=== PATIENT | female | born 1940 | race American Indian/Alaskan Native ===

== ENCOUNTER 2016-11-05 14:15 | Inpatient (IN) | payer MEDICARE, MEDICAID ==
--- NOTE | 2016-11-05 14:59 | ED PDOC ---
Arrival/HPI - General Chief Complaint: Dizziness/Lightheaded Time Seen by Provider: 11/05/16 14:27 Historian: Patient - History of Present Illness Narrative History of Present Illness (Text): 11/05/16 14:40 a 76 year old female, whose past medical history includes lung cancer on chemotherapy, last treatment was last week, is presenting to the emergency department with complaints of slurred speech which began two days ago when she woke up. The patient reports her speech feels jumbled, has difficulty finding words, and has generalized weakness. She notes her symptoms are constant since onset. The patient denies any chest pain, shortness of breath, nausea, vomiting , diarrhea, or any other complaints at this time. Time/Duration: < week (2 days) Symptom Onset: Sudden Symptom Course: Unchanged Activities at Onset: Rest, Light Context: Home Past Medical History - Provider Review Nursing Documentation Reviewed: Yes - Infectious Disease Hx of Infectious Diseases: None - Cardiac Hx Cardiac Disorders: Yes Hx Hypertension: Yes Hx Peripheral Edema: Yes - Pulmonary Hx Respiratory Disorders: Yes Hx Chronic Obstructive Pulmonary Disease (COPD): Yes Hx Emphysema: Yes Hx Lung Cancer: Yes Hx Pneumonia: Yes (FEB 2016 HOSPITALIZED) - Neurological Hx Neurological Disorder: No Hx Vertigo: Yes - HEENT Hx HEENT Disorder: Yes Hx Cataracts: Yes Other/Comment: hearing impairment - Renal Hx Renal Disorder: No - Endocrine/Metabolic Hx Endocrine Disorders: Yes (ENLARGED THYRIOD NOT CANCEROUS) - Hematological/Oncological Hx Blood Disorders: Yes Hx Blood Transfusions: No Hx Blood Transfusion Reaction: No Hx Cancer: Yes (BREAST HX RADIATION 2006) Other/Comment: Radiation therapy for breast cancer. lung CA currently under Chemo. Last Tx was last week. - Integumentary Hx Dermatological Disorder: No - Musculoskeletal/Rheumatological Hx Musculoskeletal Disorders: No Hx Falls: No - Gastrointestinal Hx Gastrointestinal Disorders: No - Genitourinary/Gynecological Hx Genitourinary Disorders: No - Psychiatric Hx Psychophysiologic Disorder: No Hx Substance Use: No - Surgical History Hx Vascular Access Device: Yes (R PortACath) - Anesthesia Hx Anesthesia: Yes Hx Anesthesia Reactions: No Hx Malignant Hyperthermia: No - Suicidal Assessment Feels Threatened In Home Enviroment: No Family/Social History - Physician Review Nursing Documentation Reviewed: Yes Family/Social History: Unknown Family HX Smoking Status: Never Smoked Hx Alcohol Use: No Hx Substance Use: No Allergies/Home Meds Allergies/Adverse Reactions: Allergies No Known Allergies Allergy (Verified 11/05/16 14:47) Home Medications: Home Meds Medication Instructions Recorded Confirmed Unobtainable 11/05/16 11/05/16 Review of Systems - Physician Review All systems were reviewed & negative as marked: Yes - Review of Systems Constitutional: Other (Generalized weakness) Respiratory: absent: SOB Cardiovascular: absent: Chest Pain Gastrointestinal: absent: Diarrhea, Nausea, Vomiting Neurological: Headache (yesterday but not today), Speech Changes (Slurred/ jumbled). absent: Focal Weakness Physical Exam Vital Signs Reviewed: Yes Vital Signs Temp Pulse Resp BP Pulse Ox 11/05/16 18:59 98.1 F 83 19 122/66 11/05/16 18:42 98.6 F 82 19 130/71 11/05/16 18:26 98.6 F 82 19 132/70 98 11/05/16 15:42 98 F 83 20 121/65 100 - Systems Exam Head: Present: Atraumatic, Normocephalic Pupils: Present: PERRL Extroacular Muscles: Present: EOMI Mouth: Present: Moist Mucous Membranes, Other (Mild speech delay/ no aphasia) Neck: Present: Normal Range of Motion Respiratory/Chest: Present: Clear to Auscultation, Good Air Exchange. No: Respiratory Distress, Accessory Muscle Use Cardiovascular: Present: Regular Rate and Rhythm, Normal S1, S2. No: Murmurs Abdomen: Present: Normal Bowel Sounds. No: Tenderness, Distention, Peritoneal Signs Upper Extremity: Present: Normal Inspection. No: Cyanosis, Edema Lower Extremity: Present: Normal Inspection. No: Edema Neurological: Present: GCS=15, Speech Normal, Motor Func Grossly Intact, Normal Sensory Function, Other (No focal deficits) Skin: Present: Warm, Dry, Normal Color. No: Rashes Psychiatric: Present: Alert, Oriented x 3, Normal Insight, Normal Concentration Medical Decision Making ED Course and Treatment: 11/05/16 15:04 Progress Notes: EKG: Ordered, reviewed, and independently interpreted the EKG. Rate : 84 BPM Rhythm : NSR Interpretation : Left bundle branch block Comparison : No previous EKG for comparison. 11/05/16 17:00 ICU doctor at bedside- rec 3 bags of plts platelets and prbc ordered disc krysten Jauregui- no further intervention at this time. the pt was transferred up to ICU in stable condition - Critical Care Critical Care Minutes: 60 minutes - Lab Interpretations Lab Results: 11/05/16 15:40 11/05/16 15:40 Lab Results 11/05/16 16:30: Blood Type A POSITIVE, Antibody Screen Negative, Crossmatch See Detail, BBK History Checked Patient has bt 11/05/16 15:40: POC Glucose (mg/dL) 149 H 11/05/16 15:40: Sodium 138, Potassium 3.7, Chloride 104, Carbon Dioxide 22, Anion Gap 16, BUN 19, Creatinine 1.2, Est GFR ( Amer) 53, Est GFR (Non- Af Amer) 44, Random Glucose 117 H, Calcium 8.3 L, Total Bilirubin 0.6, AST 25, ALT 28, Alkaline Phosphatase 122, Troponin I 0.69 H*, Total Protein 6.4, Albumin 3.7, Globulin 2.6, Albumin/Globulin Ratio 1.4, Triglycerides 114, Cholesterol 179, LDL Cholesterol Direct 97, HDL Cholesterol 65 H 11/05/16 15:40: PT 12.1 H, INR 1.12 H, APTT 25.8 11/05/16 15:40: WBC 1.1 L* D, RBC 1.96 L, Hgb 6.6 L* D, Hct 19.1 L*, MCV 97.4, MCH 33.7, MCHC 34.6, RDW 17.4 H, Plt Count 3 L*, Neutrophils % (Manual) 2 L, Lymphocytes % (Manual) 98 H, Monocytes % (Manual) 0 L, Platelet Evaluation Low 11/05/16 14:31: POC Glucose (mg/dL) 135 H - RAD Interpretation Radiology Orders: 11/05/16 14:47 CHEST PORTABLE [RAD] Stat 11/05/16 14:48 HEAD W/O CONTRAST [CT] Stat - Scribe Statement The provider has reviewed the documentation as recorded by the Rajinder Riley Provider Scribe Attestation: All medical record entries made by the Scribe were at my direction and personally dictated by me. I have reviewed the chart and agree that the record accurately reflects my personal performance of the history, physical exam, medical decision making, and the department course for this patient. I have also personally directed, reviewed, and agree with the discharge instructions and disposition. Disposition/Present on Arrival - Present on Arrival Any Indicators Present on Arrival: No History of DVT/PE: No History of Uncontrolled Diabetes: No Urinary Catheter: No History of Decub. Ulcer: No History Surgical Site Infection Following: None - Disposition Have Diagnosis and Disposition been Completed?: Yes Diagnosis: Subarachnoid hemorrhage, Thrombocytopenia, Anemia, Leukopenia Disposition: HOSPITALIZED Disposition Time: 17:04 Patient Problems: Current Active Problems Problem Status Onset Anemia Acute Leukopenia Acute Subarachnoid hemorrhage Acute Thrombocytopenia Acute Condition: SERIOUS
[2016-11-05 15:59] LABS: MEAN CELL VOLUME 97.4 fL (80.0-105.0); MEAN CORPUSCULAR HEMOGLOBIN 33.7 pg (25.0-35.0); MEAN CORPUSCULAR HGB CONC 34.6 g/dl (31.0-37.0); RBC 1.96 10^6/uL (3.5-6.1); RED CELL DISTRIBUTION WIDTH 17.4 % (11.5-14.5)
[2016-11-05 16:10] LABS: ALB/GLOB RATIO 1.4 (1.1-1.8); ALBUMIN 3.7 g/dL (3.0-4.8); CALCIUM 8.3 mg/dL (8.4-10.5)
[2016-11-05 16:12] LABS: INR 1.12 (0.93-1.08); PARTIAL THROMBOPLASTIN TIME 25.8 Seconds (23.7-30.8); PROTHROMBIN TIME 12.1 Seconds (9.9-11.8)
[2016-11-05 16:31] LABS: TROPONIN I 0.69 ng/mL
[2016-11-05 16:45] LABS: HEMOGLOBIN 6.6 gm/dL (12.0-16.0); PLATELET COUNT 3 10^3/uL (120.0-450.0); WHITE BLOOD COUNT 1.1 10^3/ul (4.5-11.0)
--- NOTE | 2016-11-05 16:45 | CT ---
PROCEDURE: CT HEAD WITHOUT CONTRAST. HISTORY: slurred speech COMPARISON: None available. TECHNIQUE: Axial computed tomography images were obtained through the head/brain without intravenous contrast. Radiation dose: Total exam DLP = 774.23 mGy-cm. This CT exam was performed using one or more of the following dose reduction techniques: Automated exposure control, adjustment of the mA and/or kV according to patient size, and/or use of iterative reconstruction technique. FINDINGS: HEMORRHAGE: There is a small left frontal subarachnoid hemorrhage. BRAIN: There is no mass or mass effect. There are mild chronic microangiopathic changes. 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 VENTRICLES: There is mild age-related global parenchymal volume loss and proportionate enlargement of the ventricles and cortical sulci. CALVARIUM: The skull base and calvarium are normal. Mild hyperostosis frontalis interna. PARANASAL SINUSES: Predominantly clear. MASTOID AIR CELLS: Predominantly clear. OTHER FINDINGS: None. IMPRESSION: 1. Small left frontal subarachnoid hemorrhage. 2. Mild chronic microangiopathic changes and mild age-related global parenchymal volume loss. 3. 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 Critical findings were discussed with Dr. Wilson Sanz on 11/05/2016 at 4:40 p.m.
[2016-11-05 17:19] LABS: LYMPHOCYTE 98 % (22.0-35.0); NEUTROPHIL 2 % (50.0-70.0); PLATELET ESTIMATE LOW (NORMAL)
[2016-11-05 17:27] LABS: MONOCYTE 0 % (1.0-6.0)
--- NOTE | 2016-11-05 17:29 | RAD ---
HISTORY: weakness COMPARISON: None available. FINDINGS: LUNGS: No acute infiltrate is identified in the pulmonary vascular pattern appears normal. Small nodular density at the left 6th intercostal space, midclavicular line, which is a typical location for nipple shadow. Follow-up nipple shadow radiograph is recommended to confirm this finding as there is no comparison available. Right-sided LifePort calcified with placed with the tip terminating at the atrial -caval junction region PLEURA: No significant pleural effusion identified, no pneumothorax apparent. CARDIOVASCULAR: Normal. OSSEOUS STRUCTURES: No significant abnormalities. VISUALIZED UPPER ABDOMEN: Normal. OTHER FINDINGS: None. IMPRESSION: 1. No acute infiltrate or pleural effusion identified. Normal cardiac size. 2. Prior life port catheter placement. 3. Nodular density at the left base likely reflects nipple shadow. Repeat chest radiograph with nipple markers advised versus chest CT. Discrepancy ER note and PA review SI and to 7 case.
--- NOTE | 2016-11-05 18:07 | CP.PCM.CON ---
<CA CHAN - Last Filed: 11/05/16 18:21> History of Present Illness - History of Present Illness History of Present Illness: 76F with PMH of breast cancer (currently on chemo) and [place] s/p 2 stents, presented to ED for slurred speech and AMS x past 3 days. She received chemotherapy 2 weeks earlier, and was receiving unknown injections at Dr Rodriguez's ( Oncologist) office this Monday. On , she had a sudden onset of slurred speech and altered mentation. Son noticed it today, and brought her to ER. She c /o mild right sided weakness and some nausea. Denies f/c/vomiting, cp, sob, abdominal pain, urinary frequency/burning. In Ed, pt AAOx3, + slurred speech, pancytopenic, wbc 1.1, hgb 6.6, plts 3, elevated trop 0.69, head Ct significant for small L frontal SAH. ICU consulted for airway protection, possible further deterioration/management. PMH: breast cancer (on chemotherapy), [place] in 2004, s/p 2 stents PSH: None All: NKA SH: Quit smoking February 2016, No etoh/drug use. Oncologist: Dr. Rodriguez Review of Systems - Constitutional Constitutional: Headache, Lethargy. absent: Chills, Night Sweats - EENT Eyes: absent: Change in Vision - Cardiovascular Cardiovascular: absent: Chest Pain, Diaphoresis, Dyspnea, Radiating Pain - Respiratory Respiratory: absent: Cough - Gastrointestinal Gastrointestinal: Nausea. absent: Abdominal Pain, Vomiting - Genitourinary Genitourinary: absent: Urinary Frequency, Urinary Hesitance - Neurological Neurological: Abnormal Gait, Abnormal Speech, Headaches, Weakness. absent: Dizziness - Endocrine Endocrine: absent: Excessive Sweating - Hematologic/Lymphatic Hematologic: absent: Easy Bruising Past Patient History - Infectious Disease Hx of Infectious Diseases: None - Past Medical History & Family History Past Medical History?: Yes - Past Social History Smoking Status: Former Smoker Chewing Tobacco Use: No Alcohol: None Drugs: Denies Home Situation {Lives}: Alone - CARDIAC Hx Cardiac Disorders: Yes Hx Hypertension: No Hx Peripheral Edema: No - PULMONARY Hx Respiratory Disorders: Yes Hx Chronic Obstructive Pulmonary Disease (COPD): Yes Hx Emphysema: Yes Hx Lung Cancer: Yes Hx Pneumonia: Yes (FEB 2016 HOSPITALIZED) - NEUROLOGICAL Hx Neurological Disorder: No Hx Vertigo: Yes - HEENT Hx HEENT Problems: Yes Hx Cataracts: Yes Other/Comment: hearing impairment - RENAL Hx Chronic Kidney Disease: No - ENDOCRINE/METABOLIC Hx Endocrine Disorders: Yes (ENLARGED THYRIOD NOT CANCEROUS) - HEMATOLOGICAL/ONCOLOGICAL Hx Blood Disorders: Yes Hx Blood Transfusions: No Hx Blood Transfusion Reaction: No Hx Cancer: Yes (BREAST HX RADIATION 2006) Other/Comment: Radiation therapy for breast cancer. lung CA currently under Chemo. Last Tx was last week. - INTEGUMENTARY Hx Dermatological Problems: No - MUSCULOSKELETAL/RHEUMATOLOGICAL Hx Musculoskeletal Disorders: No Hx Falls: No - GASTROINTESTINAL Hx Gastrointestinal Disorders: No - GENITOURINARY/GYNECOLOGICAL Hx Genitourinary Disorders: No - PSYCHIATRIC Hx Psychophysiologic Disorder: No Hx Substance Use: No - SURGICAL HISTORY Hx Vascular Access Device: Yes (R PortACath) - ANESTHESIA Hx Anesthesia: Yes Hx Anesthesia Reactions: No Hx Malignant Hyperthermia: No Meds Allergies/Adverse Reactions: Allergies Allergy/AdvReac Type Severity Reaction Status Date / Time No Known Allergies Allergy Verified 11/05/16 14:47 Physical Exam - Constitutional Appears: No Acute Distress - Head Exam Head Exam: ATRAUMATIC, NORMOCEPHALIC - Eye Exam Eye Exam: PERRL - ENT Exam ENT Exam: Mucous Membranes Moist - Respiratory Exam Respiratory Exam: Clear to Auscultation Bilateral - Cardiovascular Exam Cardiovascular Exam: REGULAR RHYTHM, +S1, +S2. absent: Systolic Murmur - GI/Abdominal Exam GI & Abdominal Exam: Normal Bowel Sounds, Soft. absent: Distended, Tenderness - Extremities Exam Extremities exam: Negative for: calf tenderness, pedal edema - Neurological Exam Neurological exam: Alert, CN II-XII Intact, Oriented x3 Additional comments: slurred speech. RUE 4/5, LUE 5/5, RLE and LLE 5/5. Sensation intact throughout. Reflexes biceps, patellar, achilles 2/4. - Psychiatric Exam Psychiatric exam: Normal Affect, Normal Mood - Skin Skin Exam: Dry, Warm Results - Vital Signs Recent Vital Signs: Last Vital Signs Temp 98 F 11/05/16 15:42 Pulse 83 11/05/16 15:42 Resp 20 11/05/16 15:42 BP 121/65 11/05/16 15:42 Pulse Ox 100 11/05/16 15:42 - Labs Result Diagrams: 11/05/16 15:40 11/05/16 15:40 - EKG Data EKG Interpreted by: ER Physician EKG shows normal: Sinus rhythm Rate: Normal Assessment & Plan - Assessment and Plan (Free Text) Assessment: 76F with PMH lung cancer (on chemo), breast cancer and [place] s/p stents, found to have acute SAH, in the setting of pancytopenia, plts 6, admitted to ICU for airway protection and further managament. Plan: Neuro: AAOx3. Slurred speech and lethargic for past [address] head shows L small frontal SAH. Mild RUE weakness, has had it for a long time. will c/s Neurosx and Neurology. Cont to monitor. CV : BP 125/67, NSR. trop elevated 0.69. will c/s cardio. Ekg No St changes. Maintain MAP>65. Cont to monitor. Pulm: On RA. Saturating well. Maintain O2 sat>90% Hx of lung ca on chemo, will hold for now. hx of smoking. Protect airway, in the setting of AMS. CXR neg for infiltrates GI: NPO. protonix Renal /fluids/Electrolytes: BUN/Cr 19/1.2. Replace lytes, maintain euvolemia. Continue to monitor. ID: Afebrile, wbc 1.1, leukopenic likely form chemo. cont to monitor. Endo: No hx of DM. Maintain euglycemia. Heme: Hgb 6.6. no sob, cp. Plts 3, in the setting of SAH, will transfuse 3-4 bags platelets. Cont to monitor. DVT ppx - thrombocytopenic GI ppx - start protonix Discussed and seen with Dr. Briseno. Ca Chan, PGY1 - Date & Time Date: 11/05/16 Time: 18:21 <Cristian Briseno - Last Filed: 11/06/16 08:18> Meds - Medications Medications: Current Medications Acetaminophen (Ofirmev) 1,000 mg in 100 mls @ 400 mls/hr IVPB Q6H PRN PRN Reason: Temperature Stop: 11/08/16 01:29 Last Admin: 11/06/16 01:35 Dose: 400 mls/hr Potassium Chloride (Potassium Chloride 10 Meq/100 Ml) 10 meq in 100 mls @ 100 mls/hr IVPB ONCE ONE Stop: 11/06/16 08:15 Results - Vital Signs Recent Vital Signs: Last Vital Signs Temp 98.5 F 11/06/16 04:00 Pulse 80 11/06/16 05:30 Resp 16 11/06/16 05:30 BP 128/69 11/06/16 05:00 Pulse Ox 96 11/06/16 05:30 - Labs Result Diagrams: 11/06/16 05:00 11/06/16 05:00 Labs: Laboratory Results - last 24 hr 11/05/16 11/05/16 11/06/16 21:15 23:06 05:00 WBC 1.3 L* 1.3 L* RBC 1.97 L 2.71 L Hgb 6.4 L* 8.6 L Hct 19.1 L* 25.1 L MCV 97.0 92.6 MCH 32.5 31.7 MCHC 33.5 34.3 RDW 17.4 H 16.8 H Plt Count 45 L* 57 L MPV 9.6 9.8 Gran % 1.5 L 1.5 L Lymph % (Auto) 97.0 H 97.7 H [place] % (Auto) 1.5 0.8 L Eos % (Auto) 0.0 L 0.0 L Baso % (Auto) 0.0 0.0 Gran # 0.02 L 0.02 L Lymph # 1.3 1.3 [place] # 0.0 L 0.0 L Eos # 0.0 0.0 Baso # 0.00 0.00 Sodium Potassium Chloride Carbon Dioxide Anion Gap BUN Creatinine Est GFR ( Amer) Est GFR (Non-Af Amer) POC Glucose (mg/dL) 133 H Random Glucose Calcium Total Bilirubin AST ALT Alkaline Phosphatase Total Protein Albumin Globulin Albumin/Globulin Ratio 11/06/16 11/06/16 05:00 07:17 WBC RBC Hgb Hct MCV MCH MCHC RDW Plt Count MPV Gran % Lymph % (Auto) [place] % (Auto) Eos % (Auto) Baso % (Auto) Gran # Lymph # [place] # Eos # Baso # Sodium 140 Potassium 3.5 L Chloride 106 Carbon Dioxide 24 Anion Gap 14 BUN 17 Creatinine 1.1 Est GFR ( Amer) 59 Est GFR (Non-Af Amer) 48 POC Glucose (mg/dL) 114 H Random Glucose 94 Calcium 8.3 L Total Bilirubin 1.1 AST 29 ALT 24 Alkaline Phosphatase 116 Total Protein 6.0 Albumin 3.6 Globulin 2.4 Albumin/Globulin Ratio 1.5 Attending/Attestation - Attestation I have personally seen and examined this patient.: Yes I have fully participated in the care of the patient.: Yes I have reviewed all pertinent clinical information: Yes Notes (Text): 11/06/16 08:14 76 yo with non traumatic spontaneous SAH vs IPH in the setting of severe thrombocytopenia (3) after chemotherapy for lung cancer. Came to [facility] [place] slurred speech but easily discernable and unsteady gait. Neurosurgery eval is appreciated. Will aggressively supplement plats and maintain it above 100. Will keep normothermia, euglycemia and euvolemia. Will maintain BP control. Will repeat CTH in am. DVT/GI prophylaxis ccm time 40 min
[2016-11-05 21:26] LABS: GRAN # 0.02 (1.4-6.5); GRAN % 1.5 % (50.0-68.0); LYMPH # 1.3 (1.2-3.4); MEAN CORPUSCULAR HEMOGLOBIN 32.5 pg (25.0-35.0); MEAN CORPUSCULAR HGB CONC 33.5 g/dl (31.0-37.0); MEAN PLATELET VOLUME 9.6 fl (7.0-11.0); MONO % 1.5 % (1.0-6.0); PLATELET COUNT 45 10^3/uL (120.0-450.0); RBC 1.97 10^6/uL (3.5-6.1); RED CELL DISTRIBUTION WIDTH 17.4 % (11.5-14.5)
[2016-11-05 21:29] VITALS: BMI 25.4
[2016-11-05 21:32] LABS: HEMOGLOBIN 6.4 gm/dL (12.0-16.0); WHITE BLOOD COUNT 1.3 10^3/ul (4.5-11.0)
--- NOTE | 2016-11-05 23:30 | CP.PCM.HP ---
History of Present Illness - History of Present Illness History of Present Illness: 11/05/16 76F with PMH of breast cancer (currently on chemo) and [place] s/p 2 stents, presented to ED for slurred speech and AMS x past 3 days. She received chemotherapy 2 weeks earlier, and was receiving unknown injections at Dr Rodriguez's ( Oncologist) office this Monday. On , she had a sudden onset of slurred speech and altered mentation. Son noticed it today, and brought her to ER. She c /o mild right sided weakness and some nausea. Denies f/c/vomiting, cp, sob, abdominal pain, urinary frequency/burning. In Ed, pt AAOx3, + slurred speech, pancytopenic, wbc 1.1, hgb 6.6, plts 3, elevated trop 0.69, head Ct significant for small L frontal SAH. ICU consulted for airway protection, possible further deterioration/management. Present on Admission - Present on Admission Any Indicators Present on Admission: No Review of Systems - Constitutional Constitutional: As Per HPI - EENT Eyes: As Per HPI Ears: As Per HPI Nose/Mouth/Throat: As Per HPI - Breasts Breasts: As Per HPI - Cardiovascular Cardiovascular: As Per HPI - Respiratory Respiratory: As Per HPI - Gastrointestinal Gastrointestinal: As Per HPI - Genitourinary Genitourinary: As Per HPI - Reproductive: Female Reproductive:Female: As Per HPI - Menstruation Menstruation: As Per HPI - Musculoskeletal Musculoskeletal: As Per HPI - Integumentary Integumentary: As Per HPI - Neurological Neurological: As Per HPI - Psychiatric Psychiatric: As Per HPI - Endocrine Endocrine: As Per HPI - Hematologic/Lymphatic Hematologic: As Per HPI Past Patient History - Infectious Disease Hx of Infectious Diseases: None - Past Medical History & Family History Past Medical History?: Yes - Past Social History Smoking Status: Never Smoked - CARDIAC Hx Cardiac Disorders: Yes Hx Hypertension: Yes Hx Peripheral Edema: Yes - PULMONARY Hx Respiratory Disorders: Yes Hx Chronic Obstructive Pulmonary Disease (COPD): Yes Hx Emphysema: Yes Hx Lung Cancer: Yes Hx Pneumonia: Yes (FEB 2016 HOSPITALIZED) - NEUROLOGICAL Hx Neurological Disorder: No Hx Vertigo: Yes - HEENT Hx HEENT Problems: Yes Hx Cataracts: Yes Other/Comment: hearing impairment - RENAL Hx Chronic Kidney Disease: No - ENDOCRINE/METABOLIC Hx Endocrine Disorders: Yes (ENLARGED THYRIOD NOT CANCEROUS) - HEMATOLOGICAL/ONCOLOGICAL Hx Blood Disorders: Yes Hx Blood Transfusions: No Hx Blood Transfusion Reaction: No Hx Cancer: Yes (BREAST HX RADIATION 2007) Other/Comment: Radiation therapy for breast cancer. lung CA currently under Chemo. Last Tx was last week. - INTEGUMENTARY Hx Dermatological Problems: No - MUSCULOSKELETAL/RHEUMATOLOGICAL Hx Musculoskeletal Disorders: No Hx Falls: No - GASTROINTESTINAL Hx Gastrointestinal Disorders: No - GENITOURINARY/GYNECOLOGICAL Hx Genitourinary Disorders: No - PSYCHIATRIC Hx Psychophysiologic Disorder: No Hx Substance Use: No - SURGICAL HISTORY Hx Vascular Access Device: Yes (R PortACath) - ANESTHESIA Hx Anesthesia: Yes Hx Anesthesia Reactions: No Hx Malignant Hyperthermia: No Meds Allergies/Adverse Reactions: Allergies Allergy/AdvReac Type Severity Reaction Status Date / Time No Known Allergies Allergy Verified 11/05/16 14:47 Physical Exam - Constitutional Appears: Well - Head Exam Head Exam: ATRAUMATIC, NORMAL INSPECTION, NORMOCEPHALIC - Eye Exam Eye Exam: EOMI, Normal appearance, PERRL Pupil Exam: NORMAL ACCOMODATION, PERRL - ENT Exam ENT Exam: Mucous Membranes Moist, Normal Exam - Neck Exam Neck exam: Positive for: Normal Inspection - Respiratory Exam Respiratory Exam: Clear to Auscultation Bilateral, NORMAL BREATHING PATTERN - Cardiovascular Exam Cardiovascular Exam: REGULAR RHYTHM - GI/Abdominal Exam GI & Abdominal Exam: Normal Bowel Sounds, Soft. absent: Tenderness - Rectal Exam Rectal Exam: NORMAL INSPECTION - Exam Exam: Circumcision, NORMAL INSPECTION External exam: NORMAL EXTERNAL EXAM Speculum exam: NORMAL SPECULUM EXAM Bimanual exam: NORMAL BIMANUAL EXAM - Extremities Exam Extremities exam: Positive for: normal inspection - Back Exam Back exam: NORMAL INSPECTION - Neurological Exam Neurological exam: Alert, CN II-XII Intact, Normal Gait, Oriented x3, Reflexes Normal - Psychiatric Exam Psychiatric exam: Normal Affect, Normal Mood - Skin Skin Exam: Dry, Intact, Normal Color, Warm Results - Vital Signs Recent Vital Signs: Last Vital Signs Temp 98.7 F 11/05/16 22:48 Pulse 98 H 11/05/16 22:48 Resp 24 11/05/16 22:48 BP 156/79 H 11/05/16 22:48 Pulse Ox 98 11/05/16 18:26 - Labs Result Diagrams: 11/05/16 21:15 11/05/16 15:40 Labs: Laboratory Results - last 24 hr 11/05/16 21:15 WBC 1.3 L* RBC 1.97 L Hgb 6.4 L* Hct 19.1 L* MCV 97.0 MCH 32.5 MCHC 33.5 RDW 17.4 H Plt Count 45 L* MPV 9.6 Gran % 1.5 L Lymph % (Auto) 97.0 H [place] % (Auto) 1.5 Eos % (Auto) 0.0 L Baso % (Auto) 0.0 Gran # 0.02 L Lymph # 1.3 [place] # 0.0 L Eos # 0.0 Baso # 0.00 Assessment & Plan - Assessment and Plan (Free Text) Assessment: 76F with PMH lung cancer (on chemo), breast cancer and [place] s/p stents, found to have acute SAH, in the setting of pancytopenia, plts 6, admitted to ICU for airway protection and further managament. Plan: Neuro: AAOx3. Slurred speech and lethargic for past [address] head shows L small frontal SAH. Mild RUE weakness, has had it for a long time. will c/s Neurosx and Neurology. Cont to monitor. CV : BP 125/67, NSR. trop elevated 0.69. will c/s cardio. Ekg No St changes. Maintain MAP>65. Cont to monitor. Pulm: On RA. Saturating well. Maintain O2 sat>90% Hx of lung ca on chemo, will hold for now. hx of smoking. Protect airway, in the setting of AMS. CXR neg for infiltrates GI: NPO. protonix Renal /fluids/Electrolytes: BUN/Cr 19/1.2. Replace lytes, maintain euvolemia. Continue to monitor. ID: Afebrile, wbc 1.1, leukopenic likely form chemo. cont to monitor. Endo: No hx of DM. Maintain euglycemia. Heme: Hgb 6.6. no sob, cp. Plts 3, in the setting of SAH, will transfuse 3-4 bags platelets. Cont to monitor. DVT ppx - thrombocytopenic GI ppx - start protonix
[2016-11-06 06:18] LABS: GRAN # 0.02 (1.4-6.5); GRAN % 1.5 % (50.0-68.0); HEMOGLOBIN 8.6 gm/dL (12.0-16.0); LYMPH # 1.3 (1.2-3.4); LYMPH % 97.7 % (22.0-35.0); MEAN CELL VOLUME 92.6 fL (80.0-105.0); MEAN CORPUSCULAR HEMOGLOBIN 31.7 pg (25.0-35.0); MEAN CORPUSCULAR HGB CONC 34.3 g/dl (31.0-37.0); MEAN PLATELET VOLUME 9.8 fl (7.0-11.0); MONO % 0.8 % (1.0-6.0); PLATELET COUNT 57 10^3/uL (120.0-450.0); RBC 2.71 10^6/uL (3.5-6.1); RED CELL DISTRIBUTION WIDTH 16.8 % (11.5-14.5)
--- NOTE | 2016-11-06 06:20 | CON ---
*------* 76-year-old lady, unfortunately on chemotherapy for cancer treatment with a platelet count of 3, was found to have a very small intracranial hemorrhage. I reviewed the CAT scan, showed an incredibly minimal amount of hemorrhage in one high left frontal sulcus of no clinical import. My recommendation obviously would be to correct the patient's thrombocytopenia if possible. She is at a level of risk of spontaneous (nontraumatic) hemorrhage, but of this particular hemorrhage, it is *------* and is of no clinic concern. Ricardo Jauregui MD
[2016-11-06 06:26] LABS: ALB/GLOB RATIO 1.5 (1.1-1.8); ALBUMIN 3.6 g/dL (3.0-4.8); CALCIUM 8.3 mg/dL (8.4-10.5)
[2016-11-06 06:31] LABS: WHITE BLOOD COUNT 1.3 10^3/ul (4.5-11.0)
--- NOTE | 2016-11-06 08:58 | CT ---
PROCEDURE: CT HEAD WITHOUT CONTRAST. HISTORY: SAH COMPARISON: None available. TECHNIQUE: Axial computed tomography images were obtained through the head/brain without intravenous contrast. Radiation dose: Total exam DLP = 725.[address] exam was performed using one or more of the following dose reduction techniques: Automated exposure control, adjustment of the mA and/or kV according to patient size, and/or use of iterative reconstruction technique. FINDINGS: HEMORRHAGE: Since the prior examination, there has been no significant interval change in known small left frontal subarachnoid hemorrhage. BRAIN: There is no mass, mass effect or abnormal extra-axial fluid collection. 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 No midline shift or herniation. VENTRICLES: There is mild age-related global parenchymal volume loss and proportionate enlargement of the ventricles and cortical sulci. CALVARIUM: The skull base and calvarium are normal. Mild hyperostosis frontalis interna. PARANASAL SINUSES: Predominantly clear. MASTOID AIR CELLS: Predominantly clear. OTHER FINDINGS: None. IMPRESSION: No significant interval change in known small left frontal subarachnoid hemorrhage. No midline shift or herniation. No other significant interval change.
--- NOTE | 2016-11-06 09:58 | CP.PCM.PN ---
<Gina Lao - Last Filed: 11/06/16 12:38> Subjective - Date & Time of Evaluation Date of Evaluation: 11/06/16 Time of Evaluation: 09:56 - Subjective Subjective: PGY-2 ICU progress note Patient seen and examined at bedside in ICU. No acute distress. Patient states that she feels better overall, she slurred speech has improved. She denies chest pain, abd pain, n/v, fever, chills. She requested a diet. Nurse reports transfusion of 1 bag plt overnight and 1 in ED. Objective - Vital Signs/Intake and Output Vital Signs (last 24 hours): Temp Pulse Resp BP Pulse Ox 98.5 F 80 16 128/69 96 11/06/16 04:00 11/06/16 05:30 11/06/16 05:30 11/06/16 05:00 11/06/16 05:30 Intake and Output: 11/06/16 11/06/16 06:59 18:59 Intake Total 932 Output Total 275 Balance 657 - Medications Medications: Current Medications Acetaminophen (Ofirmev) 1,000 mg in 100 mls @ 400 mls/hr IVPB Q6H PRN PRN Reason: Temperature Stop: 11/08/16 01:29 Last Admin: 11/06/16 01:35 Dose: 400 mls/hr - Labs Labs: 11/06/16 05:00 11/06/16 05:00 PT 12.1 Seconds (9.9-11.8) H 11/05/16 15:40 INR 1.12 (0.93-1.08) H 11/05/16 15:40 APTT 25.8 Seconds (23.7-30.8) 11/05/16 15:40 - Constitutional Appears: No Acute Distress - Head Exam Head Exam: ATRAUMATIC, NORMOCEPHALIC - Eye Exam Eye Exam: Normal appearance - ENT Exam ENT Exam: Mucous Membranes Moist - Respiratory Exam Respiratory Exam: Clear to Ausculation Bilateral, NORMAL BREATHING PATTERN. absent: Rales, Rhonchi, Wheezes, Respiratory Distress - Cardiovascular Exam Cardiovascular Exam: REGULAR RHYTHM, +S1, +S2. absent: Tachycardia, Murmur - GI/Abdominal Exam GI & Abdominal Exam: Soft, Normal Bowel Sounds. absent: Distended, Firm, Tenderness - Extremities Exam Extremities Exam: Normal Inspection. absent: Pedal Edema - Neurological Exam Neurological Exam: Alert, Awake, Oriented x3 - Skin Skin Exam: Dry, Intact, Normal Color, Warm Assessment and Plan - Assessment and Plan (Free Text) Assessment: 76F with PMH lung cancer on chemo, breast cancer and [place] s/p stents presented with pancytopenia, found to have acute SAH. Patient has severe thrombocytopenia (plt 3). Plan: Neuro: - AAOx3 - Slurred speech improved - Ct head yesterday shows L small frontal SAH. - repeat CT showed no changed, no midline shift or herniation - neurosurgery recommended observation, correct thrombocytopenia - neuro consulted recs appreciated CV : - BP and heart rate stable - trop elevated 0.69, will repeat - Ekg No St changes. - Maintain MAP>65 - cardio consulted - Cont to monitor. Pulm: - On RA. Saturating well. - Maintain O2 sat>90% - Hx of lung ca on chemo, will hold for now. hx of smoking. - CXR neg for infiltrates - pulm consulted GI: - NPO pending swallow eval 2/2 to AMS Renal: - BUN/Cr stable at baseline - Replace electrolytes as needed - maintain euvolemia - Continue to monitor. ID: - Afebrile, wbc 1.1, leukopenic likely form chemo - cont to monitor. Endo: - Maintain euglycemia. Heme: - presented with pancytopenia, last received chemo 2 weeks - neutorpenic precaution - Hgb 6.6 on admission received 2 units, repeat Hgb 8.6 - Plts 3 on admission, received 2 bags, repeat plt is 57 - will transfuse 2 plts - Cont to monitor. DVT ppx - thrombocytopenic <Cristian Briseno - Last Filed: 11/06/16 15:39> Objective - Vital Signs/Intake and Output Vital Signs (last 24 hours): Temp Pulse Resp BP Pulse Ox 98.1 F 84 18 146/82 93 L 11/06/16 13:08 11/06/16 13:08 11/06/16 13:08 11/06/16 13:11/06/16 12:13 Intake and Output: 11/06/16 11/06/16 06:59 18:59 Intake Total 932 570 Output Total 275 Balance 657 570 - Medications Medications: Current Medications Acetaminophen (Ofirmev) 1,000 mg in 100 mls @ 400 mls/hr IVPB Q6H PRN PRN Reason: Temperature Stop: 11/08/16 01:29 Last Admin: 11/06/16 01:35 Dose: 400 mls/hr Pantoprazole Sodium (Protonix Inj) 40 mg IVP DAILY CHERYL - Labs Labs: 11/06/16 05:00 11/06/16 05:00 PT 12.1 Seconds (9.9-11.8) H 11/05/16 15:40 INR 1.12 (0.93-1.08) H 11/05/16 15:40 APTT 25.8 Seconds (23.7-30.8) 11/05/16 15:40 Attending/Attestation - Attestation I have personally seen and examined this patient.: Yes I have fully participated in the care of the patient.: Yes I have reviewed all pertinent clinical information, including history, physical exam and plan: Yes Notes (Text): 11/06/16 15:32 76 yo with spontaneous SAH vs IPH in the setting of severe thrombocytopenia, now corrected. No need for neurosurgical intervention as per Dr. Jauregui. Todays CTH showed no progression of SAH. Troponin leak likely due to Takotsubo-- no chest pain, no significant EKG changes (LBBB appears to be old). Formal Echo is pending--discussed with cardio service (Dr. Soto covering for Dr. Valdes)-->ok to downgrade to tele from cardio perspective. Patient is alert, awake and oriented x 3, no neuro deficit, in fact reports improvement in her speech. Hemodynamically and respiratory mcdonald stable. Maintain euvolemia, euglycemia, normothremia and 02sat>90%. DVT/GI prophylaxis ccm time 40 min
[2016-11-06 12:23] LABS: TROPONIN I 1.68 ng/mL
--- NOTE | 2016-11-06 13:26 | CARD ---
APPROVED REPORT EKG Measurement Heart [id number] <Conclusion> Normal sinus rhythm Left bundle branch block Abnormal ECG
--- NOTE | 2016-11-06 13:59 | CON ---
DATE: 11/06/2016 NEUROLOGY CONSULT CHIEF COMPLAINT: Dizziness, lightheadedness, status post small left acute subarachnoid hemorrhage. HISTORY OF PRESENT ILLNESS: This is a 76-year-old woman with history of lung cancer on chemotherapy, breast cancer, [place] status post stents, presented with pancytopenia and found to have acute small left frontal subarachnoid hemorrhage without any history of any trauma and came because she felt lightheaded and felt like her speech was jumbled, currently her speech is back at baseline. Repeat CT head showed no significant change in the small left frontal subarachnoid hemorrhage. There is no evidence of any herniation. Neurosurgery recommended observation and no surgical intervention. Currently, the patient has no focal neurological deficits on examination and has been following commands and is stable, but her platelet count when she came in was 3, now it is trended up to 57 slowly with the replacement. PAST MEDICAL HISTORY: History of lung cancer status post chemotherapy and breast cancer, CO status post stents. REVIEW OF SYSTEMS: A 14-point review of system is negative except as in the HPI. ALLERGIES: No known drug allergies. SOCIAL HISTORY: No illicit drug use, smoking or EtOH abuse. She is a former smoker in the past. FAMILY HISTORY: Noncontributory. PHYSICAL EXAMINATION: VITAL SIGNS: Temperature 98.2, pulse rate 90, blood pressure 150/89, respiratory rate 18. GENERAL: The patient is sitting up in bed, in no acute distress. HEENT: Head is atraumatic and normocephalic. PERRLA. Extraocular muscles intact. NECK: Supple. No JVD. No adenopathy noted. LUNGS: Clear to auscultation. No adventitious sounds. HEART: S1 and S2, normal rate and rhythm. No murmurs, rubs, or gallops. ABDOMEN: Soft, nontender, nondistended. Bowel sounds present. EXTREMITIES: No clubbing, no cyanosis. Peripheral pulses 2+ felt bilaterally. NEUROLOGIC: The patient is alert and oriented to person and place, month, and year. Speech is fluent without any errors. Cranial nerves II through XII intact. Motor exam: Moves all extremities equally. Toes are downgoing bilaterally. Sensory exam: Light touch, pinprick, proprioception and vibration are intact. DTRs are 2+ throughout. Gait is deferred for now. LABORATORY DATA: WBC is 1.3, hemoglobin of 8.6, hematocrit 25.1, platelet count 57. Sodium 140, potassium 3.5, chloride 106, carbon dioxide 24, BUN is 75, creatinine 1.1, random glucose is 114. ASSESSMENT AND PLAN: This is a 76-year-old woman with a past medical history of lung cancer, on chemotherapy; breast cancer; history of myocardial infarction, status post stents presented with pancytopenia and found to have a small left frontal subarachnoid hemorrhage and the patient of dizziness and slurred speech which has resolved. She denies any headaches or any change in sense of vision, taste or smell. She has severe thrombocytopenia, initially with a platelet count of 3 and has trended up to 57. At this time, she is neurologically stable. Repeat CAT scan showed no change in the left frontal subarachnoid hemorrhage and we would recommend to correct the thrombocytopenia, which can lead to the spontaneous subarachnoid hemorrhages at this time. I also recommend CT angio of the head to rule out of any aneurysms and avoid any antiplatelet for at least 2 weeks for the acute onset of bleed. At this time, continue with hematology and oncology management with regards to severe pancytopenia and continue current present medical management and PT assessment. Thank you for this consult. Jack Acosta MD
--- NOTE | 2016-11-06 14:05 | CARD ---
APPROVED REPORT EKG Measurement Heart [id number] <Conclusion> Normal sinus rhythm Left bundle branch block Abnormal ECG
--- NOTE | 2016-11-06 17:30 | ED PDOC ---
ED Additional Note - Physician Additional Note Physician Additional Note: Spoke with Dr. Ibarra regarding chest x-ray that was placed into the PA review folder. cxr read by radiologist shows; 1. No acute infiltrate or pleural effusion identified. Normal cardiac size. 2. Prior life port catheter placement. 3. Nodular density at the left base likely reflects nipple shadow. Repeat chest radiograph with nipple markers advised versus chest CT. discussed nodular density with dr ibarra; advise repeat cxr with nipple markers.
[2016-11-06] MEDS ORDERED: Iohexol 350 MG/100 ML VIAL ONE (19:15)
[2016-11-06 20:16] LABS: HEMOGLOBIN 9.5 gm/dL (12.0-16.0); MEAN CELL VOLUME 92.8 fL (80.0-105.0); MEAN CORPUSCULAR HEMOGLOBIN 32.6 pg (25.0-35.0); MEAN CORPUSCULAR HGB CONC 35.2 g/dl (31.0-37.0); MEAN PLATELET VOLUME 8.8 fl (7.0-11.0); RBC 2.91 10^6/uL (3.5-6.1); RED CELL DISTRIBUTION WIDTH 17.2 % (11.5-14.5)
[2016-11-06 20:22] LABS: WHITE BLOOD COUNT 1.6 10^3/ul (4.5-11.0)
--- NOTE | 2016-11-06 21:22 | CT ---
EXAM: CT Chest Without Intravenous Contrast CLINICAL HISTORY: 76 years old, female; Signs and symptoms; Mass, lump, or swelling in the chest; Patient HX: R/O mass TECHNIQUE: Axial computed tomography images of the chest without intravenous contrast. This CT exam was performed using one or more of the following dose reduction techniques: automated exposure control, adjustment of the mA and/or kV according to patient size, and/or use of iterative reconstruction technique. MIP reconstructed images were created and reviewed. Coronal and sagittal reformatted images were created and reviewed. COMPARISON: DX - CHEST PORTABLE 11/05/2016 3:11:32 PM FINDINGS: Lungs/pleura: Apical scarring. Advanced centrilobular and paraseptal emphysematous changes. Coarsened interstitial markings. Small bilateral effusions. Approximately 3 x 1.5 cm pleural-based masslike opacity at the lateral right lung base with adjacent groundglass opacity, question related to infection versus neoplasm. Approximately 3 x 1.5 cm pleural-based masslike focus lateral posterior left lower lobe adjacent to a bulla, question related to scarring versus neoplasm. No pneumothorax. Heart: No cardiomegaly. No significant pericardial effusion. Bones: No acute fracture. Degenerative changes. Vasculature: Limited evaluation without contrast. Atherosclerosis. Significant coronary artery calcification. No thoracic aortic aneurysm. Right port tip in the right atrium. Lymph nodes: Enlarged pretracheal node. Limited evaluation of sara without contrast. Upper abdomen: IVC filter noted. Enlarged left adrenal gland. Small hiatal hernia. Perinephric stranding. Limited evaluation due to partial visualization lack of contrast. IMPRESSION: Approximately 3 x 1.5 cm pleural-based masslike opacity at the lateral right lung base with adjacent groundglass opacity, question related to infection versus neoplasm. Approximately 3 x 1.5 cm pleural-based masslike focus lateral posterior left lower lobe adjacent to a bulla, question related to scarring versus neoplasm. Advanced centrilobular and paraseptal emphysematous changes. Coarsened interstitial markings. Small bilateral effusions. Apical scarring. Please see additional details/findings as above. Some of the above findings may warrant followup evaluation.
--- NOTE | 2016-11-07 00:32 | CP.PCM.PN ---
Subjective - Date & Time of Evaluation Date of Evaluation: 11/06/16 Time of Evaluation: 05:00 - Subjective Subjective: Patient seen and examined at bedside in ICU. No acute distress. Patient states that she feels better overall, she slurred speech has improved. She denies chest pain, abd pain, n/v, fever, chills. She requested a diet. Nurse reports transfusion of 1 bag plt overnight and 1 in ED.family was in the room . d/d . all qs answered Objective - Vital Signs/Intake and Output Vital Signs (last 24 hours): Temp Pulse Resp BP Pulse Ox 98.1 F 91 H 19 162/90 H 93 L 11/06/16 19:44 11/06/16 22:30 11/06/16 22:30 11/06/16 19:44 11/06/16 22:30 Intake and Output: 11/06/16 11/07/16 18:59 06:59 Intake Total 1340 Output Total 800 Balance 540 - Medications Medications: Current Medications Albuterol/Ipratropium (Duoneb 3 Mg/0.5 Mg (3 Ml) Ud) 3 ml IH [id number] CHERYL Acetaminophen (Ofirmev) 1,000 mg in 100 mls @ 400 mls/hr IVPB Q6H PRN PRN Reason: Temperature Stop: 11/08/16 01:29 Last Admin: 11/06/16 01:35 Dose: 400 mls/hr Pantoprazole Sodium (Protonix Inj) 40 mg IVP DAILY CHERYL - Labs Labs: 11/06/16 20:00 11/06/16 05:00 PT 12.1 Seconds (9.9-11.8) H 11/05/16 15:40 INR 1.12 (0.93-1.08) H 11/05/16 15:40 APTT 25.8 Seconds (23.7-30.8) 11/05/16 15:40 - Constitutional Appears: Well - Head Exam Head Exam: ATRAUMATIC, NORMAL INSPECTION, NORMOCEPHALIC - Eye Exam Eye Exam: EOMI, Normal appearance, PERRL Pupil Exam: NORMAL ACCOMODATION, PERRL - ENT Exam ENT Exam: Mucous Membranes Moist, Normal Exam - Neck Exam Neck Exam: Full ROM, Normal Inspection. absent: Lymphadenopathy - Respiratory Exam Respiratory Exam: Clear to Ausculation Bilateral, NORMAL BREATHING PATTERN - Cardiovascular Exam Cardiovascular Exam: REGULAR RHYTHM, +S1, +S2. absent: Murmur - GI/Abdominal Exam GI & Abdominal Exam: Soft, Normal Bowel Sounds. absent: Tenderness - Rectal Exam Rectal Exam: NORMAL INSPECTION - Exam Exam: Circumcision, NORMAL INSPECTION External exam: NORMAL EXTERNAL EXAM Speculum exam: NORMAL SPECULUM EXAM Bimanual exam: NORMAL BIMANUAL EXAM - Extremities Exam Extremities Exam: Full ROM, Normal Capillary Refill, Normal Inspection. absent : Joint Swelling, Pedal Edema - Back Exam Back Exam: NORMAL INSPECTION - Neurological Exam Neurological Exam: Alert, Awake, CN II-XII Intact, Normal Gait, Oriented x3 - Psychiatric Exam Psychiatric exam: Normal Affect, Normal Mood - Skin Skin Exam: Dry, Intact, Normal Color, Warm Assessment and Plan - Assessment and Plan (Free Text) Assessment: 76F with PMH lung cancer on chemo, breast cancer and [place] s/p stents presented with pancytopenia, found to have acute SAH. Patient has severe thrombocytopenia (plt 3). Plan: Neuro: - AAOx3 - Slurred speech improved - Ct head yesterday shows L small frontal SAH. - repeat CT showed no changed, no midline shift or herniation - neurosurgery recommended observation, correct thrombocytopenia - neuro consulted recs appreciated CV : - BP and heart rate stable - trop elevated 0.69, will repeat - Ekg No St changes. - Maintain MAP>65 - cardio consulted - Cont to monitor. Pulm: - On RA. Saturating well. - Maintain O2 sat>90% - Hx of lung ca on chemo, will hold for now. hx of smoking. - CXR neg for infiltrates - pulm consulted GI: - NPO pending swallow eval 2/2 to AMS Renal: - BUN/Cr stable at baseline - Replace electrolytes as needed - maintain euvolemia - Continue to monitor. ID: - Afebrile, wbc 1.1, leukopenic likely form chemo - cont to monitor. Endo: - Maintain euglycemia. Heme: - presented with pancytopenia, last received chemo 2 weeks - neutorpenic precaution - Hgb 6.6 on admission received 2 units, repeat Hgb 8.6 - Plts 3 on admission, received 2 bags, repeat plt is 57 - will transfuse 2 plts - Cont to monitor. DVT ppx - thrombocytopenic d/d with family
[2016-11-07] MEDS: Albuterol-Ipratrop 3 mg / 0.5 (3 ml) UD IH SCH ×3 (02:17→08:00)
[2016-11-07] MEDS ORDERED: Morphine 2 mg/ml ISec IVP STA (03:36)
--- NOTE | 2016-11-07 03:39 | CON ---
DATE: 11/06/2016 REFERRING PHYSICIAN: Dr. Ibarra. REASON FOR CONSULT: History of lung cancer, admitted with dizziness, lightheadedness, found to have a left acute subarachnoid hemorrhage. HISTORY OF PRESENT ILLNESS: This is a 76-year-old female with a known history of lung cancer, been on chemotherapy, also has a history of breast cancer, history of coronary artery disease and coronary stent, presented to the emergency room with dizziness and lightheadedness, found to have left frontal subarachnoid hemorrhage without any trauma or fall. She had speech difficulty on admission. Presently, she is admitted to intensive care unit, lying in the bed, family at the bedside, Dr. Briseno trying to do a bedside echocardiogram. She ended up receiving IV platelets with improvement of the platelets. Presently there is no headache, no rhinitis, no cough, no nausea, no vomiting, no diarrhea, no leg pain or leg swelling. PAST MEDICAL HISTORY: Lung cancer, been on chemotherapy; history of breast cancer; coronary artery disease and coronary stent. ALLERGIES: None known. SOCIAL HISTORY: Stopped smoking many years ago. Denies any alcohol use. FAMILY HISTORY: No significant cardiopulmonary disease reported. MEDICATIONS: She is getting Tylenol p.r.n. and Protonix 40 mg daily REVIEW OF SYSTEMS: Denied any headache or rhinitis. Her speech is on the baseline. No nausea and no vomiting. No diarrhea. No leg pain or leg swelling. PHYSICAL EXAMINATION GENERAL: No acute distress. VITAL SIGNS: Temperature is 98, heart rate is 91, respiratory rate is 20, blood pressure is 162/90, and pulse ox 97% on room air. HEENT: Moist mucous membranes. . NECK: Supple. No JVD. LUNGS: Fair airflow with few rhonchi. HEART: S1 and S2. ABDOMEN: Soft and nontender. No organomegaly. EXTREMITIES: There is no edema. NEUROLOGIC: Awake and alert, follow simple commands. LABORATORY DATA: Shows hemoglobin 9.5, hematocrit 27.0, WBC is 1.6, last platelet is 115, this is after a platelet transfusion. INR 1.12, PTT is 26. His troponin is 1.68, LDH 874. Sodium 140, potassium 3.5, chloride 106, bicarbonate 24, BUN 17, creatinine 1.1, glucose 114, calcium 8.3, AST 29, ALT 24, alkaline phosphatase is 116, albumin is 3.6. CAT scan of the chest done late afternoon shows approximately 3 x 1.5 cm pleural base mass-like opacity at the lateral right lung base with adjacent ground-glass opacity, question related to infection versus neoplasm, approximately 3 x 1.5 cm pleural base mass-like focus laterally. Posterior left lung lobe adjacent to the bulla, also scarring versus neoplasm is advanced interlobular and paraseptal emphysematous changes, coarse interstitial markings, small bilateral effusion, apical scarring also noted. CAT scan of the head shows no significant interval changes, known small left frontal subarachnoid hemorrhage, no midline shift or herniation reported. IMPRESSION AND PLAN: Spontaneous subarachnoid hemorrhage at the left frontal area with some symptom of slurred speech and dizziness, which resolved and a lung cancer, been on chemotherapy, history of coronary artery disease. At admission, platelet was 3 and been transfused and now at satisfactory number, Case discussed with the family at the bedside. All the questions were answered. CT angio is done, report is still pending. Need Hematology/Oncology followup. Pulmonary point of view, I will place on air bronchodilator, gastric prophylaxis, and to lower extremity, supplement oxygen. Need to watch blood pressure closely. Thank you and we will follow with you. Kayden Frost MD
[2016-11-07 06:30] LABS: HEMOGLOBIN 9.3 gm/dL (12.0-16.0); MEAN CELL VOLUME 93.5 fL (80.0-105.0); MEAN CORPUSCULAR HGB CONC 34.2 g/dl (31.0-37.0); MEAN PLATELET VOLUME 9.2 fl (7.0-11.0); PLATELET COUNT 92 10^3/uL (120.0-450.0); RBC 2.91 10^6/uL (3.5-6.1); RED CELL DISTRIBUTION WIDTH 17.2 % (11.5-14.5)
[2016-11-07 06:39] LABS: ALB/GLOB RATIO 1.4 (1.1-1.8); ALBUMIN 3.8 g/dL (3.0-4.8); ALT/SGPT 26 U/L (7-56); AST/SGOT 47 U/L (15-39); BLOOD UREA NITROGEN 16 mg/dL (7-21); CALCIUM 8.7 mg/dL (8.4-10.5); GFR AFRICAN-AMERICAN > 60; GFR NON-AFRICAN AMERICAN 54
[2016-11-07 07:02] LABS: WHITE BLOOD COUNT 0.4 10^3/ul (4.5-11.0)
[2016-11-07 08:29] LABS: BAND 4 % (0-2); LYMPHOCYTE 83 % (22.0-35.0); NEUTROPHIL 13 % (50.0-70.0)
[2016-11-07 08:30] LABS: PLATELET ESTIMATE LOW (NORMAL)
--- NOTE | 2016-11-07 08:56 | PN ---
DATE: 11/06/2016 SUBJECTIVE: The patient is seen and examined at bedside. She is comfortable. She talks full sentences. Her speech is much improved. There is no additional neurological deficit happened overnight. PHYSICAL EXAMINATION: VITAL SIGNS: Heart rate of 80, respiratory rate of 16, oxygen saturation of 96%, and blood pressure of 128/69. HEENT: Head and neck atraumatic. LUNGS: Clear to auscultation bilaterally. HEART: Regular rate and rhythm. S1 and S2 normal. ABDOMEN: Soft, nontender, and nondistended. MUSCULOSKELETAL: No C/C/E. NEUROLOGIC: The patient moves all extremities spontaneously. The speech is much improved. The patient has no difficulty or asymmetry in performing shrugging her shoulder, raise her eyebrows, and stick out her tongue. SKIN: Color is moist. PSYCHIATRIC: The patient is alert and oriented x3. LABORATORY DATA: Sodium is 140; potassium is 3.5; chloride is 106, carbon dioxide is 24, BUN is 17, and creatinine is 1.1 down from 1.2. Glucose is 114. Troponin yesterday was 0.69 and troponin today is pending. WBC is 1.3, hemoglobin is 8.6, and platelet count is 67, after 1 bag of blood was transfused. Cristian Briseno MD MTDD
--- NOTE | 2016-11-07 08:57 | PN ---
ADDENDUM DATE: 11/06/2016 The patient has neutropenia; however, she is asymptomatic from that prospective. MEDICATIONS: Tylenol p.r.n. and potassium supplementation. ASSESSMENT AND PLAN: This 76-year-old lady who presented with subarachnoid verus intraparenchymal bleed in the setting of severe thrombocytopenia after chemotherapy for a lung cancer. The patient had some slurred speech and unsteady gait which substantially improved since yesterday. The patient will be going for CAT scan of the head to follow up on the original finding. We will continue maintain platelets above 100. and neurosurgical evaluation is appreciated. We will continue target euvolemia, euglycemia, normothermia, and oxygen saturation more than 90%.. We will maintain blood pressure control within normal tension. At present time, the patient is n.p.o. Speech and swallow evaluation is pending. Troponin leak most likely relates to FRAME STRIPPER insult. We will order echocardiogram to rule out Takotsubo myocarditis or signs suggestive rather primary coronary event. In any case She would not be a candidate for anti- platelets and anti-coagulations We will trend troponin level. The patient did not have any chest pain today. We will also repeat electrocardiogram. We will continue with deep venous thrombosis and gastrointestinal prophylaxis. ccm time 40 min Cristian Briseno MD MTDD
--- NOTE | 2016-11-07 10:12 | CARD ---
APPROVED REPORT EKG Measurement Heart [id number] <Conclusion> Sinus tachycardia Left bundle branch block No change except faster rate.
--- NOTE | 2016-11-07 11:02 | CT ---
PROCEDURE: CT Angiography of the Brain. HISTORY: SAH with thrombocytopenia COMPARISON: None available. TECHNIQUE: CT angiography of the intracranial arteries was performed. Coronal and sagittal maximum intensity projection reformated images were generated. This CT exam was performed using one or more of the following dose reduction techniques: Automated exposure control, adjustment of the mA and/or kV according to patient size, and/or use of iterative reconstruction technique. FINDINGS: INTERNAL CEREBRAL ARTERIES: Normal in caliber. The skull base, petrous, cavernous and supraclinoid segments are bilaterally widely patient. ANTERIOR CEREBRAL ARTERIES: Normal in caliber. A1 and A2 segments are widely patent. Smaller distal branches unremarkable, as visualized. MIDDLE CEREBRAL ARTERIES: Normal in caliber. M1 and M2 segments are widely patent. Perisylvian branches grossly symmetric. POSTERIOR CIRCULATION: Basilar Artery: Normal in caliber. Distal Vertebral Arteries: The right vertebral artery is dominant. The left vertebral artery is hypoplastic, an anatomic variant. Posterior Cerebral Arteries: Normal in caliber. Posterior Inferior Cerebellar Arteries: Normal in caliber. ANEURYSM/ VASCULAR MALFORMATIONS: None. OTHER FINDINGS: None. IMPRESSION: 1. No CTA evidence for saccular aneurysm, occlusion or definite significant stenosis. 2. Hypoplastic left vertebral artery, an anatomic variant.
[2016-11-07] MEDS ORDERED: Potassium Chloride 20 mEq ER Tab PO ONE ×2 (11:22→15:00)
[2016-11-07] MEDS: Nitroglycerin 2% Ointment Foilpak UD TOP SCH (13:54)
--- NOTE | 2016-11-07 14:03 | CP.PCM.PN ---
Subjective - Date & Time of Evaluation Date of Evaluation: 11/07/16 Time of Evaluation: 01:30 - Subjective Subjective: Patient seen stat at the request of her RN for her c/o chest pain. She states it is a chest tightness,located cross the middle of her chest is non radiating and on a scale of 1 to 10 ,it is a 3. It is not affected by deep breathing and is not associated with any increased SOB. VS are stable,O2 sat on 3L o2 by NC is 99% She has history of ID ,S/P 2 stents,Breast Ca,Lung Ca,admitted for SAH in the setting of Pancytopenia following chemotherapy Objective - Vital Signs/Intake and Output Vital Signs (last 24 hours): Temp Pulse Resp BP Pulse Ox 98.7 F 104 H 23 136/63 98 11/07/16 12:16 11/07/16 12:10 11/07/16 12:10 11/07/16 12:00 11/07/16 12:10 Intake and Output: 11/07/16 11/07/16 06:59 18:59 Intake Total 150 Output Total 400 Balance -250 - Medications Medications: Current Medications Acetaminophen (Ofirmev) 1,000 mg in 100 mls @ 400 mls/hr IVPB Q6H PRN PRN Reason: Temperature Stop: 11/08/16 01:29 Last Admin: 11/06/16 01:35 Dose: 400 mls/hr Levalbuterol HCl (Xopenex) 0.63 mg IH [id number] PRN PRN Reason: Shortness of Breath Metoprolol Tartrate (Lopressor) 50 mg PO BID [facility] Last Admin: 11/07/16 11:59 Dose: 50 mg Nitroglycerin (Nitro-Bid 2% Oint) 1 ea TOP Q6H [facility] Pantoprazole Sodium (Protonix Inj) 40 mg IVP DAILY [facility] Last Admin: 11/07/16 10:05 Dose: 40 mg Potassium Chloride (K-Dur 20 Meq Er Tab) 20 meq PO ONCE ONE Stop: 11/07/16 15:01 - Labs Labs: 11/07/16 05:20 11/07/16 05:20 PT 12.1 Seconds (9.9-11.8) H 11/05/16 15:40 INR 1.12 (0.93-1.08) H 11/05/16 15:40 APTT 25.8 Seconds (23.7-30.8) 11/05/16 15:40 - Constitutional Appears: No Acute Distress - Head Exam Head Exam: ATRAUMATIC, NORMAL INSPECTION, NORMOCEPHALIC - Eye Exam Eye Exam: PERRL - ENT Exam ENT Exam: Mucous Membranes Moist - Neck Exam Neck Exam: Normal Inspection Additional comments: No Jugular venous distension - Respiratory Exam Respiratory Exam: Decreased Breath Sounds (at the bases) - Cardiovascular Exam Cardiovascular Exam: REGULAR RHYTHM. absent: JVD - GI/Abdominal Exam GI & Abdominal Exam: Soft, Normal Bowel Sounds. absent: Tenderness - Neurological Exam Neurological Exam: Alert, Oriented x3 - Psychiatric Exam Psychiatric exam: Normal Affect - Skin Skin Exam: Dry, Warm Assessment and Plan - Assessment and Plan (Free Text) Assessment: Chest pain History of CAD Plan: EKg done stat shows NSR with LBBB(same as prior EKG in the chart) Dr Valdes was called ,he already ordered Nitrobid ointment.The pain is better but not gone. Will order cardiac enzymes and NTG 0.4mg SL Dr Ibarra's office called,message left.
--- NOTE | 2016-11-07 14:26 | CARD ---
APPROVED REPORT EKG Measurement Heart [id number] <Conclusion> Normal sinus rhythm Left bundle branch block
[2016-11-07 16:20] LABS: TROPONIN I 1.79 ng/mL
--- NOTE | 2016-11-07 17:21 | CARD ---
APPROVED REPORT EXAM: Two-dimensional and M-mode echocardiogram with Doppler and color Doppler. INDICATION Chest Pain Non STEMI CMP/CAD 2D DIMENSIONS Left Atrium (2D)4.4 (1.6-4.0cm)IVSd1.0 (0.7-1.1cm) LVDd5.0 (3.9-5.9cm)PWd0.7 (0.7-1.1cm) LVDs4.4 (2.5-4.0cm)FS (%) 11.6 % LVEF (%)25.0 (>50%) M-Mode DIMENSIONS Aortic Root2.40 (2.2-3.7cm)Aortic Cusp Exc.1.40 (1.5-2.0cm) Aortic Valve AoV Peak Wyiiixje056.0cm/[place] Peak GR.15mmHg Mitral Valve MV E Pxcgfmxw398.0cm/sMV A Yqzrxbay674.0cm/sE/A ratio1.1 TDI Lateral E' Peak V10.40cm/sMedial E' Peak V6.43cm/sE/Lateral E'11.3 E/Medial E'18.4 Pulmonary Valve PV Peak Hqeujepp60.3cm/sPV Peak Grad.3mmHg Tricuspid Valve TR Peak Hkuijikn800od/sRAP [id number] Peak Gr.85mmHg [id number] LEFT VENTRICLE The Left Ventricle is borderline dilated. There is normal left ventricular wall thickness. The systolic function is moderately to severely impaired.EF-25% There is Moderate There is moderate to severe hypokinesis in the apical anterior wall.global hypokinesis of the left ventricle. Transmitral Doppler flow pattern is Grade II-pseudonormal filling dynamics. No left ventricle thrombus noted on this study. There is no ventricular septal defect visualized. There is no left ventricular aneurysm. There is no mass noted in the left ventricle. RIGHT VENTRICLE The right ventricle is mildly dilated. There is normal right ventricular wall thickness. Systolic function is moderately reduced. ATRIA The left atrium is moderately dilated. The right atrium is mildly dilated. The interatrial septum is intact with no evidence for an atrial septal defect. AORTIC VALVE The aortic valve is thickened but opens well. There is trace aortic regurgitation. There is no aortic valvular stenosis. There is no aortic valvular vegetation. MITRAL VALVE The mitral valve is thickened but opens well. Mitral regurgitation is moderate to severe. There is no mitral valve stenosis. There is no evidence of mitral valve prolapse. TRICUSPID VALVE The tricuspid valve leaflets are thickened , but open well. There is moderate to severe tricuspid regurgitation.RVSP-95 mmof hg. There is severe tricuspid regurgitation. There is no tricuspid valve stenosis. There is no tricuspid valve prolapse or vegetation. PULMONIC VALVE The pulmonary valve is normal in structure. There is trace to mild pulmonic valvular regurgitation. There is no pulmonic valvular stenosis. GREAT VESSELS The aortic root is normal in size. The ascending aorta is normal in size. The pulmonary artery is normal. The IVC is dilated. PERICARDIAL EFFUSION There is no pleural effusion. There is no pericardial effusion. <Conclusion> Four chamber Dilatation C/w CMP EF-25% Moderate to Severe MR/TR. RVSP-95 mmof Hg. C/w Severe pulmonary HTN.
--- NOTE | 2016-11-07 18:20 | CP.PCM.CON ---
<Aaron Berrios - Last Filed: 11/08/16 12:25> History of Present Illness - History of Present Illness History of Present Illness: Consult note for Dr Taveras: 76F with pmh of lung cancer on chemotherapy (Platinol and Etoposide last given on ) presented with dizziness, lightheadedness x 3 days. Pt was found to have slurred speech that was noticed by her son which brought her directly to the hospital. Patient was found to have L frontal subarachnoid hemorrhage with out any fall or trauma. Pt was evaluated and admitted to the ICU for airway protection and possible further deterioration. Pt was found to have elevated troponin and pancytopenic on bloodwork. She currently c/o mild chest pain that is substernal and non radiating, accompanied by shortness of breath. Denies any f/c, palpitations, abd pain, n/v/d. PMH: lung cancer on chemotherapy (Platinol and Etoposide last given on ) , Breast ca?, GA in 2004 s/p 2 stents PSH: denies ALL: NKA SH: Denies etoh/ drug abuse, quit smoking feb 2016 Oncologist: Dr Rodriguez. Review of Systems - Review of Systems All systems: reviewed and no additional remarkable complaints except (HPI) Past Patient History - Infectious Disease Hx of Infectious Diseases: None - Past Medical History & Family History Past Medical History?: Yes - Past Social History Smoking Status: Never Smoked - CARDIAC Hx Cardiac Disorders: Yes Hx Hypertension: Yes Hx Peripheral Edema: Yes - PULMONARY Hx Respiratory Disorders: Yes Hx Chronic Obstructive Pulmonary Disease (COPD): Yes Hx Emphysema: Yes Hx Lung Cancer: Yes Hx Pneumonia: Yes (FEB 2016 HOSPITALIZED) - NEUROLOGICAL Hx Neurological Disorder: No Hx Vertigo: Yes - HEENT Hx HEENT Problems: Yes Hx Cataracts: Yes Other/Comment: hearing impairment - RENAL Hx Chronic Kidney Disease: No - ENDOCRINE/METABOLIC Hx Endocrine Disorders: Yes (ENLARGED THYRIOD NOT CANCEROUS) - HEMATOLOGICAL/ONCOLOGICAL Hx Blood Disorders: Yes Hx Blood Transfusions: No Hx Blood Transfusion Reaction: No Hx Cancer: Yes (BREAST HX RADIATION 2006) Other/Comment: Radiation therapy for breast cancer. lung CA currently under Chemo. Last Tx was last week. - INTEGUMENTARY Hx Dermatological Problems: No - MUSCULOSKELETAL/RHEUMATOLOGICAL Hx Musculoskeletal Disorders: No Hx Falls: No - GASTROINTESTINAL Hx Gastrointestinal Disorders: No - GENITOURINARY/GYNECOLOGICAL Hx Genitourinary Disorders: No - PSYCHIATRIC Hx Psychophysiologic Disorder: No Hx Substance Use: No - SURGICAL HISTORY Hx Vascular Access Device: Yes (R PortACath) - ANESTHESIA Hx Anesthesia: Yes Hx Anesthesia Reactions: No Hx Malignant Hyperthermia: No Meds Allergies/Adverse Reactions: Allergies Allergy/AdvReac Type Severity Reaction Status Date / Time No Known Allergies Allergy Verified 11/05/16 14:47 - Medications Medications: Current Medications Home Med (Home Med) 500 unit PO Q12 [facility] Acetaminophen (Ofirmev) 1,000 mg in 100 mls @ 400 mls/hr IVPB Q6H PRN PRN Reason: Temperature Stop: 11/08/16 01:29 Last Admin: 11/06/16 01:35 Dose: 400 mls/hr Levalbuterol HCl (Xopenex) 0.63 mg IH [id number] PRN PRN Reason: Shortness of Breath Metoprolol Tartrate (Lopressor) 50 mg PO BID [facility] Last Admin: 11/07/16 17:30 Dose: 50 mg Morphine Sulfate (Morphine) 1 mg IVP Q4H PRN PRN Reason: cardiac pain elevated traponin Nitroglycerin (Nitro-Bid 2% Oint) 1 ea TOP Q6H [facility] Last Admin: 11/07/16 13:54 Dose: 1 ea Pantoprazole Sodium (Protonix Inj) 40 mg IVP DAILY [facility] Last Admin: 11/07/16 10:05 Dose: 40 mg Physical Exam - Constitutional Appears: No Acute Distress - Head Exam Head Exam: ATRAUMATIC, NORMAL INSPECTION, NORMOCEPHALIC - Eye Exam Eye Exam: EOMI, Normal appearance, PERRL Pupil Exam: NORMAL ACCOMODATION, PERRL - ENT Exam ENT Exam: Mucous Membranes Moist, Normal Exam - Neck Exam Neck exam: Positive for: Normal Inspection - Respiratory Exam Respiratory Exam: Clear to Auscultation Bilateral, NORMAL BREATHING PATTERN. absent: Wheezes - Cardiovascular Exam Cardiovascular Exam: REGULAR RHYTHM, RRR, +S1, +S2 - GI/Abdominal Exam GI & Abdominal Exam: Normal Bowel Sounds, Soft. absent: Tenderness - Extremities Exam Extremities exam: Negative for: calf tenderness - Neurological Exam Neurological exam: Alert, CN II-XII Intact - Psychiatric Exam Psychiatric exam: Normal Affect, Normal Mood - Skin Skin Exam: Dry, Intact, Normal Color, Warm Results - Vital Signs Recent Vital Signs: Last Vital Signs Temp 98.7 F 11/07/16 16:00 Pulse 91 H 11/07/16 17:50 Resp 32 H 11/07/16 17:50 BP 108/58 L 11/07/16 17:30 Pulse Ox 100 11/07/16 17:50 - Labs Result Diagrams: 11/07/16 05:20 11/07/16 05:20 Labs: Laboratory Results - last 24 hr 11/06/16 11/06/16 11/06/16 11:03 16:25 20:00 WBC 1.6 L* D RBC 2.91 L Hgb 9.5 L Hct 27.0 L MCV 92.8 MCH 32.6 MCHC 35.2 RDW 17.2 H Plt Count 115 L MPV 8.8 Neutrophils % (Manual) Band Neutrophils % Lymphocytes % (Manual) Monocytes % (Manual) Platelet Evaluation Sodium Potassium Chloride Carbon Dioxide Anion Gap BUN Creatinine Est GFR ( Amer) Est GFR (Non-Af Amer) POC Glucose (mg/dL) 139 H 131 H Random Glucose Calcium Total Bilirubin AST ALT Alkaline Phosphatase Lactate Dehydrogenase Total Creatine Kinase Troponin I Total Protein Albumin Globulin Albumin/Globulin Ratio 11/06/16 11/07/16 11/07/16 22:27 05:20 05:20 WBC 0.4 L* D RBC 2.91 L Hgb 9.3 L Hct 27.2 L MCV 93.5 MCH 32.0 MCHC 34.2 RDW 17.2 H Plt Count 92 L MPV 9.2 Neutrophils % (Manual) 13 L Band Neutrophils % 4 H Lymphocytes % (Manual) 83 H Monocytes % (Manual) TEST NOT PERFORMED Platelet Evaluation Low Sodium 141 Potassium 3.2 L Chloride 103 Carbon Dioxide 22 Anion Gap 19 BUN 16 Creatinine 1.0 Est GFR ( Amer) > 60 Est GFR (Non-Af Amer) 54 POC Glucose (mg/dL) 121 H Random Glucose 154 H Calcium 8.7 Total Bilirubin 1.2 AST 47 H ALT 26 Alkaline Phosphatase 138 H Lactate Dehydrogenase Total Creatine Kinase Troponin I Total Protein 6.6 Albumin 3.8 Globulin 2.7 Albumin/Globulin Ratio 1.4 11/07/16 11/07/16 07:51 15:25 WBC RBC Hgb Hct MCV MCH MCHC RDW Plt Count MPV Neutrophils % (Manual) Band Neutrophils % Lymphocytes % (Manual) Monocytes % (Manual) Platelet Evaluation Sodium Potassium Chloride Carbon Dioxide Anion Gap BUN Creatinine Est GFR ( Amer) Est GFR (Non-Af Amer) POC Glucose (mg/dL) 176 H Random Glucose Calcium Total Bilirubin AST ALT Alkaline Phosphatase Lactate Dehydrogenase 886 H Total Creatine Kinase 92 Troponin I 1.79 H* Total Protein Albumin Globulin Albumin/Globulin Ratio Assessment & Plan - Assessment and Plan (Free Text) Assessment: 76F with pmh of lung cancer on chemotherapy (Platinol and Etoposide last given on ) presented with dizziness, lightheadedness x 3 days found to have a left frontal subarachnoid hemorrhage. Pt slurred speech has since significantly improved. Pt also is pancytopenic with wbc of 0.4. and has elevated troponin. 1. Pancytopenia - Wbc of 0.4, Hb or 9.[address] 92 this am - s/p Neupogen - no indication of neupogen at this time - Neutropenic precautions - s/p Leuk reduced pheresis plts x 3, irrad leuk reduced pher plt x 2 - leuk reduced RBC x 2 - No indication for platelet transfusion at this time - Cont to monitor 2. Hx of lung cancer on chemotherapy, ? breast cancer - Platinol and Etoposide last given on - f/u with Dr Rodriguez her oncologist - pain control with morphine 1mg Q4h prn 3. Elevated troponin - F/u with cardiology recs - Cont metoprolol and nitroglycerin - Cont to monitor Case and plan was reviewed and discussed with Dr Taveras. <Shayy Taveras P - Last Filed: 11/13/16 10:47> Meds - Medications Medications: Current Medications Digoxin (Lanoxin) 0.25 mg PO 1400 [facility] Last Admin: 11/12/16 14:08 Dose: Not Given Enoxaparin Sodium (Lovenox) 40 mg SC DAILY [facility] PRN Reason: Protocol Home Med (Home Med) 500 unit PO Q12 [facility] Last Admin: 11/13/16 10:43 Dose: Not Given Hydralazine HCl (Apresoline) 10 mg IVP Q6 PRN PRN Reason: for sbp.170 and/0r diastolic> Last Admin: 11/13/16 05:26 Dose: 10 mg Dextrose/Sodium Chloride (Dextrose 5%/0.9% Ns 1000 Ml) 1,000 mls @ 100 mls/hr IV .Q10H [facility] Last Admin: 11/13/16 07:06 Dose: 100 mls/hr Amino Acids/Electrolytes/Dextrose (Clinimix 4.25/5 % "E" (2000 Ml)) 2,000 mls @ 83.333 mls/hr IV .Q24H [facility] Last Admin: 11/12/16 18:04 Dose: 83.333 mls/hr Levalbuterol HCl (Xopenex) 0.63 mg IH [id number] PRN PRN Reason: Shortness of Breath Last Admin: 11/13/16 08:08 Dose: 0.63 mg Nitroglycerin (Nitro-Bid 2% Oint) 1 ea TOP Q6H [facility] Last Admin: 11/13/16 01:07 Dose: 1 ea Pantoprazole Sodium (Protonix Inj) 40 mg IVP DAILY [facility] Last Admin: 11/12/16 10:33 Dose: 40 mg Results - Vital Signs Recent Vital Signs: Last Vital Signs Temp 98.2 F 11/13/16 06:00 Pulse 154 H 11/13/16 06:56 Resp 31 H 11/13/16 06:55 BP 190/90 H 11/13/16 07:05 Pulse Ox 95 11/13/16 06:00 - Labs Result Diagrams: 11/13/16 06:20 11/13/16 06:20 Labs: Laboratory Results - last 24 hr 11/13/16 11/13/16 11/13/16 06:20 06:20 09:00 WBC 16.4 H D RBC 2.76 L Hgb 8.8 L Hct 27.5 L MCV 99.6 MCH 31.9 MCHC 32.0 RDW 17.5 H Plt Count 69 L MPV 11.3 H Gran % TEST NOT PERFORMED Lymph % (Auto) TEST NOT PERFORMED Turner % (Auto) TEST NOT PERFORMED Eos % (Auto) TEST NOT PERFORMED Baso % (Auto) TEST NOT PERFORMED Gran # TEST NOT PERFORMED Lymph # TEST NOT PERFORMED Turner # TEST NOT PERFORMED Eos # TEST NOT PERFORMED Baso # TEST NOT PERFORMED Neutrophils % (Manual) 54 Band Neutrophils % 3 H Lymphocytes % (Manual) 36 H Monocytes % (Manual) 5 Myelocytes % 2 D-Dimer, Quantitative > 35.0 H Sodium 140 Potassium 4.0 Chloride 110 H Carbon Dioxide 16 L Anion Gap 18 BUN 17 Creatinine 0.8 Est GFR ( Amer) > 60 Est GFR (Non-Af Amer) > 60 Random Glucose 211 H Calcium 8.3 L Phosphorus 3.2 Magnesium 1.4 L Total Bilirubin 0.9 AST 48 H ALT 30 Alkaline Phosphatase 118 Troponin I 4.89 H* D NT-Pro-B Natriuret Pep 14463 H Total Protein 6.1 Albumin 3.2 Globulin 2.9 Albumin/Globulin Ratio 1.1 Attending/Attestation - Attestation I have personally seen and examined this patient.: Yes I have fully participated in the care of the patient.: Yes I have reviewed all pertinent clinical information: Yes
--- NOTE | 2016-11-07 18:21 | CP.PCM.PN ---
<Kristal Rodriguez - Last Filed: 11/07/16 18:26> Subjective - Date & Time of Evaluation Date of Evaluation: 11/07/16 Time of Evaluation: 17:00 - Subjective Subjective: Pt was seen and examined at bedside. Patient has complaints of chest pain that began today. Pt describes the chest pain as a chest tightness, midsternal and non radiating rated at a 3/10, and has associated SOB. Pt was found to have uptrending troponins and pancytopenic on bloodwork, subsequently placed on neutropenic precautions. Pt has a hx of lung ca on current chemo therapy and was admitted to the ICU for close monitoring and concerns for airway protection after a L frontal SAH. Pt denied fever, chills, palpitations, abdominal pains, n /v/d/c. Objective - Vital Signs/Intake and Output Vital Signs (last 24 hours): Temp Pulse Resp BP Pulse Ox 98.7 F 91 H 32 H 108/58 L 100 11/07/16 16:00 11/07/16 17:50 11/07/16 17:50 11/07/16 17:30 11/07/16 17:50 Intake and Output: 11/07/16 11/07/16 06:59 18:59 Intake Total 150 Output Total 400 Balance -250 - Medications Medications: Current Medications Home Med (Home Med) 500 unit PO Q12 [facility] Acetaminophen (Ofirmev) 1,000 mg in 100 mls @ 400 mls/hr IVPB Q6H PRN PRN Reason: Temperature Stop: 11/08/16 01:29 Last Admin: 11/06/16 01:35 Dose: 400 mls/hr Levalbuterol HCl (Xopenex) 0.63 mg IH [id number] PRN PRN Reason: Shortness of Breath Metoprolol Tartrate (Lopressor) 50 mg PO BID [facility] Last Admin: 11/07/16 17:30 Dose: 50 mg Morphine Sulfate (Morphine) 1 mg IVP Q4H PRN PRN Reason: cardiac pain elevated traponin Nitroglycerin (Nitro-Bid 2% Oint) 1 ea TOP Q6H [facility] Last Admin: 11/07/16 13:54 Dose: 1 ea Pantoprazole Sodium (Protonix Inj) 40 mg IVP DAILY [facility] Last Admin: 11/07/16 10:05 Dose: 40 mg - Labs Labs: 11/07/16 05:20 11/07/16 05:20 PT 12.1 Seconds (9.9-11.8) H 11/05/16 15:40 INR 1.12 (0.93-1.08) H 11/05/16 15:40 APTT 25.8 Seconds (23.7-30.8) 11/05/16 15:40 - Constitutional Appears: No Acute Distress - Head Exam Head Exam: ATRAUMATIC, NORMAL INSPECTION, NORMOCEPHALIC - Eye Exam Eye Exam: EOMI, Normal appearance, PERRL Pupil Exam: NORMAL ACCOMODATION, PERRL - ENT Exam ENT Exam: Mucous Membranes Moist, Normal Exam - Respiratory Exam Respiratory Exam: Clear to Ausculation Bilateral, NORMAL BREATHING PATTERN - Cardiovascular Exam Cardiovascular Exam: REGULAR RHYTHM, +S1, +S2. absent: Murmur - GI/Abdominal Exam GI & Abdominal Exam: Soft, Normal Bowel Sounds. absent: Tenderness - Neurological Exam Neurological Exam: Alert, Awake, CN II-XII Intact, Oriented x3 - Psychiatric Exam Psychiatric exam: Anxious - Skin Skin Exam: Dry, Intact, Normal Color, Warm Assessment and Plan - Assessment and Plan (Free Text) Assessment: 76F with PMH lung cancer on chemotherapy found to be pancytopenic, found to have spontaneous SAH in the setting of severe thrombocytopenia. No need for neurosurgical intervention as per Dr. Jauregui due to no further progression of SAH on CTH. Neuro: - AAOx3 - Slurred speech improved - repeat CT showed no changed, no midline shift or herniation - neurosurgery recommended observation, correct thrombocytopenia CV : - trop elevated 0.69, uptrending, Chest pains, Dr. Valdes cardiology consulted, will get MRA to evaluate for aneurysyms prior to antiplt therapy - Ekg No St changes (hx of LBBB) - Maintain MAP>65 - Echo performed EF 25% Pulm: - On RA. Saturating well. - Maintain O2 sat>90% - Hx of lung ca on chemo, will hold for now. hx of smoking. - CXR neg for infiltrates - pulm consulted GI: - Tolerating PO intake Renal: - BUN/Cr stable at baseline - Replace electrolytes as needed - maintain euvolemia - Continue to monitor. ID: - Afebrile, wbc 1.1, leukopenic likely form chemo - cont to monitor. - Dr. Taveras, Heme/ onc consulted Endo: - Maintain euglycemia. Heme: - presented with pancytopenia, last received chemo 2 weeks - neutorpenic precaution - Cont to monitor. DVT ppx - thrombocytopenic Seen reviewed and discussed with attending <Sadia Koenig MD H - Last Filed: 11/07/16 18:42> Objective - Vital Signs/Intake and Output Vital Signs (last 24 hours): Temp Pulse Resp BP Pulse Ox 98.7 F 91 H 32 H 108/58 L 100 11/07/16 16:00 11/07/16 17:50 11/07/16 17:50 11/07/16 17:30 11/07/16 17:50 Intake and Output: 11/07/16 11/07/16 06:59 18:59 Intake Total 150 Output Total 400 Balance -250 - Medications Medications: Current Medications Home Med (Home Med) 500 unit PO Q12 [facility] Acetaminophen (Ofirmev) 1,000 mg in 100 mls @ 400 mls/hr IVPB Q6H PRN PRN Reason: Temperature Stop: 11/08/16 01:29 Last Admin: 11/06/16 01:35 Dose: 400 mls/hr Levalbuterol HCl (Xopenex) 0.63 mg IH [id number] PRN PRN Reason: Shortness of Breath Metoprolol Tartrate (Lopressor) 50 mg PO BID [facility] Last Admin: 11/07/16 17:30 Dose: 50 mg Morphine Sulfate (Morphine) 1 mg IVP Q4H PRN PRN Reason: cardiac pain elevated traponin Nitroglycerin (Nitro-Bid 2% Oint) 1 ea TOP Q6H [facility] Last Admin: 11/07/16 13:54 Dose: 1 ea Pantoprazole Sodium (Protonix Inj) 40 mg IVP DAILY [facility] Last Admin: 11/07/16 10:05 Dose: 40 mg - Labs Labs: 11/07/16 05:20 11/07/16 05:20 PT 12.1 Seconds (9.9-11.8) H 11/05/16 15:40 INR 1.12 (0.93-1.08) H 11/05/16 15:40 APTT 25.8 Seconds (23.7-30.8) 11/05/16 15:40 Attending/Attestation - Attestation I have personally seen and examined this patient.: Yes I have fully participated in the care of the patient.: Yes I have reviewed all pertinent clinical information, including history, physical exam and plan: Yes Notes (Text): 11/07/16 18:40 Case d/w Dr Frost who wants to upgrade the patient to ICU level of care. Concern for possible AVM, MRA ordered. No new neurological symptoms. CP increased and troponin elevation. Wouldn't anticoagulate due to recent SAH including anti platelet therapy. cardiology following along and Neurogurgery aware of the CT findings. Unclear of the intervention post MRA? Neurology consulted as well. Will follow clinically. cc time 45 min
[2016-11-07] MEDS: Morphine 2 mg/ml ISec IVP PRN (18:52)
--- NOTE | 2016-11-08 00:17 | CP.PCM.PN ---
Subjective - Date & Time of Evaluation Date of Evaluation: 11/07/16 Time of Evaluation: 08:00 - Subjective Subjective: 76F with pmh of lung cancer on chemotherapy (Platinol and Etoposide last given on ) presented with dizziness, lightheadedness x 3 days. Pt was found to have slurred speech that was noticed by her son which brought her directly to the hospital. Patient was found to have L frontal subarachnoid hemorrhage with out any fall or trauma. Pt was evaluated and admitted to the ICU for airway protection and possible further deterioration. Pt was found to have elevated troponin and pancytopenic on bloodwork. She currently c/o mild chest pain that is substernal and non radiating, accompanied by shortness of breath. Denies any f/c, palpitations, abd pain, n/v/d. Objective - Vital Signs/Intake and Output Vital Signs (last 24 hours): Temp Pulse Resp BP Pulse Ox 98.2 F 89 25 H 112/60 100 11/07/16 20:00 11/07/16 22:50 11/07/16 22:50 11/07/16 22:00 11/07/16 22:50 Intake and Output: 11/07/16 11/08/16 18:59 06:59 Intake Total 300 Output Total 720 Balance -420 - Medications Medications: Current Medications Home Med (Home Med) 500 unit PO Q12 [facility] Last Admin: 11/07/16 21:14 Dose: 500 unit Acetaminophen (Ofirmev) 1,000 mg in 100 mls @ 400 mls/hr IVPB Q6H PRN PRN Reason: Temperature Stop: 11/08/16 01:29 Last Admin: 11/06/16 01:35 Dose: 400 mls/hr Levalbuterol HCl (Xopenex) 0.63 mg IH [id number] PRN PRN Reason: Shortness of Breath Metoprolol Tartrate (Lopressor) 50 mg PO BID CHERYL Last Admin: 11/07/16 17:30 Dose: 50 mg Morphine Sulfate (Morphine) 1 mg IVP Q4H PRN PRN Reason: cardiac pain elevated traponin Last Admin: 11/07/16 18:52 Dose: 1 mg Nitroglycerin (Nitro-Bid 2% Oint) 1 ea TOP Q6H CHERYL Last Admin: 11/07/16 13:54 Dose: 1 ea Pantoprazole Sodium (Protonix Inj) 40 mg IVP DAILY CHERYL Last Admin: 11/07/16 10:05 Dose: 40 mg - Labs Labs: 11/07/16 05:20 11/07/16 05:20 PT 12.1 Seconds (9.9-11.8) H 11/05/16 15:40 INR 1.12 (0.93-1.08) H 11/05/16 15:40 APTT 25.8 Seconds (23.7-30.8) 11/05/16 15:40 - Constitutional Appears: Well - Head Exam Head Exam: ATRAUMATIC, NORMAL INSPECTION, NORMOCEPHALIC - Eye Exam Eye Exam: EOMI, Normal appearance, PERRL Pupil Exam: NORMAL ACCOMODATION, PERRL - ENT Exam ENT Exam: Mucous Membranes Moist, Normal Exam - Neck Exam Neck Exam: Full ROM, Normal Inspection. absent: Lymphadenopathy - Respiratory Exam Respiratory Exam: Clear to Ausculation Bilateral, NORMAL BREATHING PATTERN - Cardiovascular Exam Cardiovascular Exam: REGULAR RHYTHM, +S1, +S2. absent: Murmur - GI/Abdominal Exam GI & Abdominal Exam: Soft, Normal Bowel Sounds. absent: Tenderness - Rectal Exam Rectal Exam: NORMAL INSPECTION - Exam Exam: Circumcision, NORMAL INSPECTION External exam: NORMAL EXTERNAL EXAM Speculum exam: NORMAL SPECULUM EXAM Bimanual exam: NORMAL BIMANUAL EXAM - Extremities Exam Extremities Exam: Full ROM, Normal Capillary Refill, Normal Inspection. absent : Joint Swelling, Pedal Edema - Back Exam Back Exam: NORMAL INSPECTION - Neurological Exam Neurological Exam: Alert, Awake, CN II-XII Intact, Normal Gait, Oriented x3 - Psychiatric Exam Psychiatric exam: Normal Affect, Normal Mood - Skin Skin Exam: Dry, Intact, Normal Color, Warm Assessment and Plan - Assessment and Plan (Free Text) Assessment: 76F with PMH lung cancer on chemotherapy found to be pancytopenic, found to have spontaneous SAH in the setting of severe thrombocytopenia. No need for neurosurgical intervention as per Dr. Jauregui due to no further progression of SAH on CTH. Neuro: - AAOx3 - Slurred speech improved - repeat CT showed no changed, no midline shift or herniation - neurosurgery recommended observation, correct thrombocytopenia CV : - trop elevated 0.69, uptrending, Chest pains, Dr. Valdes cardiology consulted, will get MRA to evaluate for aneurysyms prior to antiplt therapy - Ekg No St changes (hx of LBBB) - Maintain MAP>65 - Echo performed EF 25% Pulm: - On RA. Saturating well. - Maintain O2 sat>90% - Hx of lung ca on chemo, will hold for now. hx of smoking. - CXR neg for infiltrates - pulm consulted GI: - Tolerating PO intake Renal: - BUN/Cr stable at baseline - Replace electrolytes as needed - maintain euvolemia - Continue to monitor. ID: - Afebrile, wbc 1.1, leukopenic likely form chemo - cont to monitor. - Dr. Taveras, Heme/ onc consulted Endo: - Maintain euglycemia. Heme: - presented with pancytopenia, last received chemo 2 weeks - neutorpenic precaution - Cont to monitor. DVT ppx - thrombocytopenic . oncology is on the case
--- NOTE | 2016-11-08 00:36 | CON ---
DATE: 11/05/2016 REASON FOR CONSULTATION: Followup, history of coronary artery disease, status post two stents in 2004, positive troponin, admitted with CVA, intracerebral bleed, severe thrombocytopenia. BRIEF CLINICAL HISTORY: This is a 76-year-old female being followed by Dr. Jam Barillas, had a stent in 2004 after NE, recent cath in 03/2016, patent stent, mild in-stent restenosis, cardiomyopathy, was on LifeVest. After that, the patient was diagnosed with lung CA, status post chemotherapy two weeks ago, admitted with slurring of speech. CAT scan shows a small subarachnoid hemorrhage in the frontal area. Admitting platelet count was 3, severe pancytopenia. Troponin was positive. The patient denies any chest pain. Cardiac consult was called. Family is at bedside, on the easy chair, and the patient's says that she has a shoulder pain, left sided in the back, but no chest pain. No shortness of breath. No palpitation. PAST MEDICAL HISTORY: Significant for breast CA diagnosed in March, history of coronary artery disease, hypertension, status post stent [place] [address] Jam Barillas, followed by Dr. Jam Barillas, history of last catheterization in 03/2016, found to be mild in-stent restenosis, 20% in RCA, decreased LV function. The patient at one point was on LifeVest, admitted with CVA, left frontal subarachnoid bleed and severe thrombocytopenia. ALLERGIES: No known drug allergies. SOCIAL HISTORY: She quit smoking in 2015. No history of alcohol abuse. Recent cardiac workup as follows: Cardiac catheterization in 03/[address] Jam Barillas, mild in-stent restenosis RCA, decreased LV function. CURRENT MEDICATIONS: Not obtainable but it is mentioned that Dr. Rodriguez who is the oncologist gave some medication to possibly increase blood count, possibly Neupogen. REVIEW OF SYSTEMS: As per HPI. The patient admitted with acute CVA. PHYSICAL EXAMINATION VITAL SIGNS: Temperature 99.8, heart rate 102, blood pressure of 117/84. HEENT: PERRLA. Extraocular muscles intact. NECK: Supple. No carotid bruit or thyromegaly. CARDIOPULMONARY: S1, S2, regular. LUNGS: Chest is clear to auscultation. ABDOMEN: Soft. EXTREMITIES: Clubbing and cyanosis negative. LABORATORY DATA: WBC 0.4, hemoglobin 9.3, hematocrit 27.2, platelet 92. Chemistry shows sodium 141, potassium 3.2, chloride 103, carbon dioxide 22, anion gap 19, BUN 16, creatinine 1.0, total glucose 154, calcium 8.5, total bilirubin 1.2, AST of 47, ALT of 26, alkaline phosphatase 138, total protein 6.6, albumin 3.0, albumin/globulin ratio 1.4. CAT scan showed left frontal subarachnoid hemorrhage and the repeat CAT scan shows no significant change from . No midline shift on repeat CAT scan at 11/06/2016, that is yesterday at 8.00 a.m. IMPRESSION: A 76-year-old female with past medical history significant for coronary artery disease, status post PTCA in 2004, two stents. The patient had DVT, status post IVC filter in March and status post cardiac catheterization in March, found to be in-stent restenosis 20%, off Plavix by Dr. Jam Barillas, admitted in March because of severe thrombocytopenia. Platelet runs very low. History of chemotherapy for breast CA, two weeks ago last chemotherapy, admitted with subarachnoid bleed, right-sided weakness as well as severe thrombocytopenia, pancytopenia, anemia and neutropenia. Admitting platelet was 3, given 5 units of packed platelets. Now, the platelet count today is 92. Yesterday, it was 115, but the WBC count was 0.5 and absolute neutropenic count is decreased and the patient is on neutropenic precaution, low-grade fever, rule out neutropenic sepsis. Positive troponin, asymptomatic, possibly secondary to stress versus cannot be ruled out true non-STEMI, but the patient is asymptomatic. RECOMMENDATIONS: Since the patient is asymptomatic and given the condition of severe thrombocytopenia, subarachnoid bleed, not a candidate for Plavix, not a candidate for aspirin, not a candidate for cardiac catheterization because she has a stent and during heparinization, can have significant further subarachnoid bleed and can cause herniation of the brain as well. I discussed with Dr. Jam Barillas, the primary vascular physician, I agree at this point, we will continue supportive care, beta-sendy, due to the beta-sendy, supplement electrolytes, monitor H&H, continue neutropenic precaution, monitor platelet count, if it goes below 20, consider packed RBC transfusion. We will follow with you. Discussed with the patient's son, who is at the bedside, explained to the patient that we will talk, the patient is going to call as well Dr. Jam Barillas, get *------* confirmation from Dr. Jam Barillas, we will follow with you. Upon discharge, the patient will follow with Dr. Jam Barillas and transfer care upon discharge to Dr. Jam Barillas. Thank you *------*. Kayden Valdes MD
--- NOTE | 2016-11-08 00:54 | PN ---
PULMONARY CRITICAL CARE PROGRESS NOTE DATE: 11/07/2016 REFERRING PHYSICIAN: Dr. Ibarra. SUBJECTIVE: She is lying in the bed. Events of earlier day noted, spoke to nursing staff, spoke to house doctor, also spoke to planer setup operator in detail. The patient had a sort of shortness of breath and chest pain, so nitro paste was placed, which improved chest pain. At the time of my examination, patient was not in short of breath and denied any chest pain. No cough, no sputum production, No nausea, no vomiting. No diarrhea. No leg pain or leg swelling. No headache. PHYSICAL EXAMINATION GENERAL: In no acute distress. VITAL SIGNS: Temperature 98, heart rate 93, respiratory rate is 23, blood pressure 105/34. HEENT: Moist mucous membrane. Small oral cavity. NECK: Supple. No JVD. HEART: S1 and S2. LUNGS: Fair airflow with rhonchi. ABDOMEN: Soft and nontender. No organomegaly. EXTREMITIES: No edema. NEUROLOGIC: Awake and alert. Follow simple commands. MEDICATIONS: She is on Ranexa 500 mg twice a day. HOME MEDICATIONS: Metoprolol tartrate 50 mg twice a day, nitroglycerin 2% ointment to effected area q.6 hours, Tylenol p.r.n., Protonix 40 mg daily, Xopenex inhaler q.6 hour p.r.n. LABORATORY DATA: Shows hemoglobin 9.3, hematocrit 27.2, WBC 0.4, platelet count is 92. Sodium 141, potassium 3.2, chloride 103, bicarbonate 22, BUN 16, creatinine 1.0 and glucose is 154. AST 47, ALT 26, alk phos is 138. LDH 886. Troponin is 1.79. Her echocardiogram done this morning, which shows right ventricle systolic pressure is almost 95, four chambered dilatation with ejection fraction 25%, moderate to severe MR/TR. IMPRESSION AND PLAN: Spontaneous subarachnoid hemorrhage, thrombocytopenia, pancytopenia, lung cancer status post chemotherapy, history of coronary artery disease with coronary stent. According to the patient her Plavix was stopped about a month and a half ago, her coronary stent was couple of years ago, concerning chest pain, there is no more active chest pain, she is comfortable at present with nitro paste, for pain, continue beta sendy. At this point, cannot give anticoagulation or platelet inhibitors. We will do MRA to assure that there is no metastatic disease to the bleeding site or there is no arteriovenous malformation, then if that is normal, we may consider platelet inhibitor if okay with cardiology, so by looking echocardiogram, has a severe cardiomyopathy with severe pulmonary hypertension, the question is that the cause of this cardiomyopathy is it chemotherapy or ischemic cardiomyopathy, will cardiology help us in . We will follow with you. Kayden Frost MD
[2016-11-08 06:37] LABS: HEMOGLOBIN 8.6 gm/dL (12.0-16.0); MEAN CELL VOLUME 95.2 fL (80.0-105.0); MEAN CORPUSCULAR HEMOGLOBIN 31.9 pg (25.0-35.0); MEAN CORPUSCULAR HGB CONC 33.5 g/dl (31.0-37.0); RED CELL DISTRIBUTION WIDTH 17.4 % (11.5-14.5)
[2016-11-08 06:53] LABS: PLATELET COUNT 49 10^3/uL (120.0-450.0)
[2016-11-08 07:56] LABS: TROPONIN I 1.53 ng/mL
[2016-11-08 08:00] LABS: BAND 7 % (0-2); LYMPHOCYTE 73 % (22.0-35.0); MONOCYTE 4 % (1.0-6.0); NEUTROPHIL 16 % (50.0-70.0)
[2016-11-08] MEDS: Nitroglycerin 2% Ointment Foilpak UD TOP SCH ×3 (08:00→20:45)
[2016-11-08 08:02] LABS: PLATELET ESTIMATE LOW (NORMAL)
[2016-11-08 08:19] LABS: ALB/GLOB RATIO 1.4 (1.1-1.8); ALBUMIN 3.6 g/dL (3.0-4.8); CALCIUM 8.6 mg/dL (8.4-10.5)
[2016-11-08] MEDS ORDERED: Magnesium Sulfate 2 GM in Sodium Chloride 0.9% 100 ML IVPB ONE ×3 (08:35→10:35)
[2016-11-08] MEDS: Potassium & Sodium Phosphate PO SCH ×3 (09:01→18:16)
[2016-11-08] MEDS ORDERED: Iohexol 350 MG/100 ML VIAL ONE (09:21)
[2016-11-08] MEDS ORDERED: Iodixanol 320 MG/ML 100 ML BOTTLE IV ONE (09:36)
--- NOTE | 2016-11-08 11:04 | CT ---
PROCEDURE: CT Chest with contrast (Pulmonary Angiogram) HISTORY: R/o Pulmonary Embolism COMPARISON: 11/06/2016 TECHNIQUE: Axial computed tomography images were obtained of the chest in the pulmonary arterial phase of enhancement. Coronal and sagittal reformatted images were created and reviewed. Intravenous contrast dose: 100 cc of Omni 350 Radiation dose: Total exam DLP = 297 mGy-cm. This CT exam was performed using one or more of the following dose reduction techniques: Automated exposure control, adjustment of the mA and/or kV according to patient size, and/or use of iterative reconstruction technique. FINDINGS: PULMONARY ARTERIES: Unremarkable. No pulmonary embolism. AORTA: No acute findings. No thoracic aortic aneurysm. LUNGS: There is a pleural base mass in the right lower lobe measuring 18 x 28 mm. There is a surrounding infiltrate. There is focal consolidation at the right lung base with air bronchograms. PLEURAL SPACES: Unremarkable. No effusion or pneuomothorax. HEART: Unremarkable. No cardiomegaly. No significant pericardial effusion. LYMPH NODES: No lymphadenopathy. BONES, CHEST WALL: Unremarkable. No fracture or destructive lesion OTHER FINDINGS: Unremarkable. IMPRESSION: No evidence of pulmonary embolus. Pleural based mass and surrounding infiltrate at the right lung base. Follow-up recommended
--- NOTE | 2016-11-08 12:38 | CP.PCM.PN ---
Subjective - Date & Time of Evaluation Date of Evaluation: 11/08/16 Time of Evaluation: 09:40 - Subjective Subjective: PGY [address] Taveras [facility] No acute events overnight. Pt still complains of some chest tightness and mild sob. Denies any f/c. palpitations, abd pain, n/ v/d. Objective - Vital Signs/Intake and Output Vital Signs (last 24 hours): Temp Pulse Resp BP Pulse Ox 98 F 86 15 136/47 L 98 11/08/16 04:00 11/08/16 12:10 11/08/16 12:10 11/08/16 12:00 11/08/16 12:10 Intake and Output: 11/08/16 11/08/16 06:59 18:59 Intake Total 450 Output Total 920 Balance -470 - Medications Medications: Current Medications Digoxin (Lanoxin) 0.25 mg PO 1400 CHERYL Home Med (Home Med) 500 unit PO Q12 [facility] Last Admin: 11/08/16 09:03 Dose: 500 unit Levalbuterol HCl (Xopenex) 0.63 mg IH [id number] PRN PRN Reason: Shortness of Breath Lisinopril (Zestril) 2.5 mg PO DAILY [facility] Last Admin: 11/08/16 09:02 Dose: 2.5 mg Metoprolol Tartrate (Lopressor) 50 mg PO BID [facility] Last Admin: 11/08/16 09:02 Dose: 50 mg Morphine Sulfate (Morphine) 1 mg IVP Q4H PRN PRN Reason: cardiac pain elevated traponin Last Admin: 11/07/16 18:52 Dose: 1 mg Nitroglycerin (Nitro-Bid 2% Oint) 1 ea TOP Q6H [facility] Last Admin: 11/08/16 08:00 Dose: 1 ea Pantoprazole Sodium (Protonix Inj) 40 mg IVP DAILY [facility] Last Admin: 11/08/16 09:01 Dose: 40 mg Potassium Phos/Sodium Phos (Neutra-Phos) 1 pkt PO TID [facility] Stop: 11/08/16 23:00 Last Admin: 11/08/16 09:01 Dose: 1 pkt - Labs Labs: 11/08/16 05:30 11/08/16 05:30 PT 12.1 Seconds (9.9-11.8) H 11/05/16 15:40 INR 1.12 (0.93-1.08) H 11/05/16 15:40 APTT 25.8 Seconds (23.7-30.8) 11/05/16 15:40 - Constitutional Appears: No Acute Distress - Head Exam Head Exam: ATRAUMATIC, NORMAL INSPECTION, NORMOCEPHALIC - Eye Exam Eye Exam: EOMI, Normal appearance, PERRL Pupil Exam: NORMAL ACCOMODATION, PERRL - ENT Exam ENT Exam: Mucous Membranes Moist, Normal Exam - Neck Exam Neck Exam: Full ROM, Normal Inspection. absent: Lymphadenopathy - Respiratory Exam Respiratory Exam: Clear to Ausculation Bilateral, NORMAL BREATHING PATTERN. absent: Wheezes - Cardiovascular Exam Cardiovascular Exam: REGULAR RHYTHM, RRR, +S1, +S2. absent: Murmur - GI/Abdominal Exam GI & Abdominal Exam: Soft, Normal Bowel Sounds. absent: Distended, Tenderness - Extremities Exam Extremities Exam: Normal Capillary Refill. absent: Calf Tenderness, Joint Swelling, Pedal Edema - Back Exam Back Exam: NORMAL INSPECTION - Neurological Exam Neurological Exam: Alert, Awake, CN II-XII Intact, Normal Gait, Oriented x3 - Psychiatric Exam Psychiatric exam: Normal Affect, Normal Mood - Skin Skin Exam: Dry, Intact, Normal Color, Warm Assessment and Plan - Assessment and Plan (Free Text) Assessment: 76F with pmh of lung cancer on chemotherapy (Platinol and Etoposide last given on ) presented with dizziness, lightheadedness x 3 days found to have a left frontal subarachnoid hemorrhage. Pt slurred speech has since significantly improved. Pt also is pancytopenic with wbc of 0.4. and has elevated troponin. 1. Pancytopenia - todays Wbc improved 0.4--> 2 - Will cont to monitor with daily labs - Hb or 8.[address] mar to 49 this am - s/p Neupogen - no indication of neupogen at this time - Neutropenic precautions - s/p Leuk reduced pheresis plts x 3, irrad leuk reduced pher plt x 2 - leuk reduced RBC x 2 - No indication for platelet transfusion at this time >20,000 - no signs of eccymosis of the skin or mouth - Cont to monitor 2. Hx of lung cancer on chemotherapy, ? breast cancer - CT chest showed no PE , pleural based mass and surrounding infiltrate at the R lung base - Platinol and Etoposide last given on - f/u with Dr Rodriguez her oncologist - pain control with morphine 1mg Q4h prn 3. Elevated troponin - F/u MRA reports - F/u with cardiology recs - Cont metoprolol, lisinopril and nitroglycerin - Cont to monitor Case and plan was reviewed and discussed with Dr Taveras.
--- NOTE | 2016-11-08 14:11 | PN ---
DATE: 11/08/2016 REASON FOR THE CONSULTATION: Followup positive troponin, history of breast CA, status post chemo 2 weeks ago, admitted with pancytopenia and intracerebral bleed, positive troponin, possible non-ST segment myocardial infarction, rule out PE. SUBJECTIVE: The patient is sitting in the bed, denies any chest pain, shortness of breath, any palpitations, no shoulder pain, no back pain, was short of breath earlier but now feels okay with tightness of the chest as well, but since the patient states that on nitro paste feels better. Sitting in the bed, son is at the bedside, easy chair. The patient is not in apparent distress. PHYSICAL EXAMINATION: VITAL SIGNS: Temperature afebrile, heart rate 88, blood pressure 129/68. HEENT: PERRLA, extraocular muscles intact. NECK: Supple. No carotid bruit. No thyromegaly. CHEST: Clear to auscultation. HEART: S1 and S2, regular. ABDOMEN: Soft. EXTREMITIES: Clubbing and cyanosis negative. LABORATORY DATA: Blood workup are as follows; WBC 2, hemoglobin 8.6, hematocrit of 25.7, and platelet count 49. Chemistry shows sodium of 136, potassium 4.4, chloride 102, carbon dioxide of 22, anion gap of 16, BUN of 22, and creatinine is 1.3. Calcium 8.6, phosphorus 2.6, magnesium 1.0, troponin 1.53, CPK 62, total protein 6.2, albumin 3.6, and albumin/globulin ratio 1.4. IMPRESSION: A 76-year-old female with past medical history significant for coronary artery disease, status post stent in 2004, being followed by Dr. Jam Barillas. Recent cath in March 2016, patent stent, mild in-stent restenosis 20%. History of cardiomyopathy, at that time, ejection fraction was decreased and the patient was on LifeVest, was on aspirin and Plavix. The patient had been recently diagnosed breast CA, status post chemo. The cath was done before the diagnosis of breast CA and cardiomyopathy was nonischemic, possibly as patent stent and was put on LifeVest by Dr. Jam Barillas. Later on, the patient's DVT, PE, had an inferior vena cava filter in March. Recently, the patient admitted 2 weeks after having chemotherapy with pancytopenia, severe neutropenia, decreased hemoglobin, and severe platelet count, thrombocyte decreased with the platelet count *------* and spontaneous intracerebral bleed *------* positive troponin. Echo was done that showed decreased LV function, significantly decreased, ejection fraction 25% which is essentially unchanged from before. Severe pulmonary hypertension, RVSP at 95, [id number] mitral regurgitation, [id number] tricuspid regurgitation, four-chamber dilatation consistent with cardiomyopathy. Severe pulmonary hypertension, rule out PE. Discussed yesterday with Dr. Jam Pulido, the patient has a known cardiomyopathy since March and was at one point LifeVest, off Plavix since 6 to 8 weeks because of severe thrombocytopenia and the patient was kept off by Dr. Jam Pulido. The cardiomyopathy is old, but pulmonary hypertension is not sure, possibly needs to rule out PE because of severe pulmonary hypertension. RECOMMENDATION: We will get CAT scan of the chest with a PE protocol. Non-ST segment myocardial infarction, he is not a candidate for cardiac catheterization because of severe thrombocytopenia and spontaneous intracerebral bleed, cannot give heparin, cannot give platelet inhibitor. Also this positive troponin could be secondary to his severe pulmonary hypertension, could be RV ischemia and could be stretching of RV, can lead to the new troponin positive, because the patient had a cardiac catheterization 6 months ago in March, patent stent, 20% in-stent restenosis. By putting all the scenario, the patient is not a candidate for cardiac catheterization at this point because that will destabilize the patient and can increase more intracerebral bleed if any kind of anticoagulation (heparin or platelet) which ever is given. So discussed with Dr. Jam Pulido and agreed to treat conservatively at this point. Cardiomyopathy is not new, it is since March. We will get a CAT scan to rule out any PE, continue beta-sendy, continue nitrate. I will put a dig and LIZETTE inhibitor as blood pressure is tolerated for treat the heart failure and cardiomyopathy. Conservative approach, no plan for intervention because of obvious reason as mentioned above. Overall, the patient's condition is critical and prognosis is guarded. We will supplement aggressively electrolytes. Magnesium is very low, we will supplement 2 to 3 doses of mag, and I will follow with you. Thank you Dr. Ibarra, for providing me the opportunity in taking care of the patient. We will continue Xopenex as needed to prevent tachycardia. Further recommendations depending upon the hospital course. We will also supplement Neutra-Phos. Repeat the lab; mag and phosphorus in the morning. We will follow up with you. Kayden Valdes MD
[2016-11-08] MEDS: Digoxin 250 mcg (0.25 mg) Tab PO SCH (14:30)
--- NOTE | 2016-11-08 14:52 | CP.PCM.PN ---
<Moshe Man - Last Filed: 11/08/16 17:13> Subjective - Date & Time of Evaluation Date of Evaluation: 11/08/16 Time of Evaluation: 14:49 - Subjective Subjective: Neurology Progress Note Pt seen and examined at bedside. Pt accompanied by family. Pt states she had a headache yesterday which has since subsided. No acute events overnight, no complaints today. Denies CP, SOB, N/V/D, dizziness, fever, chills. Objective - Vital Signs/Intake and Output Vital Signs (last 24 hours): Temp Pulse Resp BP Pulse Ox 98.3 F 86 17 136/47 L 93 L 11/08/16 12:00 11/08/16 12:50 11/08/16 12:50 11/08/16 12:00 11/08/16 12:50 Intake and Output: 11/08/16 11/08/16 06:59 18:59 Intake Total 450 Output Total 920 Balance -470 - Medications Medications: Current Medications Digoxin (Lanoxin) 0.25 mg PO 1400 [facility] Home Med (Home Med) 500 unit PO Q12 [facility] Last Admin: 11/08/16 09:03 Dose: 500 unit Levalbuterol HCl (Xopenex) 0.63 mg IH [id number] PRN PRN Reason: Shortness of Breath Lisinopril (Zestril) 2.5 mg PO DAILY [facility] Last Admin: 11/08/16 09:02 Dose: 2.5 mg Metoprolol Tartrate (Lopressor) 50 mg PO BID [facility] Last Admin: 11/08/16 09:02 Dose: 50 mg Morphine Sulfate (Morphine) 1 mg IVP Q4H PRN PRN Reason: cardiac pain elevated traponin Last Admin: 11/07/16 18:52 Dose: 1 mg Nitroglycerin (Nitro-Bid 2% Oint) 1 ea TOP Q6H [facility] Last Admin: 11/08/16 08:00 Dose: 1 ea Pantoprazole Sodium (Protonix Inj) 40 mg IVP DAILY [facility] Last Admin: 11/08/16 09:01 Dose: 40 mg Potassium Phos/Sodium Phos (Neutra-Phos) 1 pkt PO TID [facility] Stop: 11/08/16 23:00 Last Admin: 11/08/16 09:01 Dose: 1 pkt - Labs Labs: 11/08/16 05:30 11/08/16 05:30 PT 12.1 Seconds (9.9-11.8) H 11/05/16 15:40 INR 1.12 (0.93-1.08) H 11/05/16 15:40 APTT 25.8 Seconds (23.7-30.8) 11/05/16 15:40 - Constitutional Appears: Well, No Acute Distress - Head Exam Head Exam: ATRAUMATIC, NORMAL INSPECTION, NORMOCEPHALIC - ENT Exam ENT Exam: Mucous Membranes Moist - Respiratory Exam Respiratory Exam: Clear to Ausculation Bilateral, NORMAL BREATHING PATTERN. absent: Rales, Rhonchi - Cardiovascular Exam Cardiovascular Exam: RRR, +S1, +S2 - GI/Abdominal Exam GI & Abdominal Exam: Soft, Normal Bowel Sounds. absent: Tenderness - Neurological Exam Neurological Exam: Alert, Awake, Oriented x3. absent: Motor Sensory Deficit Neuro motor strength exam: Left Upper Extremity: 5, Right Upper Extremity: 5, Left Lower Extremity: 5, Right Lower Extremity: 5 - Psychiatric Exam Psychiatric exam: Normal Affect, Normal Mood - Skin Skin Exam: Intact, Normal Color, Warm Assessment and Plan - Assessment and Plan (Free Text) Plan: 76 y/o F with PMH of lung cancer on chemotherapy, breast cancer, and [place] s/p stent placement presents with left frontal subarachnoid hemorrhage. Pt is currently neurologically stable with no acute symptoms. Will sign off at this time, please reconsult at necessary. - CT Angiogram shows no evidence of aneurysm or occlusion - Avoid antiplatelet therapy for 2 weeks - Correct thrombocytopenia, can lead to spontaneous hemorrhage - Hematology/Oncology for pancytopenia - Physical therapy Magda PGY-2 <Jack Acosta - Last Filed: 11/09/16 10:21> Objective - Vital Signs/Intake and Output Vital Signs (last 24 hours): Temp Pulse Resp BP Pulse Ox 97.7 F 72 14 118/56 L 100 11/09/16 08:00 11/09/16 08:29 11/09/16 08:00 11/09/16 08:29 11/09/16 08:10 Intake and Output: 11/09/16 11/09/16 06:59 18:59 Intake Total 441 Output Total 600 Balance -159 - Medications Medications: Current Medications Digoxin (Lanoxin) 0.25 mg PO 1400 [facility] Last Admin: 11/08/16 14:30 Dose: 0.25 mg Home Med (Home Med) 500 unit PO Q12 [facility] Last Admin: 11/09/16 09:24 Dose: 500 unit Sodium Chloride (Sodium Chloride 0.9%) 500 mls @ 999 mls/hr IV .Q31M [facility] Stop: 11/09/16 10:43 Levalbuterol HCl (Xopenex) 0.63 mg IH [id number] PRN PRN Reason: Shortness of Breath Lisinopril (Zestril) 2.5 mg PO DAILY [facility] Last Admin: 11/09/16 09:24 Dose: Not Given Metoprolol Tartrate (Lopressor) 50 mg PO BID [facility] Last Admin: 11/09/16 09:24 Dose: Not Given Morphine Sulfate (Morphine) 1 mg IVP Q4H PRN PRN Reason: cardiac pain elevated traponin Last Admin: 11/09/16 08:30 Dose: 1 mg Nitroglycerin (Nitro-Bid 2% Oint) 1 ea TOP Q6H [facility] Last Admin: 11/09/16 08:30 Dose: 1 ea Pantoprazole Sodium (Protonix Inj) 40 mg IVP DAILY [facility] Last Admin: 11/09/16 09:24 Dose: Not Given - Labs Labs: 11/09/16 05:40 11/09/16 05:40 PT 12.1 Seconds (9.9-11.8) H 11/05/16 15:40 INR 1.12 (0.93-1.08) H 11/05/16 15:40 APTT 25.8 Seconds (23.7-30.8) 11/05/16 15:40 Attending/Attestation - Attestation I have personally seen and examined this patient.: Yes I have fully participated in the care of the patient.: Yes I have reviewed all pertinent clinical information, including history, physical exam and plan: Yes
--- NOTE | 2016-11-08 15:42 | CP.PCM.PN ---
<ANDREAROSIE - Last Filed: 11/08/16 15:38> Subjective - Date & Time of Evaluation Date of Evaluation: 11/08/16 Time of Evaluation: 13:30 - Subjective Subjective: Rosie Gordon DO PGY1 - ICU Progress Note Patient seen and examined at bedside. Nurse reports no acute events overnight. Patient was recently readmitted to the ICU for chest pain, uptrending troponins , with a history of pancytopenia 2/2 chemotherapy for lung CA, and SAH. Patient now denies any CP, SOB, abdominal pain, diaphoresis. She is complaining of coughing up bloody sputum twice in the past couple hours. Son is also at bedside contributing to the history. Objective - Vital Signs/Intake and Output Vital Signs (last 24 hours): Temp Pulse Resp BP Pulse Ox 98.3 F 86 17 136/47 L 93 L 11/08/16 12:00 11/08/16 12:50 11/08/16 12:50 11/08/16 12:00 11/08/16 12:50 Intake and Output: 11/08/16 11/08/16 06:59 18:59 Intake Total 450 Output Total 920 Balance -470 - Medications Medications: Current Medications Digoxin (Lanoxin) 0.25 mg PO 1400 [facility] Last Admin: 11/08/16 14:30 Dose: 0.25 mg Home Med (Home Med) 500 unit PO Q12 [facility] Last Admin: 11/08/16 09:03 Dose: 500 unit Levalbuterol HCl (Xopenex) 0.63 mg IH [id number] PRN PRN Reason: Shortness of Breath Lisinopril (Zestril) 2.5 mg PO DAILY [facility] Last Admin: 11/08/16 09:02 Dose: 2.5 mg Metoprolol Tartrate (Lopressor) 50 mg PO BID [facility] Last Admin: 11/08/16 09:02 Dose: 50 mg Morphine Sulfate (Morphine) 1 mg IVP Q4H PRN PRN Reason: cardiac pain elevated traponin Last Admin: 11/07/16 18:52 Dose: 1 mg Nitroglycerin (Nitro-Bid 2% Oint) 1 ea TOP Q6H [facility] Last Admin: 11/08/16 14:30 Dose: 1 ea Pantoprazole Sodium (Protonix Inj) 40 mg IVP DAILY [facility] Last Admin: 11/08/16 09:01 Dose: 40 mg Potassium Phos/Sodium Phos (Neutra-Phos) 1 pkt PO TID [facility] Stop: 11/08/16 23:00 Last Admin: 11/08/16 14:30 Dose: 1 pkt - Labs Labs: 11/08/16 05:30 11/08/16 05:30 PT 12.1 Seconds (9.9-11.8) H 11/05/16 15:40 INR 1.12 (0.93-1.08) H 11/05/16 15:40 APTT 25.8 Seconds (23.7-30.8) 11/05/16 15:40 - Constitutional Appears: Non-toxic, No Acute Distress, Chronically Ill - Head Exam Head Exam: ATRAUMATIC, NORMOCEPHALIC - Eye Exam Eye Exam: EOMI, Normal appearance - ENT Exam ENT Exam: Mucous Membranes Moist, Normal Oropharynx - Neck Exam Neck Exam: Normal Inspection - Respiratory Exam Respiratory Exam: Decreased Breath Sounds, Clear to Ausculation Bilateral. absent: Rales, Rhonchi, Wheezes - Cardiovascular Exam Cardiovascular Exam: RRR, +S1, +S2 - GI/Abdominal Exam GI & Abdominal Exam: Soft, Normal Bowel Sounds. absent: Firm, Guarding, Rigid, Tenderness - Extremities Exam Extremities Exam: absent: Calf Tenderness, Pedal Edema - Neurological Exam Neurological Exam: Alert, Awake, Oriented x3 - Psychiatric Exam Psychiatric exam: Normal Affect, Normal Mood - Skin Skin Exam: Dry, Intact, Normal Color Assessment and Plan - Assessment and Plan (Free Text) Assessment: 76F with PMH lung cancer on chemotherapy found to be pancytopenic, found to have spontaneous SAH in the setting of severe thrombocytopenia. No need for neurosurgical intervention as per Dr. Jauregui due to no further progression of SAH on CTH. Re-presented to ICU for chest pain and elevated troponins. Plan: Neuro: - AAOx3 - repeat CT showed no changed, no midline shift or herniation; CTA head shows no saccular aneurysm - neurosurgery recommended observation, correct thrombocytopenia CV : - trop elevated yesterday, but downtrending as of this AM. Dr. Valdes cardiology consulted, will get MRA to evaluate for aneurysyms prior to antiplt therapy - On nitro paste, denies CP - Ekg No St changes (hx of LBBB) - Maintain MAP>65 - Echo performed EF 25% Pulm: - On RA. Saturating well. - Maintain O2 sat>90% - Hx of lung ca on chemo, will hold for now. hx of smoking. - Bloody sputum collected in a napkin by the family, small globs of dark red sputum, approx 1cc. Likely 2/2 thrombocytopenia. Will transfuse 1u platelets - Chest CT this AM shows [id number] RLL mass with surrounding infiltrate, read by different radiologist, but appears similar to prior scan. - CXR neg for infiltrates - Pulm consulted GI: - Tolerating PO intake Renal: - BUN/Cr stable at baseline - Replace electrolytes as needed - maintain euvolemia - Continue to monitor. ID: - Afebrile, wbc 2.0, improved from 0.4 yesterday, leukopenic likely form chemo - cont to monitor. - Dr. Taveras, Heme/ onc consulted Endo: - Maintain euglycemia. Heme: - presented with pancytopenia, last received chemo 2 weeks - neutropenic precaution - Will transfuse 1u platelets today - Cont to monitor. DVT ppx - thrombocytopenic Seen reviewed and discussed with attending <Cristian Briseno - Last Filed: 11/09/16 15:03> Objective - Vital Signs/Intake and Output Vital Signs (last 24 hours): Temp Pulse Resp BP Pulse Ox 98.2 F 74 19 116/69 100 11/09/16 12:00 11/09/16 13:30 11/09/16 13:30 11/09/16 13:00 11/09/16 13:30 Intake and Output: 11/09/16 11/09/16 06:59 18:59 Intake Total 441 Output Total 600 Balance -159 - Medications Medications: Current Medications Digoxin (Lanoxin) 0.25 mg PO 1400 [facility] Last Admin: 11/09/16 14:52 Dose: 0.25 mg Home Med (Home Med) 500 unit PO Q12 [facility] Last Admin: 11/09/16 09:24 Dose: 500 unit Levalbuterol HCl (Xopenex) 0.63 mg IH [id number] PRN PRN Reason: Shortness of Breath Lisinopril (Zestril) 2.5 mg PO DAILY [facility] Metoprolol Tartrate (Lopressor) 50 mg PO BID [facility] Last Admin: 11/09/16 09:24 Dose: Not Given Morphine Sulfate (Morphine) 1 mg IVP Q4H PRN PRN Reason: cardiac pain elevated traponin Last Admin: 11/09/16 14:46 Dose: 1 mg Nitroglycerin (Nitro-Bid 2% Oint) 1 ea TOP Q6H [facility] Last Admin: 11/09/16 14:52 Dose: 1 ea Pantoprazole Sodium (Protonix Inj) 40 mg IVP DAILY [facility] Last Admin: 11/09/16 09:24 Dose: Not Given - Labs Labs: 11/09/16 05:40 11/09/16 05:40 PT 12.1 Seconds (9.9-11.8) H 11/05/16 15:40 INR 1.12 (0.93-1.08) H 11/05/16 15:40 APTT 25.8 Seconds (23.7-30.8) 11/05/16 15:40 Attending/Attestation - Attestation I have personally seen and examined this patient.: Yes I have fully participated in the care of the patient.: Yes I have reviewed all pertinent clinical information, including history, physical exam and plan: Yes Notes (Text): 11/09/16 15:00 76 yo female with SAH due to severely low plats and subsequent MRI revealing watershed infarcts. She requires intermittent plats transfusion, neuro deficit improved. Discussed watershed infarcts with neuro svc-->will maintain BPs >120. chest pain is reporducable and increases on inspiration-->unlikely cardiac: discussed with cardio service who agreed. Ok to downgrade to tele. ccm time 40 min
[2016-11-08] MEDS: Morphine 2 mg/ml ISec IVP PRN ×2 (19:06→23:00)
--- NOTE | 2016-11-08 21:09 | PN ---
DATE: 11/08/2016 REFERRING PHYSICIAN: Dr. Ibarra. SUBJECTIVE: She is lying in the bed, head at 45 degrees, sleepy, arousable. Family is at the bed side. According to the family, he does have snoring and daytime sleepy. Dr. 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 Still having on and off chest pressure. No nausea. No abdominal pain. No dysuria, leg pain or leg swelling. PHYSICAL EXAMINATION GENERAL: No acute distress. VITAL SIGNS: Temperature 98, heart 85, respiratory rate is 20, blood pressure 132/63, pulse ox 100% on nasal cannula. HEENT: Small oral cavity. Mallampati score is 4. NECK: Supple. No JVD. LUNGS: Fair airflow with rhonchi. HEART: S1 and S2. ABDOMEN: Soft and nontender. No organomegaly. EXTREMITIES: No edema. NEUROLOGIC: Sleepy, arousable. Follow simple commands. MEDICATIONS: She is on digoxin 0.25 mg daily, metoprolol tartrate 50 mg twice a day, morphine 1 mg IV q. 4 hours p.r.n. for chest pain, Neutra-Phos 1 pack 3 times a day, Nitro-Bid 2% affected area q. 6 hours, Protonix 40 mg daily, Xopenex inhaled q. 6 hour p.r.n., Zestril 2.5 mg daily. LABORATORY DATA: Shows hemoglobin 8.6, hematocrit 25.7, WBC is 2.0, platelet is 49. Microbiology: Nares MRSA not detected. She had MRI and MRA done, report is still pending. CT of the chest was done which shows right pleural base aminta but no PE. IMPRESSION AND PLAN: Subarachnoid hemorrhage, thrombocytopenia, pancytopenia, lung cancer, been on chemotherapy, coronary artery disease, history of coronary stents, 4 chamber, cardiomyopathy, myocardial infarction, still have on and off chest pressure noted, beta sendy and digoxin have been started, and morphine p.r.n. has been given for chest pain. She has a component of sleep apnea syndrome. We will start her on CPAP 6 cm and oxygen while sleeping. Keep head elevated at 45 degrees. Careful with sedation. Gastric prophylaxis. SCDs to lower extremities. Spoke to the patient's family at bedside. All the questions answered, spoke to nursing staff. Critical care times more than 35 minutes. We will follow with you. Kayden Frost MD
--- NOTE | 2016-11-08 22:59 | CP.PCM.PN ---
Subjective - Date & Time of Evaluation Date of Evaluation: 11/08/16 Time of Evaluation: 08:30 - Subjective Subjective: Patient seen and examined at bedside. Nurse reports no acute events overnight. Patient was recently readmitted to the ICU for chest pain, uptrending troponins , with a history of pancytopenia 2/2 chemotherapy for lung CA, and SAH. Patient now denies any CP, SOB, abdominal pain, diaphoresis. She is complaining of coughing up bloody sputum twice in the past couple hours. Son is also at bedside contributing to the history.as per pt she ahd 2 times , blood in the phlem Objective - Vital Signs/Intake and Output Vital Signs (last 24 hours): Temp Pulse Resp BP Pulse Ox 97.5 F L 79 27 H 118/61 83 L 11/08/16 18:19 11/08/16 22:20 11/08/16 22:20 11/08/16 22:15 11/08/16 22:20 Intake and Output: 11/08/16 11/09/16 18:59 06:59 Intake Total 0 201 Balance 0 201 - Medications Medications: Current Medications Digoxin (Lanoxin) 0.25 mg PO 1400 [facility] Last Admin: 11/08/16 14:30 Dose: 0.25 mg Home Med (Home Med) 500 unit PO Q12 [facility] Last Admin: 11/08/16 21:07 Dose: 500 unit Levalbuterol HCl (Xopenex) 0.63 mg IH [id number] PRN PRN Reason: Shortness of Breath Lisinopril (Zestril) 2.5 mg PO DAILY [facility] Last Admin: 11/08/16 09:02 Dose: 2.5 mg Metoprolol Tartrate (Lopressor) 50 mg PO BID [facility] Last Admin: 11/08/16 18:16 Dose: 50 mg Morphine Sulfate (Morphine) 1 mg IVP Q4H PRN PRN Reason: cardiac pain elevated traponin Last Admin: 11/08/16 19:06 Dose: 1 mg Nitroglycerin (Nitro-Bid 2% Oint) 1 ea TOP Q6H [facility] Last Admin: 11/08/16 20:45 Dose: 1 ea Pantoprazole Sodium (Protonix Inj) 40 mg IVP DAILY [facility] Last Admin: 11/08/16 09:01 Dose: 40 mg Potassium Phos/Sodium Phos (Neutra-Phos) 1 pkt PO TID [facility] Stop: 11/08/16 23:00 Last Admin: 11/08/16 18:16 Dose: 1 pkt - Labs Labs: 11/08/16 05:30 11/08/16 05:30 PT 12.1 Seconds (9.9-11.8) H 11/05/16 15:40 INR 1.12 (0.93-1.08) H 11/05/16 15:40 APTT 25.8 Seconds (23.7-30.8) 11/05/16 15:40 - Constitutional Appears: Well - Head Exam Head Exam: ATRAUMATIC, NORMAL INSPECTION, NORMOCEPHALIC - Eye Exam Eye Exam: EOMI, Normal appearance, PERRL Pupil Exam: NORMAL ACCOMODATION, PERRL - ENT Exam ENT Exam: Mucous Membranes Moist, Normal Exam - Neck Exam Neck Exam: Full ROM, Normal Inspection. absent: Lymphadenopathy - Respiratory Exam Respiratory Exam: Clear to Ausculation Bilateral, NORMAL BREATHING PATTERN - Cardiovascular Exam Cardiovascular Exam: REGULAR RHYTHM, +S1, +S2. absent: Murmur - GI/Abdominal Exam GI & Abdominal Exam: Soft, Normal Bowel Sounds. absent: Tenderness - Rectal Exam Rectal Exam: NORMAL INSPECTION - Exam Exam: Circumcision, NORMAL INSPECTION External exam: NORMAL EXTERNAL EXAM Speculum exam: NORMAL SPECULUM EXAM Bimanual exam: NORMAL BIMANUAL EXAM - Extremities Exam Extremities Exam: Full ROM, Normal Capillary Refill, Normal Inspection. absent : Joint Swelling, Pedal Edema - Back Exam Back Exam: NORMAL INSPECTION - Neurological Exam Neurological Exam: Alert, Awake, CN II-XII Intact, Normal Gait, Oriented x3 - Psychiatric Exam Psychiatric exam: Normal Affect, Normal Mood - Skin Skin Exam: Dry, Intact, Normal Color, Warm Assessment and Plan - Assessment and Plan (Free Text) Assessment: Assessment: 76F with PMH lung cancer on chemotherapy found to be pancytopenic, found to have spontaneous SAH in the setting of severe thrombocytopenia. No need for neurosurgical intervention as per Dr. Jauregui due to no further progression of SAH on CTH. Re-presented to ICU for chest pain and elevated troponins. Plan: Neuro: - AAOx3 - repeat CT showed no changed, no midline shift or herniation; CTA head shows no saccular aneurysm - neurosurgery recommended observation, correct thrombocytopenia CV : - trop elevated yesterday, but downtrending as of this AM. Dr. Valdes cardiology consulted, will get MRA to evaluate for aneurysyms prior to antiplt therapy - On nitro paste, denies CP - Ekg No St changes (hx of LBBB) - Maintain MAP>65 - Echo performed EF 25% Pulm: - On RA. Saturating well. - Maintain O2 sat>90% - Hx of lung ca on chemo, will hold for now. hx of smoking. - Bloody sputum collected in a napkin by the family, small globs of dark red sputum, approx 1cc. Likely 2/2 thrombocytopenia. Will transfuse 1u platelets - Chest CT this AM shows [id number] RLL mass with surrounding infiltrate, read by different radiologist, but appears similar to prior scan. - CXR neg for infiltrates - Pulm consulted GI: - Tolerating PO intake Renal: - BUN/Cr stable at baseline - Replace electrolytes as needed - maintain euvolemia - Continue to monitor. ID: - Afebrile, wbc 2.0, improved from 0.4 yesterday, leukopenic likely form chemo - cont to monitor. - Dr. Taveras, Heme/ onc consulted Endo: - Maintain euglycemia. Heme: - presented with pancytopenia, last received chemo 2 weeks - neutropenic precaution - Will transfuse 1u platelets today - Cont to monitor. DVT ppx - thrombocytopenic
[2016-11-08 23:30] LABS: EOS % 0.4 % (1.5-5.0); GRAN # 1.06 (1.4-6.5); GRAN % 46.5 % (50.0-68.0); HEMOGLOBIN 8.7 gm/dL (12.0-16.0); LYMPH # 1.2 (1.2-3.4); LYMPH % 51.8 % (22.0-35.0); MEAN CELL VOLUME 96.3 fL (80.0-105.0); MEAN CORPUSCULAR HEMOGLOBIN 32.2 pg (25.0-35.0); MEAN CORPUSCULAR HGB CONC 33.5 g/dl (31.0-37.0); MEAN PLATELET VOLUME 9.3 fl (7.0-11.0); MONO % 1.3 % (1.0-6.0); PLATELET COUNT 54 10^3/uL (120.0-450.0); RED CELL DISTRIBUTION WIDTH 17.2 % (11.5-14.5)
[2016-11-08 23:46] LABS: WHITE BLOOD COUNT 2.3 10^3/ul (4.5-11.0)
[2016-11-09] MEDS: Nitroglycerin 2% Ointment Foilpak UD TOP SCH ×4 (02:00→21:09)
[2016-11-09 06:36] LABS: HEMOGLOBIN 8.4 gm/dL (12.0-16.0); MEAN CELL VOLUME 95.4 fL (80.0-105.0); MEAN CORPUSCULAR HEMOGLOBIN 32.4 pg (25.0-35.0); MEAN PLATELET VOLUME 9.4 fl (7.0-11.0); RBC 2.59 10^6/uL (3.5-6.1); RED CELL DISTRIBUTION WIDTH 17.1 % (11.5-14.5)
[2016-11-09 06:53] LABS: ALB/GLOB RATIO 1.2 (1.1-1.8); ALBUMIN 3.2 g/dL (3.0-4.8); CALCIUM 8.6 mg/dL (8.4-10.5); MAGNESIUM 2.2 mg/dL (1.7-2.2)
[2016-11-09 06:56] LABS: PLATELET COUNT 40 10^3/uL (120.0-450.0); WHITE BLOOD COUNT 2.6 10^3/ul (4.5-11.0)
[2016-11-09 08:00] LABS: LYMPHOCYTE 69 % (22.0-35.0); MONOCYTE 2 % (1.0-6.0); NEUTROPHIL 13 % (50.0-70.0); NUCLEATED RED BLOOD CELL 1 %
[2016-11-09 08:01] LABS: PLATELET ESTIMATE LOW (NORMAL)
[2016-11-09 08:03] LABS: BAND 16 % (0-2)
[2016-11-09 08:12] LABS: PLATELET COUNT MANUAL 55 K/mm3 (120-450)
[2016-11-09] MEDS: Morphine 2 mg/ml ISec IVP PRN ×2 (08:30→14:46)
--- NOTE | 2016-11-09 09:25 | MRI ---
PROCEDURE: MRI BRAIN WITHOUT CONTRAST HISTORY: SAH COMPARISON: 11/06/2016 CT TECHNIQUE: Multiplanar, multisequence MR images of the brain were obtained without intravenous contrast enhancement. FINDINGS: HEMORRHAGE: The small amount of subarachnoid blood is seen in the left frontal lobe. This was seen on the prior CT. DWI: There is a small acute cortical infarct in the left medial parietal lobe. There is an acute infarct in the left occipital parietal white matter adjacent to the lateral ventricle seen on image 13 series 5 this measures 18 mm in diameter. Symmetrical 15 mm infarcts are seen in the cerebellar hemispheres bilaterally. Image 6 series 5 BRAIN PARENCHYMA: No mass effect or edema. No atrophy or chronic microvascular ischemic changes. VENTRICLES: Unremarkable. No hydrocephalus. CRANIUM: Unremarkable. ORBITS: Grossly unremarkable. PARANASAL SINUSES/MASTOIDS: Clear VASCULAR SYSTEM: Skull base flow voids intact. OTHER FINDINGS: The report concurs with the preliminary [facility] report IMPRESSION: Acute infarcts in the left periatrial white matter on in the cerebellar hemispheres bilaterally. Re- demonstration of subarachnoid blood in the left frontal lobe
--- NOTE | 2016-11-09 09:34 | MRI ---
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 TECHNIQUE: 3D time of flight MR angiography of the intracranial arteries was performed. Rotating maximum intensity projection images were generated. FINDINGS: INTERNAL CEREBRAL ARTERIES: Unremarkable. The skull base, petrous, cavernous and supraclinoid segments are bilaterally widely patient. ANTERIOR CEREBRAL ARTERIES: Unremarkable. A1 and A2 segments are widely patent. Smaller distal branches unremarkable, as visualized. MIDDLE CEREBRAL ARTERIES: There is irregularity of the proximal left middle cerebral artery probably due to atherosclerotic disease. There is no stenosis or occlusion. POSTERIOR CIRCULATION: Basilar Artery: Unremarkable. Distal Vertebral Arteries: There is occlusion or hypoplasia of the left vertebral artery Posterior Cerebral Arteries: Unremarkable. Posterior Inferior Cerebellar Arteries: Unremarkable. ANEURYSM/ VASCULAR MALFORMATIONS: None. OTHER FINDINGS: None. IMPRESSION: Mild atherosclerotic irregularity of the left middle cerebral artery. 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
[2016-11-09] MEDS ORDERED: Sodium Chloride 0.9% 500 ML IV STA ×2 (10:13→13:53)
--- NOTE | 2016-11-09 10:46 | CP.PCM.PN ---
Subjective - Date & Time of Evaluation Date of Evaluation: 11/09/16 Time of Evaluation: 09:00 - Subjective Subjective: PGY [address] Taveras Pt seen and examined at bedside. No acute events overnight. Pt complains of some chest tightness that is reproducible this morning. Denies any sob. Denies any f/c. palpitations, abd pain, n/v/d. Objective - Vital Signs/Intake and Output Vital Signs (last 24 hours): Temp Pulse Resp BP Pulse Ox 97.7 F 72 14 118/56 L 100 11/09/16 08:00 11/09/16 08:29 11/09/16 08:00 11/09/16 08:29 11/09/16 08:10 Intake and Output: 11/09/16 11/09/16 06:59 18:59 Intake Total 441 Output Total 600 Balance -159 - Medications Medications: Current Medications Digoxin (Lanoxin) 0.25 mg PO 1400 [facility] Last Admin: 11/08/16 14:30 Dose: 0.25 mg Home Med (Home Med) 500 unit PO Q12 [facility] Last Admin: 11/09/16 09:24 Dose: 500 unit Sodium Chloride (Sodium Chloride 0.9%) 500 mls @ 999 mls/hr IV .Q31M STA Stop: 11/09/16 10:43 Levalbuterol HCl (Xopenex) 0.63 mg IH [id number] PRN PRN Reason: Shortness of Breath Lisinopril (Zestril) 2.5 mg PO DAILY [facility] Metoprolol Tartrate (Lopressor) 50 mg PO BID [facility] Last Admin: 11/09/16 09:24 Dose: Not Given Morphine Sulfate (Morphine) 1 mg IVP Q4H PRN PRN Reason: cardiac pain elevated traponin Last Admin: 11/09/16 08:30 Dose: 1 mg Nitroglycerin (Nitro-Bid 2% Oint) 1 ea TOP Q6H [facility] Last Admin: 11/09/16 08:30 Dose: 1 ea Pantoprazole Sodium (Protonix Inj) 40 mg IVP DAILY [facility] Last Admin: 11/09/16 09:24 Dose: Not Given - Labs Labs: 11/09/16 05:40 11/09/16 05:40 PT 12.1 Seconds (9.9-11.8) H 11/05/16 15:40 INR 1.12 (0.93-1.08) H 11/05/16 15:40 APTT 25.8 Seconds (23.7-30.8) 11/05/16 15:40 - Constitutional Appears: No Acute Distress - Head Exam Head Exam: ATRAUMATIC, NORMAL INSPECTION, NORMOCEPHALIC - Eye Exam Eye Exam: EOMI, Normal appearance, PERRL Pupil Exam: NORMAL ACCOMODATION, PERRL - ENT Exam ENT Exam: Mucous Membranes Moist, Normal Exam - Neck Exam Neck Exam: Full ROM, Normal Inspection. absent: Lymphadenopathy - Respiratory Exam Respiratory Exam: Clear to Ausculation Bilateral, NORMAL BREATHING PATTERN. absent: Wheezes - Cardiovascular Exam Cardiovascular Exam: REGULAR RHYTHM, +S1, +S2. absent: Murmur Additional comments: Tenderness to ant chest wall - GI/Abdominal Exam GI & Abdominal Exam: Soft, Normal Bowel Sounds. absent: Tenderness - Extremities Exam Extremities Exam: Normal Capillary Refill. absent: Calf Tenderness, Joint Swelling, Pedal Edema - Neurological Exam Neurological Exam: Alert, Awake, Oriented x3 - Psychiatric Exam Psychiatric exam: Normal Affect, Normal Mood - Skin Skin Exam: Dry, Intact, Normal Color, Warm Assessment and Plan - Assessment and Plan (Free Text) Assessment: 76F with pmh of lung cancer on chemotherapy (Platinol and Etoposide last given on ) presented with dizziness, lightheadedness x 3 days found to have a left frontal subarachnoid hemorrhage. Pt slurred speech has since significantly improved. Pt also is pancytopenic with wbc of 2.6. and has elevated troponin. 1. Pancytopenia - Todays Wbc improved 0.4--> 2--> 2.6 - Will cont to monitor with daily labs - Hb or 8.[address] mar to 45 this am - Manual plt 55 - to consider plt transfusion if <50 due to spontaneous intracerebral hemorrhage - s/p Neupogen - no indication of neupogen at this time - Neutropenic precautions - s/p Leuk reduced pheresis plts x 3, irrad leuk reduced pher plt x 2 - leuk reduced RBC x 2 - No indication for platelet transfusion at this time- no signs of eccymosis of the skin or mouth - Cont to monitor 2. Hx of lung cancer on chemotherapy, ? breast cancer - CT chest showed no PE , pleural based mass and surrounding infiltrate at the R lung base - Platinol and Etoposide last given on - f/u with Dr Rodriguez her oncologist - pain control with morphine 1mg Q4h prn 3. Elevated troponin - F/u official MRA/MRI reports - F/u with cardiology recs - NSTEMI vs R heart strain due to pulm HTN. Conservative management at this time - Cont metoprolol, lisinopril and nitroglycerin - Cont to monitor Case and plan was reviewed and discussed with Dr Taveras.
--- NOTE | 2016-11-09 13:31 | PN ---
DATE: 11/09/2016 SUBJECTIVE: The patient is seen and examined at bedside. She is comfortable. She talks full sentences. Her speech is much improved and not delayed anymore. She reports that yesterday she was able to stand and a little bit walk on her own in the room. Her night was uneventful. PHYSICAL EXAMINATION: VITAL SIGNS: The patient is afebrile. Heart rate of 68, blood pressure 122/58, respiratory rate 18, oxygen saturation of 100% on room air. HEENT: Head and neck atraumatic. LUNGS: Clear to auscultation bilaterally. HEART: Regular rate and rhythm. S1 and S2 normal. ABDOMEN: Soft, nontender, and nondistended. MUSCULOSKELETAL: No C/C/E. NEUROLOGIC: There is 5/5 strength both in upper and lower extremity. Gross ORAL HEALTH THERAPIST exam improved. SKIN: Moist. PSYCHIATRIC: The patient is alert and oriented x3. LABORATORY DATA: Sodium is 131, potassium is 3.9, chloride is 99, carbon dioxide is 23, BUN is 23, and creatinine is 1.1 down from 1.3. Glucose is 100. AST 30, ALT 34. Troponin yesterday down to 1.53 from 1.79. WBC is 2.6 up from 2.3, platelet count 40 (the patient received one bag of platelets yesterday during the daytime and her platelet count improved from 49 to 54; however, after that, her platelet count dropped down again to 40). MEDICATION: Digoxin, Ranexa 500 mg b.i.d., Lovenox p.r.n., lisinopril 2.5 mg p.o. daily, metoprolol, morphine p.r.n., Protonix. MRI and MRA of the head was performed yesterday and it showed bilateral recent cerebellar infarction, left periatrial white matter and inferior cortical and subcortical recent infarction, left TYLER and superior left TYLER/MCA small recent watershed infarction. Left superior cerebral convex of the subchoroidal hemorrhage right demonstrated. MRA of the brain revealed occlusion/hypoplasia of the left vertebral artery, right internal parotid artery, right internal cerebral artery, right middle cerebral artery, right posterior cerebral artery, right vertebral artery were all unremarkable. Left internal carotid artery, left anterior cerebral artery, left MCA, left DIAL SCREW ASSEMBLER were also patent. ASSESSMENT AND PLAN: This is a 76-year-old lady who initially presented with spontaneous subarachnoid hemorrhage in the setting of severe thrombocytopenia due to recent chemotherapy for lung cancer. The patient's neurological exam substantially improved since her admission. Primary pulmonary service ordered MRI/MRA of the brain that revealed several areas of infarcts, which based on MRI report appeared to be watershed. MRA of the brain also revealed occlusion of the left vertebral artery. The patient also had troponin leak and cardiology service was following the patient as well. At present time, approach was chosen to be conservative as the patient would not be a candidate for antiplatelet therapeutic anticoagulation therapy. In light of new MRI/MRA findings, I will ask neurology service to comment on this to see whether or not that would change patient's management. Provided, however, that the clinical/neurological exam is improved, the patient's airway patent and not in imminent danger or comprised, I will transfer the patient out from ICU once neurology followup and reevaluation obtained. We will continue to target euvolemia, glycemia, pneumothermia and oxygen saturation more than 90%. We will continue with DVT and GI prophylaxes. Addendum: chest pain is reproducable, increased with inspiration-->unlikely cardiac ccm time 40 min Cristian Briseno MD [facility]
[2016-11-09] MEDS: Digoxin 250 mcg (0.25 mg) Tab PO SCH (14:52)
--- NOTE | 2016-11-09 14:57 | PN ---
DATE: 11/05/2016 REASON FOR THE CONSULTATION: Followup positive troponin; possible non-ST segment myocardial infarction; history of lung CA, on chemo; remote history of breast CA. SUBJECTIVE: The patient is lying in the bed. Denies any chest pain now, but earlier had chest pain and tenderness in the left side of the chest. The patient Is in room 129, bed 6, lying on the bed, sleeping, and waking up. Denies any chest pain, but complaining of mild tenderness on the chest to deep palpation. PHYSICAL EXAMINATION VITAL SIGNS: As follows, temperature afebrile, heart rate 72, blood pressure 118/56. HEENT: PERRLA, extraocular muscles intact. NECK: Supple. No carotid bruit. No thyromegaly. CHEST: Clear to auscultation. HEART: S1 and S2, regular. ABDOMEN: Soft. EXTREMITIES: Clubbing and cyanosis negative. LABORATORY DATA: Blood workup are as follows: WBC 2.6, hemoglobin 8.4, hematocrit of 24.7, and platelet count 40. Sodium 131, potassium 3.9, chloride 99, carbon dioxide of 23, anion gap of 13, BUN of 23, and creatinine is 1.1. Total protein 5.9, albumin 3.0, and albumin/globulin ratio 1.2. IMPRESSION: A 76-year-old female with past medical history of coronary artery disease, status post stent in [address] Jam Barillas. Recently had a cardiac catheterization in 2015, patent stent, 20% in stent stenosis of the right coronary artery, history of cardiomyopathy; at that time, ejection fraction was significantly decreased. The patient was started on LifeVest, was then put on aspirin and Plavix and the patient also has a history of deep venous thrombosis, so IVC was placed in March, inferior vena cava filter was placed. Later, the patient was diagnosed with lung cancer in July, status post chemo recently 2 weeks. The patient with thrombocytopenia, so Plavix was discontinued by Dr. Jam Barillas. Admitted here with dizziness, found to be subarachnoid bleed, and later the patient had a troponin positive and chest pain. There was also accompanying of tenderness in the chest as well. Though the troponin is trending down, echo showed a decreased LV function, ejection fraction of 25%, 4 chamber dilatation, CMP with ejection fraction 25%, [id number] mitral regurgitation, [id number] tricuspid regurgitation, RV systolic pressure 95 consistent with severe pulmonary hypertension. on the vent. CAT scan of the chest to rule out PE that was negative. History of breast cancer in 2004, status post lumpectomy, status post chemoradiation and radiation (the patient is not sure if she got both or just the radiation, but that was in 2004). Discussed with Dr. Jam Barillas. Also agreed to treat the patient conservatively for coronary artery disease, as a cardiac catheterization in March, no significant stenosis, mild in-stent restenosis. Recent troponin is positive, could be secondary to significant elevated right ventricle systolic pressure 95 and could be RV ischemia and depression and stretching of the RV. The component of the chest pain also is some musculoskeletal at this time the patient has severe thrombocytopenia, admission platelet count 110. The patient has a intestinal bleed, not a candidate for cardiac catheterization, go to the slab depiler operator because the patient needs to give anticoagulation and dual antiplatelet therapy which would be contraindicated in view of the recent history of subarachnoid bleed and severe thrombocytopenia, more risk of spontaneous bleeding and prolongation of the bleeding into the brain leads to more detrimental effect including herniation. Discussed with the patient's son yesterday. Discussed with Dr. Jam Barillas. We will try to treat conservatively. PLAN: Continue nitrate, beta sendy, digoxin added as well as LIZETTE inhibitors as the blood pressure is tolerated. If the blood pressures are tolerated, we can consider adding sildenafil for pulmonary hypertension, but now the pressure is borderline. Continue p.r.n. diuretic as needed and change DuoNeb treatment to Xopenex to prevent tachycardia and increase beta sendy to 50 mg b.i.d. Overall, the patient's condition is critical. Long-term prognosis is extremely guarded. We will follow with you. Upon discharge, the patient will be followed up with Dr. Jam Barillas, updated Dr. Jam Barillas yesterday. The patient is currently on neutropenic precaution and negative isolation as well as pancytopenic, neutropenic, anemic and severely decreased platelet count. Manual platelet count is pending, but automated platelet count is 40,000. Thank you Dr. Ibarra for providing the opportunity in taking care of the patient, Tiffany Gordon. Kayden Valdes MD [facility] # [id number]
--- NOTE | 2016-11-09 16:58 | PN ---
PULMONARY PROGRESS NOTE DATE: 11/09/2016 REFERRING PHYSICIAN: Dr. Ibarra. SUBJECTIVE: She is lying in the bed, head at 45 degrees. Family is at the bedside. Night was unremarkable. Still fell heaviness and shortness of breath in the chest. No nausea, no vomiting, no diarrhea. No leg pain or leg swelling. PHYSICAL EXAMINATION: GENERAL: No acute distress. VITAL SIGNS: Temperature 98, hear rate 74, respiratory rate is 20, blood pressure 116/69, pulse ox 100% on nasal cannula. HEENT: Moist mucous membranes. Crowded airway. NECK: Supple. No JVD. LUNGS: Fair airflow with rhonchi. HEART: S1 and S2. ABDOMEN: .Soft and nontender. No organomegaly. EXTREMITIES: No edema. NEUROLOGIC: Awake, alert and follows simple commands. MEDICATIONS: She is on Digoxin 0.25 mg daily, also receiving Ranexa 500 mg twice a day, metoprolol tartrate 50 mg twice day, morphine 1 mg q. 4 hours p.r.n., Protonix 40 mg IV daily, IV fluid normal saline, Xopenex 0.63 q.6 hours p.r.n, Zestril 2.5 mg daily. LABORATORY DATA: Shows hemoglobin 8.4, hematocrit 24.7, WBC is 2.6, platelet count is 40. Sodium 131, potassium 2.9, chloride 99, bicarbonate 23, BUN 26, creatinine 1.1, glucose is 100, calcium is 8.6, phosphorus is 3.4, magnesium is 2.2, AST is 30 and ALT 34, alk phos is 125 and albumin is 3.2. Had MRI of the brain done, which shows acute infarct in the left periatrial white matter in the cerebellar hemisphere bilaterally. blood in the left frontal lobe. MRI was unremarkable, for any significant vascular disease. IMPRESSION AND PLAN: Subarachnoid hemorrhage also has a cerebellar ischemic stroke, pancytopenia, lung cancer being on chemotherapy, severe cardiomyopathy, coronary artery diseases. History of coronary stents, severe pulmonary hypertension. Case discussed with biomedical engineering director, also spoke to the patient's family at bedside. Report of magnetic resonance imaging and magnetic resonance angiogram is given. My recommendation will be after consulting with cardiology may consider staring dobutamine or Primacor to have a inotrope effect to peripheral vasodilation to improve the posterior circulation to the brain. If the patient can handle dobutamine or Primacor. Remember the patient does have atrial cardiomyopathy and high risk for arrhythmia. We will leave the decision for cardiology pulmonary point review, continue CPAP use at night time, suspected sleep apnea syndrome. Followup lab in the morning. Critical care time was more than 35 minutes. Thank you and we will follow with you. Kayden Frost MD
--- NOTE | 2016-11-09 17:18 | CP.PCM.PCO ---
Assessment & Plan - Assessment and Plan (Free Text) Assessment: NEURO COMMUNICATION NOTE: BLATERAL WATERSHED INFARCTS FROM TRANSIENT DROP IN BP. RECOMMEND AGGRENOX 1 TAB PO BID IN 2 WEEKS FOR STROKE PREVENTION AND KEEP PLATELETS ABOVE 50,000. BELLA BRONSON MD
--- NOTE | 2016-11-09 18:45 | CP.PCM.PN ---
<Moshe Man - Last Filed: 11/09/16 18:52> Subjective - Date & Time of Evaluation Date of Evaluation: 11/09/16 Time of Evaluation: 18:41 - Subjective Subjective: Neurology Progress Note Pt seen and examined at bedside. Pt doing well this morning with no acute complaints. No events overnight. Denies CP, SOB, N/V/D, headaches, focal weakness. Objective - Vital Signs/Intake and Output Vital Signs (last 24 hours): Temp Pulse Resp BP Pulse Ox 97.4 F L 74 20 131/61 100 11/09/16 16:00 11/09/16 18:10 11/09/16 18:10 11/09/16 18:00 11/09/16 18:10 Intake and Output: 11/09/16 11/09/16 06:59 18:59 Intake Total 441 1675 Output Total 600 650 Balance -159 1025 - Medications Medications: Current Medications Digoxin (Lanoxin) 0.25 mg PO 1400 [facility] Last Admin: 11/09/16 14:52 Dose: 0.25 mg Home Med (Home Med) 500 unit PO Q12 [facility] Last Admin: 11/09/16 09:24 Dose: 500 unit Levalbuterol HCl (Xopenex) 0.63 mg IH [id number] PRN PRN Reason: Shortness of Breath Lisinopril (Zestril) 2.5 mg PO DAILY [facility] Metoprolol Tartrate (Lopressor) 50 mg PO BID [facility] Last Admin: 11/09/16 17:41 Dose: Not Given Morphine Sulfate (Morphine) 1 mg IVP Q4H PRN PRN Reason: cardiac pain elevated traponin Last Admin: 11/09/16 14:46 Dose: 1 mg Nitroglycerin (Nitro-Bid 2% Oint) 1 ea TOP Q6H [facility] Last Admin: 11/09/16 14:52 Dose: 1 ea Pantoprazole Sodium (Protonix Inj) 40 mg IVP DAILY [facility] Last Admin: 11/09/16 09:24 Dose: Not Given - Labs Labs: 11/09/16 05:40 11/09/16 05:40 PT 12.1 Seconds (9.9-11.8) H 11/05/16 15:40 INR 1.12 (0.93-1.08) H 11/05/16 15:40 APTT 25.8 Seconds (23.7-30.8) 11/05/16 15:40 - Constitutional Appears: Non-toxic, No Acute Distress - Head Exam Head Exam: ATRAUMATIC, NORMAL INSPECTION, NORMOCEPHALIC - ENT Exam ENT Exam: Mucous Membranes Moist - Respiratory Exam Respiratory Exam: Clear to Ausculation Bilateral, NORMAL BREATHING PATTERN. absent: Rales, Wheezes - Cardiovascular Exam Cardiovascular Exam: RRR, +S1, +S2 - GI/Abdominal Exam GI & Abdominal Exam: Soft, Normal Bowel Sounds. absent: Tenderness - Extremities Exam Extremities Exam: Normal Inspection. absent: Calf Tenderness, Pedal Edema - Neurological Exam Neurological Exam: Alert, Awake, CN II-XII Intact, Oriented x3 Neuro motor strength exam: Left Upper Extremity: 5, Right Upper Extremity: 5, Left Lower Extremity: 5, Right Lower Extremity: 5 - Psychiatric Exam Psychiatric exam: Normal Affect, Normal Mood - Skin Skin Exam: Dry, Normal Color Assessment and Plan - Assessment and Plan (Free Text) Plan: 76 y/o F with PMH of lung cancer on chemotherapy, breast cancer, and SD s/p stent placement presents with left frontal subarachnoid hemorrhage. Repeat imaging shows watershed infarcts secondary to transient drop in blood pressure. Pt will be followed neurologically at this time. - Avoid transient drops in BP, SBP >120, DBP >80 - Platelet goal > 50,000 - Recommend Aggranox 1 tab BID in 2 weeks for stroke prevention - Physical therapy Magda, PGY-2 <Jack Acosta - Last Filed: 11/10/16 11:39> Objective - Vital Signs/Intake and Output Vital Signs (last 24 hours): Temp Pulse Resp BP Pulse Ox 98.1 F 76 21 141/68 87 L 11/10/16 02:30 11/10/16 06:28 11/10/16 06:28 11/10/16 06:00 11/10/16 06:20 Intake and Output: 11/10/16 11/10/16 06:59 18:59 Intake Total 300 Balance 300 - Medications Medications: Current Medications Digoxin (Lanoxin) 0.25 mg PO 1400 [facility] Last Admin: 11/09/16 14:52 Dose: 0.25 mg Home Med (Home Med) 500 unit PO Q12 [facility] Last Admin: 11/09/16 21:11 Dose: 500 unit Levalbuterol HCl (Xopenex) 0.63 mg IH [id number] PRN PRN Reason: Shortness of Breath Nitroglycerin (Nitro-Bid 2% Oint) 1 ea TOP Q6H [facility] Last Admin: 11/10/16 08:15 Dose: 1 ea Pantoprazole Sodium (Protonix Inj) 40 mg IVP DAILY [facility] Last Admin: 11/09/16 09:24 Dose: Not Given - Labs Labs: 11/10/16 03:35 11/10/16 03:35 PT 12.0 Seconds (9.9-11.8) H 11/10/16 09:00 INR 1.11 (0.93-1.08) H 11/10/16 09:00 APTT 25.8 Seconds (23.7-30.8) 11/05/16 15:40 Attending/Attestation - Attestation I have personally seen and examined this patient.: Yes I have fully participated in the care of the patient.: Yes I have reviewed all pertinent clinical information, including history, physical exam and plan: Yes
[2016-11-09 19:24] LABS: GRAN # 1.73 (1.4-6.5); GRAN % 47.3 % (50.0-68.0); HEMOGLOBIN 8.8 gm/dL (12.0-16.0); LYMPH # 1.8 (1.2-3.4); MEAN CORPUSCULAR HEMOGLOBIN 32.7 pg (25.0-35.0); MEAN CORPUSCULAR HGB CONC 33.7 g/dl (31.0-37.0); MEAN PLATELET VOLUME 11.3 fl (7.0-11.0); MONO # 0.1 (0.1-0.6); MONO % 2.7 % (1.0-6.0); RBC 2.69 10^6/uL (3.5-6.1); WHITE BLOOD COUNT 3.7 10^3/ul (4.5-11.0)
[2016-11-09 19:28] LABS: VENOUS BLOOD GAS BASE EXCESS -1.3 mmol/L (0.0-2.0); VENOUS BLOOD GAS PO2 28 mm/Hg (30-55); VENOUS BLOOD PH 7.31 (7.32-7.43)
[2016-11-09 19:56] LABS: PLATELET COUNT 33 10^3/uL (120.0-450.0)
[2016-11-09] MEDS ORDERED: Sodium Chloride 0.9% 1,000 ML IV STA (20:09)
--- NOTE | 2016-11-09 21:16 | CT ---
EXAM: CT Head Without Intravenous Contrast CLINICAL HISTORY: The patient age is 76 years old and is female; Signs and symptoms; Weakness, extremity and weakness, facial; Additional info: Left [facility] Facility exam id and description: Ct heads head w/o contrast TECHNIQUE: Axial computed tomography images of the head/brain without intravenous contrast. This CT exam was performed using one or more of the following dose reduction techniques: automated exposure control, adjustment of the mA and/or kV according to patient size, and/or use of iterative reconstruction technique. EXAM DATE/TIME: 11/09/2016 7:01 PM COMPARISON: MR - BRAIN WITHOUT CONTRAST 11/08/2016 4:12:01 PM FINDINGS: Brain: There is a small amount of subarachnoid hemorrhage within the left frontal lobe. Hypodensity is visualized within the right frontal parietal cortex adjacent to the central sulcus, concerning for acute infarction. Hypodensity is visualized within the left periatrial white matter as well as the bilateral cerebellar lobes, with recent infarcts identified on the MRI study from 11/08/16. There is mild prominence of the ventricles and sulci, compatible with atrophy. Prominent dural calcifications are visualized. Midline shift: There is no midline shift. Ventricles: See above. Bones/joints: The calvarium demonstrates no evidence for a depressed fracture. Soft tissues: No acute abnormality. Vasculature: There is atherosclerotic calcification of the cavernous internal carotid arteries. Sinuses: Unremarkable as visualized. No acute sinusitis. Mastoid air cells: No mastoid effusion. IMPRESSION: 1. There is a small amount of subarachnoid hemorrhage within the left frontal lobe. A similar finding is visualized on the previous MRI. Follow-up CT in 12-24 hours is recommended. 2. Hypodensity is visualized within the right frontal parietal cortex adjacent to the central sulcus, concerning for acute infarction. This is concerning for progression. 3. Hypodensity is visualized within the left periatrial white matter as well as the bilateral cerebellar lobes, with recent infarcts identified on the MRI study from 11/08/16. 4. Mild atrophy.
--- NOTE | 2016-11-09 23:04 | PN ---
DATE: 11/09/2016 SUBJECTIVE: The patient is a 76-year-old female. The patient was examined at the bedside. Looking comfortable. Daughter, son and grandson was on the bedside. The patient got just morphine before that and she was a little bit sleepy. Otherwise, no nausea, vomiting, or diarrhea. No hematuria or hematochezia. No swelling of the leg. No chest pain or palpitation. No shortness of breath. PHYSICAL EXAMINATION: VITAL SIGNS: Temperature 98, heart rate 74, respiratory rate 20, blood pressure 116/69, pulse oximetry 100% on nasal cannula. HEENT: Head is normocephalic and atraumatic. Eyes; PERRLA. Extraocular muscles intact. Conjunctivae clear. Nose is patent. Mucous membranes moist. NECK: Supple. No carotid bruits. No thyromegaly. HEART: S1 and S2 positive. LUNGS: Fair airflow with rhonchi. ABDOMEN: Soft and nontender. No organomegaly. EXTREMITIES: No edema. No cyanosis. NEUROLOGIC: The patient is awake and alert. Follows simple commands. LABORATORY DATA: Shows hemoglobin 8.4, hematocrit 24.7, WBC is 2.6, platelet count is 40. Sodium 131, potassium 2.9, BUN 26, creatinine 1.1, AST is 30 and ALT 34. MEDICATIONS: Digoxin, Ranexa, metoprolol, morphine, Protonix, Xopenex, and Zestril. ASSESSMENT AND PLAN: Ms. Tiffany Gordon has subarachnoid hemorrhage, also has cerebral ischemic stroke, pancytopenia, lung cancer, being on chemotherapy, severe cardiomyopathy, coronary artery disease, history of coronary stents, history of pulmonary hypertension. The patient's oncologist was Dr. Simpson. He came to see the patient. Length of time discussion done with him and the patient's son and daughter. Reviewed all doctors notes. CPAP for sleep apnea syndrome. Reviewed Dr. Frost's note. Reviewed Dr. Jack Acosta's communication report. Reviewed Dr. Valdes's note also. Gastric and deep venous thrombosis prophylaxis. Repeat labs. We will follow with you. Bhumi Ibarra MD [facility] # [id number] MTDD
[2016-11-10] MEDS: Nitroglycerin 2% Ointment Foilpak UD TOP SCH ×6 (02:06→20:01)
[2016-11-10 03:54] LABS: HEMOGLOBIN 8.3 gm/dL (12.0-16.0); MEAN CELL VOLUME 96.5 fL (80.0-105.0); MEAN CORPUSCULAR HEMOGLOBIN 32.4 pg (25.0-35.0); MEAN CORPUSCULAR HGB CONC 33.6 g/dl (31.0-37.0); MEAN PLATELET VOLUME 9.5 fl (7.0-11.0); PLATELET COUNT 70 10^3/uL (120.0-450.0); RBC 2.56 10^6/uL (3.5-6.1); RED CELL DISTRIBUTION WIDTH 16.9 % (11.5-14.5); WHITE BLOOD COUNT 3.8 10^3/ul (4.5-11.0)
[2016-11-10 04:08] LABS: ALB/GLOB RATIO 1.2 (1.1-1.8); ALBUMIN 3.3 g/dL (3.0-4.8); ALT/SGPT 35 U/L (7-56); AST/SGOT 30 U/L (15-39); BLOOD UREA NITROGEN 20 mg/dL (7-21); CALCIUM 8.7 mg/dL (8.4-10.5); GFR AFRICAN-AMERICAN > 60; GFR NON-AFRICAN AMERICAN 54
[2016-11-10 04:32] LABS: ANISOCYTOSIS 1+; BAND 9 % (0-2); LYMPHOCYTE 33 % (22.0-35.0); METAMYELOCYTE 1 %; MONOCYTE 4 % (1.0-6.0); NEUTROPHIL 53 % (50.0-70.0); PLATELET ESTIMATE LOW (NORMAL); TOXIC GRANULATION 1+
[2016-11-10 04:38] LABS: PLATELET COUNT MANUAL 95 K/mm3 (120-450)
--- NOTE | 2016-11-10 08:39 | CT ---
PROCEDURE: CT HEAD WITHOUT CONTRAST. HISTORY: Worsening left sided weakness COMPARISON: CT head 11/09/2016 at 8:21 p.m. and MRI brain 11/08/2016 at 4:16 PM TECHNIQUE: Axial computed tomography images were obtained through the head/brain without intravenous contrast. Radiation dose: Total exam DLP = 690.24 mGy-cm. This CT exam was performed using one or more of the following dose reduction techniques: Automated exposure control, adjustment of the mA and/or kV according to patient size, and/or use of iterative reconstruction technique. FINDINGS: HEMORRHAGE: Very small left frontal subarachnoid hemorrhage persists. No other extra-axial bleeding. No parenchymal hemorrhage. No intraventricular hemorrhage. BRAIN: Progressively diminished attenuation in the right frontal lobe in a wedge configuration consistent with developing acute right MCA distribution infarction. This was not demonstrated as a region of infarction on the MRI examination of 11/08/2016. Follow-up MRI is suggested. Left parietal periatrial white matter infarction is again noted. Bilateral cerebellar hemispheric infarctions are again noted. . Mild age-appropriate atrophy. Mild periventricular white matter lucency consistent with chronic microvascular ischemic change. VENTRICLES: Unremarkable. No hydrocephalus. CALVARIUM: Unremarkable. PARANASAL SINUSES: Unremarkable as visualized. No significant inflammatory changes. MASTOID AIR CELLS: Unremarkable as visualized. No inflammatory changes. OTHER FINDINGS: None. IMPRESSION: Probable developing acute right frontal MCA distribution infarction. Acute/ subacute bilateral cerebellar hemispheric and left parietal periatrial infarctions. Small amount of left frontal subarachnoid blood unchanged from prior CT.
[2016-11-10 09:41] LABS: INR 1.11 (0.93-1.08)
--- NOTE | 2016-11-10 09:58 | CP.PCM.PN ---
<Moshe Man - Last Filed: 11/10/16 09:54> Subjective - Date & Time of Evaluation Date of Evaluation: 11/10/16 Time of Evaluation: 09:54 - Subjective Subjective: Neurology Progress Note Pt seen and examined at bedside. Overnight, patient received bolus of fluid to help increase BP. Today, patient has slurred speech and is more lethargic than previous day. Denies CP, SOB, N/V/D, or changes in vision. Objective - Vital Signs/Intake and Output Vital Signs (last 24 hours): Temp Pulse Resp BP Pulse Ox 98.1 F 76 21 141/68 87 L 11/10/16 02:30 11/10/16 06:28 11/10/16 06:28 11/10/16 06:00 11/10/16 06:20 Intake and Output: 11/10/16 11/10/16 06:59 18:59 Intake Total 300 Balance 300 - Medications Medications: Current Medications Digoxin (Lanoxin) 0.25 mg PO 1400 [facility] Last Admin: 11/09/16 14:52 Dose: 0.25 mg Home Med (Home Med) 500 unit PO Q12 [facility] Last Admin: 11/09/16 21:11 Dose: 500 unit Levalbuterol HCl (Xopenex) 0.63 mg IH [id number] PRN PRN Reason: Shortness of Breath Nitroglycerin (Nitro-Bid 2% Oint) 1 ea TOP Q6H [facility] Last Admin: 11/10/16 08:15 Dose: 1 ea Pantoprazole Sodium (Protonix Inj) 40 mg IVP DAILY [facility] Last Admin: 11/09/16 09:24 Dose: Not Given - Labs Labs: 11/10/16 03:35 11/10/16 03:35 PT 12.0 Seconds (9.9-11.8) H 11/10/16 09:00 INR 1.11 (0.93-1.08) H 11/10/16 09:00 APTT 25.8 Seconds (23.7-30.8) 11/05/16 15:40 - Constitutional Appears: Non-toxic, No Acute Distress - Head Exam Head Exam: ATRAUMATIC, NORMAL INSPECTION, NORMOCEPHALIC - ENT Exam ENT Exam: Mucous Membranes Moist - Respiratory Exam Respiratory Exam: Clear to Ausculation Bilateral, NORMAL BREATHING PATTERN. absent: Rales, Rhonchi - Cardiovascular Exam Cardiovascular Exam: RRR, +S1, +S2 - GI/Abdominal Exam GI & Abdominal Exam: Soft, Normal Bowel Sounds. absent: Tenderness - Extremities Exam Extremities Exam: absent: Calf Tenderness, Pedal Edema - Neurological Exam Neurological Exam: Alert, Awake Neuro motor strength exam: Left Upper Extremity: 0, Right Upper Extremity: 5, Left Lower Extremity: 0, Right Lower Extremity: 5 Additional comments: Flaccid paralysis on left side. No sensation to light touch or pain on left. Left sided facial droop. - Psychiatric Exam Psychiatric exam: Normal Affect, Normal Mood - Skin Skin Exam: Intact, Normal Color, Warm Assessment and Plan - Assessment and Plan (Free Text) Plan: 76 y/o F with PMH of lung cancer on chemotherapy, breast cancer, and [place] s/p stent placement presents with left frontal subarachnoid hemorrhage and acute right sided frontal distribution infarct secondary to transient drop in blood pressure. Initial watershed stroke was shown on Head CT yesterday, but new symptoms of left sided flaccid paralysis and dysarthria indicate progression of stroke. Patient will receive Brain MRI this AM. Pt is not a candidate for anticoagulation at this time due to recent subarachnoid hemorrhage. Plan: - Brain MRI ordered - Avoid transient drops in BP, SBP >120, DBP >80 - Platelet goal > 50,000, transfuse if below - Recommend Aggranox 1 tab BID in 1 week for further stroke prevention - Physical therapy. May need custodial rehab at this time Magda, PGY-2 <Jack Acosta - Last Filed: 11/10/16 11:40> Objective - Vital Signs/Intake and Output Vital Signs (last 24 hours): Temp Pulse Resp BP Pulse Ox 98.1 F 76 21 141/68 87 L 11/10/16 02:30 11/10/16 06:28 11/10/16 06:28 11/10/16 06:00 11/10/16 06:20 Intake and Output: 11/10/16 11/10/16 06:59 18:59 Intake Total 300 Balance 300 - Medications Medications: Current Medications Digoxin (Lanoxin) 0.25 mg PO 1400 [facility] Last Admin: 11/09/16 14:52 Dose: 0.25 mg Home Med (Home Med) 500 unit PO Q12 [facility] Last Admin: 11/09/16 21:11 Dose: 500 unit Levalbuterol HCl (Xopenex) 0.63 mg IH [id number] PRN PRN Reason: Shortness of Breath Nitroglycerin (Nitro-Bid 2% Oint) 1 ea TOP Q6H [facility] Last Admin: 11/10/16 08:15 Dose: 1 ea Pantoprazole Sodium (Protonix Inj) 40 mg IVP DAILY [facility] Last Admin: 11/09/16 09:24 Dose: Not Given - Labs Labs: 11/10/16 03:35 11/10/16 03:35 PT 12.0 Seconds (9.9-11.8) H 11/10/16 09:00 INR 1.11 (0.93-1.08) H 11/10/16 09:00 APTT 25.8 Seconds (23.7-30.8) 11/05/16 15:40 Attending/Attestation - Attestation I have personally seen and examined this patient.: Yes I have fully participated in the care of the patient.: Yes I have reviewed all pertinent clinical information, including history, physical exam and plan: Yes
--- NOTE | 2016-11-10 11:13 | PN ---
DATE: 11/10/2016 REASON FOR CONSULTATION: Followup positive troponin, non-ST segment myocardial infarction, history of lung CA, status post chemo, history of thrombocytopenia, possible recurrent acute CVA. SUBJECTIVE: The patient is lethargic with right-sided facial droop, but waking up this morning. Denies any chest pain, also noticed left upper extremity weakness and lower extremity weakness. OBJECTIVE: GENERAL: Very lethargic, as mentioned, right facial droop, right preferential gaze and weakness of the left upper and lower extremity. VITAL SIGNS: Temperature afebrile, heart rate 76 and blood pressure 141/68. HEENT: Eyes: Left-sided normal reacting pupil, right-sided small pupil. Right preferential gaze and right facial droop. HEART: S1 and S2. Regular. ABDOMEN: Soft. EXTREMITIES: Clubbing and cyanosis negative. NEUROLOGIC: As mentioned above, right facial droop with right preferential gaze and left-sided weakness, lethargic. Left upper extremity more lethargic and weak than right. LABORATORY DATA: Blood workup as follows. WBC 3.8, hemoglobin 8.3, hematocrit 34.5 and platelet count 95,000. Chemistry showed sodium 135, potassium 3.9. chloride 104, carbon dioxide of 22, anion gap of 15, BUN of 20 and creatinine 1.0. Total protein 6 and albumin 3.3. IMPRESSION: A 76-year-old female with a past medical history significant for breast carcinoma in 2004, recently diagnosed lung carcinoma in 07/2016, status post 2 cycles of chemo, admitted with fever, pancytopenia and intracerebral bleed. Last night, it looked like CAT scan showed some new infarct cerebrovascular accident. This morning, the patient has more facial drop and right preferential gaze and more weakness, possibly extending of the infarct (cerebrovascular accident). The patient has known history of coronary artery disease, status post stent in 2004, is being followed by Dr. Jam Barillas who did cardiac catheterization in March, found to have decreased left ventricular function. At one point, the patient was in LifeVest. He was on aspirin and Plavix until the patient got the chemotherapy and got the thrombocytopenia, so Plavix was held by Dr. Jam Barillas. 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 At this time, the patient presented here with cerebrovascular accident, intracerebral bleed and infarction. Last night the patient's 7:00 p[address] scan shows that it looks like an extending infarct. This morning, the patient has more pronounced symptoms of neurological deficit, though the patient is awake and alert, cannot move the left upper and lower extremity, right-sided preferential gaze and right facial droop. Today, the platelet count was 95,000. PLAN: Discussed with the nursing staff taking care of the patient as well as the resident, and the patient is on her way to stat CAT scan to follow up extension of the infarct. We held lisinopril because of the recommendation of the neurologist to keep the blood pressure above 120 and we will continue Nitro paste and Coreg with holding parameters because the low blood pressure can extend more infarct. Continue nitroglycerin paste to be chest pain-free, although the patient is non-STEMI, but not a candidate for the cath lab manager, it would be more detrimental. Not a candidate for anticoagulation, not a candidate for Plavix at this time because of the recent implantable cardioverter defibrillator. At this time, we will try to treat the patient conservatively again. The patient is not a candidate or planned for cath lab manager for non-STEMI. At this point, we will treat conservatively. Discussed with Dr. Jam Barillas day before yesterday and also the primary security operations engineer agreed for conservative treatment at this point. Close follow up neurologically and follow neurological recommendation. Overall, the patient's condition is critical. The prognosis is extremely guarded.F/u STAT Ct Scan of Head when done, pt is on way for CT sacn of Head. Kayden Valdes MD cc: Bhumi Ibarra MD MTDD
--- NOTE | 2016-11-10 11:31 | CP.PCM.PN ---
<Aaron Berrios - Last Filed: 11/10/16 11:23> Subjective - Date & Time of Evaluation Date of Evaluation: 11/10/16 Time of Evaluation: 10:00 - Subjective Subjective: PGY [address] Taveras Pt seen and examined at bedside. Yesterday evening pt was found to have L sided weakness and slurred speech. Stat CTH showed prior subarachnoid hemorrhage and hypodensidy visualized with in R frontal parietal cortex adjacent to the central sulcus concerning for acute infarction. Platelets were found to be low at 33 and 1 unit of platelets were transfused. Today has L sided flaccid paralysis and more lethargic. ROS limited due to pt condition but pt denies any pain, chest pain or sob. Objective - Vital Signs/Intake and Output Vital Signs (last 24 hours): Temp Pulse Resp BP Pulse Ox 98.1 F 76 21 141/68 87 L 11/10/16 02:30 11/10/16 06:28 11/10/16 06:28 11/10/16 06:00 11/10/16 06:20 Intake and Output: 11/10/16 11/10/16 06:59 18:59 Intake Total 300 Balance 300 - Medications Medications: Current Medications Digoxin (Lanoxin) 0.25 mg PO 1400 [facility] Last Admin: 11/09/16 14:52 Dose: 0.25 mg Home Med (Home Med) 500 unit PO Q12 [facility] Last Admin: 11/09/16 21:11 Dose: 500 unit Levalbuterol HCl (Xopenex) 0.63 mg IH [id number] PRN PRN Reason: Shortness of Breath Nitroglycerin (Nitro-Bid 2% Oint) 1 ea TOP Q6H [facility] Last Admin: 11/10/16 08:15 Dose: 1 ea Pantoprazole Sodium (Protonix Inj) 40 mg IVP DAILY [facility] Last Admin: 11/09/16 09:24 Dose: Not Given - Labs Labs: 11/10/16 03:35 11/10/16 03:35 PT 12.0 Seconds (9.9-11.8) H 11/10/16 09:00 INR 1.11 (0.93-1.08) H 11/10/16 09:00 APTT 25.8 Seconds (23.7-30.8) 11/05/16 15:40 - Constitutional Appears: No Acute Distress - Head Exam Head Exam: ATRAUMATIC - Eye Exam Eye Exam: EOMI, PERRL Pupil Exam: NORMAL ACCOMODATION, PERRL - ENT Exam ENT Exam: Mucous Membranes Moist - Respiratory Exam Respiratory Exam: Clear to Ausculation Bilateral. absent: Rhonchi, Wheezes - Cardiovascular Exam Cardiovascular Exam: REGULAR RHYTHM, RRR, +S1, +S2 - GI/Abdominal Exam GI & Abdominal Exam: Soft. absent: Distended, Tenderness - Extremities Exam Extremities Exam: absent: Calf Tenderness - Neurological Exam Neuro motor strength exam: Left Upper Extremity: 0, Right Upper Extremity: 5, Left Lower Extremity: 0, Right Lower Extremity: 5 - Skin Skin Exam: Dry, Intact, Normal Color, Warm Assessment and Plan - Assessment and Plan (Free Text) Assessment: 76F with pmh of lung cancer on chemotherapy (Platinol and Etoposide last given on ) presented with dizziness, lightheadedness x 3 days found to have a left frontal subarachnoid hemorrhage. Pt slurred speech has since significantly improved. Pt also is pancytopenic with wbc of 3.8. and has elevated troponin. New acute R frontal MCA infarction and acute subacute b/l cerebellar sebastian and L parietal and periatrial infarction. 1. Pancytopenia - Todays Wbc improved 0.4--> 2--> 2.6 -->3.8 Will cont to monitor with daily labs - Hb or 8.[address] 70 this am - Manual plt 95 - s/p Neupogen - no indication of neupogen at this time - Neutropenic precautions - s/p Leuk reduced pheresis plts x 5, irrad leuk reduced pher plt x 1 - leuk reduced RBC x 2 - No indication for platelet transfusion at this time- no signs of eccymosis of the skin or mouth - Cont to monitor 2. Hx of lung cancer on chemotherapy, ? breast cancer - CT chest showed no PE , pleural based mass and surrounding infiltrate at the R lung base - Platinol and Etoposide last given on - f/u with Dr Rodriguez her oncologist - pain control with morphine 1mg Q4h prn 3. New CVA - F/u neurology recs - CTH: New acute R frontal MCA infarction and acute subacute b/l cerebellar sebastian and L parietal and periatrial infarction - F/u MRI 4. Elevated troponin - F/u official MRA/MRI reports - F/u with cardiology recs - NSTEMI vs R heart strain due to pulm HTN. Conservative management at this time - Cont metoprolol, lisinopril and nitroglycerin - Cont to monitor Case and plan was reviewed and discussed with Dr Taveras. <Shayy Taveras P - Last Filed: 11/12/16 11:34> Objective - Vital Signs/Intake and Output Vital Signs (last 24 hours): Temp Pulse Resp BP Pulse Ox 98.5 F 92 H 24 159/74 H 97 11/12/16 01:02 11/12/16 01:02 11/12/16 01:02 11/12/16 01:02 11/12/16 00:00 Intake and Output: 11/12/16 11/12/16 06:59 18:59 Intake Total 1388 Balance 1388 - Medications Medications: Current Medications Digoxin (Lanoxin) 0.25 mg PO 1400 [facility] Last Admin: 11/11/16 14:35 Dose: Not Given Home Med (Home Med) 500 unit PO Q12 [facility] Last Admin: 11/12/16 10:57 Dose: Not Given Hydralazine HCl (Apresoline) 10 mg IVP Q6 PRN PRN Reason: for sbp.170 and/0r diastolic> Dextrose/Sodium Chloride (Dextrose 5%/0.9% Ns 1000 Ml) 1,000 mls @ 100 mls/hr IV .Q10H [facility] Last Admin: 11/12/16 10:33 Dose: 100 mls/hr Amino Acids/Electrolytes/Dextrose (Clinimix 4.25/5 % "E" (2000 Ml)) 2,000 mls @ 83.333 mls/hr IV .Q24H [facility] Levalbuterol HCl (Xopenex) 0.63 mg IH [id number] PRN PRN Reason: Shortness of Breath Last Admin: 11/11/16 22:14 Dose: 0.63 mg Nitroglycerin (Nitro-Bid 2% Oint) 1 ea TOP Q6H [facility] Last Admin: 11/12/16 08:44 Dose: 1 ea Pantoprazole Sodium (Protonix Inj) 40 mg IVP DAILY [facility] Last Admin: 11/12/16 10:33 Dose: 40 mg - Labs Labs: 11/12/16 06:00 11/12/16 06:00 PT 12.0 Seconds (9.9-11.8) H 11/10/16 09:00 INR 1.11 (0.93-1.08) H 11/10/16 09:00 APTT 25.8 Seconds (23.7-30.8) 11/05/16 15:40 Attending/Attestation - Attestation I have personally seen and examined this patient.: Yes I have fully participated in the care of the patient.: Yes I have reviewed all pertinent clinical information, including history, physical exam and plan: Yes
--- NOTE | 2016-11-10 12:02 | MRI ---
PROCEDURE: MRI BRAIN WITHOUT CONTRAST HISTORY: Worsening infarct COMPARISON: 11/08/2016 MRI TECHNIQUE: Multiplanar, multisequence MR images of the brain were obtained without intravenous contrast enhancement. FINDINGS: HEMORRHAGE: None DWI: There is a new large infarct in the right posterior frontal and parietal lobe measuring 4 x 4.7 cm. This is best seen on image 24 of series 4. There is no change in the previously demonstrated infarcts in the left periatrial white matter and the cerebellar hemispheres bilaterally. BRAIN PARENCHYMA: As above VENTRICLES: Unremarkable. No hydrocephalus. CRANIUM: Unremarkable. ORBITS: Grossly unremarkable. PARANASAL SINUSES/MASTOIDS: Clear VASCULAR SYSTEM: MR angio images were also submitted as part of this exam. There is no major occlusion OTHER FINDINGS: I spoke to the patient's nurse at 11:58 a.m. regarding these findings IMPRESSION: New large infarct in the right posterior frontal and parietal lobe. No change in previously demonstrated infarcts in left periatrial white matter and cerebellar hemispheres
--- NOTE | 2016-11-10 12:42 | CP.CCUPN ---
CCU Subjective - Physician Review Events Since Last Encounter (Free Text): 11/10/16 12:37 76 y/o F w/ Extensive oncological history admitted to the ICU and remains here due to new neurological findings Overnight noted to have new L sided deficits and early this a.m found to have worsening . STAT CT MRI done confirming new large post front/ temp infarct. CCU Objective - Vital Signs / Intake & Output Vital Signs (Last 4 hours): Vital Signs Pulse Resp BP Pulse Ox 11/10/16 12:20 84 18 100 11/10/16 12:10 81 24 100 11/10/16 12:00 85 31 H 149/78 100 11/10/16 11:50 77 20 100 11/10/16 11:40 79 25 H 89 L 11/10/16 11:30 89 47 H 99 11/10/16 11:20 77 22 100 11/10/16 11:10 81 21 100 11/10/16 11:00 77 43 H 155/74 H 100 11/10/16 10:50 80 76 H 100 11/10/16 10:40 87 44 H 100 11/10/16 10:33 88 19 151/74 H 98 11/10/16 10:32 82 24 11/10/16 10:31 83 20 11/10/16 10:30 82 45 H 11/10/16 10:29 81 41 H 11/10/16 10:26 83 24 11/10/16 09:30 82 23 11/10/16 09:29 83 21 11/10/16 09:26 89 25 H 11/10/16 09:25 88 17 11/10/16 09:24 85 25 H 11/10/16 09:23 84 48 H 11/10/16 09:22 85 24 11/10/16 09:21 87 39 H 11/10/16 09:20 84 20 11/10/16 09:19 87 22 11/10/16 09:18 92 H 11/10/16 09:10 77 18 89 L 11/10/16 09:00 80 20 147/71 100 11/10/16 08:52 83 22 150/78 100 11/10/16 08:50 83 100 11/10/16 08:40 92 H 17 74 L 11/10/16 08:39 87 26 H 11/10/16 08:38 83 28 H Intake and Output (Last 8hrs): Intake & Output 11/09/16 11/10/16 11/10/16 22:59 06:59 14:59 Intake Total 1675 300 Output Total 650 Balance 1025 300 Weight 181 lb Intake: IV 1000 Left Antecubital 1000 Oral 675 Blood Product 300 Apheresis Plts Acda Lr 300 1st Con Unit [id number] Output: Urine 650 Urine, Voided 650 Other: Voiding Method Bedside Commode # Bowel Movements 1 - Physical Exam Physical Exam Limitations: Positive for: Altered Mental Status Head: Positive for: Atraumatic, Normocephalic Pupils: Positive for: PERRL, Sluggish Extroacular Muscles: Positive for: EOMI, Other Mouth: Positive for: Moist Mucous Membranes, Drooling, Other (Mild speech delay / no aphasia) Neck: Positive for: Normal Range of Motion Respiratory/Chest: Positive for: Clear to Auscultation, Good Air Exchange. Negative for: Respiratory Distress, Accessory Muscle Use Cardiovascular: Positive for: Regular Rate and Rhythm, Normal S1, S2. Negative for: Murmurs Abdomen: Positive for: Normal Bowel Sounds. Negative for: Tenderness, Distention, Peritoneal Signs Upper Extremity: Positive for: Normal Inspection. Negative for: Cyanosis, Edema Lower Extremity: Positive for: Normal Inspection. Negative for: Edema Neurological: Positive for: GCS=15, Speech Normal, Motor Func Grossly Intact, Normal Sensory Function, Other (L upper an lower lower ext 0/5 motor strength ) Skin: Positive for: Warm, Dry, Normal Color. Negative for: Rashes Psychiatric: Positive for: Alert, Oriented x 3, Normal Insight, Normal Concentration - Medications Active Medications: Active Medications Generic Name Dose Route Start Last Admin Trade Name Freq PRN Reason Stop Dose Admin Digoxin 0.25 mg 11/08/16 14:00 11/09/16 14:52 Lanoxin PO 0.25 mg 1400 CHERYL Administration Home Med 500 unit 11/07/16 22:00 11/09/16 21:11 Home Med PO 500 unit Q12 CHERYL Administration Levalbuterol HCl 0.63 mg 11/07/16 11:24 Xopenex IH [id number] PRN Shortness of Breath Nitroglycerin 1 ea 11/07/16 13:45 11/10/16 08:15 Nitro-Bid 2% Oint TOP 1 ea Q6H CHERYL Administration Pantoprazole Sodium 40 mg 11/07/16 10:00 11/09/16 09:24 Protonix Inj IVP Not Given DAILY CHERYL - Patient Studies Lab Studies: Lab Studies 11/10/16 11/10/16 11/10/16 Range/Units 09:00 03:35 03:35 WBC 3.8 L (4.5-11.0) 10^3/ul RBC 2.56 L (3.5-6.1) 10^6/uL Hgb 8.3 L (12.0-16.0) gm/dL Hct 24.7 L (36.0-48.0) % MCV 96.5 (80.0-105.0) fL MCH 32.4 (25.0-35.0) pg MCHC 33.6 (31.0-37.0) g/dl RDW 16.9 H (11.5-14.5) % Plt Count 70 L (120.0-450.0) 10^3/uL Manual Plt Count 95 L (120-450) K/mm3 MPV 9.5 (7.0-11.0) fl Gran % (50.0-68.0) % Lymph % (Auto) (22.0-35.0) % [place] % (Auto) (1.0-6.0) % Eos % (Auto) (1.5-5.0) % Baso % (Auto) (0.0-3.0) % Gran # (1.4-6.5) Lymph # (1.2-3.4) [place] # (0.1-0.6) Eos # (0.0-0.7) Baso # (0.0-2.0) K/mm3 Neutrophils % (Manual) 53 (50.0-70.0) % Band Neutrophils % 9 H (0-2) % Lymphocytes % (Manual) 33 (22.0-35.0) % Monocytes % (Manual) 4 (1.0-6.0) % Metamyelocytes % 1 % Toxic Granulation 1+ Platelet Evaluation Low (NORMAL) Anisocytosis (manual) 1+ PT 12.0 H (9.9-11.8) Seconds INR 1.11 H (0.93-1.08) pO2 (30-55) mm/Hg VBG pH (7.32-7.43) VBG pCO2 (40-60) VBG HCO3 (21-28) mmol/l VBG Total CO2 (22-28) mmol.L VBG O2 Sat (Calc) (40-65) % VBG Base Excess (0.0-2.0) mmol/L VBG Potassium (3.6-5.2) mmol/L Sodium 137 (132-148) mmol/L Chloride 104 (98-107) mmol/L Glucose (65-105) mg/dl Lactate (0.7-2.1) mmol/L FiO2 % Potassium 3.9 (3.6-5.0) mmol/L Carbon Dioxide 22 (21-33) mmol/L Anion Gap 15 (10-20) BUN 20 (7-21) mg/dL Creatinine 1.0 (0.5-1.4) mg/dL Est GFR ( Amer) > 60 Est GFR (Non-Af Amer) 54 Random Glucose 98 (70-110) mg/dL Calcium 8.7 (8.4-10.5) mg/dL Total Bilirubin 0.8 (0.2-1.3) mg/dL AST 30 (15-39) U/L ALT 35 (7-56) U/L Alkaline Phosphatase 120 (38-133) U/L Ammonia (9-33) umol/L Total Protein 6.0 (5.8-8.3) g/dL Albumin 3.3 (3.0-4.8) g/dL Globulin 2.7 gm/dL Albumin/Globulin Ratio 1.2 (1.1-1.8) Venous Blood Potassium (3.6-5.2) mmol/L 11/09/16 11/09/16 11/09/16 Range/Units 19:15 19:15 19:15 WBC 3.7 L D (4.5-11.0) 10^3/ul RBC 2.69 L (3.5-6.1) 10^6/uL Hgb 8.8 L (12.0-16.0) gm/dL Hct 26.1 L (36.0-48.0) % MCV 97.0 (80.0-105.0) fL MCH 32.7 (25.0-35.0) pg MCHC 33.7 (31.0-37.0) g/dl RDW 17.0 H (11.5-14.5) % Plt Count 33 L* (120.0-450.0) 10^3/uL Manual Plt Count (120-450) K/mm3 MPV 11.3 H (7.0-11.0) fl Gran % 47.3 L (50.0-68.0) % Lymph % (Auto) 50.0 H (22.0-35.0) % [place] % (Auto) 2.7 (1.0-6.0) % Eos % (Auto) 0.0 L (1.5-5.0) % Baso % (Auto) 0.0 (0.0-3.0) % Gran # 1.73 (1.4-6.5) Lymph # 1.8 (1.2-3.4) [place] # 0.1 (0.1-0.6) Eos # 0.0 (0.0-0.7) Baso # 0.00 (0.0-2.0) K/mm3 Neutrophils % (Manual) (50.0-70.0) % Band Neutrophils % (0-2) % Lymphocytes % (Manual) (22.0-35.0) % Monocytes % (Manual) (1.0-6.0) % Metamyelocytes % % Toxic Granulation Platelet Evaluation (NORMAL) Anisocytosis (manual) PT (9.9-11.8) Seconds INR (0.93-1.08) pO2 28 L (30-55) mm/Hg VBG pH 7.31 L (7.32-7.43) VBG pCO2 50.0 (40-60) VBG HCO3 25.2 (21-28) mmol/l VBG Total CO2 26.7 (22-28) mmol.L VBG O2 Sat (Calc) 57.0 (40-65) % VBG Base Excess -1.3 L (0.0-2.0) mmol/L VBG Potassium 4.1 (3.6-5.2) mmol/L Sodium 134.0 (132-148) mmol/L Chloride 106.0 (98-107) mmol/L Glucose 115 H (65-105) mg/dl Lactate 1.7 (0.7-2.1) mmol/L FiO2 21.0 % Potassium (3.6-5.0) mmol/L Carbon Dioxide (21-33) mmol/L Anion Gap (10-20) BUN (7-21) mg/dL Creatinine (0.5-1.4) mg/dL Est GFR ( Amer) Est GFR (Non-Af Amer) Random Glucose (70-110) mg/dL Calcium (8.4-10.5) mg/dL Total Bilirubin (0.2-1.3) mg/dL AST (15-39) U/L ALT (7-56) U/L Alkaline Phosphatase (38-133) U/L Ammonia < 9 L (9-33) umol/L Total Protein (5.8-8.3) g/dL Albumin (3.0-4.8) g/dL Globulin gm/dL Albumin/Globulin Ratio (1.1-1.8) Venous Blood Potassium 4.1 (3.6-5.2) mmol/L Laboratory Results - last 24 hr 11/09/16 11/09/16 11/09/16 19:15 19:15 19:15 WBC 3.7 L D RBC 2.69 L Hgb 8.8 L Hct 26.1 L MCV 97.0 MCH 32.7 MCHC 33.7 RDW 17.0 H Plt Count 33 L* Manual Plt Count MPV 11.3 H Gran % 47.3 L Lymph % (Auto) 50.0 H [place] % (Auto) 2.7 Eos % (Auto) 0.0 L Baso % (Auto) 0.0 Gran # 1.73 Lymph # 1.8 [place] # 0.1 Eos # 0.0 Baso # 0.00 Neutrophils % (Manual) Band Neutrophils % Lymphocytes % (Manual) Monocytes % (Manual) Metamyelocytes % Toxic Granulation Platelet Evaluation Anisocytosis (manual) PT INR pO2 28 L VBG pH 7.31 L VBG pCO2 50.0 VBG HCO3 25.2 VBG Total CO2 26.7 VBG O2 Sat (Calc) 57.0 VBG Base Excess -1.3 L VBG Potassium 4.1 Sodium 134.0 Chloride 106.0 Glucose 115 H Lactate 1.7 FiO2 21.0 Potassium Carbon Dioxide Anion Gap BUN Creatinine Est GFR ( Amer) Est GFR (Non-Af Amer) Random Glucose Calcium Total Bilirubin AST ALT Alkaline Phosphatase Ammonia < 9 L Total Protein Albumin Globulin Albumin/Globulin Ratio Venous Blood Potassium 4.1 11/10/16 11/10/16 11/10/16 03:35 03:35 09:00 WBC 3.8 L RBC 2.56 L Hgb 8.3 L Hct 24.7 L MCV 96.5 MCH 32.4 MCHC 33.6 RDW 16.9 H Plt Count 70 L Manual Plt Count 95 L MPV 9.5 Gran % Lymph % (Auto) [place] % (Auto) Eos % (Auto) Baso % (Auto) Gran # Lymph # [place] # Eos # Baso # Neutrophils % (Manual) 53 Band Neutrophils % 9 H Lymphocytes % (Manual) 33 Monocytes % (Manual) 4 Metamyelocytes % 1 Toxic Granulation 1+ Platelet Evaluation Low Anisocytosis (manual) 1+ PT 12.0 H INR 1.11 H pO2 VBG pH VBG pCO2 VBG HCO3 VBG Total CO2 VBG O2 Sat (Calc) VBG Base Excess VBG Potassium Sodium 137 Chloride 104 Glucose Lactate FiO2 Potassium 3.9 Carbon Dioxide 22 Anion Gap 15 BUN 20 Creatinine 1.0 Est GFR ( Amer) > 60 Est GFR (Non-Af Amer) 54 Random Glucose 98 Calcium 8.7 Total Bilirubin 0.8 AST 30 ALT 35 Alkaline Phosphatase 120 Ammonia Total Protein 6.0 Albumin 3.3 Globulin 2.7 Albumin/Globulin Ratio 1.2 Venous Blood Potassium EKG/Cardiology Studies: Cardiology / EKG Studies 11/10/16 11:36 EKG [ELECTROCARDIOGRAM] Urgent Comment: Reason For Exam: other leads needed to discern rhythm Fingerstick Blood Sugar Results: 109 Review of Systems - Review of Systems Systems not reviewed;Unavailable: Altered Mental Status Critical Care Progress Note - Ventilator Checklist DVT Prophylaxis: Yes Oral Care with Chlorhexidine Gluconate {CHG}: Yes - Nutrition Nutrition: Nutrition Category Date Time Status NPO Diet [DIET] Diets 11/10/16 Breakfast Ordered Assessment/Plan - Assessment and Plan (Free Text) Assessment: 76 y/o F w/ Breast and Lung Ca Admitted for CVA x 2 and SAH Found to have new neurological findings this morning. STAT MRI found to show Dense infarct in the R post/ frontal / temp region that is new These findings were discussed with the family and images as well. Currently BP is WNL 140-160. Mental status is stable and somewhat protecting airway. Code status was discussed w/ son . Poor prognosis Unclear cause for further cva in the course of the past 1 week. Neurology following the patient as well. Case to be discussed. cc time 65 min
[2016-11-10] MEDS: Digoxin 250 mcg (0.25 mg) Tab PO SCH (17:51)
--- NOTE | 2016-11-10 23:39 | CP.PCM.PN ---
Subjective - Date & Time of Evaluation Date of Evaluation: 11/10/16 Time of Evaluation: 02:00 - Subjective Subjective: 76 y/o F w/ Extensive oncological history admitted to the ICU and remains here due to new neurological findings Overnight noted to have new L sided deficits and early this a.m found to have worsening . STAT CT MRI done confirming new large post front/ temp infarct. Objective - Vital Signs/Intake and Output Vital Signs (last 24 hours): Temp Pulse Resp BP Pulse Ox 98.4 F 89 26 H 150/63 100 11/10/16 20:00 11/10/16 22:00 11/10/16 22:00 11/10/16 22:00 11/10/16 22:00 Intake and Output: 11/10/16 11/11/16 18:59 06:59 Output Total 650 Balance -650 - Medications Medications: Current Medications Digoxin (Lanoxin) 0.25 mg PO 1400 [facility] Last Admin: 11/10/16 17:51 Dose: Not Given Home Med (Home Med) 500 unit PO Q12 [facility] Last Admin: 11/10/16 22:25 Dose: Not Given Levalbuterol HCl (Xopenex) 0.63 mg IH [id number] PRN PRN Reason: Shortness of Breath Nitroglycerin (Nitro-Bid 2% Oint) 1 ea TOP Q6H [facility] Last Admin: 11/10/16 20:01 Dose: 1 ea Pantoprazole Sodium (Protonix Inj) 40 mg IVP DAILY [facility] Last Admin: 11/10/16 10:00 Dose: 40 mg - Labs Labs: 11/10/16 03:35 11/10/16 03:35 PT 12.0 Seconds (9.9-11.8) H 11/10/16 09:00 INR 1.11 (0.93-1.08) H 11/10/16 09:00 APTT 25.8 Seconds (23.7-30.8) 11/05/16 15:40 - Constitutional Appears: Well, Confused, Chronically Ill - Head Exam Head Exam: ATRAUMATIC, NORMAL INSPECTION, NORMOCEPHALIC - Eye Exam Eye Exam: Conjunctival injection, EOMI - ENT Exam ENT Exam: Mucous Membranes Moist, Normal Exam - Neck Exam Neck Exam: Full ROM, Normal Inspection. absent: Lymphadenopathy - Respiratory Exam Respiratory Exam: Clear to Ausculation Bilateral, NORMAL BREATHING PATTERN - Cardiovascular Exam Cardiovascular Exam: REGULAR RHYTHM, +S1, +S2. absent: Murmur - GI/Abdominal Exam GI & Abdominal Exam: Soft, Normal Bowel Sounds. absent: Tenderness - Rectal Exam Rectal Exam: NORMAL INSPECTION - Exam Exam: Circumcision, NORMAL INSPECTION External exam: NORMAL EXTERNAL EXAM Speculum exam: NORMAL SPECULUM EXAM Bimanual exam: NORMAL BIMANUAL EXAM - Extremities Exam Extremities Exam: Full ROM, Normal Capillary Refill, Normal Inspection. absent : Joint Swelling, Pedal Edema - Back Exam Back Exam: NORMAL INSPECTION - Neurological Exam Neurological Exam: Altered, Awake - Psychiatric Exam Psychiatric exam: Normal Affect, Normal Mood - Skin Skin Exam: Dry, Intact, Normal Color, Warm Assessment and Plan - Assessment and Plan (Free Text) Assessment: 76F with pmh of lung cancer on chemotherapy (Platinol and Etoposide last given on ) presented with dizziness, lightheadedness x 3 days found to have a left frontal subarachnoid hemorrhage. Pt slurred speech has since significantly improved. Pt also is pancytopenic with wbc of 3.8. and has elevated troponin. New acute R frontal MCA infarction and acute subacute b/l cerebellar sebastian and L parietal and periatrial infarction. 1. Pancytopenia - Todays Wbc improved 0.4--> 2--> 2.6 -->3.8 Will cont to monitor with daily labs - Hb or 8.[address] 70 this am - Manual plt 95 - s/p Neupogen - no indication of neupogen at this time - Neutropenic precautions - s/p Leuk reduced pheresis plts x 5, irrad leuk reduced pher plt x 1 - leuk reduced RBC x 2 - No indication for platelet transfusion at this time- no signs of eccymosis of the skin or mouth - Cont to monitor 2. Hx of lung cancer on chemotherapy, ? breast cancer - CT chest showed no PE , pleural based mass and surrounding infiltrate at the R lung base - Platinol and Etoposide last given on - f/u with Dr Rodriguez her oncologist - pain control with morphine 1mg Q4h prn 3. New CVA - F/u neurology recs - CTH: New acute R frontal MCA infarction and acute subacute b/l cerebellar sebastian and L parietal and periatrial infarction - F/u MRI 4. Elevated troponin - F/u official MRA/MRI reports - F/u with cardiology recs - NSTEMI vs R heart strain due to pulm HTN. Conservative management at this time - Cont metoprolol, lisinopril and nitroglycerin - Cont to monitor Case and plan was reviewed and discussed with icu staff. Plan: d/d with son and daughter about pt status , they need time to talk to the family dnr status
--- NOTE | 2016-11-11 00:44 | PN ---
PULMONARY PROGRESS NOTE DATE: 11/10/2016 REFERRING PHYSICIAN: Dr. Ibarra. SUBJECTIVE: The patient is lying in the bed sleepy, arousable. New mental status changes noted. Family is at bedside. There is no cough and no sputum production. No more chest pain. No nausea, no vomiting, no diarrhea. No leg pain or leg swelling. PHYSICAL EXAMINATION: GENERAL: No acute distress. VITAL SIGNS: Temperature 98, hear rate 89, respiratory rate is 22, blood pressure 155/62 and pulse oximetry 100% on nasal cannula.. HEENT: Small oral cavity. Crowded airway. NECK: Supple. No JVD. LUNGS: Fair airflow with rhonchi. HEART: S1 and S2. ABDOMEN: .Soft and nontender. No organomegaly. EXTREMITIES: No edema. NEUROLOGIC: Lethargic, but arousable with facial droop. MEDICATIONS: She is on digoxin 0.25 mg daily, Nitro-Bid q.6 hours patch, Protonix 40 mg daily, Xopenex inhaler q.6 hours p.r.n. LABORATORY DATA: Shows hemoglobin 8.3, hematocrit 24.7, WBC 3.8 and platelet today is 95. INR is 1.1. Sodium 137, potassium 3.9, chloride 104, bicarbonate 22, BUN 20, creatinine 1.0, glucose 98, calcium is 8.7, AST 30, ALT 35, alk phos 120 and albumin is 3.3. IMPRESSION AND PLAN: Originally admitted with subarachnoid hemorrhage also had cerebellar ischemic stroke, pancytopenia, history of lung cancer status post chemotherapy, severe cardiomyopathy, coronary artery disease, history of coronary stent, severe pulmonary hypertension, had a new mental status changes, MRI of the brain show frontal, parietal and occipital new stroke. Surgical Services Assistant spoke to the family. I had a long discussion with the population health coach requested to call neurology, should we get CT angio to assure is it embolic stroke or diffuse vasoconstriction. Pulmonary point of view, keep head at 45 degrees, may use continuous positive airway pressure while sleeping, avoid sedatives, overall poor prognosis. Critical care time spent was 35 minutes. Followup lab in the morning. Thank you and we will follow with you. Kayden Frost MD
[2016-11-11] MEDS: Nitroglycerin 2% Ointment Foilpak UD TOP SCH ×3 (01:17→14:35)
[2016-11-11 06:52] LABS: HEMOGLOBIN 8.3 gm/dL (12.0-16.0); MEAN CORPUSCULAR HEMOGLOBIN 31.9 pg (25.0-35.0); MEAN CORPUSCULAR HGB CONC 33.6 g/dl (31.0-37.0); MEAN PLATELET VOLUME 10.1 fl (7.0-11.0); PLATELET COUNT 44 10^3/uL (120.0-450.0); RED CELL DISTRIBUTION WIDTH 16.4 % (11.5-14.5); WHITE BLOOD COUNT 5.5 10^3/ul (4.5-11.0)
[2016-11-11 07:51] LABS: ALB/GLOB RATIO 1.3 (1.1-1.8); ALBUMIN 3.1 g/dL (3.0-4.8); ALT/SGPT 29 U/L (7-56); AST/SGOT 60 U/L (15-39); BLOOD UREA NITROGEN 18 mg/dL (7-21); CALCIUM 8.9 mg/dL (8.4-10.5); GFR AFRICAN-AMERICAN > 60; GFR NON-AFRICAN AMERICAN > 60
--- NOTE | 2016-11-11 08:55 | CARD ---
APPROVED REPORT EKG Measurement Heart [id number] <Conclusion> Normal sinus rhythm Left bundle branch block No change except slower rate
[2016-11-11 08:57] LABS: PLATELET COUNT MANUAL 56 K/mm3 (120-450)
--- NOTE | 2016-11-11 09:00 | CP.PCM.CON ---
History of Present Illness - History of Present Illness History of Present Illness: Palliative consult requested by Dr Khadar Ibarra Reason: Goals of care /advance care planning 76 year old female with history of breast and lung cancer presented to ED with slurred speech and generalized weakness.She denied pain shortness of breath, nausea, vomiting. headache, diarrhea. CT of head a small left frontal subarachnoid hemmorhage. Subsequent Brain MRI which was done 11/10 showed acute infarcts in the left periatrial white matter on the cerebellar hemispheres bilaterally, subarachnoid hemorrhage in frontal lobe unchanged PMHx: breast cancer s/p RT, lung cancer last chemotherapy one week ago, COPD,HTN , [place] s/p stent. Social History: Non smoker,no alcohol or drug use. Single, lives with daughter Ely Giordano Family History: Non contributory Advance Care Planning: The patient does not have an Advance Directive. She is full code status at this time. Review of Systems: As per HPI, the patient has altered mental status,expressive aphasia unable to obtain Past Patient History - Infectious Disease Hx of Infectious Diseases: None - Past Medical History & Family History Past Medical History?: Yes - Past Social History Smoking Status: Never Smoked - CARDIAC Hx Cardiac Disorders: Yes Hx Hypertension: Yes - PULMONARY Hx Chronic Obstructive Pulmonary Disease (COPD): Yes - NEUROLOGICAL Hx Neurological Disorder: No Hx Vertigo: Yes - HEENT Hx HEENT Problems: Yes Hx Cataracts: Yes Other/Comment: hearing impairment - RENAL Hx Chronic Kidney Disease: No - ENDOCRINE/METABOLIC Hx Endocrine Disorders: Yes (ENLARGED THYRIOD NOT CANCEROUS) - HEMATOLOGICAL/ONCOLOGICAL Hx Blood Disorders: Yes Hx Blood Transfusions: No Hx Blood Transfusion Reaction: No Hx Cancer: Yes (BREAST HX RADIATION 2006) Other/Comment: Radiation therapy for breast cancer. lung CA currently under Chemo. Last Tx was last week. - INTEGUMENTARY Hx Dermatological Problems: No - MUSCULOSKELETAL/RHEUMATOLOGICAL Hx Musculoskeletal Disorders: No Hx Falls: No - GASTROINTESTINAL Hx Gastrointestinal Disorders: No - GENITOURINARY/GYNECOLOGICAL Hx Genitourinary Disorders: No - PSYCHIATRIC Hx Psychophysiologic Disorder: No Hx Substance Use: No - SURGICAL HISTORY Hx Vascular Access Device: Yes (R PortACath) - ANESTHESIA Hx Anesthesia: Yes Hx Anesthesia Reactions: No Hx Malignant Hyperthermia: No Meds Allergies/Adverse Reactions: Allergies Allergy/AdvReac Type Severity Reaction Status Date / Time No Known Allergies Allergy Verified 11/05/16 14:47 - Medications Medications: Current Medications Digoxin (Lanoxin) 0.25 mg PO 1400 [facility] Last Admin: 11/10/16 17:51 Dose: Not Given Home Med (Home Med) 500 unit PO Q12 [facility] Last Admin: 11/10/16 22:25 Dose: Not Given Levalbuterol HCl (Xopenex) 0.63 mg IH [id number] PRN PRN Reason: Shortness of Breath Nitroglycerin (Nitro-Bid 2% Oint) 1 ea TOP Q6H [facility] Last Admin: 11/11/16 01:17 Dose: 1 ea Pantoprazole Sodium (Protonix Inj) 40 mg IVP DAILY [facility] Last Admin: 11/10/16 10:00 Dose: 40 mg Physical Exam - Constitutional Appears: Cachectic, Chronically Ill - Head Exam Additional comments: left facial droop - Eye Exam Eye Exam: Normal appearance, PERRL - ENT Exam ENT Exam: Mucous Membranes Moist, Normal Oropharynx - Respiratory Exam Respiratory Exam: Decreased Breath Sounds, NORMAL BREATHING PATTERN - Cardiovascular Exam Cardiovascular Exam: REGULAR RHYTHM, +S1, +S2 - GI/Abdominal Exam GI & Abdominal Exam: Normal Bowel Sounds, Soft - Extremities Exam Extremities exam: Positive for: pedal pulses present Additional comments: left sebastian paresis - Back Exam Back exam: NORMAL INSPECTION - Neurological Exam Neurological exam: Altered - Skin Skin Exam: Dry, Pallor Results - Vital Signs Recent Vital Signs: Last Vital Signs Temp 98.1 F 11/11/16 04:00 Pulse 80 11/11/16 06:00 Resp 22 11/11/16 06:00 BP 146/72 11/11/16 06:00 Pulse Ox 100 11/11/16 06:00 - Labs Result Diagrams: 11/11/16 05:35 11/11/16 05:35 Labs: Laboratory Results - last 24 hr 11/10/16 11/11/16 11/11/16 09:00 05:35 05:35 WBC 5.5 D RBC 2.60 L Hgb 8.3 L Hct 24.7 L MCV 95.0 MCH 31.9 MCHC 33.6 RDW 16.4 H Plt Count 44 L* MPV 10.1 PT 12.0 H INR 1.11 H Sodium 137 Potassium 3.5 L Chloride 104 Carbon Dioxide 24 Anion Gap 13 BUN 18 Creatinine 0.9 Est GFR ( Amer) > 60 Est GFR (Non-Af Amer) > 60 Random Glucose 93 Calcium 8.9 Total Bilirubin 1.0 AST 60 H ALT 29 Alkaline Phosphatase 122 Total Protein 5.4 L Albumin 3.1 Globulin 2.3 Albumin/Globulin Ratio 1.3 Assessment & Plan - Assessment and Plan (Free Text) Assessment: 76 year old female with history of breasts cancer, lung cancer receiving chemotherapy,[place], subarachnoid hemorrhage who was initially admitted with CVA which progressed to acute right sided frontal distribution infarct. I was asked to meet with this family to discuss goals of care an advance care planning. The patient was able to communicate that she did not want CPR/ intubation if her condition worsened. Her daughter Ely Giordano was made health care proxy. A POLST was competed in the presence of her son and daughter Ely. A copy was placed ion the patients chart. Family meeting held, Ivon Mills and myself present. Lengthy discussion ensued regarding goals of care. Family is interested in [facility], they understand that patients' cancer will not be treated during this time frame. Benefits and burdens of PEG explained. Family understands the ramifications of PEG and wish to proceed with PEG placement. Psychosocial support given. Time spent with family in goals of care discussion, 45 minutes. Plan: POLST: DNR/DNR Palliative support - Date & Time Date: 11/11/16 Time: 15:00
[2016-11-11 09:02] LABS: EOSINOPHIL 1 % (0.0-3.0); LYMPHOCYTE 26 % (22.0-35.0); MONOCYTE 7 % (1.0-6.0); NEUTROPHIL 55 % (50.0-70.0); PLATELET ESTIMATE LOW (NORMAL)
[2016-11-11 09:03] LABS: BAND 11 % (0-2)
--- NOTE | 2016-11-11 13:47 | PN ---
DATE: 11/11/2016 REASON FOR CONSULTATION: Followup positive troponin, non-ST segment myocardial infarction, lung CA, pancytopenia, progressive infarct with aphasia and left-sided weakness. SUBJECTIVE: The patient is lethargic, awake and alert, but aphasic, unable to talk, but follow simple command and weakness of the left side. PHYSICAL EXAMINATION GENERAL: Lying comfortably, not in distress, left-sided look like flaccid paralysis. VITAL SIGNS: Temperature afebrile, heart rate 86 and blood pressure 146/42. HEENT: PERRLA. NECK: Supple. No carotid bruit. No thyromegaly. CHEST: Clear to auscultation. HEART: S1 and S2, regular. ABDOMEN: Soft. EXTREMITIES: Clubbing and cyanosis negative. Weakness of the left upper extremity noted flaccid paralysis. LABORATORY DATA: Result of CAT scan after I saw the patient yesterday noted. Result of MRI noted. IMPRESSION: A 76-year-old female with a past medical history significant of lung cancer status post chemotherapy, admitted with pancytopenia; intracerebral bleed; history of breast carcinoma in 2004, status post lumpectomy; history of coronary artery disease, status post stent in 2004; history of deep venous thrombosis, pulmonary embolism, status post inferior vena cava filter, admitted with pancytopenia because of the chemotherapy, fever, thrombocytopenia, platelet count spontaneous intracerebral bleed. Hospital course was complicated by multiple infarct, in outpatient is aphasic. Positive troponin most likely secondary to pulmonary hypertension, but cannot rule out underlying coronary artery disease, non-ST elevation myocardial infarction, though the patient had cardiac catheterization done in March by Dr. 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 RECOMMENDATION: At this point, the patient is not a candidate for cardiac cath, which is more detrimental; not being considered severe thrombocytopenia; pancytopenia; intracerebral bleed; not a candidate for anticoagulation. Consider supportive care. Strongly consider DNR/DNI. Today's platelet count is 56, WBC 5.5, and hemoglobin 8.3. Chemistry today shows sodium 135, potassium 3.5. chloride 104, carbon dioxide of 24, anion gap of 13, BUN of 18 and creatinine 0.9. Total protein 5.4 and albumin 3.1. We will supplement potassium and continue supportive care. Overall, the patient's condition critical. Prognosis extremely poor. We will put p.r.n. hydralazine for blood pressure more than 170. Thank you Dr. Copeland for opportunity in taking care of Tiffany Gordon. Kayden Valdes MD
[2016-11-11] MEDS: Digoxin 250 mcg (0.25 mg) Tab PO SCH (14:35)
--- NOTE | 2016-11-11 15:00 | CP.PCM.PN ---
<Kristal Rodriguez - Last Filed: 11/11/16 14:44> Subjective - Date & Time of Evaluation Date of Evaluation: 11/11/16 Time of Evaluation: 07:35 - Subjective Subjective: Pt seen and examined at bedside. Pt found to be resting comfortably, no acute events overnight as per nursing staff. No improvement of Lt sided deficits. Pt family at bedside, discussed care with Nadeen Paramonte and decision to change status to DNR/DNI. Objective - Vital Signs/Intake and Output Vital Signs (last 24 hours): Temp Pulse Resp BP Pulse Ox 98.2 F 86 22 146/72 96 11/11/16 12:00 11/11/16 12:00 11/11/16 12:00 11/11/16 06:00 11/11/16 12:00 - Medications Medications: Current Medications Digoxin (Lanoxin) 0.25 mg PO 1400 [facility] Last Admin: 11/11/16 14:35 Dose: Not Given Home Med (Home Med) 500 unit PO Q12 [facility] Last Admin: 11/11/16 14:35 Dose: Not Given Hydralazine HCl (Apresoline) 10 mg IVP Q6 PRN PRN Reason: for sbp.170 and/0r diastolic> Dextrose/Sodium Chloride (Dextrose 5%/0.9% Ns 1000 Ml) 1,000 mls @ 100 mls/hr IV .Q10H [facility] Levalbuterol HCl (Xopenex) 0.63 mg IH [id number] PRN PRN Reason: Shortness of Breath Nitroglycerin (Nitro-Bid 2% Oint) 1 ea TOP Q6H [facility] Last Admin: 11/11/16 09:04 Dose: 1 ea Pantoprazole Sodium (Protonix Inj) 40 mg IVP DAILY [facility] Last Admin: 11/11/16 09:04 Dose: 40 mg - Labs Labs: 11/11/16 05:35 11/11/16 05:35 PT 12.0 Seconds (9.9-11.8) H 11/10/16 09:00 INR 1.11 (0.93-1.08) H 11/10/16 09:00 APTT 25.8 Seconds (23.7-30.8) 11/05/16 15:40 - Constitutional Appears: No Acute Distress - Head Exam Head Exam: ATRAUMATIC, NORMAL INSPECTION, NORMOCEPHALIC - Eye Exam Eye Exam: EOMI, PERRL Pupil Exam: PERRL - ENT Exam ENT Exam: Mucous Membranes Moist Additional comments: drooling, speech delay - Respiratory Exam Respiratory Exam: Clear to Ausculation Bilateral, NORMAL BREATHING PATTERN - Cardiovascular Exam Cardiovascular Exam: REGULAR RHYTHM, +S1, +S2. absent: Murmur - GI/Abdominal Exam GI & Abdominal Exam: Soft, Normal Bowel Sounds. absent: Tenderness - Extremities Exam Extremities Exam: Normal Inspection. absent: Pedal Edema - Neurological Exam Neurological Exam: Alert, Awake, Oriented x3 Neuro motor strength exam: Left Upper Extremity: 3, Right Upper Extremity: 4, Left Lower Extremity: 0, Right Lower Extremity: 4 - Skin Skin Exam: Dry, Intact, Normal Color, Warm Assessment and Plan - Assessment and Plan (Free Text) Assessment: 76F with PMH lung cancer on chemotherapy found to be pancytopenic, found to have spontaneous SAH in the setting of severe thrombocytopenia. No need for neurosurgical intervention as per Dr. Jauregui due to no further progression of SAH on CTH. Re-presented to ICU for chest pain and elevated troponins. MRI found to show new acute infarct in the R post/ frontal / temp region. Palliative care consulted, discussed plans with family, agreed to change status to DNR/DNI. Neuro: - Mental status is stable and somewhat protecting airway. - CTH: New acute R frontal MCA infarction and acute subacute b/l cerebellar sebastian and L parietal and periatrial infarction - Brain MRI: acute infarct in the R post/ frontal / temp region - Neurology, Dr. Acosta following recommended to avoid transient drops in BP, SBP >120, DBP >80. Platelet goal > 50,000, Aggranox 1 tab BID in 1 week for further stroke prevention CVS: - trop downtrending Dr. Valdes cardiology consulted, Conservative management at this time - Cont metoprolol, lisinopril and nitroglycerin - Maintain MAP>65 - Echo performed EF 25% Pulm: - On RA. Saturating well. - Maintain O2 sat>90% - CXR neg for infiltrates, - Pulm consulted GI: - NPO - GI ppx Renal: - BUN/Cr stable at baseline - K+ 3.5 supplemented - maintain euvolemia - Continue to monitor. ID: - Afebrile, improved leukopenia - cont to monitor. - Dr. Taveras, Heme/ onc consulted Endo: - Maintain euglycemia. Heme: - presented with pancytopenia, last received chemo 2 weeks - Cont to monitor. DVT ppx - thrombocytopenic Seen reviewed and discussed with attending <Sadia Koenig MD H - Last Filed: 11/11/16 15:48> Objective - Vital Signs/Intake and Output Vital Signs (last 24 hours): Temp Pulse Resp BP Pulse Ox 98.2 F 86 22 146/72 96 11/11/16 12:00 11/11/16 12:00 11/11/16 12:00 11/11/16 06:00 11/11/16 12:00 - Medications Medications: Current Medications Digoxin (Lanoxin) 0.25 mg PO 1400 [facility] Last Admin: 11/11/16 14:35 Dose: Not Given Home Med (Home Med) 500 unit PO Q12 [facility] Last Admin: 11/11/16 14:35 Dose: Not Given Hydralazine HCl (Apresoline) 10 mg IVP Q6 PRN PRN Reason: for sbp.170 and/0r diastolic> Dextrose/Sodium Chloride (Dextrose 5%/0.9% Ns 1000 Ml) 1,000 mls @ 100 mls/hr IV .Q10H [facility] Levalbuterol HCl (Xopenex) 0.63 mg IH [id number] PRN PRN Reason: Shortness of Breath Nitroglycerin (Nitro-Bid 2% Oint) 1 ea TOP Q6H [facility] Last Admin: 11/11/16 09:04 Dose: 1 ea Pantoprazole Sodium (Protonix Inj) 40 mg IVP DAILY [facility] Last Admin: 11/11/16 09:04 Dose: 40 mg - Labs Labs: 11/11/16 05:35 11/11/16 05:35 PT 12.0 Seconds (9.9-11.8) H 11/10/16 09:00 INR 1.11 (0.93-1.08) H 11/10/16 09:00 APTT 25.8 Seconds (23.7-30.8) 11/05/16 15:40 Attending/Attestation - Attestation I have personally seen and examined this patient.: Yes I have fully participated in the care of the patient.: Yes I have reviewed all pertinent clinical information, including history, physical exam and plan: Yes Notes (Text): 11/11/16 15:45 76 y/o F w/ multiple new neurological injuries. Residual L sided weakness, and speech difficulty. Currently able to protect her airway. DNR/DNI today Family meeting was done and they want to have a PEG tube placed for rehab and placement. Lung ca / Breast ca managed by her outpatient oncologist. dvt p scd cc time 65 min
[2016-11-11] MEDS: Dextrose 5%/0.9% NS 1,000 ML IV SCH (16:29)
--- NOTE | 2016-11-11 17:26 | CP.PCM.CON ---
History of Present Illness - History of Present Illness History of Present Illness: General Surgery Consult for Dr. Chisholm Reason: evaluation for G tube placement Pt is a 76 y/o female with PMH of breast cancer, lung cancer, and CVA. Patient presented to the ED with slurred speech and generalized weakness. Patient was found to have L frontal subarachnoid hemorrhage with out any fall or trauma. Subsequent Brain MRI which was done 11/10 showed acute infarcts in the left periatrial white matter on the cerebellar hemispheres bilaterally. Patient has AMS with expressive aphasia making ROS difficult to obtain. After a goals of care discussion, patient's family decided they would like to have a G tube placed. PMHx: breast cancer, R lung cancer (last chemotherapy one week ago) COPD, HTN, CADDO, [place] s/p stent Social History: Non smoker,no alcohol or drug use. Single, lives with daughter Ely Giordano Family History: Non contributory Review of Systems - Review of Systems All systems: reviewed and no additional remarkable complaints except (as per HPI , unable to obtain 2/2 AMS and aphasia) Past Patient History - Infectious Disease Hx of Infectious Diseases: None - Past Medical History & Family History Past Medical History?: Yes - Past Social History Smoking Status: Never Smoked - CARDIAC Hx Cardiac Disorders: Yes Hx Hypertension: Yes - PULMONARY Hx Chronic Obstructive Pulmonary Disease (COPD): Yes - NEUROLOGICAL Hx Neurological Disorder: No Hx Vertigo: Yes - HEENT Hx HEENT Problems: Yes Hx Cataracts: Yes Other/Comment: hearing impairment - RENAL Hx Chronic Kidney Disease: No - ENDOCRINE/METABOLIC Hx Endocrine Disorders: Yes (ENLARGED THYRIOD NOT CANCEROUS) - HEMATOLOGICAL/ONCOLOGICAL Hx Blood Disorders: Yes Hx Blood Transfusions: No Hx Blood Transfusion Reaction: No Hx Cancer: Yes (BREAST HX RADIATION 2006) Other/Comment: Radiation therapy for breast cancer. lung CA currently under Chemo. Last Tx was last week. - INTEGUMENTARY Hx Dermatological Problems: No - MUSCULOSKELETAL/RHEUMATOLOGICAL Hx Musculoskeletal Disorders: No Hx Falls: No - GASTROINTESTINAL Hx Gastrointestinal Disorders: No - GENITOURINARY/GYNECOLOGICAL Hx Genitourinary Disorders: No - PSYCHIATRIC Hx Psychophysiologic Disorder: No Hx Substance Use: No - SURGICAL HISTORY Hx Vascular Access Device: Yes (R PortACath) - ANESTHESIA Hx Anesthesia: Yes Hx Anesthesia Reactions: No Hx Malignant Hyperthermia: No Meds Allergies/Adverse Reactions: Allergies Allergy/AdvReac Type Severity Reaction Status Date / Time No Known Allergies Allergy Verified 11/05/16 14:47 - Medications Medications: Current Medications Digoxin (Lanoxin) 0.25 mg PO 1400 [facility] Last Admin: 11/11/16 14:35 Dose: Not Given Home Med (Home Med) 500 unit PO Q12 [facility] Last Admin: 11/11/16 14:35 Dose: Not Given Hydralazine HCl (Apresoline) 10 mg IVP Q6 PRN PRN Reason: for sbp.170 and/0r diastolic> Dextrose/Sodium Chloride (Dextrose 5%/0.9% Ns 1000 Ml) 1,000 mls @ 100 mls/hr IV .Q10H [facility] Last Admin: 11/11/16 16:29 Dose: 100 mls/hr Levalbuterol HCl (Xopenex) 0.63 mg IH [id number] PRN PRN Reason: Shortness of Breath Nitroglycerin (Nitro-Bid 2% Oint) 1 ea TOP Q6H [facility] Last Admin: 11/11/16 14:35 Dose: 1 ea Pantoprazole Sodium (Protonix Inj) 40 mg IVP DAILY [facility] Last Admin: 11/11/16 09:04 Dose: 40 mg Physical Exam - Constitutional Appears: Chronically Ill - Head Exam Additional comments: L facial droop - Eye Exam Additional comments: L gaze preference - ENT Exam ENT Exam: Mucous Membranes Moist - Respiratory Exam Respiratory Exam: NORMAL BREATHING PATTERN. absent: Accessory Muscle Use, Respiratory Distress, Stridor - Cardiovascular Exam Cardiovascular Exam: REGULAR RHYTHM. absent: Bradycardia, Tachycardia - GI/Abdominal Exam GI & Abdominal Exam: Soft. absent: Distended, Tenderness - Extremities Exam Extremities exam: Positive for: pedal pulses present. Negative for: pedal edema Additional comments: Left hemiparesis, sensation intact b/l - Neurological Exam Neurological exam: Altered - Skin Skin Exam: Dry, Intact, Warm Results - Vital Signs Recent Vital Signs: Last Vital Signs Temp 98.2 F 11/11/16 12:00 Pulse 86 11/11/16 12:00 Resp 22 11/11/16 12:00 BP 146/72 11/11/16 06:00 Pulse Ox 96 11/11/16 12:00 - Labs Result Diagrams: 11/11/16 05:35 11/11/16 05:35 Labs: Laboratory Results - last 24 hr 11/11/16 11/11/16 05:35 05:35 WBC 5.5 D RBC 2.60 L Hgb 8.3 L Hct 24.7 L MCV 95.0 MCH 31.9 MCHC 33.6 RDW 16.4 H Plt Count 44 L* Manual Plt Count 56 L* MPV 10.1 Neutrophils % (Manual) 55 Band Neutrophils % 11 H* Lymphocytes % (Manual) 26 Monocytes % (Manual) 7 H Eosinophils % (Manual) 1 Platelet Evaluation Low Sodium 137 Potassium 3.5 L Chloride 104 Carbon Dioxide 24 Anion Gap 13 BUN 18 Creatinine 0.9 Est GFR ( Amer) > 60 Est GFR (Non-Af Amer) > 60 Random Glucose 93 Calcium 8.9 Total Bilirubin 1.0 AST 60 H ALT 29 Alkaline Phosphatase 122 Total Protein 5.4 L Albumin 3.1 Globulin 2.3 Albumin/Globulin Ratio 1.3 Assessment & Plan - Assessment and Plan (Free Text) Assessment: 76 y/o F with CVA for G tube placement Plan: - Trend platelets over the weekend and make decision for surgery on Monday
--- NOTE | 2016-11-11 19:04 | PN ---
NEUROLOGY FOLLOWUP DATE: 11/11/2016 SUBJECTIVE: The patient seen and examined at bedside, has left-sided weakness and drowsiness. No acute events overnight. MRI of the brain showed a new large right posterior frontal lobe and parietal lobe infarct with re-demonstrated infarcts in the bilateral cerebral hemispheres as well as for the left periatrial white matter and there is some residual left frontal subarachnoid hemorrhoid, which is shrunken in size. Family at bedside, case discussed with the family in detail. There is no acute intervention we can do at this time. Her platelet count today is 44, which has dropped from yesterday. Palliative care note reviewed and appreciated. PAST MEDICAL HISTORY: History of pancytopenia, lung cancer. SOCIAL HISTORY: No illicit drug use, smoking or EtOH abuse. FAMILY HISTORY: Noncontributory. REVIEW OF SYSTEMS: A 14-point review of system is negative except as in the HPI. ALLERGIES: NO KNOWN DRUG ALLERGIES. MEDICATIONS: Reviewed by nurse per reconciliation sheet. PHYSICAL EXAMINATION: VITAL SIGNS: Temperature 98.2, pulse rate 86, blood pressure 146/72, respiratory rate 21. GENERAL: The patient is sitting up in bed, in no acute distress. HEENT: Head is atraumatic and normocephalic. PERRLA. Extraocular muscles intact. NECK: Supple. No JVD. No adenopathy noted. LUNGS: Clear to auscultation. No adventitious sounds. HEART: S1 and S2, normal rate and rhythm. No murmurs, rubs, or gallops. ABDOMEN: Soft, nontender, nondistended. Bowel sounds present. EXTREMITIES: No clubbing, no cyanosis. Peripheral pulses 2+ bilaterally. NEUROLOGIC: The patient is alert and oriented to person and place, month, and year. Speech is hypophonic. Cranial nerves II through XII intact, there is mild left facial droop. Motor exam: Left upper extremity is 3/5 and left lower extremity is 3/5 as well. Right side is intact in terms of 5-/5. Toes are upgoing bilaterally. Sensory exam: Withdrawal are localized to noxious stimulus, diffuse. Light touch, pinprick, proprioception, bilateral decreased vibration in the toes. DTRs are 1+ ankles. Coordination: [id number] is difficult with left upper extremity due left-sided weakness. Gait is deferred for now. LABORATORY DATA: WBC is 5.5, hemoglobin of 8.2, , platelet count of 44. Sodium 137, potassium 3.5, chloride 104, carbon dioxide 24, BUN of 18, creatinine 1.9, random glucose is 93. ASSESSMENT: This is a 76-year-old woman with past medical history of lung cancer, on chemotherapy, found to be pancytopenic and found to have spontaneous subarachnoid hemorrhage, with severe history of autoimmune thrombocytopenia, no neurosurgical intervention need as per Dr. Figueredo due to no further information of subarachnoid on the repeat CAT scan. She had elevated troponin and chest pain and low platelet count, which has been transfused multiple times. She was found to have decreased lethargy in terms of mental status, found to have new true infarct in the right posterior frontotemporal region as well as bilateral cerebral as well as the left periatrial white matter area, which is likely secondary to watershed infarcts from rapid reduction of blood pressure/cerebral hypoperfusion in addition to underlying cardiomyopathy malignancy, which is risk factor for embolic phenomenon strokes as well as superimposed underlying diffuse atherosclerosis. At this time, palliative care on board in terms of goals of care. PLAN: 1. Recommend, avoid transient drops in blood pressure and keep systolic blood pressure above 120 and diastolic blood pressure above 80. 2. Platelet goal above 100,000 then consider Aggrenox 1 tab p.o. b.i.d., in a week for further stroke prevention. 3. Consider PEG placement for enteral nutrition to provide further care for nutrition to the brain. 4. Will require acute rehab if platelet remains stable. 5. Follow up with Oncology and Hematology recommendations regards to pancytopenia. 6. We will monitor electrolytes and correct accordingly and continue current present medical management. Thank you for this followup. Jack Acosta MD
--- NOTE | 2016-11-11 20:32 | PN ---
PULMONARY CRITICAL CARE PROGRESS NOTE REFERRING PHYSICIAN: Dr. Ibarra DATE: 11/11/2016 SUBJECTIVE: She is sleepy, arousable. Family is at the bedside. Night was unremarkable. events were noted. The patient is made DNR and DNI. No nausea, no vomiting, no diarrhea. No leg pain or leg swelling. PHYSICAL EXAMINATION GENERAL: No acute distress. VITAL SIGNS: Temperature 98, hear rate 86, respiratory rate is 20, blood pressure 146/72. HEENT: Small oral cavity. Crowded airway. NECK: Supple. No JVD. LUNGS: Fair airflow with rhonchi. HEART: S1 and S2. ABDOMEN: .Soft and nontender. No organomegaly. EXTREMITIES: There is no edema. NEUROLOGIC: Sleepy arousable. When awake, follows simple commands. LABORATORY DATA: Shows hemoglobin 8.3, hematocrit 24.7, WBC 5.5 and platelet count is 44. Sodium 137, potassium 3.5, chloride 104, bicarbonate 24, BUN 18, creatinine 0.9., glucose 93, calcium is 8.9, AST 60, ALT 29, alk phos 122 and albumin is 3.1. MEDICATIONS: Shows she is on hydralazine 10 mg q. 6 hours p.r.n., IV fluids D5 normal saline 100 mL per hour, digoxin 0.25 mg daily, Nitro-Bid patch q. 6 hours, Protonix 40 mg daily, and Xopenex inhaler 0.63 mg q. 6 hours p.r.n. ASSESSMENT AND PLAN: Originally admitted with subarachnoid hemorrhage, also had cerebellar ischemic, also had pancytopenia, lung cancer status post chemotherapy, severe cardiomyopathy, coronary artery disease, history of coronary stent, pulmonary hypertension, presently also developed ischemia to frontal, parietal and occipital lobe. Seen by palliative care. The patient was made DNR and DNI. Spoke to the patient's family at bedside. Also spoke to nursing staff, keep head elevated at 45 degrees, supplement oxygen, aspiration precaution, gastric prophylaxis. SCDs to lower extremities. Follow up labs in the morning. Thank you and we will follow with you. Kayden Frost MD SUBJECTIVE: Text. PHYSICAL EXAMINATION GENERAL: Text. VITAL SIGNS: Text. HEENT: Text. NECK: Text. CARDIOPULMONARY: Text. LUNGS: Text. ABDOMEN: Text. EXTREMITIES: Text. LABORATORY DATA: Text. MEDICATIONS: Text. ASSESSMENT AND PLAN: Text. Kayden Frost MD cc:
--- NOTE | 2016-11-11 21:53 | CP.PCM.PN ---
Subjective - Date & Time of Evaluation Date of Evaluation: 11/11/16 Time of Evaluation: 05:30 - Subjective Subjective: Pt is a 76 y/o female with PMH of breast cancer, lung cancer, and CVA. Patient presented to the ED with slurred speech and generalized weakness. Patient was found to have L frontal subarachnoid hemorrhage with out any fall or trauma. Subsequent Brain MRI which was done 11/10 showed acute infarcts in the left periatrial white matter on the cerebellar hemispheres bilaterally. Patient has AMS with expressive aphasia making ROS difficult to obtain. After a goals of care discussion, patient's family decided they would like to have a G tube placed. Objective - Vital Signs/Intake and Output Vital Signs (last 24 hours): Temp Pulse Resp BP Pulse Ox 97.2 F L 135 H 26 H 159/69 H 99 11/11/16 19:55 11/11/16 19:50 11/11/16 19:50 11/11/16 19:00 11/11/16 19:50 Intake and Output: 11/11/16 11/12/16 18:59 06:59 Intake Total 1000 0 Balance 1000 0 - Medications Medications: Current Medications Digoxin (Lanoxin) 0.25 mg PO 1400 [facility] Last Admin: 11/11/16 14:35 Dose: Not Given Home Med (Home Med) 500 unit PO Q12 [facility] Last Admin: 11/11/16 14:35 Dose: Not Given Hydralazine HCl (Apresoline) 10 mg IVP Q6 PRN PRN Reason: for sbp.170 and/0r diastolic> Dextrose/Sodium Chloride (Dextrose 5%/0.9% Ns 1000 Ml) 1,000 mls @ 100 mls/hr IV .Q10H [facility] Last Admin: 11/11/16 16:29 Dose: 100 mls/hr Levalbuterol HCl (Xopenex) 0.63 mg IH [id number] PRN PRN Reason: Shortness of Breath Nitroglycerin (Nitro-Bid 2% Oint) 1 ea TOP Q6H [facility] Last Admin: 11/11/16 14:35 Dose: 1 ea Pantoprazole Sodium (Protonix Inj) 40 mg IVP DAILY [facility] Last Admin: 11/11/16 09:04 Dose: 40 mg - Labs Labs: 11/11/16 05:35 11/11/16 05:35 PT 12.0 Seconds (9.9-11.8) H 11/10/16 09:00 INR 1.11 (0.93-1.08) H 11/10/16 09:00 APTT 25.8 Seconds (23.7-30.8) 11/05/16 15:40 - Constitutional Appears: Older Than Stated Age, Confused - Neurological Exam Neurological Exam: Alert, Motor Sensory Deficit Assessment and Plan (1) Anemia Status: Acute (2) Leukopenia Status: Acute (3) Subarachnoid hemorrhage Status: Acute (4) Thrombocytopenia Status: Acute (5) Bronchitis Status: Acute (6) Chronic systolic CHF (congestive heart failure), NYHA class 2 Status: Acute (7) Dyspnea Status: Acute (8) Hypokalemia Status: Acute (9) Lung cancer Status: Acute (10) Neutropenic fever Status: Acute (11) Odynophagia Status: Acute (12) Pancytopenia Status: Acute (13) Prophylactic measure Status: Acute (14) Pulmonary embolism Status: Acute (15) Pulmonary embolism Status: Acute (16) Troponin I above reference range Status: Acute (17) Acute on chronic systolic and diastolic heart failure, NYHA class 2 Status: Chronic (18) CAD (coronary artery disease) Status: Chronic (19) Chronic obstructive lung disease Status: Chronic (20) Dyspnea Status: Chronic (21) HTN (hypertension) Status: Chronic (22) Indigestion Status: Chronic (23) Lung nodule Status: Chronic - Assessment and Plan (Free Text) Assessment: 76F with PMH lung cancer on chemotherapy found to be pancytopenic, found to have spontaneous SAH in the setting of severe thrombocytopenia. No need for neurosurgical intervention as per Dr. Jauregui due to no further progression of SAH on CTH. Re-presented to ICU for chest pain and elevated troponins. MRI found to show new acute infarct in the R post/ frontal / temp region. Palliative care consulted, discussed plans with family, agreed to change status to DNR/DNI. Neuro: - Mental status is stable and somewhat protecting airway. - CTH: New acute R frontal MCA infarction and acute subacute b/l cerebellar sebastian and L parietal and periatrial infarction - Brain MRI: acute infarct in the R post/ frontal / temp region - Neurology, Dr. Acosta following recommended to avoid transient drops in BP, SBP >120, DBP >80. Platelet goal > 50,000, Aggranox 1 tab BID in 1 week for further stroke prevention CVS: - trop downtrending Dr. Valdes cardiology consulted, Conservative management at this time - Cont metoprolol, lisinopril and nitroglycerin - Maintain MAP>65 - Echo performed EF 25% Pulm: - On RA. Saturating well. - Maintain O2 sat>90% - CXR neg for infiltrates, - Pulm consulted GI: - NPO - GI ppx Renal: - BUN/Cr stable at baseline - K+ 3.5 supplemented - maintain euvolemia - Continue to monitor. ID: - Afebrile, improved leukopenia - cont to monitor. - Dr. Taveras, Heme/ onc consulted Endo: - Maintain euglycemia. Heme: - presented with pancytopenia, last received chemo 2 weeks - Cont to monitor. DVT ppx - thrombocytopenic d/d with familly
[2016-11-11] MEDS: Levalbuterol 0.63 MG/3 ML Inhal Soln UD IH PRN (22:14)
[2016-11-12] MEDS: Dextrose 5%/0.9% NS 1,000 ML IV SCH ×3 (00:49→21:00)
[2016-11-12] MEDS: Nitroglycerin 2% Ointment Foilpak UD TOP SCH ×4 (00:50→19:06)
--- NOTE | 2016-11-12 02:05 | CP.PCM.PN ---
Subjective - Date & Time of Evaluation Date of Evaluation: 11/12/16 Time of Evaluation: 02:04 - Subjective Subjective: Patient was seen at bed side because she complained of low back pain. Has no other complaints now. Denies paraesthesia, bladder or bowel incontinence. No chest pain, no sob. ROS:Negative except as mentioned above. This 76 year old woman was admitted with sudden onset of slurred speech, altered mental status. Has PMH of [place], coronary stents x 2 , breast cancer, anemia ,HTN, PNA, lung cancer, elarged thyroid, vertigo , cataract. Objective - Vital Signs/Intake and Output Vital Signs (last 24 hours): Temp Pulse Resp BP Pulse Ox 98.5 F 92 H 24 159/74 H 99 11/12/16 01:02 11/12/16 01:02 11/12/16 01:02 11/12/16 01:02 11/11/16 19:50 Intake and Output: 11/11/16 11/12/16 18:59 06:59 Intake Total 1000 288 Balance 1000 288 - Medications Medications: Current Medications Digoxin (Lanoxin) 0.25 mg PO 1400 [facility] Last Admin: 11/11/16 14:35 Dose: Not Given Home Med (Home Med) 500 unit PO Q12 [facility] Last Admin: 11/11/16 22:06 Dose: Not Given Hydralazine HCl (Apresoline) 10 mg IVP Q6 PRN PRN Reason: for sbp.170 and/0r diastolic> Dextrose/Sodium Chloride (Dextrose 5%/0.9% Ns 1000 Ml) 1,000 mls @ 100 mls/hr IV .Q10H [facility] Last Admin: 11/12/16 00:49 Dose: 100 mls/hr Levalbuterol HCl (Xopenex) 0.63 mg IH [id number] PRN PRN Reason: Shortness of Breath Last Admin: 11/11/16 22:14 Dose: 0.63 mg Nitroglycerin (Nitro-Bid 2% Oint) 1 ea TOP Q6H [facility] Last Admin: 11/12/16 00:50 Dose: 1 ea Pantoprazole Sodium (Protonix Inj) 40 mg IVP DAILY [facility] Last Admin: 11/11/16 09:04 Dose: 40 mg - Labs Labs: 11/11/16 05:35 11/11/16 05:35 PT 12.0 Seconds (9.9-11.8) H 11/10/16 09:00 INR 1.11 (0.93-1.08) H 11/10/16 09:00 APTT 25.8 Seconds (23.7-30.8) 11/05/16 15:40 - Constitutional Appears: Well, No Acute Distress - Head Exam Head Exam: ATRAUMATIC, NORMAL INSPECTION, NORMOCEPHALIC - Eye Exam Eye Exam: Normal appearance - ENT Exam ENT Exam: Normal External Ear Exam - Neck Exam Neck Exam: Normal Inspection - Respiratory Exam Respiratory Exam: absent: NORMAL BREATHING PATTERN - Cardiovascular Exam Cardiovascular Exam: absent: JVD - GI/Abdominal Exam GI & Abdominal Exam: absent: Distended - Rectal Exam Rectal Exam: Deferred - Exam Additional comments: Deferred. - Extremities Exam Extremities Exam: Normal Inspection - Back Exam Back Exam: NORMAL INSPECTION - Neurological Exam Neurological Exam: Alert, Oriented x3 - Psychiatric Exam Psychiatric exam: Normal Affect, Normal Mood - Skin Skin Exam: Normal Color Assessment and Plan - Assessment and Plan (Free Text) Assessment: Low back pain. CAD. Breast cancer. Anemia. Thrombocytopenia. Hypertension. Plan: Toradol 30 mg IV stat. Continue present management.
[2016-11-12 06:53] LABS: BASO # 0.01 K/mm3 (0.0-2.0); BASO % 0.1 % (0.0-3.0); EOS % 0.1 % (1.5-5.0); GRAN # 6.75 (1.4-6.5); GRAN % 76.4 % (50.0-68.0); LYMPH # 1.5 (1.2-3.4); LYMPH % 17.1 % (22.0-35.0); MEAN CELL VOLUME 95.2 fL (80.0-105.0); MEAN CORPUSCULAR HEMOGLOBIN 31.9 pg (25.0-35.0); MEAN CORPUSCULAR HGB CONC 33.5 g/dl (31.0-37.0); MEAN PLATELET VOLUME 10.1 fl (7.0-11.0); MONO # 0.6 (0.1-0.6); MONO % 6.3 % (1.0-6.0); PLATELET COUNT 88 10^3/uL (120.0-450.0); RBC 2.51 10^6/uL (3.5-6.1); RED CELL DISTRIBUTION WIDTH 16.4 % (11.5-14.5); WHITE BLOOD COUNT 8.8 10^3/ul (4.5-11.0)
[2016-11-12 07:06] LABS: ALB/GLOB RATIO 1.1 (1.1-1.8); ALBUMIN 3.1 g/dL (3.0-4.8); ALT/SGPT 29 U/L (7-56); AST/SGOT 48 U/L (15-39); BLOOD UREA NITROGEN 16 mg/dL (7-21); CALCIUM 8.7 mg/dL (8.4-10.5); GFR AFRICAN-AMERICAN > 60; GFR NON-AFRICAN AMERICAN > 60
--- NOTE | 2016-11-12 08:57 | CP.PCM.PN ---
Subjective - Date & Time of Evaluation Date of Evaluation: 11/12/16 Time of Evaluation: 08:00 - Subjective Subjective: General Surgery- Dr. Chisholm Pt S&E at bedside this AM. No acute events overnight. Pt still has weakness in Left arm. Currently able to communicate and is AAOx3. Speech still slurred during encounter. Denies N/V CP/SOB F/C/[facility]WILLIAMS. Objective - Vital Signs/Intake and Output Vital Signs (last 24 hours): Temp Pulse Resp BP Pulse Ox 98.5 F 92 H 24 159/74 H 97 11/12/16 01:02 11/12/16 01:02 11/12/16 01:02 11/12/16 01:02 11/12/16 00:00 Intake and Output: 11/12/16 11/12/16 06:59 18:59 Intake Total 1388 Balance 1388 - Medications Medications: Current Medications Digoxin (Lanoxin) 0.25 mg PO 1400 [facility] Last Admin: 11/11/16 14:35 Dose: Not Given Home Med (Home Med) 500 unit PO Q12 [facility] Last Admin: 11/11/16 22:06 Dose: Not Given Hydralazine HCl (Apresoline) 10 mg IVP Q6 PRN PRN Reason: for sbp.170 and/0r diastolic> Dextrose/Sodium Chloride (Dextrose 5%/0.9% Ns 1000 Ml) 1,000 mls @ 100 mls/hr IV .Q10H [facility] Last Admin: 11/12/16 00:49 Dose: 100 mls/hr Levalbuterol HCl (Xopenex) 0.63 mg IH [id number] PRN PRN Reason: Shortness of Breath Last Admin: 11/11/16 22:14 Dose: 0.63 mg Nitroglycerin (Nitro-Bid 2% Oint) 1 ea TOP Q6H [facility] Last Admin: 11/12/16 08:44 Dose: 1 ea Pantoprazole Sodium (Protonix Inj) 40 mg IVP DAILY [facility] Last Admin: 11/11/16 09:04 Dose: 40 mg - Labs Labs: 11/12/16 06:00 11/12/16 06:00 PT 12.0 Seconds (9.9-11.8) H 11/10/16 09:00 INR 1.11 (0.93-1.08) H 11/10/16 09:00 APTT 25.8 Seconds (23.7-30.8) 11/05/16 15:40 - Constitutional Appears: No Acute Distress - Eye Exam Eye Exam: EOMI - ENT Exam ENT Exam: Mucous Membranes Moist - Respiratory Exam Respiratory Exam: NORMAL BREATHING PATTERN. absent: Accessory Muscle Use, Rhonchi, Wheezes - Cardiovascular Exam Cardiovascular Exam: +S1, +S2 - GI/Abdominal Exam GI & Abdominal Exam: Soft, Normal Bowel Sounds. absent: Distended, Tenderness - Rectal Exam Rectal Exam: Deferred - Neurological Exam Neurological Exam: Awake, Oriented x3 Neuro motor strength exam: Left Upper Extremity: 2/1, Right Upper Extremity: 5, Left Lower Extremity: 2/1, Right Lower Extremity: 5 - Skin Skin Exam: Intact, Warm Assessment and Plan - Assessment and Plan (Free Text) Assessment: 76F hx of breasts cancer, lung cancer receiving chemotherapy, with CVA Plan: - Plan for OR monday for G-Tube Placement - optimize for surgery * platelet goal above 50k - will d/W Dr. Phan Contreras PGY1
--- NOTE | 2016-11-12 13:48 | CON ---
SUBJECTIVE: The patient is seen in the ICU in the normal floor. She is noted to be DNR/DNI, having had multiple strokes recently. OBJECTIVE: VITAL SIGNS: Normal. 181 pounds. ABDOMEN: Soft, nontender. Requested for a feeding gastrostomy and certainly it is feasible; however, discussion with the family, it is probably best to try an endoscopic PEG, if that is unavailable or impossible, we will be happy to place it operatively. Therefore, the suggestion is to contact GI. LABORATORY DATA: White count was 2 several days ago and it is 8 now, hemoglobin 8, platelet count up to 88 from 44, a low of 33, bands 11. SMA-18 relatively normal with albumin 3.1. Fernie Chisholm MD
[2016-11-12] MEDS: Digoxin 250 mcg (0.25 mg) Tab PO SCH (14:08)
--- NOTE | 2016-11-12 17:11 | PN ---
DATE: 11/12/2016 PULMONARY PROGRESS NOTE REFERRING PHYSICIAN: Dr. Ibarra. SUBJECTIVE: She is lying in the bed, sleepy, arousable. Family is at the bedside. No acute distress. No cough and no sputum production. No nausea, no vomiting, no diarrhea. No leg pain or leg swelling. OBJECTIVE: GENERAL: In no acute distress. VITAL SIGNS: Temperature is 98, hear rate is 92, respiratory rate is 22, blood pressure 158/82 and pulse oximetry 97% on 3 L nasal cannula. HEENT: Moist mucous membranes. Small oral cavity. NECK: Supple. No JVD. LUNGS: Fair airflow with rhonchi. HEART: S1 and S2. ABDOMEN: Soft and nontender. No organomegaly. EXTREMITIES: No edema. NEUROLOGIC: Sleepy arousable. Follows simple commands. MEDICATIONS: She is on hydralazine 10 mg IV q. 6 hours p.r.n., getting TPN 83 mL per hour, digoxin 0.25 mg daily, nitroglycerin ointment q. 6 hour, Protonix 40 mg daily, Zofran is q. 6 hour p.r.n. LABORATORY DATA: Shows hemoglobin 8.0, hematocrit 23.9, WBC 8.8 and platelet count is 88. Sodium 139, potassium 3.7, chloride 106, bicarbonate 23, BUN 16, creatinine 0.9., glucose 156, calcium is 8.7, AST 48, ALT 29, alk phos is 128 and albumin is 3.1. IMPRESSION AND PLAN: Subarachnoid hemorrhage, status post ischemic stroke, resolving pancytopenia, lung cancer status post chemotherapy, severe cardiomyopathy, coronary artery disease, history of coronary stent, pulmonary hypertension, oropharyngeal dysphagia. The patient is DNR and DNI. Comfortable and arousable. Continue present medication. Keep following electrolytes, CBC closely. Once hemoglobin and platelet improve, consider G-tube placement. For now, consulted GI, may place nasogastric tube could be Dobhoff. Aspiration precaution. Follow up labs in the morning. Thank you and we will follow with you Kayden Frost MD
--- NOTE | 2016-11-12 19:12 | PN ---
DATE: 11/12/2016 SUBJECTIVE: The patient is seen and examined on the bedside, looking comfortable, alert, but sleepy. No acute event overnight. Still having weakness in the left side. Able to communicate, but cannot speak full sentences. Speech is slurred. No nausea, vomiting, or diarrhea. The patient is not able to give complete review of systems. PHYSICAL EXAMINATION: VITAL SIGNS: Temperature 98.5, pulse 92, respiratory 24, blood pressure 115/74, pulse oximetry is 97%. HEENT: Head is normocephalic atraumatic. Eyes, closed. PERRLA. Extraocular movement is intact. Conjunctivae clear. Nose is patent. Mucous membrane moist. NECK: Supple. No carotid bruit. No thyromegaly. CHEST: Bilaterally symmetrical. HEART: S1 and S2 positive. LUNGS: Clear to auscultation. ABDOMEN: Soft. Bowel sounds present. No organomegaly. EXTREMITIES: No edema. No cyanosis. Left side of the body is weak. NEUROLOGIC: The patient is awake, is able to follow simple command. MEDICATIONS: Digoxin, hydralazine, Xopenex, nitroglycerine, Lovenox. LABORATORY DATA: White blood cell count 8.8, hemoglobin 8.0, hematocrit 23.9, platelets 88. Sodium 139, potassium 3.7, BUN 16, creatinine 0.9, glucose 166. ASSESSMENT AND PLAN: Mrs. Tiffany Gordon is a 76-year-old lady with anemia, thrombocytopenia, hyperglycemia, history of breast cancer and lung cancer treated with chemotherapy, history of cerebrovascular accident. The patient need G-tube placement, Dr. Fernie Chisholm for surgery. I was reviewing Dr. Fernie Chisholm notes and according to Dr. Chisholm, it is best to try endoscopy PEG, if that is not available or impossible, then surgeon want to do operatively, so I cordially consulted Dr. Castorena, anemia improving. The patient has pancytopenia. The patient has spontaneous subarachnoid hemorrhage. Neurosurgical are called, but according to them, no neurosurgical intervention needed this time. Elevated troponin and chest pain and had multiple time platelet transfusions. New true cva in the right posterior frontal temporal region as well as bilateral cerebral as well as left brighter white matter area, which is likely secondary to rapid reduction of blood pressure/cerebral hypoperfusion in addition to underlying cardiomyopathy. The patient is at high risk for embolic phenomenon, stroke, as well as superimposed underlying diffuse atherosclerosis. The patient is a DNR. Trying to give PEG tube for feeding. We will try to avoid transient drop in blood pressure. Need a rehab, oncologist and grade setter is on that case with electrolytes. Discussion done with the nursing staff. We will follow up. Bhumi Ibarra MD MTDD
[2016-11-12] MEDS: Levalbuterol 0.63 MG/3 ML Inhal Soln UD IH PRN (21:25)
--- NOTE | 2016-11-12 23:34 | CP.PCM.PN ---
Subjective - Date & Time of Evaluation Date of Evaluation: 11/11/16 Time of Evaluation: 21:00 - Subjective Subjective: Patient with son, daughter and extended family at bedside. continues to have left sided hempiaresis. Able to follow comands and talke 12 ROS otherwise negative Objective - Vital Signs/Intake and Output Vital Signs (last 24 hours): Temp Pulse Resp BP Pulse Ox 98.5 F 92 H 24 158/82 H 97 11/12/16 01:02 11/12/16 01:02 11/12/16 01:02 11/12/16 14:00 11/12/16 00:00 Intake and Output: 11/12/16 11/13/16 18:59 06:59 Intake Total 0 Output Total 100 Balance -100 - Medications Medications: Current Medications Digoxin (Lanoxin) 0.25 mg PO 1400 [facility] Last Admin: 11/12/16 14:08 Dose: Not Given Home Med (Home Med) 500 unit PO Q12 [facility] Last Admin: 11/12/16 21:58 Dose: Not Given Hydralazine HCl (Apresoline) 10 mg IVP Q6 PRN PRN Reason: for sbp.170 and/0r diastolic> Dextrose/Sodium Chloride (Dextrose 5%/0.9% Ns 1000 Ml) 1,000 mls @ 100 mls/hr IV .Q10H [facility] Last Admin: 11/12/16 10:33 Dose: 100 mls/hr Amino Acids/Electrolytes/Dextrose (Clinimix 4.25/5 % "E" (2000 Ml)) 2,000 mls @ 83.333 mls/hr IV .Q24H [facility] Last Admin: 11/12/16 18:04 Dose: 83.333 mls/hr Levalbuterol HCl (Xopenex) 0.63 mg IH [id number] PRN PRN Reason: Shortness of Breath Last Admin: 11/12/16 21:25 Dose: 0.63 mg Nitroglycerin (Nitro-Bid 2% Oint) 1 ea TOP Q6H [facility] Last Admin: 11/12/16 19:06 Dose: 1 ea Pantoprazole Sodium (Protonix Inj) 40 mg IVP DAILY [facility] Last Admin: 11/12/16 10:33 Dose: 40 mg - Labs Labs: 11/12/16 06:00 11/12/16 06:00 PT 12.0 Seconds (9.9-11.8) H 11/10/16 09:00 INR 1.11 (0.93-1.08) H 11/10/16 09:00 APTT 25.8 Seconds (23.7-30.8) 11/05/16 15:40 - Constitutional Appears: Non-toxic - Respiratory Exam Respiratory Exam: Accessory Muscle Use - Cardiovascular Exam Cardiovascular Exam: REGULAR RHYTHM, +S1, +S2. absent: Murmur - GI/Abdominal Exam GI & Abdominal Exam: Soft, Normal Bowel Sounds. absent: Tenderness - Extremities Exam Extremities Exam: Calf Tenderness - Neurological Exam Neuro motor strength exam: Left Upper Extremity: 0, Right Upper Extremity: 4, Left Lower Extremity: 0, Right Lower Extremity: 4 Assessment and Plan - Assessment and Plan (Free Text) Assessment: Ms Gordon is a 76 y/o woman with pmhx significant for stage breast cancer, NC s/ p PCI, IV lung cancer on rosebud/etop who presents with dizziness, lightheadedness and confusion x3 days and subsequently found to have left front SAH in setting of severe thrombocytopenia whose hospital course has been complicated by an acute right sided front distribution MCA infarct secondary to transient drop in blood pressures resulting in left sided hemiparesis. Had extensive goals of care conversation with patient's son and daughter. At present will continue with all efforts. Family interest in possibly pursing PEG placement which has been tentatively scheduled for next week. We introduced options of consideration for hospice and palliative care which patient's family declines at present. -given recent SAH transfuse for plts <100 -hold off on NSAIDS, antiplt medicaiotns anticoagulation given SAH -appreciate neurology recommendation -on going discussion regarding goals of care -continue speech and swallow rehanb -keep SBP>120, DBP>80 Erick Taveras MD Oncology Service p: [phone]
--- NOTE | 2016-11-12 23:46 | CP.PCM.PN ---
<Nitin BERRY,Erick - Last Filed: 11/12/16 23:34> Subjective - Date & Time of Evaluation Date of Evaluation: 11/12/16 Time of Evaluation: 17:00 - Subjective Subjective: continues to have left sided hemparesis. No over night events 12 ROS otherwise negative Denies pain Objective - Vital Signs/Intake and Output Vital Signs (last 24 hours): Temp Pulse Resp BP Pulse Ox 98.5 F 92 H 24 158/82 H 97 11/12/16 01:02 11/12/16 01:02 11/12/16 01:02 11/12/16 14:00 11/12/16 00:00 Intake and Output: 11/12/16 11/13/16 18:59 06:59 Intake Total 0 Output Total 100 Balance -100 - Medications Medications: Current Medications Digoxin (Lanoxin) 0.25 mg PO 1400 [facility] Last Admin: 11/12/16 14:08 Dose: Not Given Home Med (Home Med) 500 unit PO Q12 [facility] Last Admin: 11/12/16 21:58 Dose: Not Given Hydralazine HCl (Apresoline) 10 mg IVP Q6 PRN PRN Reason: for sbp.170 and/0r diastolic> Dextrose/Sodium Chloride (Dextrose 5%/0.9% Ns 1000 Ml) 1,000 mls @ 100 mls/hr IV .Q10H [facility] Last Admin: 11/12/16 10:33 Dose: 100 mls/hr Amino Acids/Electrolytes/Dextrose (Clinimix 4.25/5 % "E" (2000 Ml)) 2,000 mls @ 83.333 mls/hr IV .Q24H [facility] Last Admin: 11/12/16 18:04 Dose: 83.333 mls/hr Levalbuterol HCl (Xopenex) 0.63 mg IH [id number] PRN PRN Reason: Shortness of Breath Last Admin: 11/12/16 21:25 Dose: 0.63 mg Nitroglycerin (Nitro-Bid 2% Oint) 1 ea TOP Q6H [facility] Last Admin: 11/12/16 19:06 Dose: 1 ea Pantoprazole Sodium (Protonix Inj) 40 mg IVP DAILY [facility] Last Admin: 11/12/16 10:33 Dose: 40 mg - Labs Labs: 11/12/16 06:00 11/12/16 06:00 PT 12.0 Seconds (9.9-11.8) H 11/10/16 09:00 INR 1.11 (0.93-1.08) H 11/10/16 09:00 APTT 25.8 Seconds (23.7-30.8) 11/05/16 15:40 - Constitutional Appears: Non-toxic - Respiratory Exam Respiratory Exam: Clear to Ausculation Bilateral, NORMAL BREATHING PATTERN - Cardiovascular Exam Cardiovascular Exam: REGULAR RHYTHM, +S1, +S2. absent: Murmur - GI/Abdominal Exam GI & Abdominal Exam: Soft, Normal Bowel Sounds. absent: Tenderness - Extremities Exam Extremities Exam: Full ROM, Normal Capillary Refill, Normal Inspection. absent : Joint Swelling, Pedal Edema - Neurological Exam Neuro motor strength exam: Left Upper Extremity: 0, Right Upper Extremity: 4, Left Lower Extremity: 0, Right Lower Extremity: 4 Assessment and Plan - Assessment and Plan (Free Text) Assessment: Ms Gordon is a 76 y/o woman with pmhx significant for stage breast cancer, [place] s/ p PCI, IV lung cancer on pauma/etop who presents with dizziness, lightheadedness and confusion x3 days and subsequently found to have left front SAH in setting of severe thrombocytopenia whose hospital course has been complicated by an acute right sided front distribution MCA infarct secondary to transient drop in blood pressures resulting in left sided hemiparesis. Not a candidate for additional chemo for now given performance status -given recent SAH transfuse for plts <100 -hold off on NSAIDS, antiplt medicaiotns anticoagulation given SAH -appreciate neurology recommendation -on going discussion regarding goals of care -continue speech and swallow rehanb -keep SBP>120, DBP>80 -f/u with primary oncologist Dr. Michael Taveras MD Oncology Service p: [phone] <Bhumi Ibarra - Last Filed: 11/15/16 00:24> Objective - Vital Signs/Intake and Output Vital Signs (last 24 hours): Temp Pulse Resp BP Pulse Ox 97.2 F L 89 18 164/78 H 100 11/14/16 18:00 11/14/16 18:00 11/14/16 18:00 11/14/16 18:00 11/14/16 06:00 Intake and Output: 11/14/16 11/15/16 18:59 06:59 Intake Total 2594 100 Balance 2594 100 - Medications Medications: Current Medications Cilostazol (Pletal) 50 mg PO BID [facility] Digoxin (Lanoxin) 0.25 mg PO 1400 [facility] Last Admin: 11/14/16 13:36 Dose: Not Given Home Med (Home Med) 500 unit PO Q12 [facility] Last Admin: 11/14/16 23:33 Dose: Not Given Home Med (Home Med) 0 unit NG Q4H [facility] Stop: 12/05/16 14:01 Hydralazine HCl (Apresoline) 10 mg IVP Q6 PRN PRN Reason: for sbp.170 and/0r diastolic> Last Admin: 11/13/16 16:26 Dose: 10 mg Dextrose/Sodium Chloride (Dextrose 5%/0.9% Ns 1000 Ml) 1,000 mls @ 100 mls/hr IV .Q10H [facility] Last Admin: 11/14/16 05:58 Dose: 100 mls/hr Amino Acids/Electrolytes/Dextrose (Clinimix 4.25/5 % "E" (2000 Ml)) 2,000 mls @ 83.333 mls/hr IV .Q24H [facility] Last Admin: 11/14/16 17:28 Dose: 83.333 mls/hr diltiaZEM IVPB 100mg in NS (Cardizem 100mg In Ns) 100 mls @ 10 mls/hr IV .Q10H PRN; Protocol; 10 MG/HR PRN Reason: TITRATE PER MD ORDER Last Admin: 11/14/16 23:32 Dose: 10 mg/hr, 10 mls/hr Levetiracetam 1,000 mg/ Sodium (Chloride) 110 mls @ 460 mls/hr IV 0600,1800 [facility] Levalbuterol HCl (Xopenex) 0.63 mg IH [id number] PRN PRN Reason: Shortness of Breath Last Admin: 11/14/16 02:38 Dose: 0.63 mg Nimodipine (Nimotop) 30 mg NG Q4H [facility] Stop: 11/15/16 10:01 Nitroglycerin (Nitro-Bid 2% Oint) 1 ea TOP Q6H [facility] Last Admin: 11/14/16 21:26 Dose: 1 ea Pantoprazole Sodium (Protonix Inj) 40 mg IVP DAILY [facility] Last Admin: 11/14/16 09:31 Dose: 40 mg - Labs Labs: 11/14/16 20:28 11/14/16 20:28 PT 12.0 Seconds (9.9-11.8) H 11/10/16 09:00 INR 1.11 (0.93-1.08) H 11/10/16 09:00 APTT 25.8 Seconds (23.7-30.8) 11/05/16 15:40 Assessment and Plan (1) Anemia Status: Acute (2) Leukopenia Status: Acute (3) Subarachnoid hemorrhage Status: Acute (4) Thrombocytopenia Status: Acute (5) Bronchitis Status: Acute (6) Chronic systolic CHF (congestive heart failure), NYHA class 2 Status: Acute (7) Dyspnea Status: Acute (8) Hypokalemia Status: Acute (9) Lung cancer Status: Acute (10) Odynophagia Status: Acute (11) Neutropenic fever Status: Acute (12) Pancytopenia Status: Acute (13) Prophylactic measure Status: Acute (14) Pulmonary embolism Status: Acute (15) Pulmonary embolism Status: Acute (16) Troponin I above reference range Status: Acute (17) Acute on chronic systolic and diastolic heart failure, NYHA class 2 Status: Chronic (18) CAD (coronary artery disease) Status: Chronic (19) Chronic obstructive lung disease Status: Chronic (20) Dyspnea Status: Chronic (21) HTN (hypertension) Status: Chronic (22) Indigestion Status: Chronic (23) Lung nodule Status: Chronic - Assessment and Plan (Free Text) Plan: Ms Gordon is a 76 y/o woman with pmhx significant for stage breast cancer, [place] s/ p PCI, IV lung cancer on pauma/etop who presents with dizziness, lightheadedness and confusion x3 days and subsequently found to have left front SAH in setting of severe thrombocytopenia whose hospital course has been complicated by an acute right sided front distribution MCA infarct secondary to transient drop in blood pressures resulting in left sided hemiparesis. Not a candidate for additional chemo for now given performance status -given recent SAH transfuse for plts <100 -hold off on NSAIDS, antiplt medicaiotns anticoagulation given SAH -appreciate neurology recommendation -on going discussion regarding goals of care -continue speech and swallow rehanb -keep SBP>120, DBP>80
[2016-11-13] MEDS: Nitroglycerin 2% Ointment Foilpak UD TOP SCH ×5 (01:07→21:40)
[2016-11-13] MEDS: Levalbuterol 0.63 MG/3 ML Inhal Soln UD IH PRN ×3 (05:11→21:00)
--- NOTE | 2016-11-13 05:55 | CP.PCM.PN ---
Subjective - Date & Time of Evaluation Date of Evaluation: 11/13/16 Time of Evaluation: 05:52 - Subjective Subjective: Patient was seen at bedside because nurse had requested sedation. Patient's respiratory rate was 38/min.Pulse ox was 100 % CPAP with 6mm water pressure and 30 % FiO2. Talked to patient's daughter who was at bedside. She said that patient had complained of chest pain and shortness of breath since 10:30 PM last night. This 76 year woman was admitted with slurred speech , ams x 3 days duration. Has PMH of [place], stent placement , breast cancer with metastatsis. Objective - Vital Signs/Intake and Output Vital Signs (last 24 hours): Temp Pulse Resp BP Pulse Ox 97.9 F 113 H 20 186/96 H 100 11/13/16 01:00 11/13/16 05:26 11/13/16 01:00 11/13/16 05:26 11/13/16 01:00 Intake and Output: 11/12/16 11/13/16 18:59 06:59 Intake Total 0 Output Total 100 Balance -100 - Medications Medications: Current Medications Digoxin (Lanoxin) 0.25 mg PO 1400 [facility] Last Admin: 11/12/16 14:08 Dose: Not Given Home Med (Home Med) 500 unit PO Q12 [facility] Last Admin: 11/12/16 21:58 Dose: Not Given Hydralazine HCl (Apresoline) 10 mg IVP Q6 PRN PRN Reason: for sbp.170 and/0r diastolic> Last Admin: 11/13/16 05:26 Dose: 10 mg Dextrose/Sodium Chloride (Dextrose 5%/0.9% Ns 1000 Ml) 1,000 mls @ 100 mls/hr IV .Q10H [facility] Last Admin: 11/12/16 21:00 Dose: 100 mls/hr Amino Acids/Electrolytes/Dextrose (Clinimix 4.25/5 % "E" (2000 Ml)) 2,000 mls @ 83.333 mls/hr IV .Q24H [facility] Last Admin: 11/12/16 18:04 Dose: 83.333 mls/hr Levalbuterol HCl (Xopenex) 0.63 mg IH [id number] PRN PRN Reason: Shortness of Breath Last Admin: 11/13/16 05:11 Dose: 0.63 mg Nitroglycerin (Nitro-Bid 2% Oint) 1 ea TOP Q6H [facility] Last Admin: 11/13/16 01:07 Dose: 1 ea Pantoprazole Sodium (Protonix Inj) 40 mg IVP DAILY [facility] Last Admin: 11/12/16 10:33 Dose: 40 mg - Labs Labs: 11/12/16 06:00 11/12/16 06:00 PT 12.0 Seconds (9.9-11.8) H 11/10/16 09:00 INR 1.11 (0.93-1.08) H 11/10/16 09:00 APTT 25.8 Seconds (23.7-30.8) 11/05/16 15:40 - Constitutional Appears: Other (In mild distress.) - Head Exam Head Exam: ATRAUMATIC, NORMAL INSPECTION, NORMOCEPHALIC - Eye Exam Eye Exam: Normal appearance - ENT Exam ENT Exam: Normal External Ear Exam - Neck Exam Neck Exam: Normal Inspection - Respiratory Exam Respiratory Exam: Respiratory Distress (Yes.) Additional comments: Labored breathing. - Cardiovascular Exam Cardiovascular Exam: Tachycardia, REGULAR RHYTHM - GI/Abdominal Exam GI & Abdominal Exam: absent: Distended - Rectal Exam Rectal Exam: Deferred - Exam Additional comments: Deferred. - Extremities Exam Extremities Exam: Normal Inspection - Back Exam Back Exam: NORMAL INSPECTION - Neurological Exam Neurological Exam: Altered Neuro motor strength exam: Left Upper Extremity: 0, Right Upper Extremity: 0, Left Lower Extremity: 0, Right Lower Extremity: 0 Additional comments: Not responding to verbal or tactile stimuli. - Psychiatric Exam Additional comments: Not responding. - Skin Skin Exam: Normal Color Assessment and Plan - Assessment and Plan (Free Text) Assessment: Sinus tachycardia. Elevated blood pressure reading. CHF. AMS. Metastatic breast cancer. HTN. CAD. Plan: Rx, Increase O2 t0 100 % for half hour. Ativan 0.5 mg IV EKG----------> Sinus tachycardia ,rate 154/min. Trop----> >4 06:46 Labored breathing HR 154/min on EKG,digoxin due at 2 pm was not given because she is npo. BP 190/90 Lungs :moist. Rx, Lopressor 5 mg IV stat.(Given by me.) Lasix 80 mg IV stat. CXR portable stat. CBC,CMP,mag, phos, d-dimer,BNP. Serial EKG,trop. Endorsed to to follow up labs. Discussed with .
[2016-11-13] MEDS ORDERED: Metoprolol 1 mg/ml Inj IVP STA ×2 (06:22→21:48)
[2016-11-13 06:37] LABS: ALB/GLOB RATIO 1.1 (1.1-1.8); ALBUMIN 3.2 g/dL (3.0-4.8); ALT/SGPT 30 U/L (7-56); AST/SGOT 48 U/L (15-39); BLOOD UREA NITROGEN 17 mg/dL (7-21); CALCIUM 8.3 mg/dL (8.4-10.5); GFR AFRICAN-AMERICAN > 60; GFR NON-AFRICAN AMERICAN > 60
[2016-11-13 06:49] LABS: HEMOGLOBIN 8.8 gm/dL (12.0-16.0); MEAN CELL VOLUME 99.6 fL (80.0-105.0); MEAN CORPUSCULAR HEMOGLOBIN 31.9 pg (25.0-35.0); MEAN PLATELET VOLUME 11.3 fl (7.0-11.0); PLATELET COUNT 69 10^3/uL (120.0-450.0); RBC 2.76 10^6/uL (3.5-6.1); RED CELL DISTRIBUTION WIDTH 17.5 % (11.5-14.5); WHITE BLOOD COUNT 16.4 10^3/ul (4.5-11.0)
[2016-11-13 06:58] LABS: TROPONIN I 4.89 ng/mL
[2016-11-13] MEDS: Dextrose 5%/0.9% NS 1,000 ML IV SCH ×2 (07:06→15:49)
[2016-11-13 08:03] LABS: MAGNESIUM 1.4 mg/dL (1.7-2.2)
[2016-11-13 08:10] LABS: B-TYPE NATRIURETIC PEPTIDE 32100 pg/mL (0-450)
[2016-11-13 09:10] LABS: BAND 3 % (0-2); LYMPHOCYTE 36 % (22.0-35.0); MONOCYTE 5 % (1.0-6.0); MYELOCYTE 2 %; NEUTROPHIL 54 % (50.0-70.0)
[2016-11-13] MEDS ORDERED: Enoxaparin 40 mg Syringe SC SCH (10:00)
--- NOTE | 2016-11-13 11:32 | CP.PCM.PN ---
Subjective - Date & Time of Evaluation Date of Evaluation: 11/13/16 Time of Evaluation: 07:20 - Subjective Subjective: General surgery progress note for Dr. Sherley Burgess, PGY-1 Pt S & E at bedside. Pt now unarousable to verbal, tactile, or toxic stimuli, on CPAP overnight. Per daughter, pt had been awake and alert yesterday. Objective - Vital Signs/Intake and Output Vital Signs (last 24 hours): Temp Pulse Resp BP Pulse Ox 98.2 F 154 H 31 H 190/90 H 95 11/13/16 06:00 11/13/16 06:56 11/13/16 06:55 11/13/16 07:05 11/13/16 06:00 Intake and Output: 11/13/16 11/13/16 06:59 18:59 Intake Total 2190 Output Total 200 Balance 1989 - Medications Medications: Current Medications Digoxin (Lanoxin) 0.25 mg PO 1400 [facility] Last Admin: 11/12/16 14:08 Dose: Not Given Home Med (Home Med) 500 unit PO Q12 [facility] Last Admin: 11/13/16 10:43 Dose: Not Given Hydralazine HCl (Apresoline) 10 mg IVP Q6 PRN PRN Reason: for sbp.170 and/0r diastolic> Last Admin: 11/13/16 05:26 Dose: 10 mg Dextrose/Sodium Chloride (Dextrose 5%/0.9% Ns 1000 Ml) 1,000 mls @ 100 mls/hr IV .Q10H [facility] Last Admin: 11/13/16 07:06 Dose: 100 mls/hr Amino Acids/Electrolytes/Dextrose (Clinimix 4.25/5 % "E" (2000 Ml)) 2,000 mls @ 83.333 mls/hr IV .Q24H [facility] Last Admin: 11/12/16 18:04 Dose: 83.333 mls/hr Levalbuterol HCl (Xopenex) 0.63 mg IH [id number] PRN PRN Reason: Shortness of Breath Last Admin: 11/13/16 08:08 Dose: 0.63 mg Nitroglycerin (Nitro-Bid 2% Oint) 1 ea TOP Q6H [facility] Last Admin: 11/13/16 01:07 Dose: 1 ea Pantoprazole Sodium (Protonix Inj) 40 mg IVP DAILY [facility] Last Admin: 11/13/16 10:58 Dose: 40 mg - Labs Labs: 11/13/16 06:20 11/13/16 06:20 PT 12.0 Seconds (9.9-11.8) H 11/10/16 09:00 INR 1.11 (0.93-1.08) H 11/10/16 09:00 APTT 25.8 Seconds (23.7-30.8) 11/05/16 15:40 - Constitutional Appears: Non-toxic, No Acute Distress, Chronically Ill - Head Exam Head Exam: ATRAUMATIC, NORMAL INSPECTION, NORMOCEPHALIC - Eye Exam Eye Exam: absent: EOMI - ENT Exam ENT Exam: Mucous Membranes Dry - Respiratory Exam Respiratory Exam: Accessory Muscle Use. absent: Clear to Ausculation Bilateral (coarse expiratory breath sounds, currently on CPAP) - Cardiovascular Exam Cardiovascular Exam: REGULAR RHYTHM, +S1, +S2 - GI/Abdominal Exam GI & Abdominal Exam: Soft, Hypoactive Bowel Sounds. absent: Tenderness - Extremities Exam Extremities Exam: Normal Inspection - Neurological Exam Neurological Exam: absent: Alert, Awake, Oriented x3 - Psychiatric Exam Additional comments: Unable to asses due to unresponsiveness - Skin Skin Exam: Dry, Intact, Normal Color, Warm Assessment and Plan - Assessment and Plan (Free Text) Assessment: 76F w/CVA, consulted for G tube placement for nutrition Plan: No surgical intervention at this time due to acuity of pt condition Please re-consult as needed KATHIE attending Jenifer, PGY-1
--- NOTE | 2016-11-13 11:33 | RAD ---
HISTORY: TACHYCARDIA COMPARISON: 11/05/2016 FINDINGS: LUNGS: There is a pattern of perihilar pulmonary edema which is a new finding PLEURA: No significant pleural effusion identified, no pneumothorax apparent. CARDIOVASCULAR: Normal. OSSEOUS STRUCTURES: No significant abnormalities. VISUALIZED UPPER ABDOMEN: Normal. OTHER FINDINGS: None. IMPRESSION: Pulmonary edema
[2016-11-13] MEDS ORDERED: Magnesium Sulfate 2 GM in Sodium Chloride 0.9% 100 ML IVPB ONE (12:37)
[2016-11-13] MEDS: Digoxin 250 mcg (0.25 mg) Tab PO SCH (13:25)
[2016-11-13 15:07] LABS: TOXIC GRANULATION SLIGHT
--- NOTE | 2016-11-13 15:20 | CP.PCM.PN ---
Subjective - Date & Time of Evaluation Date of Evaluation: 11/13/16 Time of Evaluation: 13:00 - Subjective Subjective: Patient restless over night, had increasing oxygen requirements for unclear reason and now minimally responsive on CPAP. Assessed by Gen surgery for PEG tube placement but such placement has been deferred till patient's status improves. Extended family at bedside. ROS: unable to assess Objective - Vital Signs/Intake and Output Vital Signs (last 24 hours): Temp Pulse Resp BP Pulse Ox 98.2 F 154 H 31 H 190/90 H 95 11/13/16 06:00 11/13/16 06:56 11/13/16 06:55 11/13/16 07:05 11/13/16 06:00 Intake and Output: 11/13/16 11/13/16 06:59 18:59 Intake Total 2190 Output Total 200 Balance 1989 - Medications Medications: Current Medications Digoxin (Lanoxin) 0.25 mg PO 1400 [facility] Last Admin: 11/13/16 13:25 Dose: Not Given Home Med (Home Med) 500 unit PO Q12 [facility] Last Admin: 11/13/16 10:43 Dose: Not Given Hydralazine HCl (Apresoline) 10 mg IVP Q6 PRN PRN Reason: for sbp.170 and/0r diastolic> Last Admin: 11/13/16 05:26 Dose: 10 mg Dextrose/Sodium Chloride (Dextrose 5%/0.9% Ns 1000 Ml) 1,000 mls @ 100 mls/hr IV .Q10H [facility] Last Admin: 11/13/16 07:06 Dose: 100 mls/hr Amino Acids/Electrolytes/Dextrose (Clinimix 4.25/5 % "E" (2000 Ml)) 2,000 mls @ 83.333 mls/hr IV .Q24H [facility] Last Admin: 11/12/16 18:04 Dose: 83.333 mls/hr Levalbuterol HCl (Xopenex) 0.63 mg IH [id number] PRN PRN Reason: Shortness of Breath Last Admin: 11/13/16 08:08 Dose: 0.63 mg Nitroglycerin (Nitro-Bid 2% Oint) 1 ea TOP Q6H [facility] Last Admin: 11/13/16 01:07 Dose: 1 ea Pantoprazole Sodium (Protonix Inj) 40 mg IVP DAILY [facility] Last Admin: 11/13/16 10:58 Dose: 40 mg - Labs Labs: 11/13/16 06:20 11/13/16 06:20 PT 12.0 Seconds (9.9-11.8) H 11/10/16 09:00 INR 1.11 (0.93-1.08) H 11/10/16 09:00 APTT 25.8 Seconds (23.7-30.8) 11/05/16 15:40 - Constitutional Appears: Other - Head Exam Head Exam: ATRAUMATIC, NORMAL INSPECTION, NORMOCEPHALIC - Respiratory Exam Respiratory Exam: Clear to Ausculation Bilateral - Cardiovascular Exam Cardiovascular Exam: REGULAR RHYTHM, +S1, +S2. absent: Murmur - GI/Abdominal Exam GI & Abdominal Exam: Soft, Normal Bowel Sounds. absent: Tenderness - Back Exam Back Exam: NORMAL INSPECTION Assessment and Plan - Assessment and Plan (Free Text) Assessment: Ms Gordon is a 76 y/o woman with pmhx significant for stage breast cancer, [place] s/ p PCI, IV lung cancer on [place]/etop who presents with dizziness, lightheadedness and confusion x3 days and subsequently found to have left front SAH in setting of severe thrombocytopenia whose hospital course has been complicated by an acute right sided front distribution MCA infarct secondary to transient drop in blood pressures resulting in left sided hemiparesis. Course complated further this morning by rapid response. Patient currently minimally responsive on CPAP. She had gotten ativan earlier in the day for restlessnes. Unclear if that could have contributed to mental status. Not a candidate for additional chemo for now given performance status. Will plan on transfusing another unit of platelets today. -given recent SAH transfuse for plts <100 -hold off on NSAIDS, antiplt medicaiotns anticoagulation given SAH -appreciate neurology recommendation -on going discussion regarding goals of care -continue speech and swallow rehanb -keep SBP>120, DBP>80 -f/u with primary oncologist Dr. Michael Taveras MD Oncology Service p: [phone]
--- NOTE | 2016-11-13 16:56 | CT ---
PROCEDURE: CT HEAD WITHOUT CONTRAST. HISTORY: change of mental COMPARISON: 11/10/16. TECHNIQUE: Axial computed tomography images were obtained through the head/brain without intravenous contrast. Radiation dose: Total exam DLP = mGy-cm. This CT exam was performed using one or more of the following dose reduction techniques: Automated exposure control, adjustment of the mA and/or kV according to patient size, and/or use of iterative reconstruction technique. FINDINGS: HEMORRHAGE: No intracranial hemorrhage. BRAIN: Evolving right middle cerebral artery infarct with superficial and deep components. Increase in size of fronto-parietal hypodensity.. VENTRICLES: Unremarkable. No hydrocephalus. CALVARIUM: Unremarkable. PARANASAL SINUSES: Unremarkable as visualized. No significant inflammatory changes. MASTOID AIR CELLS: Unremarkable as visualized. No inflammatory changes. OTHER FINDINGS: None. IMPRESSION: Increase in size with evolving right middle cerebral arterial distribution infarct...
[2016-11-13 17:40] LABS: ARTERIAL BLOOD GAS HCO3 21.1 mmol/L (21-28); ARTERIAL BLOOD GAS HEMOGLOBIN 8.5 g/dL (11.7-17.4); ARTERIAL BLOOD GAS O2 CAPACITY 12.7 mL/dl (16-24); ARTERIAL BLOOD GAS O2 CONTENT 12.7 ML/dl (15-23); ARTERIAL BLOOD GAS PCO2 27 mm/Hg (35-45); ARTERIAL BLOOD GAS TCO2 21.9 mmol.L (22-28)
[2016-11-13 18:05] LABS: ALB/GLOB RATIO 1.2 (1.1-1.8); ALBUMIN 3.3 g/dL (3.0-4.8); ALT/SGPT 189 U/L (7-56); AST/SGOT 448 U/L (15-39); BLOOD UREA NITROGEN 28 mg/dL (7-21); GFR AFRICAN-AMERICAN > 60; GFR NON-AFRICAN AMERICAN 54
[2016-11-13 18:18] LABS: TROPONIN I 7.17 ng/mL
[2016-11-13] MEDS ORDERED: Digoxin 500 mcg/2ml (0.5 mg/2ml) Inj IVP STA (21:49)
[2016-11-13] MEDS ORDERED: diltiaZEM IVPB 100mg in NS 100 ML IV PRN (22:05)
--- NOTE | 2016-11-14 00:54 | CP.PCM.PN ---
Subjective - Date & Time of Evaluation Date of Evaluation: 11/14/16 Time of Evaluation: 00:50 - Subjective Subjective: Patient was seen at bedside because heart rate was in the 140's. BP 236/118 with machine, 160/95 manually. Patient moaning sometimes,moves extremity occasionally. 76 year woman was admitted with slurred speech , ams x 3 days duration. PMH: [place], stent placement , breast cancer with metastatsis. Objective - Vital Signs/Intake and Output Vital Signs (last 24 hours): Temp Pulse Resp BP Pulse Ox 97.9 F 75 19 143/67 95 11/13/16 18:02 11/13/16 23:33 11/13/16 18:02 11/13/16 23:33 11/13/16 06:00 Intake and Output: 11/13/16 11/14/16 18:59 06:59 Intake Total 214 Balance 214 - Medications Medications: Current Medications Digoxin (Lanoxin) 0.25 mg PO 1400 [facility] Last Admin: 11/13/16 13:25 Dose: Not Given Home Med (Home Med) 500 unit PO Q12 [facility] Last Admin: 11/13/16 22:00 Dose: Not Given Hydralazine HCl (Apresoline) 10 mg IVP Q6 PRN PRN Reason: for sbp.170 and/0r diastolic> Last Admin: 11/13/16 16:26 Dose: 10 mg Dextrose/Sodium Chloride (Dextrose 5%/0.9% Ns 1000 Ml) 1,000 mls @ 100 mls/hr IV .Q10H [facility] Last Admin: 11/13/16 15:49 Dose: 100 mls/hr Amino Acids/Electrolytes/Dextrose (Clinimix 4.25/5 % "E" (2000 Ml)) 2,000 mls @ 83.333 mls/hr IV .Q24H [facility] Last Admin: 11/13/16 17:41 Dose: 83.333 mls/hr diltiaZEM IVPB 100mg in NS (Cardizem 100mg In Ns) 100 mls @ 5 mls/hr IV .Q20H PRN; Protocol; 5 MG/HR PRN Reason: TITRATE PER MD ORDER Last Admin: 11/13/16 23:33 Dose: 5 mg/hr, 5 mls/hr Levalbuterol HCl (Xopenex) 0.63 mg IH [id number] PRN PRN Reason: Shortness of Breath Last Admin: 11/13/16 21:00 Dose: 0.63 mg Nitroglycerin (Nitro-Bid 2% Oint) 1 ea TOP Q6H [facility] Last Admin: 11/13/16 21:40 Dose: 1 ea Pantoprazole Sodium (Protonix Inj) 40 mg IVP DAILY [facility] Last Admin: 11/13/16 10:58 Dose: 40 mg - Labs Labs: 11/13/16 06:20 11/13/16 17:50 PT 12.0 Seconds (9.9-11.8) H 11/10/16 09:00 INR 1.11 (0.93-1.08) H 11/10/16 09:00 APTT 25.8 Seconds (23.7-30.8) 11/05/16 15:40 - Constitutional Appears: No Acute Distress - Head Exam Head Exam: ATRAUMATIC, NORMAL INSPECTION, NORMOCEPHALIC - Eye Exam Eye Exam: Normal appearance - ENT Exam ENT Exam: Normal External Ear Exam - Neck Exam Neck Exam: Normal Inspection - Respiratory Exam Respiratory Exam: NORMAL BREATHING PATTERN - Cardiovascular Exam Cardiovascular Exam: Tachycardia, REGULAR RHYTHM. absent: JVD - GI/Abdominal Exam GI & Abdominal Exam: absent: Distended - Rectal Exam Rectal Exam: Deferred - Exam Additional comments: Deferred. - Extremities Exam Extremities Exam: Normal Inspection - Back Exam Back Exam: NORMAL INSPECTION - Neurological Exam Neurological Exam: Altered - Psychiatric Exam Additional comments: Not responding. - Skin Skin Exam: Normal Color Assessment and Plan - Assessment and Plan (Free Text) Assessment: Sinus tachycardia. Elevated blood pressure reading. Metastatic breast cancer. Hx [place]. CAD. Leukocytosis. Anemia. Poor venous access. Plan: Discussed with . Cardizem 10 mg IV x 1 . Cardizem 5 mg / hr IV drip as per discussion with . Will need to transfer patient to telemetry for cardizem drip. Continue present management. # 20 angio cath was placed in left hand dorsum.
[2016-11-14] MEDS: Levalbuterol 0.63 MG/3 ML Inhal Soln UD IH PRN (02:38)
--- NOTE | 2016-11-14 02:49 | PN ---
DATE: 11/13/2016 PULMONARY PROGRESS NOTE REFERRING PHYSICIAN: Dr. Ibarra. SUBJECTIVE: She is lying in the bed, unresponsive, on noninvasive ventilation. Family is at the bedside. Overnight events noted, seen by hospitalist, was given beta-sendy and steroids. She was tachycardic. No hemoptysis, no hematemesis, no hematuria, no diarrhea reported. PHYSICAL EXAMINATION: GENERAL: On noninvasive ventilation. VITAL SIGNS: Afebrile. Heart rate is 117-154, respiratory rate is 30, blood pressure 190/90, pulse ox 100% on CPAP. NECK: Supple. No JVD. LUNGS: Poor effort. Fair airflow. HEART: S1 and S2, tachycardic. ABDOMEN: Soft and nontender. No organomegaly. EXTREMITIES: There is no edema. NEUROLOGIC: Unresponsive. MEDICATIONS: She is on hydralazine 10 mg q. 6 hours p.r.n. She is on Clinimix 83 mL per hour, digoxin 0.25 mg daily, Protonix 40 mg daily, Xopenex inhaler 6 hours p.r.n., she is also on Ranexa 500 mg twice a day. LABORATORY DATA: Shows hemoglobin 8.8, hematocrit 27.5, WBC 16,000 and platelet count is 69. D-dimer was done last night, which is at 35. Sodium 140, potassium 4.0, chloride 110, bicarbonate is 16, BUN 17, creatinine 0.8, glucose 211, calcium is 8.3, phosphorus is 3.2, magnesium is 1.4, AST is 48 and ALT 30, alk phos is 118. Troponin is 4.8. ProBNP 32,100. Albumin is 3.2. Chest x-ray done rrt shows congestion. IMPRESSION AND PLAN: Subarachnoid hemorrhage, also has a multilobar ischemic stroke, severe cardiomyopathy, history of lung cancer status post chemotherapy, pulmonary hypertension, oropharyngeal dysphagia. The patient is DNR and DNI. I had a long discussion with the patient's family. Next to kin present at bedside, showed DNR and DNI. Family want to continue aggressive care though. For now, continue BiPAP. We will order CT of the head, ABG BiPAP, CMP, gastric prophylaxis, keep SCDs to lower extremity. We will reconsult neurology and cardiology, spoke to Dr. Ibarra. If heart rate does not stabilize, may have to consider transfer to ICU. Thank you and we will follow with you. Kayden Frost MD
--- NOTE | 2016-11-14 03:12 | PN ---
SUBJECTIVE: The patient is a 76-year-old female. The patient is seen and examined at the bedside, it is a late evening. extended family was sitting on the bedside. The patient was having CPAP. Last night rapid response was called for this patient due to tachycardia and the desaturation. The patient was restless due to unreason cause, got medicine to relax. The patient is not responding, he is not able to give review of system. Surgical team is on the case for PEG tube placement. Reviewed the surgical team notes and Dr. Morton's notes. PHYSICAL EXAMINATION: VITAL SIGNS: Temperature is 98.2, pulse 154, respiratory rate is 31, blood pressure 190/90 and pulse oximetry 95%. HEENT: Head is normocephalic and atraumatic. Eyes; closed. Nose is patent. Mucous membrane moist. The patient is having a CPAP. NECK: Supple. No carotid bruit. No thyromegaly. CHEST: Bilaterally symmetrical. HEART: S1 and S2 positive. LUNGS: Poor airflow. ABDOMEN: Soft. Bowel sounds present. No organomegaly. EXTREMITIES: No edema. No cyanosis, but cannot do evaluation of the movement. NEUROLOGIC: Cannot do evaluation, the patient is not cooperative. MEDICATIONS: Digoxin, hydralazine, Dextrose, parenteral nutrition, Xopenex, nitro and Protonix. LABORATORY DATA: White blood cell 16.4, hemoglobin 8.8, hematocrit 27.5 and platelets 69. Sodium 140, potassium 4.0, BUN 17, creatinine 0.8 and glucose 211. ASSESSMENT AND PLAN: Ms. 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 Now, the patient is minimally responsive on continuous positive airway pressure. Got Ativan early due to restlessness and according to oncology, the patient is not a candidate for additional chemotherapy and Dr. Morton is planning to transfuse another units of platelets today. Because of recent subarachnoid hemorrhage, they transfused for platelets less than 100. Hold of anticoagulation due to subarachnoid hemorrhage. Neurologist is on the case. Discussion done with the patient's whole family. Keep systolic blood pressure more than 120 and diastolic more than 80. The patient went for CAT scan of the head today. According to Dr. Miguel Montenegro, increased size in the evolving right middle cerebral artery distribution infarct. The family is aware of the patient's situation. The patient is a DO NOT RESUSCITATE and DO NOT INTUBATE. The patient is not able to follow commands. No surgical intervention at this time due to acuity of the patient's condition as per surgeon. Gastrointestinal/deep venous thrombosis prophylaxis. Repeat labs. Poor prognosis. We will follow up. Bhumi Ibarra MD MTDD
[2016-11-14] MEDS: Dextrose 5%/0.9% NS 1,000 ML IV SCH (05:58)
[2016-11-14] MEDS: Nitroglycerin 2% Ointment Foilpak UD TOP SCH ×4 (06:00→21:26)
--- NOTE | 2016-11-14 09:47 | CARD ---
APPROVED REPORT EKG Measurement Heart [id number] [place] 128P [id number] <Conclusion> SVT at 150 BPM, new IVCD STTW changes
--- NOTE | 2016-11-14 10:01 | CARD ---
APPROVED REPORT EKG Measurement Heart [id number] [place] 160P20 [id number] <Conclusion> Normal sinus rhythm IVCD STTW changes ST elevations V 2 - 4, possible injury pattern
--- NOTE | 2016-11-14 10:36 | CP.PCM.PN ---
Subjective - Date & Time of Evaluation Date of Evaluation: 11/14/16 Time of Evaluation: 09:00 - Subjective Subjective: Heme/Onc note for Dr Taveras Pt was seen and examined at bedside. Pt currently minimally responsive. Overnight pt had a heart rate in the 140's, BP 236/118 with machine and 160/95 manually. Cardizem 10 mg IV x 1. Cardizem 5 mg/hr IV drip and transferred to [facility]. ROS: 12 point unobtainable Objective - Vital Signs/Intake and Output Vital Signs (last 24 hours): Temp Pulse Resp BP Pulse Ox 97.8 F 77 22 158/88 H 100 11/14/16 06:00 11/14/16 06:02 11/14/16 06:00 11/14/16 06:00 11/14/16 06:00 Intake and Output: 11/14/16 11/14/16 06:59 18:59 Intake Total 1787 Balance 1787 - Medications Medications: Current Medications Digoxin (Lanoxin) 0.25 mg PO 1400 [facility] Last Admin: 11/13/16 13:25 Dose: Not Given Home Med (Home Med) 500 unit PO Q12 [facility] Last Admin: 11/14/16 09:30 Dose: Not Given Hydralazine HCl (Apresoline) 10 mg IVP Q6 PRN PRN Reason: for sbp.170 and/0r diastolic> Last Admin: 11/13/16 16:26 Dose: 10 mg Dextrose/Sodium Chloride (Dextrose 5%/0.9% Ns 1000 Ml) 1,000 mls @ 100 mls/hr IV .Q10H [facility] Last Admin: 11/14/16 05:58 Dose: 100 mls/hr Amino Acids/Electrolytes/Dextrose (Clinimix 4.25/5 % "E" (2000 Ml)) 2,000 mls @ 83.333 mls/hr IV .Q24H [facility] Last Admin: 11/13/16 17:41 Dose: 83.333 mls/hr diltiaZEM IVPB 100mg in NS (Cardizem 100mg In Ns) 100 mls @ 5 mls/hr IV .Q20H PRN; Protocol; 5 MG/HR PRN Reason: TITRATE PER MD ORDER Last Admin: 11/13/16 23:33 Dose: 5 mg/hr, 5 mls/hr Levalbuterol HCl (Xopenex) 0.63 mg IH [id number] PRN PRN Reason: Shortness of Breath Last Admin: 11/14/16 02:38 Dose: 0.63 mg Nitroglycerin (Nitro-Bid 2% Oint) 1 ea TOP Q6H [facility] Last Admin: 11/14/16 08:35 Dose: 1 ea Pantoprazole Sodium (Protonix Inj) 40 mg IVP DAILY [facility] Last Admin: 11/14/16 09:31 Dose: 40 mg - Labs Labs: 11/13/16 06:20 11/13/16 17:50 PT 12.0 Seconds (9.9-11.8) H 11/10/16 09:00 INR 1.11 (0.93-1.08) H 11/10/16 09:00 APTT 25.8 Seconds (23.7-30.8) 11/05/16 15:40 - Constitutional Appears: No Acute Distress - Head Exam Head Exam: ATRAUMATIC - Eye Exam Eye Exam: PERRL - ENT Exam ENT Exam: Mucous Membranes Moist - Respiratory Exam Respiratory Exam: Clear to Ausculation Bilateral, Rhonchi. absent: Wheezes - Cardiovascular Exam Cardiovascular Exam: REGULAR RHYTHM, RRR, +S1, +S2 - GI/Abdominal Exam GI & Abdominal Exam: Soft, Normal Bowel Sounds. absent: Tenderness - Extremities Exam Extremities Exam: Pedal Edema (1+). absent: Calf Tenderness - Neurological Exam Neurological Exam: absent: Alert, Awake - Skin Skin Exam: Dry, Intact, Normal Color Assessment and Plan - Assessment and Plan (Free Text) Assessment: 76F with pmhx significant for stage breast cancer, SD s/p PCI, IV lung cancer on [place]op who presents with dizziness, lightheadedness and confusion x3 days and subsequently found to have left front SAH in setting of severe thrombocytopenia whose hospital course has been complicated by an acute right sided front distribution MCA infarct secondary to transient drop in blood pressures resulting in left sided hemiparesis. Pt turned tachycardic overnight and currently on cardizem drip. - Currently pt is DNR/DNI - Not a candidate for additional chemo at this time - Will plan on transfusing platelets prior to PEG placement - F/u surgery regarding peg placement - Consider transfuse for plts <100 given recent SAH - Hold off on NSAIDS, antiplt medications anticoagulation at this time given SAH - F/u neurology recommendation - On going discussion regarding goals of care - Continue PT and speech & swallow rehab - Maintain systolic BP >120 - F/u with primary oncologist Dr. Rodriguez - F/u palliative consult Pt was reviewed and discussed in detail with Dr Taveras.
[2016-11-14] MEDS: diltiaZEM IVPB 100mg in NS 100 ML IV PRN ×2 (11:09→23:32)
[2016-11-14] MEDS: Digoxin 250 mcg (0.25 mg) Tab PO SCH (13:36)
--- NOTE | 2016-11-14 15:47 | PN ---
DATE: 11/14/2016 REASON FOR CONSULTATION: Followup positive troponin, non-ST segment myocardial infarction, lung CA, pancytopenia, progressive CVA, aphasic, drowsy, left-sided weakness. SUBJECTIVE: The patient is a very lethargic, nonverbal, possible aphasic. OBJECTIVE: Last night, the patient's heart rate and blood pressure went up, heart rate of 114, the blood pressure 140, so Cardizem drip was started. The patient is relatively hemodynamically stable. PHYSICAL EXAMINATION: VITAL SIGNS: Temperature afebrile, heart rate of 70, blood pressure 131/80. HEENT: PERRLA. Extraocular movement is intact. NECK: Supple. No carotid bruit or thyromegaly. CHEST: Clear to auscultation. HEART: S1 and S2 regular. ABDOMEN: Soft. EXTREMITIES: Clubbing and cyanosis negative. LABORATORY DATA: Last blood workup WBC 16.4 on 11/13/2016 hemoglobin 8.8, hematocrit 27.7, platelet count was 55. Last chemistry, sodium 140, potassium 3.5, carbon dioxide 23, anion gap 17. IMPRESSION: Non-ST segment myocardial infarction, intracerebral bleed, progressive infarct, left-sided weakness, lethargy, aphasic, history of coronary artery disease, cardiomyopathy, extension to the cerebrovascular accident, atrial fibrillation, hypertension. RECOMMENDATIONS: Increase Cardizem to 10 mg, continue supportive care. Overall, the patient's condition is critical. Long-term prognosis is guarded. Supportive care at this time. No aggressive measure. History of lung CA, history of chemo, status post chemo pancytopenic. Continue supportive care. Continue NG feeding. Thank you Dr. Copeland for providing me the opportunity in taking care of the patient. Kayden Valdes MD
[2016-11-14] MEDS ORDERED: levETIRAcetam 1,000 MG in Sodium Chloride 0.9% 100 ML IV STA (16:35)
--- NOTE | 2016-11-14 16:35 | CP.PCM.CON ---
History of Present Illness - History of Present Illness History of Present Illness: Vascular Neurology Consultation Mrs. Gordon is a 76-year-old woman with a past medical history of lung cancer (s/ p chemo), CAD (s/p stenting), HLD, HTN, cardiomyopathy (chemo related?), pulmonary hypertension who developed pancytopenia and severe thrombocytopenia with subsequent spontaneous subarachnoid hemorrhage. She was initially stable, but then became progressively less responsive. Follow-up CTA, MRA and MRI showed irregularities of the cerebral vessels and bilateral cerebellar with left AUTO BODY DETAILER/MCA region ischemic strokes. Currently, the patient is on CPAP due to respiratory distress. She does not open her eyes and has purposeless movements of the left side. Review of Systems - Review of Systems All systems: reviewed and no additional remarkable complaints except Past Patient History - Infectious Disease Hx of Infectious Diseases: None - Past Medical History & Family History Past Medical History?: Yes - Past Social History Smoking Status: Never Smoked - CARDIAC Hx Cardiac Disorders: Yes Hx Hypertension: Yes - PULMONARY Hx Chronic Obstructive Pulmonary Disease (COPD): Yes - NEUROLOGICAL Hx Neurological Disorder: No Hx Vertigo: Yes - HEENT Hx HEENT Problems: Yes Hx Cataracts: Yes Other/Comment: hearing impairment - RENAL Hx Chronic Kidney Disease: No - ENDOCRINE/METABOLIC Hx Endocrine Disorders: Yes (ENLARGED THYRIOD NOT CANCEROUS) - HEMATOLOGICAL/ONCOLOGICAL Hx Blood Disorders: Yes Hx Blood Transfusions: No Hx Blood Transfusion Reaction: No Hx Cancer: Yes (BREAST HX RADIATION 2007) Other/Comment: Radiation therapy for breast cancer. lung CA currently under Chemo. Last Tx was last week. - INTEGUMENTARY Hx Dermatological Problems: No - MUSCULOSKELETAL/RHEUMATOLOGICAL Hx Musculoskeletal Disorders: No Hx Falls: No - GASTROINTESTINAL Hx Gastrointestinal Disorders: No - GENITOURINARY/GYNECOLOGICAL Hx Genitourinary Disorders: No - PSYCHIATRIC Hx Psychophysiologic Disorder: No Hx Substance Use: No - SURGICAL HISTORY Hx Vascular Access Device: Yes (R PortACath) - ANESTHESIA Hx Anesthesia: Yes Hx Anesthesia Reactions: No Hx Malignant Hyperthermia: No Meds Allergies/Adverse Reactions: Allergies Allergy/AdvReac Type Severity Reaction Status Date / Time No Known Allergies Allergy Verified 11/05/16 14:47 - Medications Medications: Current Medications Cilostazol (Pletal) 50 mg PO BID [facility] Digoxin (Lanoxin) 0.25 mg PO 1400 [facility] Last Admin: 11/14/16 13:36 Dose: Not Given Home Med (Home Med) [address] [facility] Last Admin: 11/14/16 09:30 Dose: Not Given Hydralazine HCl (Apresoline) 10 mg IVP Q6 PRN PRN Reason: for sbp.170 and/0r diastolic> Last Admin: 11/13/16 16:26 Dose: 10 mg Dextrose/Sodium Chloride (Dextrose 5%/0.9% Ns 1000 Ml) 1,000 mls @ 100 mls/hr IV .Q10H [facility] Last Admin: 11/14/16 05:58 Dose: 100 mls/hr Amino Acids/Electrolytes/Dextrose (Clinimix 4.25/5 % "E" (2000 Ml)) 2,000 mls @ 83.333 mls/hr IV .Q24H [facility] Last Admin: 11/13/16 17:41 Dose: 83.333 mls/hr diltiaZEM IVPB 100mg in NS (Cardizem 100mg In Ns) 100 mls @ 10 mls/hr IV .Q10H PRN; Protocol; 10 MG/HR PRN Reason: TITRATE PER MD ORDER Last Admin: 11/14/16 11:09 Dose: 10 mg/hr, 10 mls/hr Levalbuterol HCl (Xopenex) 0.63 mg IH [id number] PRN PRN Reason: Shortness of Breath Last Admin: 11/14/16 02:38 Dose: 0.63 mg Nitroglycerin (Nitro-Bid 2% Oint) [address] [facility] Last Admin: 11/14/16 13:56 Dose: 1 ea Pantoprazole Sodium (Protonix Inj) [address] [facility] Last Admin: 11/14/16 09:31 Dose: 40 mg Physical Exam - Constitutional Appears: In Acute Distress, Agitated, Chronically Ill - Head Exam Additional comments: Mouth has froth and phlegm around it - Eye Exam Additional comments: Eyes are deviated to the left - ENT Exam ENT Exam: Mucous Membranes Moist - Neck Exam Neck exam: Positive for: Normal Inspection - Respiratory Exam Respiratory Exam: Accessory Muscle Use, Respiratory Distress, Stridor - Cardiovascular Exam Cardiovascular Exam: REGULAR RHYTHM, +S1, +S2 - GI/Abdominal Exam GI & Abdominal Exam: Normal Bowel Sounds, Soft. absent: Tenderness - Rectal Exam Rectal Exam: Deferred - Extremities Exam Extremities exam: Positive for: normal inspection - Neurological Exam Additional comments: Does not open eyes to command, when forced open, eyes are deviated to the left. She has purposeless movements of the left side and does not follow commands. She withdraws all extremities to pain. Bilateral plantar response is muted. Reflexes are brisk throughout. - Skin Skin Exam: Dry, Intact, Normal Color, Warm Results - Vital Signs Recent Vital Signs: Last Vital Signs Temp 97.1 F L 11/14/16 12:00 Pulse 78 11/14/16 14:00 Resp 18 11/14/16 12:00 BP 143/74 11/14/16 12:00 Pulse Ox 100 11/14/16 06:00 - Labs Result Diagrams: 11/13/16 06:20 11/13/16 17:50 Labs: Laboratory Results - last 24 hr 11/13/16 11/13/16 17:50 17:50 pCO2 27 L pO2 378.0 H HCO3 21.1 ABG pH 7.50 H ABG Total CO2 21.9 L ABG O2 Saturation 100.0 H ABG O2 Content 12.7 L ABG Base Excess -1.5 ABG Hemoglobin 8.5 L ABG Carboxyhemoglobin 1.6 H POC ABG HHb (Measured) 0 ABG Methemoglobin 1.2 ABG O2 Capacity 12.7 L Hgb O2 Saturation 97.3 FiO2 100.0 Sodium 140 Potassium 3.5 L Chloride 104 Carbon Dioxide 23 Anion Gap 17 BUN 28 H Creatinine 1.0 Est GFR ( Amer) > 60 Est GFR (Non-Af Amer) 54 Random Glucose 260 H Calcium 9.0 Total Bilirubin 1.1 AST 448 H ALT 189 H Alkaline Phosphatase 138 H Troponin I 7.17 H* D Total Protein 6.0 Albumin 3.3 Globulin 2.7 Albumin/Globulin Ratio 1.2 - Imaging and Cardiology MRI - head Status: Image reviewed by me, Report reviewed by me (Bilateral cerebellar ischemic strokes and left AUTO BODY DETAILER/MCA border zone infarcts. CTA and MRA show irregular MCA and TYLER vessels.) Assessment & Plan (1) Ischemic stroke Assessment and Plan: Could be due to hypercoagulable state in the setting of lung cancer and cardiomyopathy, or may be due to vasospasm caused from SAH. However, with her history RCVS is also possible. I recommend starting cilostazol 50 mg BID and monitoring closely. BP should be normalized, PT/OT eval and treatment. Management per cardiology and pulmonary for concurrent medical conditions. May avoid aspirin and plavix for now due to thrombocytopenia and recent SAH. Status: Acute Priority: High (2) Subarachnoid hemorrhage Assessment and Plan: May be related to thrombocytopenia; however, RCVS can also cause this and this is related to the recent ischemic strokes as well. May consider verapemil or another CCB. Preferably, nimodipine at 30 mg Q4 (to not affect her cardiac function and BP). Status: Acute Priority: High (3) Seizure Assessment and Plan: The patient has a gaze toward the left and she is not responsive. She also has frequent automatisms of the left side. The SAH is also on the left and could be causing the seizure. The gaze toward the left is consistent with hypofunction of the frontal eye olson on the left with relative hyperfunctioning of the right sided frontal eye olson causing leftward deviation. I recommend loading with Keppra 1000 mg IV STAT and obtaining an EEG. Status: Acute Priority: High
--- NOTE | 2016-11-14 17:30 | PN ---
DATE: 11/14/2016 SUBJECTIVE: The patient seen and examined at bedside. The patient is very lethargic and drowsy. She was tachycardic overnight and her blood pressures went up to even 236/118 with machine and manually 160/95. She was given Cardizem and her heart rate is much better now. She still has left-sided weakness and is very lethargic given her increased size of involving right middle cerebral artery distribution stroke . The stroke has increase in size of frontal or parietal hypodensity, most likely secondary to fluctuating elevations of blood pressures. Her right side MCA stroke is the reason why she is more drowsy. Her platelet count today is 69, which is still low is but much better than before. She was given CPAP recommended by Pulmonary. Current blood pressure right now is 143/74. . She is currently DNR/DNI. PAST MEDICAL HISTORY: History of lung cancer, history of breast cancer, history of [place], history of cardiomyopathy, severe pulmonary hypertension. REVIEW OF SYSTEMS: A 14-point review of system is negative except per the HPI. ALLERGIES: NO KNOWN DRUG ALLERGIES. FAMILY HISTORY: Noncontributory. SOCIAL HISTORY: No illicit drug use, smoking, or EtOH abuse. MEDICATIONS: Reviewed by nurse per reconciliation sheet. PHYSICAL EXAMINATION: VITAL SIGNS: Temperature 97.1, pulse rate of 82, blood pressure 142/74, respiratory rate of 18. GENERAL: The patient is drowsy, in no acute distress. HEENT: Head is atraumatic and normocephalic. PERRLA. Extraocular muscles intact. NECK: Supple. No JVD. No adenopathy noted. LUNGS: Decreased breath sounds bilaterally. HEART: S1 and S2, normal rate and rhythm. No murmurs, rubs, or gallops. ABDOMEN: Soft, nontender, nondistended. Bowel sounds present. EXTREMITIES: No clubbing. No cyanosis. Peripheral pulses 2+ felt bilaterally. NEUROLOGIC: The patient is drowsy. Speech is hypophonic. When she is alert, she is oriented to person, place, and year. Cranial nerves II through XII intact except for left facial droop. Motor exam: Left side upper lower extremity weakness when compared to the right from her right MCA territory infarct. Right side is 5-/5. Toes are upgoing bilaterally. Sensory exam: Withdrawal are localized to noxious stimulus. Light touch intact. Difficult to do full sensory examination due to drowsy mental status. DTRs are 1+ throughout and absent at the ankles. Coordination: [id number] is difficult at left side due to left-sided weakness. Gait is deferred for now. LABORATORY DATA: The hemoglobin is 8.8, hematocrit 27.5. WBC ___, platelet count 69. Sodium is 140, potassium 3.5, chloride 104, carbon dioxide of 23, BUN of 28, creatinine 1, random glucose of 260, elevated LFTs, and elevated troponins. ASSESSMENT: This is a 76-year-old woman with past medical history of breast cancer,myocardial infarction status post percutaneous coronary intervention, lung cancer and was on chemotherapy, history of pancytopenia, history of cardiomyopathy, and severe pulmonary hypertension, who came in and was found to have low platelets of 3 initially and found to have spontaneous left frontal subarachnoid hemorrhage which was decreased in intensity, but during her course of hospital setting. She had developed severe thrombocytopenia and which was complicated followed by multiple embolic bilateral cerebellar strokes and left occipital stroke as well as moderate sized right MCA distribution infarct which was secondary to transient drop in cerebral hyperperfusion to the brain as well as underline cardiomyopathy and malignancy given her risk factors and embolic phenomena, superimposed underlying diffuse atherosclerosis. Course is further complicated now by tachycardia and on Cardizem drip and elevated systolic blood pressures over 180 causing for the increased size of the right MCA territory infarct to increase in size seen on the repeat CAT scan on 11/13/2016. Given her platelet counts were low, it was difficult to give her an antiplatelet for stroke prevention but would not consider given that the increased size of her right MCA territory infarct. We will consider using cilostazol , which has not much of an antiplatelet effect 50 mg p.o. b.i.d. for stroke prevention. At this time recommend, 1. Hold off NSAIDs and full antiplatelet medications has given her subarachnoid hemorrhage as well as low platelets. 2. We will recommend her to be on cilostazol which has a vasodilatory effect to her cerebral artery this can be used as stroke prevention 50 mg p.o. b.i.d. We will consider starting her on that for stroke prevention. 3. Keep her systolic blood pressure between 130 to 140 mmHg. 4. Avoid sudden drops and frequent elevations of BP above systolic of 180. 5. Continue with speech, swallow, and physical and occupational therapy. 6. We will recommend her to be on PEG placement when she is more alert for nutrition for the brain. 7. Keep followup with Oncology and Hematology followup with regards to her history of cancer and continue with current present medical management. She is currently DNR/DNI status. Prognosis is poor given her complicated course. Jack Acosta MD
--- NOTE | 2016-11-14 18:05 | CP.PCM.CON ---
<MichaelKristal - Last Filed: 11/14/16 18:37> History of Present Illness - History of Present Illness History of Present Illness: ICU Consult Note 76F with PMHx lung and breast cancer and CO s/p 2 stents, initially admitted for spontaneous SAH in the setting of severe thrombocytopenia. Pt was initially stable however, has become less stable requiring CPAP for respiratory distress overnight, on cardizem drip for HD stability and there are concerns for seizures considering the patient has frequent automatisms towards the left side with a left sided gaze. ICU was consulted to for close monitoring for possible further deterioration and further management. Pt had received ativan, and keppra with EEG pending. Of note, pt is DNR/DNI. Pt was seen and examined at bedside with family present. Pt is very lethargic and nonresponsive to verbal or tactile stimuli. Pt has TPN infusing, and cardizem drip. Vitals are WNL. PMHx: lung and breast cancer formerly on chemotherapy, CO in 2004, s/p 2 stents PSHx: None Family Hx: noncontributory SHx: Quit smoking February 2016, No etoh/drug use. Allergies: NKDA Meds: MAR Reviewed Review of Systems - Review of Systems Systems not reviewed;Unavailable: Acuity of Condition, Altered Mental Status Past Patient History - Infectious Disease Hx of Infectious Diseases: None - Past Medical History & Family History Past Medical History?: Yes - Past Social History Smoking Status: Never Smoked - CARDIAC Hx Cardiac Disorders: Yes Hx Hypertension: Yes - PULMONARY Hx Chronic Obstructive Pulmonary Disease (COPD): Yes - NEUROLOGICAL Hx Neurological Disorder: No Hx Vertigo: Yes - HEENT Hx HEENT Problems: Yes Hx Cataracts: Yes Other/Comment: hearing impairment - RENAL Hx Chronic Kidney Disease: No - ENDOCRINE/METABOLIC Hx Endocrine Disorders: Yes (ENLARGED THYRIOD NOT CANCEROUS) - HEMATOLOGICAL/ONCOLOGICAL Hx Blood Disorders: Yes Hx Blood Transfusions: No Hx Blood Transfusion Reaction: No Hx Cancer: Yes (BREAST HX RADIATION 2006) Other/Comment: Radiation therapy for breast cancer. lung CA currently under Chemo. Last Tx was last week. - INTEGUMENTARY Hx Dermatological Problems: No - MUSCULOSKELETAL/RHEUMATOLOGICAL Hx Musculoskeletal Disorders: No Hx Falls: No - GASTROINTESTINAL Hx Gastrointestinal Disorders: No - GENITOURINARY/GYNECOLOGICAL Hx Genitourinary Disorders: No - PSYCHIATRIC Hx Psychophysiologic Disorder: No Hx Substance Use: No - SURGICAL HISTORY Hx Vascular Access Device: Yes (R PortACath) - ANESTHESIA Hx Anesthesia: Yes Hx Anesthesia Reactions: No Hx Malignant Hyperthermia: No Meds Allergies/Adverse Reactions: Allergies Allergy/AdvReac Type Severity Reaction Status Date / Time No Known Allergies Allergy Verified 11/05/16 14:47 - Medications Medications: Current Medications Cilostazol (Pletal) 50 mg PO BID CHERYL Digoxin (Lanoxin) 0.25 mg PO 1400 [facility] Last Admin: 11/14/16 13:36 Dose: Not Given Home Med (Home Med) 500 unit PO Q12 [facility]ERYL Last Admin: 11/14/16 09:30 Dose: Not Given Home Med (Home Med) 0 unit NG Q4H [facility]ERY[facility] Stop: 12/05/16 14:01 Hydralazine HCl (Apresoline) 10 mg IVP Q6 PRN PRN Reason: for sbp.170 and/0r diastolic> Last Admin: 11/13/16 16:26 Dose: 10 mg Dextrose/Sodium Chloride (Dextrose 5%/0.9% Ns 1000 Ml) 1,000 mls @ 100 mls/hr IV .Q10H CHERYL Last Admin: 11/14/16 05:58 Dose: 100 mls/hr Amino Acids/Electrolytes/Dextrose (Clinimix 4.25/5 % "E" (2000 Ml)) 2,000 mls @ 83.333 mls/hr IV .Q24H [facility] Last Admin: 11/14/16 17:28 Dose: 83.333 mls/hr diltiaZEM IVPB 100mg in NS (Cardizem 100mg In Ns) 100 mls @ 10 mls/hr IV .Q10H PRN; Protocol; 10 MG/HR PRN Reason: TITRATE PER MD ORDER Last Admin: 11/14/16 11:09 Dose: 10 mg/hr, 10 mls/hr Levalbuterol HCl (Xopenex) 0.63 mg IH [id number] PRN PRN Reason: Shortness of Breath Last Admin: 11/14/16 02:38 Dose: 0.63 mg Nimodipine (Nimotop) 30 mg NG Q4H [facility] Stop: 11/15/16 10:01 Nitroglycerin (Nitro-Bid 2% Oint) 1 ea TOP Q6H [facility] Last Admin: 11/14/16 13:56 Dose: 1 ea Pantoprazole Sodium (Protonix Inj) 40 mg IVP DAILY [facility]ERY[facility] Last Admin: 11/14/16 09:31 Dose: 40 mg Physical Exam - Constitutional Appears: No Acute Distress - Head Exam Head Exam: ATRAUMATIC, NORMAL INSPECTION, NORMOCEPHALIC - Eye Exam Eye Exam: EOMI, Normal appearance, PERRL Pupil Exam: NORMAL ACCOMODATION, PERRL - ENT Exam ENT Exam: Mucous Membranes Moist, Normal Exam - Neck Exam Neck exam: Positive for: Normal Inspection - Respiratory Exam Respiratory Exam: Decreased Breath Sounds, Clear to Auscultation Bilateral, NORMAL BREATHING PATTERN - Cardiovascular Exam Cardiovascular Exam: REGULAR RHYTHM, +S1, +S2 - GI/Abdominal Exam GI & Abdominal Exam: Normal Bowel Sounds, Soft - Extremities Exam Extremities exam: Positive for: normal inspection, pedal pulses present - Neurological Exam Neurological exam: Altered - Skin Skin Exam: Dry, Intact, Normal Color, Warm Results - Vital Signs Recent Vital Signs: Last Vital Signs Temp 97.1 F L 11/14/16 12:00 Pulse 78 11/14/16 14:00 Resp 18 11/14/16 12:00 BP 143/74 11/14/16 12:00 Pulse Ox 100 11/14/16 06:00 - Labs Result Diagrams: 11/13/16 06:20 11/13/16 17:50 Labs: Laboratory Results - last 24 hr 11/13/16 11/13/16 17:50 17:50 pCO2 27 L pO2 378.0 H HCO3 21.1 ABG pH 7.50 H ABG Total CO2 21.9 L ABG O2 Saturation 100.0 H ABG O2 Content 12.7 L ABG Base Excess -1.5 ABG Hemoglobin 8.5 L ABG Carboxyhemoglobin 1.6 H POC ABG HHb (Measured) 0 ABG Methemoglobin 1.2 ABG O2 Capacity 12.7 L Hgb O2 Saturation 97.3 FiO2 100.0 Sodium 140 Potassium 3.5 L Chloride 104 Carbon Dioxide 23 Anion Gap 17 BUN 28 H Creatinine 1.0 Est GFR ( Amer) > 60 Est GFR (Non-Af Amer) 54 Random Glucose 260 H Calcium 9.0 Total Bilirubin 1.1 AST 448 H ALT 189 H Alkaline Phosphatase 138 H Troponin I 7.17 H* D Total Protein 6.0 Albumin 3.3 Globulin 2.7 Albumin/Globulin Ratio 1.2 Assessment & Plan - Assessment and Plan (Free Text) Assessment: 76F [place] [facility]H in the setting of severe thrombocytopenia complicated by multiple b/l cerebellar strokes, left occipital stroke and Rt MCA infarct. Pt has become less stable requiring CPAP for respiratory distress overnight, on cardizem drip for HD stability and there are concerns for seizures considering the patient has frequent automatisms towards the left side with a left sided gaze. ICU was consulted to for close monitoring for possible further deterioration and further management. Pt had received ativan, and keppra with EEG pending. Of note, pt is DNR/DNI. Neuro: - Mental status is stable and somewhat protecting airway. - Neurology, Dr. Acosta following recommended to avoid transient drops in BP, Target SBP >130 & <180, Platelet goal > 50,000. - Hold off on NSAIDs and full anti-plt meds - cilostazol 50 mg BID for stroke prevention - Continue PT and speech & swallow rehab - Repeat CTH CVS: - Cardizem gtt has been increased from 5 cc/hr to 10 cc/hr, will keep comfortable and continue to monitor - Maintain MAP>65 - Echo performed EF 25% - May avoid aspirin and plavix for now due to thrombocytopenia and recent SAH. - Cardiology, Dr. Valdes following, suggested nonagressive measures, increase cardizem drip to 10cc/hr - Trend Troponins Pulm: - On NC. Saturating well. - Pt required CPAP overnight 2/2 respiratory distress - Maintain O2 sat>90% - Aspiration precaution - Fu VBG - DNI GI: - NPO - TPN - General Surgery consulted for PEG placement, to be transfused plt prior to PEG placement - GI ppx Renal: - BUN/Cr stable at baseline - maintain euvolemia - Continue to monitor electrolytes and replete as needed ID: - Afebrile, leukocytosis - fu pct - cont to monitor. Endo: - Maintain euglycemia, 140-180 Heme: - improved thrombocytopenia, will transfuse prior to PEG - Cont to monitor. - Dr. Taveras, Heme/ onc consulted continue with recs DVT/GI ppx reviewed Seen reviewed and discussed with attending <Cristian Briseno - Last Filed: 11/15/16 15:33> Meds - Medications Medications: Current Medications Cilostazol (Pletal) 50 mg PO BID CHERYL Last Admin: 11/15/16 10:12 Dose: Not Given Digoxin (Lanoxin) 0.25 mg PO 1400 [facility] Last Admin: 11/14/16 13:36 Dose: Not Given Home Med (Home Med) 500 unit PO Q12 [facility] Last Admin: 11/15/16 10:12 Dose: Not Given Home Med (Home Med) 0 unit NG Q4H [facility] Stop: 12/05/16 14:01 Hydralazine HCl (Apresoline) 10 mg IVP Q6 PRN PRN Reason: for sbp.170 and/0r diastolic> Last Admin: 11/13/16 16:26 Dose: 10 mg Amino Acids/Electrolytes/Dextrose (Clinimix 4.25/5 % "E" (2000 Ml)) 2,000 mls @ 83.333 mls/hr IV .Q24H [facility] Last Admin: 11/14/16 17:28 Dose: 83.333 mls/hr diltiaZEM IVPB 100mg in NS (Cardizem 100mg In Ns) 100 mls @ 10 mls/hr IV .Q10H PRN; Protocol; 10 MG/HR PRN Reason: TITRATE PER MD ORDER Last Admin: 11/15/16 06:33 Dose: 10 mg/hr, 10 mls/hr Levetiracetam (Keppra 500mg Ivpb) 500 mg in 100 mls @ 400 mls/hr IV Q12 [facility] Levalbuterol HCl (Xopenex) 0.63 mg IH [id number] PRN PRN Reason: Shortness of Breath Last Admin: 11/14/16 02:38 Dose: 0.63 mg Nitroglycerin (Nitro-Bid 2% Oint) 1 ea TOP Q6H [facility] Last Admin: 11/15/16 10:03 Dose: 1 ea Pantoprazole Sodium (Protonix Inj) 40 mg IVP DAILY [facility] Last Admin: 11/15/16 10:03 Dose: 40 mg Results - Vital Signs Recent Vital Signs: Last Vital Signs Temp 99 F 11/15/16 14:55 Pulse 99 H 11/15/16 14:55 Resp 29 H 11/15/16 14:55 BP 162/82 H 11/15/16 14:55 Pulse Ox 98 11/15/16 06:00 - Labs Result Diagrams: 11/15/16 05:50 08/08/17 05:50 Labs: Laboratory Results - last 24 hr 11/14/16 11/14/16 11/14/16 20:28 20:28 20:28 WBC 12.9 H D RBC 2.41 L Hgb 7.9 L Hct 23.7 L MCV 98.3 MCH 32.8 MCHC 33.3 RDW 17.7 H Plt Count 41 L* MPV 11.1 H Gran % 75.4 H Lymph % (Auto) 16.0 L [place] % (Auto) 8.3 H Eos % (Auto) 0.1 L Baso % (Auto) 0.2 Gran # 9.77 H Lymph # 2.1 [place] # 1.1 H Eos # 0.0 Baso # 0.02 pO2 VBG pH VBG pCO2 VBG HCO3 VBG Total CO2 VBG O2 Sat (Calc) VBG Base Excess VBG Potassium Sodium 141 Chloride 106 Glucose Lactate FiO2 Potassium 3.8 Carbon Dioxide 23 Anion Gap 16 BUN 33 H Creatinine 0.9 Est GFR ( Amer) > 60 Est GFR (Non-Af Amer) > 60 POC Glucose (mg/dL) Random Glucose 138 H Calcium 8.8 Total Bilirubin 1.0 AST 119 H ALT 117 H Alkaline Phosphatase 125 Troponin I 5.30 H* D Total Protein 6.0 Albumin 3.4 Globulin 2.6 Albumin/Globulin Ratio 1.3 Procalcitonin 17.95 H Venous Blood Potassium Blood Type Antibody Screen Crossmatch BBK History Checked 11/14/16 11/14/16 11/15/16 20:28 22:43 01:20 WBC RBC Hgb Hct MCV MCH MCHC RDW Plt Count MPV Gran % Lymph % (Auto) [place] % (Auto) Eos % (Auto) Baso % (Auto) Gran # Lymph # [place] # Eos # Baso # pO2 33 30 VBG pH 7.33 7.33 VBG pCO2 43.0 43.0 VBG HCO3 22.7 22.7 VBG Total CO2 24.0 24.0 VBG O2 Sat (Calc) 62.2 54.6 VBG Base Excess -3.2 L -3.2 L VBG Potassium 3.9 3.9 Sodium 141.0 139.0 Chloride 112.0 H 111.0 H Glucose 147 H 157 H Lactate 3.1 H 3.3 H FiO2 21.0 21.0 Potassium Carbon Dioxide Anion Gap BUN Creatinine Est GFR ( Amer) Est GFR (Non-Af Amer) POC Glucose (mg/dL) 161 H Random Glucose Calcium Total Bilirubin AST ALT Alkaline Phosphatase Troponin I Total Protein Albumin Globulin Albumin/Globulin Ratio Procalcitonin Venous Blood Potassium 3.9 3.9 Blood Type Antibody Screen Crossmatch BBK History Checked 11/15/16 11/15/16 11/15/16 01:20 05:50 05:50 WBC 12.0 H RBC 2.30 L Hgb 7.5 L Hct 22.6 L MCV 98.3 MCH 32.6 MCHC 33.2 RDW 18.3 H Plt Count 43 L* MPV 10.6 Gran % 71.2 H Lymph % (Auto) 18.4 L [place] % (Auto) 10.1 H Eos % (Auto) 0.1 L Baso % (Auto) 0.2 Gran # 8.58 H Lymph # 2.2 [place] # 1.2 H Eos # 0.0 Baso # 0.02 pO2 VBG pH VBG pCO2 VBG HCO3 VBG Total CO2 VBG O2 Sat (Calc) VBG Base Excess VBG Potassium Sodium 141 Chloride 108 H Glucose Lactate FiO2 Potassium 3.9 Carbon Dioxide 22 Anion Gap 15 BUN 31 H Creatinine 0.8 Est GFR ( Amer) > 60 Est GFR (Non-Af Amer) > 60 POC Glucose (mg/dL) Random Glucose 150 H Calcium 8.8 Total Bilirubin 1.1 AST 94 H ALT 106 H Alkaline Phosphatase 120 Troponin I 4.63 H* Total Protein 5.8 Albumin 3.3 Globulin 2.5 Albumin/Globulin Ratio 1.3 Procalcitonin Venous Blood Potassium Blood Type Antibody Screen Crossmatch BBK History Checked 11/15/16 11/15/16 11/15/16 05:50 09:50 12:00 WBC RBC Hgb Hct MCV MCH MCHC RDW Plt Count MPV Gran % Lymph % (Auto) [place] % (Auto) Eos % (Auto) Baso % (Auto) Gran # Lymph # [place] # Eos # Baso # pO2 70 H 41 VBG pH 7.41 7.39 VBG pCO2 35.0 L 40.0 VBG HCO3 22.2 24.2 VBG Total CO2 23.3 25.4 VBG O2 Sat (Calc) 96.7 H 80.1 H VBG Base Excess -1.9 L -0.7 L VBG Potassium 4.0 3.8 Sodium 141.0 140.0 Chloride 112.0 H 110.0 H Glucose 160 H 142 H Lactate 2.6 H 2.7 H FiO2 21.0 21.0 Potassium Carbon Dioxide Anion Gap BUN Creatinine Est GFR ( Amer) Est GFR (Non-Af Amer) POC Glucose (mg/dL) Random Glucose Calcium Total Bilirubin AST ALT Alkaline Phosphatase Troponin I Total Protein Albumin Globulin Albumin/Globulin Ratio Procalcitonin Venous Blood Potassium 4.0 3.8 Blood Type A POSITIVE Antibody Screen Negative Crossmatch See Detail BBK History Checked Patient has bt Attending/Attestation - Attestation I have personally seen and examined this patient.: Yes I have fully participated in the care of the patient.: Yes I have reviewed all pertinent clinical information: Yes Notes (Text): 11/15/16 15:30 76 yo female with lung CA on chemotherapy, now with thrombocytopenia complicated by SAH, vasospasm with subsequent ischemic infarct and some watershed infarct, now re-admitted to ICU for AMS. We will proceed with repeated CT head, ABG to rule out co2 retention, septic workup, troponin, NH3 check and EEG, seizure prophylaxis. Neuro follow up ccm time 40 min
--- NOTE | 2016-11-14 20:00 | CT ---
EXAM: CT Head Without Intravenous Contrast CLINICAL HISTORY: 76 years old, female; Abnormal findings; Abnormal radiologic findings of head/skull; Ischemia; Patient HX: F/u sah; Additional info: Fu TECHNIQUE: Axial computed tomography images of the head/brain without intravenous contrast. This CT exam was performed using one or more of the following dose reduction techniques: automated exposure control, adjustment of the mA and/or kV according to patient size, and/or use of iterative reconstruction technique. EXAM DATE/TIME: 11/14/2016 6:31 PM COMPARISON: CT - HEAD W/O CONTRAST 11/13/2016 3:44:19 PM FINDINGS: Brain: Ventricles are normal in size and configuration. There is no midline shift there he is mild decreased attenuation in periventricular white matter. Evolving right frontoparietal MCA distribution infarct is similar in size. There are small prominent vessels in the anterior superior periphery of the infarct. There is now a small amount of blood and a focal lacunar type infarct in the right basal ganglia, image 29 series 2 There is a left posterior frontal infarct, unchanged in size. There are now small prominent vessels along the superior cortical aspect of the infarct. There are small cerebellar infarcts, unchanged. Guzman-white differentiation continues to be visualized. Extra-axial spaces are unchanged Ventricles: See above Bones/joints: There are no skull fractures Soft tissues: unremarkable Sinuses: There is no acute sinusitis. Middle ears and mastoids: Middle ears and mastoids are unremarkable. Orbits: Orbital contents are unremarkable. IMPRESSION: Evolving right frontoparietal MCA distribution infarct and left posterior frontal infarct with probable luxury perfusion; interval development of small amount of hemorrhage in a right basal ganglia lacunar infarct Additional findings as described above.
[2016-11-14 20:33] LABS: BASO # 0.02 K/mm3 (0.0-2.0); BASO % 0.2 % (0.0-3.0); EOS % 0.1 % (1.5-5.0); GRAN # 9.77 (1.4-6.5); GRAN % 75.4 % (50.0-68.0); LYMPH # 2.1 (1.2-3.4); MEAN CELL VOLUME 98.3 fl (80.0-105.0); MEAN CORPUSCULAR HEMOGLOBIN 32.8 pg (25.0-35.0); MEAN CORPUSCULAR HGB CONC 33.3 g/dl (31.0-37.0); MEAN PLATELET VOLUME 11.1 fl (7.0-11.0); MONO # 1.1 (0.1-0.6); MONO % 8.3 % (1.0-6.0); PLATELET COUNT 41 10^3/uL (120.0-450.0); RBC 2.41 10^6/uL (3.5-6.1); RED CELL DISTRIBUTION WIDTH 17.7 % (11.5-14.5); WHITE BLOOD COUNT 12.9 10^3/ul (4.5-11.0)
[2016-11-14 20:34] LABS: VENOUS BLOOD GAS BASE EXCESS -3.2 mmol/L (0.0-2.0); VENOUS BLOOD GAS PO2 33 mm/Hg (30-55); VENOUS BLOOD PH 7.33 (7.32-7.43)
[2016-11-14 20:41] LABS: HEMOGLOBIN 7.9 g/dL (12.0-16.0)
[2016-11-14 20:42] LABS: ALB/GLOB RATIO 1.3 (1.1-1.8); ALBUMIN 3.4 g/dL (3.0-4.8); ALT/SGPT 117 U/L (7-56); AST/SGOT 119 U/L (15-39); BLOOD UREA NITROGEN 33 mg/dL (7-21); CALCIUM 8.8 mg/dL (8.4-10.5); GFR AFRICAN-AMERICAN > 60; GFR NON-AFRICAN AMERICAN > 60
--- NOTE | 2016-11-14 21:01 | PN ---
DATE: 11/14/2016 PULMONARY PROGRESS NOTE REFERRING PHYSICIAN: Dr. Ibarra. SUBJECTIVE: She is lying in the bed. Family is at the bedside with , unresponsive though with tachycardia, hypertension. No vomiting. No hematuria. No diarrhea reported. OBJECTIVE: VITAL SIGNS: Temperature is 98, heart rate is 89, respiratory rate 18, blood pressure 164/78, pulse ox 100% on nasal cannula. HEENT: Moist mucous membranes. Small oral cavity. NECK: Supple. No JVD. LUNGS: Fair airflow with rhonchi. HEART: S1 and S2. ABDOMEN: Soft and nontender. No organomegaly. EXTREMITIES: There is no too much edema. NEUROLOGIC: Unresponsive. MEDICATIONS: She is on hydralazine 10 mg q. 6 hours p.r.n., started on diltiazem IV drip 10 mL per hour. Also on Clinimix 83 mL per hour, digoxin 0.25 mg daily, levetiracetam is started IV, nimodipine 30 mg in nasogastric tube q. 4 hour, Pletal 50 mg twice a day, Protonix 40 mg daily, Xopenex inhaler q. 6 hours. LABORATORY DATA: Shows hemoglobin 8.8, hematocrit 27.5, WBC 16.4, platelets 69. Chemistries show sodium 140, potassium 3.5, chloride 104, bicarbonate 23, BUN 28, creatinine 1.0, glucose 260. Calcium is 9.0. AST 448, ALT 189, alk phos 138. Troponin is 7.1. IMPRESSION AND PLAN: Subarachnoid hemorrhage and with multilobe ischemic stroke, serve cardiomyopathy, history of lung cancer, been on chemotherapy, thrombocytopenia, pulmonary hypertension, and oropharyngeal dysphagia. Case discussed with Dr. William Silva, stroke practitioner in detail. The patient probably had , so the patient was loaded with levetiracetam. Also Plaquenil is added. I spoke to the patient's family at bedside. All the questions answered. Also spoke to scaffolder, Dr. Briseno. The patient will be transferred to intensive care unit for close monitoring and further workup including EEG. The patient is DNR and DNI, but the family wishes full aggressive medical care. Also on Cardizem for hypertension and to control heart rate. Overall, poor prognosis. Also, spoke to Dr. Ibarra. Follow up labs in the morning. Thank you and we will follow with you. Kayden Frost MD
[2016-11-15 01:32] LABS: VENOUS BLOOD GAS BASE EXCESS -3.2 mmol/L (0.0-2.0); VENOUS BLOOD GAS PO2 30 mm/Hg (30-55); VENOUS BLOOD PH 7.33 (7.32-7.43)
[2016-11-15] MEDS: Nitroglycerin 2% Ointment Foilpak UD TOP SCH ×4 (03:30→20:45)
[2016-11-15] MEDS ORDERED: levETIRAcetam 1,000 MG in Sodium Chloride 0.9% 100 ML IV SCH (06:00)
[2016-11-15] MEDS: diltiaZEM IVPB 100mg in NS 100 ML IV PRN (06:33)
[2016-11-15] MEDS: Dextrose 5%/0.9% NS 1,000 ML IV SCH (06:37)
[2016-11-15 07:03] LABS: VENOUS BLOOD GAS BASE EXCESS -1.9 mmol/L (0.0-2.0); VENOUS BLOOD GAS PO2 70 mm/Hg (30-55); VENOUS BLOOD PH 7.41 (7.32-7.43)
[2016-11-15 07:10] LABS: BASO # 0.02 K/mm3 (0.0-2.0); BASO % 0.2 % (0.0-3.0); EOS % 0.1 % (1.5-5.0); GRAN # 8.58 (1.4-6.5); GRAN % 71.2 % (50.0-68.0); LYMPH # 2.2 (1.2-3.4); LYMPH % 18.4 % (22.0-35.0); MEAN CELL VOLUME 98.3 fl (80.0-105.0); MEAN CORPUSCULAR HEMOGLOBIN 32.6 pg (25.0-35.0); MEAN CORPUSCULAR HGB CONC 33.2 g/dl (31.0-37.0); MEAN PLATELET VOLUME 10.6 fl (7.0-11.0); MONO # 1.2 (0.1-0.6); MONO % 10.1 % (1.0-6.0); PLATELET COUNT 43 10^3/uL (120.0-450.0); RED CELL DISTRIBUTION WIDTH 18.3 % (11.5-14.5)
[2016-11-15 07:31] LABS: ALB/GLOB RATIO 1.3 (1.1-1.8); ALBUMIN 3.3 g/dL (3.0-4.8); ALT/SGPT 106 U/L (7-56); AST/SGOT 94 U/L (15-39); BLOOD UREA NITROGEN 31 mg/dL (7-21); CALCIUM 8.8 mg/dL (8.4-10.5); GFR AFRICAN-AMERICAN > 60; GFR NON-AFRICAN AMERICAN > 60
[2016-11-15 07:35] LABS: HEMOGLOBIN 7.5 g/dL (12.0-16.0)
[2016-11-15] MEDS: Cilostazol 50 mg Tab UD PO SCH ×3 (10:12→18:44)
--- NOTE | 2016-11-15 10:39 | CP.PCM.PN ---
Subjective - Date & Time of Evaluation Date of Evaluation: 11/15/16 Time of Evaluation: 07:10 - Subjective Subjective: Heme/Onc note for Dr Taveras Pt was seen and examined at bedside. Pt had possible seizure like activity and was sent to the ICU for close monitoring. Pt is very lethargic and nonresponsive to verbal or tactile stimuli. ROS: 12 point unobtainable Objective - Vital Signs/Intake and Output Vital Signs (last 24 hours): Temp Pulse Resp BP Pulse Ox 98.9 F 90 24 160/78 H 98 11/15/16 00:01 11/15/16 06:00 11/15/16 06:00 11/15/16 08:32 11/15/16 06:00 Intake and Output: 11/15/16 11/15/16 06:59 18:59 Intake Total 2396 Output Total 700 Balance 1696 - Medications Medications: Current Medications Cilostazol (Pletal) 50 mg PO BID [facility] Digoxin (Lanoxin) 0.25 mg PO 1400 [facility] Last Admin: 11/14/16 13:36 Dose: Not Given Home Med (Home Med) 500 unit PO Q12 [facility] Last Admin: 11/14/16 23:33 Dose: Not Given Home Med (Home Med) 0 unit NG Q4H [facility] Stop: 12/05/16 14:01 Hydralazine HCl (Apresoline) 10 mg IVP Q6 PRN PRN Reason: for sbp.170 and/0r diastolic> Last Admin: 11/13/16 16:26 Dose: 10 mg Amino Acids/Electrolytes/Dextrose (Clinimix 4.25/5 % "E" (2000 Ml)) 2,000 mls @ 83.333 mls/hr IV .Q24H [facility] Last Admin: 11/14/16 17:28 Dose: 83.333 mls/hr diltiaZEM IVPB 100mg in NS (Cardizem 100mg In Ns) 100 mls @ 10 mls/hr IV .Q10H PRN; Protocol; 10 MG/HR PRN Reason: TITRATE PER MD ORDER Last Admin: 11/15/16 06:33 Dose: 10 mg/hr, 10 mls/hr Levetiracetam 1,000 mg/ Sodium (Chloride) 110 mls @ 460 mls/hr IV 0600,1800 [facility] Last Admin: 11/15/16 05:28 Dose: 460 mls/hr Levalbuterol HCl (Xopenex) 0.63 mg IH [id number] PRN PRN Reason: Shortness of Breath Last Admin: 11/14/16 02:38 Dose: 0.63 mg Nitroglycerin (Nitro-Bid 2% Oint) 1 ea TOP Q6H [facility] Last Admin: 11/15/16 10:03 Dose: 1 ea Pantoprazole Sodium (Protonix Inj) 40 mg IVP DAILY [facility] Last Admin: 11/15/16 10:03 Dose: 40 mg - Labs Labs: 11/15/16 05:50 11/15/16 05:50 PT 12.0 Seconds (9.9-11.8) H 11/10/16 09:00 INR 1.11 (0.93-1.08) H 11/10/16 09:00 APTT 25.8 Seconds (23.7-30.8) 11/05/16 15:40 - Constitutional Appears: No Acute Distress - Eye Exam Eye Exam: PERRL - ENT Exam ENT Exam: Mucous Membranes Moist - Respiratory Exam Respiratory Exam: Rhonchi. absent: Wheezes - Cardiovascular Exam Cardiovascular Exam: RRR, +S1, +S2 - GI/Abdominal Exam GI & Abdominal Exam: Soft. absent: Tenderness - Neurological Exam Neurological Exam: Alert, Awake, CN II-XII Intact, Normal Gait, Oriented x3 - Psychiatric Exam Psychiatric exam: Normal Affect, Normal Mood - Skin Skin Exam: Dry, Intact, Normal Color, Warm Assessment and Plan - Assessment and Plan (Free Text) Assessment: 76F with pmhx significant for stage breast cancer, [place] s/p PCI, IV lung cancer on [place]op who presents with dizziness, lightheadedness and confusion x3 days and subsequently found to have left front SAH in setting of severe thrombocytopenia whose hospital course has been complicated by an acute right sided front distribution MCA infarct secondary to transient drop in blood pressures resulting in left sided hemiparesis. Pt turned tachycardic overnight and currently on cardizem drip. - Pt is DNR/DNI - Consider administering 1 unit of PRBC and 1 unit of platelets due to pt having active bleeding SAH - Not a candidate for additional chemo at this time - Will plan on transfusing platelets prior to PEG placement once stable - F/u surgery regarding peg placement - Hold off on NSAIDS, antiplt medications anticoagulation at this time given SAH - F/u neurology recommendation - consider Cilostazol and Nimodipine - Continue PT and speech & swallow rehab - Maintain systolic BP >120 - F/u with primary oncologist Dr. Rodriguez - F/u palliative consult Pt was reviewed and discussed in detail with Dr Taveras.
[2016-11-15 12:10] LABS: VENOUS BLOOD GAS BASE EXCESS -0.7 mmol/L (0.0-2.0); VENOUS BLOOD GAS PO2 41 mm/Hg (30-55); VENOUS BLOOD PH 7.39 (7.32-7.43)
--- NOTE | 2016-11-15 12:53 | CP.PCM.PN ---
Subjective - Date & Time of Evaluation Date of Evaluation: 11/15/16 Time of Evaluation: 12:48 - Subjective Subjective: Mrs. Gordon was seen and examined today in the ICU. She has still not received any PO medications since the NGT was not placed. I discussed this with the patient's nurse who said he was about to insert the tube now to provide her with the medications that are ordered. She was more responsive to me today and followed simple commands like hand squeezing and showing thumbs up. She did open her eyes to command and did not have a left gaze deviation like yesterday. There were no seizures reported overnight and no other acute events. Objective - Vital Signs/Intake and Output Vital Signs (last 24 hours): Temp Pulse Resp BP Pulse Ox 98.9 F 90 24 160/78 H 98 11/15/16 00:01 11/15/16 10:00 11/15/16 06:00 11/15/16 08:32 11/15/16 06:00 Intake and Output: 11/15/16 11/15/16 06:59 18:59 Intake Total 2396 Output Total 700 Balance 1696 - Medications Medications: Current Medications Cilostazol (Pletal) 50 mg PO BID [facility] Last Admin: 11/15/16 10:12 Dose: Not Given Digoxin (Lanoxin) 0.25 mg PO 1400 [facility] Last Admin: 11/14/16 13:36 Dose: Not Given Home Med (Home Med) 500 unit PO Q12 [facility] Last Admin: 11/15/16 10:12 Dose: Not Given Home Med (Home Med) 0 unit NG Q4H [facility] Stop: 12/05/16 14:01 Hydralazine HCl (Apresoline) 10 mg IVP Q6 PRN PRN Reason: for sbp.170 and/0r diastolic> Last Admin: 11/13/16 16:26 Dose: 10 mg Amino Acids/Electrolytes/Dextrose (Clinimix 4.25/5 % "E" (2000 Ml)) 2,000 mls @ 83.333 mls/hr IV .Q24H [facility] Last Admin: 11/14/16 17:28 Dose: 83.333 mls/hr diltiaZEM IVPB 100mg in NS (Cardizem 100mg In Ns) 100 mls @ 10 mls/hr IV .Q10H PRN; Protocol; 10 MG/HR PRN Reason: TITRATE PER MD ORDER Last Admin: 11/15/16 06:33 Dose: 10 mg/hr, 10 mls/hr Levetiracetam 1,000 mg/ Sodium (Chloride) 110 mls @ 460 mls/hr IV 0600,1800 [facility] Last Admin: 11/15/16 05:28 Dose: 460 mls/hr Levalbuterol HCl (Xopenex) 0.63 mg IH [id number] PRN PRN Reason: Shortness of Breath Last Admin: 11/14/16 02:38 Dose: 0.63 mg Nitroglycerin (Nitro-Bid 2% Oint) 1 ea TOP Q6H [facility] Last Admin: 11/15/16 10:03 Dose: 1 ea Pantoprazole Sodium (Protonix Inj) 40 mg IVP DAILY [facility] Last Admin: 11/15/16 10:03 Dose: 40 mg - Labs Labs: 11/15/16 05:50 11/15/16 05:50 PT 12.0 Seconds (9.9-11.8) H 11/10/16 09:00 INR 1.11 (0.93-1.08) H 11/10/16 09:00 APTT 25.8 Seconds (23.7-30.8) 11/05/16 15:40 - Neurological Exam Neurological Exam: Altered Neuro motor strength exam: Left Upper Extremity: 0, Right Upper Extremity: 4, Left Lower Extremity: 0, Right Lower Extremity: 4 Additional comments: Slightly improved mental status, following simple commands and opened eyes to pain and voice. She does not move the left side as much as the right. Plantar response is upgoing today on the right and muted on the left. Assessment and Plan (1) Ischemic stroke Assessment & Plan: Plan is to give cilostazol for stroke prevention when NGT is placed. Continue fluids, PT/OT eval/treat. DVT Px. Status: Acute (2) Subarachnoid hemorrhage Assessment & Plan: Will start nimodipine today. Status: Acute (3) Seizure Assessment & Plan: Continue Keppra 500 mg Q12 Status: Acute
--- NOTE | 2016-11-15 13:58 | PN ---
DATE: 11/15/2016 REASON FOR CONSULTATION: Followup positive troponin, non-ST segment myocardial infarction, lung CA, pancytopenia, progressive CVA, aphasic and now comatose. SUBJECTIVE: The patient is a comatose, not responding to the verbal stimuli. Family is at the bedside. OBJECTIVE: GENERAL: Lying flat, breathing heavy, but not in apprehensive distress. Last night move to ICU, reason not clear. Examination as follows: VITAL SIGNS: Temperature febrile, heart rate 90, blood pressure 135/72. HEENT: PERRLA. Extraocular muscles intact. NECK: Supple. No carotid bruit. No thyromegaly. CHEST: Clear to auscultation. HEART: S1 and S2 regular. ABDOMEN: Soft. EXTREMITIES: Clubbing and cyanosis negative. LABORATORY DATA: Blood workup: WBC 12, hemoglobin 7.5, hematocrit 22.6, platelet count 43. Chemistry shows sodium 141, potassium 3.9, chloride 108, carbon dioxide 22, anion gap of 15, BUN 31, creatinine 0.8. IMPRESSION: A 76-year-old female with past medical history significant for cardiomyopathy, coronary artery disease, stent in the past, being followed by Dr. Jam Barillas, recently catheterization in March, cardiomyopathy, patent stent, mild in-stent restenosis, who has recently diagnosed lung carcinoma, status post 2 cycles of chemo, admitted here with intracerebral bleed, pancytopenia secondary to chemo, history of breast cancer in the past 2004. The patient also admitted with troponin positive. During the course of hospitalization, the patient had a recurrent cerebrovascular accident. Now, the patient is comatose, being managed with IV medication. Code status, DO NOT RESUSCITATE/DO NOT INTUBATE. The patient is on Cardizem for high blood pressure and tachycardia, getting IV fluids at 100 mL an hour for tachypnea. RECOMMENDATION: Discontinue IV fluid. stat. Continue TPN. Continue Cardizem 10 mL an hour for control of blood pressure and heart rate. Overall, the patient's condition is critical. Family is at the bedside. Prognosis is extremely poor. She will be considered hospice care. Discussed with the daughter. Troponin is trending down, the maximum troponin is 7.17, today is 4.63. We will stop doing the troponin because at this stage of life, it is meaningless to do the troponin and . I think also, we should stop the blood drawing as well, but I will leave up to primary care physician, Dr. Ibarra. Thank you Dr. Ibarra for providing me the opportunity in taking care of the patient, Tiffany Gordon. Kayden Valdes MD cc: Bhumi Ibarra MD
[2016-11-15] MEDS ORDERED: NIMODIPINE 30 MG NG SCH (14:00)
--- NOTE | 2016-11-15 15:35 | CP.PCM.PN ---
Subjective - Date & Time of Evaluation Date of Evaluation: 11/15/16 Time of Evaluation: 15:32 - Subjective Subjective: Neurology Progress Note for Dr. Acosta Pt seen and examined at bedside. No acute events overnight. Pt accompanied by family members at bedside. Pt undergoing EEG today. Pt minimally responsive to verbal stimuli. Objective - Vital Signs/Intake and Output Vital Signs (last 24 hours): Temp Pulse Resp BP Pulse Ox 99 F 99 H 29 H 162/82 H 98 11/15/16 14:55 11/15/16 14:55 11/15/16 14:55 11/15/16 14:55 11/15/16 06:00 Intake and Output: 11/15/16 11/15/16 06:59 18:59 Intake Total 2396 0 Output Total 700 Balance 1696 0 - Medications Medications: Current Medications Cilostazol (Pletal) 50 mg PO BID [facility] Last Admin: 11/15/16 10:12 Dose: Not Given Digoxin (Lanoxin) 0.25 mg PO 1400 [facility] Last Admin: 11/14/16 13:36 Dose: Not Given Home Med (Home Med) 500 unit PO Q12 [facility] Last Admin: 11/15/16 10:12 Dose: Not Given Home Med (Home Med) 0 unit NG Q4H [facility] Stop: 12/05/16 14:01 Hydralazine HCl (Apresoline) 10 mg IVP Q6 PRN PRN Reason: for sbp.170 and/0r diastolic> Last Admin: 11/13/16 16:26 Dose: 10 mg Amino Acids/Electrolytes/Dextrose (Clinimix 4.25/5 % "E" (2000 Ml)) 2,000 mls @ 83.333 mls/hr IV .Q24H [facility] Last Admin: 11/14/16 17:28 Dose: 83.333 mls/hr diltiaZEM IVPB 100mg in NS (Cardizem 100mg In Ns) 100 mls @ 10 mls/hr IV .Q10H PRN; Protocol; 10 MG/HR PRN Reason: TITRATE PER MD ORDER Last Admin: 11/15/16 06:33 Dose: 10 mg/hr, 10 mls/hr Levetiracetam (Keppra 500mg Ivpb) 500 mg in 100 mls @ 400 mls/hr IV Q12 [facility] Levalbuterol HCl (Xopenex) 0.63 mg IH [id number] PRN PRN Reason: Shortness of Breath Last Admin: 11/14/16 02:38 Dose: 0.63 mg Nitroglycerin (Nitro-Bid 2% Oint) 1 ea TOP Q6H [facility] Last Admin: 11/15/16 10:03 Dose: 1 ea Pantoprazole Sodium (Protonix Inj) 40 mg IVP DAILY [facility] Last Admin: 11/15/16 10:03 Dose: 40 mg - Labs Labs: 11/15/16 05:50 11/15/16 05:50 PT 12.0 Seconds (9.9-11.8) H 11/10/16 09:00 INR 1.11 (0.93-1.08) H 11/10/16 09:00 APTT 25.8 Seconds (23.7-30.8) 11/05/16 15:40 - Constitutional Appears: Non-toxic, No Acute Distress - Head Exam Head Exam: ATRAUMATIC, NORMAL INSPECTION, NORMOCEPHALIC - ENT Exam ENT Exam: Mucous Membranes Moist - Respiratory Exam Respiratory Exam: Clear to Ausculation Bilateral, NORMAL BREATHING PATTERN. absent: Rales, Rhonchi - Cardiovascular Exam Cardiovascular Exam: RRR, +S1, +S2 - GI/Abdominal Exam GI & Abdominal Exam: Soft, Normal Bowel Sounds. absent: Tenderness - Extremities Exam Extremities Exam: absent: Calf Tenderness, Pedal Edema - Neurological Exam Neurological Exam: Alert, Awake Neuro motor strength exam: Left Upper Extremity: 0, Right Upper Extremity: 4, Left Lower Extremity: 0, Right Lower Extremity: 4 Additional comments: Left sided flaccid paralysis - Psychiatric Exam Psychiatric exam: Normal Affect, Normal Mood - Skin Skin Exam: Intact, Normal Color, Warm Assessment and Plan - Assessment and Plan (Free Text) Plan: 76 y/o F with PMH of lung cancer on chemotherapy, breast cancer, and [facility] s/p stent placement presents with left frontal subarachnoid hemorrhage and acute right sided frontal distribution infarct. Today, Head CT shows a have small amount of hemorrhage in right basal ganglia lacunar infarct, which is new. Pt's prognosis is guarded as her platelet counts remain low in the setting of new cerebral infarcts. Plan: - Cilastazol for stroke prevention - Keppra for seizure prophylaxis - Recommend PEG tube for superintendent terminal care - Avoid transient drops in BP, SBP >120, DBP >80 - Platelet goal > 50,000, transfuse if below - Physical therapy. May need superintendent terminal rehab at this time
[2016-11-15] MEDS: NIMODIPINE 30 MG NG SCH ×2 (15:52→18:23)
[2016-11-15] MEDS: Digoxin 250 mcg (0.25 mg) Tab PO SCH (15:58)
[2016-11-15] MEDS: Acetaminophen 160 mg/5 ml UD PO PRN ×2 (16:37→21:33)
--- NOTE | 2016-11-15 23:19 | CP.PCM.PN ---
<Kristal Rodriguez - Last Filed: 11/16/16 00:45> Subjective - Date & Time of Evaluation Date of Evaluation: 11/16/16 Time of Evaluation: 11:00 - Subjective Subjective: ICU Progress Note Pt was seen and examined at bedside. No acute events overnight as per nursing staff. Pt is following simple commands. Objective - Vital Signs/Intake and Output Vital Signs (last 24 hours): Temp Pulse Resp BP Pulse Ox 98.2 F 96 H 28 H 148/68 98 11/15/16 20:19 11/15/16 20:19 11/15/16 20:19 11/15/16 20:19 11/15/16 06:00 Intake and Output: 11/15/16 11/16/16 18:59 06:59 Intake Total 1278 192 Output Total 2700 Balance -1422 192 - Medications Medications: Current Medications Acetaminophen (Tylenol 160mg/5ml Oral Soln) 320 mg PO Q4 PRN PRN Reason: Pain, Mild (1-3) Last Admin: 11/15/16 21:33 Dose: 320 mg Cilostazol (Pletal) 50 mg PO BID [facility] Last Admin: 11/15/16 18:44 Dose: 50 mg Digoxin (Lanoxin) 0.25 mg PO 1400 [facility] Last Admin: 11/15/16 15:58 Dose: 0.25 mg Home Med (Home Med) 500 unit PO Q12 [facility] Last Admin: 11/15/16 10:12 Dose: Not Given Home Med (Home Med) 0 unit NG Q4H [facility] Stop: 12/05/16 14:01 Last Admin: 11/15/16 18:23 Dose: 1 unit Hydralazine HCl (Apresoline) 10 mg IVP Q6 PRN PRN Reason: for sbp.170 and/0r diastolic> Last Admin: 11/13/16 16:26 Dose: 10 mg Amino Acids/Electrolytes/Dextrose (Clinimix 4.25/5 % "E" (2000 Ml)) 2,000 mls @ 83.333 mls/hr IV .Q24H [facility] Last Admin: 11/15/16 18:44 Dose: 83.333 mls/hr diltiaZEM IVPB 100mg in NS (Cardizem 100mg In Ns) 100 mls @ 10 mls/hr IV .Q10H PRN; Protocol; 10 MG/HR PRN Reason: TITRATE PER MD ORDER Last Admin: 11/15/16 06:33 Dose: 10 mg/hr, 10 mls/hr Levetiracetam (Keppra 500mg Ivpb) 500 mg in 100 mls @ 400 mls/hr IV Q12 [facility] Levalbuterol HCl (Xopenex) 0.63 mg IH [id number] PRN PRN Reason: Shortness of Breath Last Admin: 11/14/16 02:38 Dose: 0.63 mg Nitroglycerin (Nitro-Bid 2% Oint) 1 ea TOP Q6H [facility] Last Admin: 11/15/16 20:45 Dose: 1 ea Pantoprazole Sodium (Protonix Inj) 40 mg IVP DAILY [facility] Last Admin: 11/15/16 10:03 Dose: 40 mg - Labs Labs: 11/15/16 05:50 11/15/16 05:50 PT 12.0 Seconds (9.9-11.8) H 11/10/16 09:00 INR 1.11 (0.93-1.08) H 11/10/16 09:00 APTT 25.8 Seconds (23.7-30.8) 11/05/16 15:40 - Constitutional Appears: No Acute Distress - Head Exam Head Exam: ATRAUMATIC, NORMAL INSPECTION, NORMOCEPHALIC - Eye Exam Eye Exam: EOMI, Normal appearance, PERRL Pupil Exam: PERRL - ENT Exam ENT Exam: Mucous Membranes Moist Additional comments: drooling - Respiratory Exam Respiratory Exam: Clear to Ausculation Bilateral, NORMAL BREATHING PATTERN - Cardiovascular Exam Cardiovascular Exam: REGULAR RHYTHM, +S1, +S2. absent: Murmur - GI/Abdominal Exam GI & Abdominal Exam: Soft, Normal Bowel Sounds. absent: Tenderness - Extremities Exam Extremities Exam: Full ROM, Normal Capillary Refill, Normal Inspection. absent : Joint Swelling, Pedal Edema - Neurological Exam Neurological Exam: Altered. absent: Alert, Awake - Skin Skin Exam: Dry, Intact, Normal Color, Warm Assessment and Plan - Assessment and Plan (Free Text) Assessment: 76F initially admitted to [facility] with spontaneous SAH in the setting of severe thrombocytopenia complicated by multiple b/l cerebellar strokes, left occipital stroke and Rt MCA infarct. Pt has become less stable requiring CPAP for respiratory distress overnight, on cardizem drip for HD stability and there are concerns for seizures considering the patient has frequent automatisms towards the left side with a left sided gaze. ICU was consulted to for close monitoring for possible further deterioration and further management. Pt had received ativan, and keppra with EEG pending. Of note, pt is DNR/DNI. Neuro: - Mental status is stable and somewhat protecting airway. - following simple commands - persistent leftward gaze, left sided weakness - Neurology, Dr. Silva following recommended to avoid transient drops in BP, Target SBP >130 & <180, Platelet goal > 50,000. - Hold off on NSAIDs and full anti-plt meds - cilostazol 50 mg BID for stroke prevention - nimodipine to prevent vasospasm - keppra 500 mg q12 - seizure precautions, no episodes noted as per nursing staff CVS: - Cardizem gtt 10 cc/hr, will keep comfortable and continue to monitor - Maintain MAP>65 - Echo performed EF 25% - May avoid aspirin and plavix for now due to thrombocytopenia and recent SAH. - Cardiology, Dr. Valdes following, suggested nonagressive measures, cardizem drip to 10cc/hr, dc ivf and continue tpn - downtrending Troponins Pulm: - On NC. Saturating well. - Maintain O2 sat>90% - Aspiration precaution - DNI GI: - NPO - TPN - General Surgery consulted for PEG placement, to be transfused plt prior to PEG placement - GI ppx - NGT placed in mean time Renal: - BUN/Cr stable at baseline - maintain euvolemia - Continue to monitor electrolytes and replete as needed ID: - Afebrile, leukocytosis - pct elevated, septic workup fu - cont to monitor. Endo: - Maintain euglycemia, 140-180 Heme: - 1prbc and 1 plt transfuse - Cont to monitor. - Dr. Taveras, Heme/ onc consulted continue with recs DVT/GI ppx reviewed Seen reviewed and discussed with attending <Cristian Briseno - Last Filed: 11/16/16 11:43> Objective - Vital Signs/Intake and Output Vital Signs (last 24 hours): Temp Pulse Resp BP Pulse Ox 98.7 F 84 23 104/50 L 97 11/16/16 00:01 11/16/16 06:00 11/16/16 06:00 11/16/16 06:00 11/16/16 06:00 Intake and Output: 11/16/16 11/16/16 06:59 18:59 Intake Total 375 Output Total 900 Balance -525 - Medications Medications: Current Medications Acetaminophen (Tylenol 160mg/5ml Oral Soln) 320 mg PO Q4 PRN PRN Reason: Pain, Mild (1-3) Last Admin: 11/15/16 21:33 Dose: 320 mg Cilostazol (Pletal) 50 mg PO BID [facility] Last Admin: 11/16/16 10:57 Dose: 50 mg Digoxin (Lanoxin) 0.25 mg PO 1400 [facility] Last Admin: 11/15/16 15:58 Dose: 0.25 mg Home Med (Home Med) 500 unit PO Q12 [facility] Last Admin: 11/16/16 00:51 Dose: Not Given Home Med (Home Med) 0 unit NG Q4H [facility] Stop: 12/05/16 14:01 Hydralazine HCl (Apresoline) 10 mg IVP Q6 PRN PRN Reason: for sbp.170 and/0r diastolic> Last Admin: 11/13/16 16:26 Dose: 10 mg Amino Acids/Electrolytes/Dextrose (Clinimix 4.25/5 % "E" (2000 Ml)) 2,000 mls @ 83.333 mls/hr IV .Q24H [facility] Last Admin: 11/15/16 18:44 Dose: 83.333 mls/hr diltiaZEM IVPB 100mg in NS (Cardizem 100mg In Ns) 100 mls @ 10 mls/hr IV .Q10H PRN; Protocol; 10 MG/HR PRN Reason: TITRATE PER MD ORDER Last Admin: 11/15/16 06:33 Dose: 10 mg/hr, 10 mls/hr Levetiracetam (Keppra 500mg Ivpb) 500 mg in 100 mls @ 400 mls/hr IV Q12 [facility] Last Admin: 11/16/16 11:03 Dose: 400 mls/hr Levalbuterol HCl (Xopenex) 0.63 mg IH [id number] PRN PRN Reason: Shortness of Breath Last Admin: 11/14/16 02:38 Dose: 0.63 mg Nitroglycerin (Nitro-Bid 2% Oint) 1 ea TOP Q6H [facility] Last Admin: 11/16/16 02:00 Dose: 1 ea Pantoprazole Sodium (Protonix Inj) 40 mg IVP DAILY [facility] Last Admin: 11/15/16 10:03 Dose: 40 mg - Labs Labs: 11/16/16 06:00 11/16/16 06:00 PT 12.0 Seconds (9.9-11.8) H 11/10/16 09:00 INR 1.11 (0.93-1.08) H 11/10/16 09:00 APTT 25.8 Seconds (23.7-30.8) 11/05/16 15:40 Attending/Attestation - Attestation I have personally seen and examined this patient.: Yes I have fully participated in the care of the patient.: Yes I have reviewed all pertinent clinical information, including history, physical exam and plan: Yes Notes (Text): 11/16/16 11:39 76 yo female with reccurent ICH/SAH and ?vasospastic infarct? (No aneurism on MRI), now on nimodipine by neurology team and [facility]. No seizures on EEG, no other apparent contributors to AMS. Spoke with patient's son, they want to uphold DNR/ DNI status and touch base with other consultants involved to see what is expected survival provided neuro and pulmonary pathology. If projected survival less then 6 month they would be considering hospice. ccm time 40 min
[2016-11-16] MEDS: levETIRAcetam 500mg IVPB 500 MG/100 ML BAG IV SCH ×3 (00:09→22:09)
[2016-11-16] MEDS: NIMODIPINE 30 MG NG SCH ×6 (00:31→21:00)
[2016-11-16] MEDS: Nitroglycerin 2% Ointment Foilpak UD TOP SCH ×4 (02:00→20:00)
--- NOTE | 2016-11-16 02:34 | PN ---
SUBJECTIVE: The patient is seen and examined on the bedside. Her daughters, son, [id number] and other family are all around the bedside. Within 24 hours, the patient was known to have episodes of seizures, but yesterday she had a seizure and that is why she was transferred to ICU for more close monitoring for the seizure. The patient is lethargic and non-responsive to verbal or tactile stimuli, but once in a while she is moving her left upper extremity. PHYSICAL EXAMINATION: VITAL SIGNS: Temperature 98.9, pulse 90, respiratory rate 24, blood pressure 164/78, and pulse oximetry 98%. HEENT: Head is normocephalic and atraumatic. Eyes; closed. Nose patent. Mucous membranes moist. NECK: Supple. No carotid bruit or thyromegaly. CHEST: Bilaterally symmetrical. HEART: S1 and S2, positive. LUNGS: Clear to auscultation. ABDOMEN: Soft. Bowel sounds present. No organomegaly. EXTREMITIES: No edema. No cyanosis. NEUROLOGIC: The patient is sleepy, not moving extremities. Once in a while, she is moving the left upper extremity. MEDICATIONS: Pletal, Lanoxin, hydralazine, peripheral feeding, Cardizem, and Xopenex. LABORATORY DATA: White blood cell 12.0, hemoglobin 7.5, hematocrit 22.6 and platelets 43. Sodium 141, potassium 3.6, BUN 31, creatinine 0.8, and glucose 150. ASSESSMENT: Ms. Evan Allen is a 76-year-old lady with leukocytosis, anemia, thrombocytopenia, hyperglycemia, history of breast cancer, myocardial infarction, history of chemotherapy, has a left frontal subarachnoid hemorrhage in the setting of severe thrombocytopenia whose hospital course has been complicated by acute right-sided frontal distribution middle cerebral artery infarction secondary to a transient drop in the blood pressure, resulting in left-sided hemiparesis. The patient has tachycardia and is on Cardizem drip now. The patient is DO NOT RESUSCITATE AND DO NOT INTUBATE. Anemia; need blood transfusion, add one unit of platelets due to having active bleeding subarachnoid hemorrhage. Not a candidate for additional chemotherapy at this time according to Dr. Taveras. Neurology is recommending nimodipine, continue physical therapy and speech therapy. Seen by Dr. William Silva, stroke specialist. According to him, the patient is improving a little bit. PLAN: Give Cilostazol for stroke prevention when NG tube is placed. Start nimodipine today. Continue Keppra. GI prophylaxis. Repeat labs. We will follow with you. Bhumi Ibarra MD MTDJohnathon
--- NOTE | 2016-11-16 05:26 | PN ---
PULMONARY PROGRESS NOTE REFERRING PHYSICIAN: Dr. Ibarra. DATE: 11/15/2016 The patient seen and examined in critical care unit. SUBJECTIVE: She is unresponsive does not respond to long painful stimuli. Still had a left side eye yanni. No cough, sputum production, No hemoptysis, no hematemesis, no hematuria. No diarrhea. PHYSICAL EXAMINATION: GENERAL: In no acute distress. VITAL SIGNS: Temperature is 98, hear rate is 80, respiratory rate is 18-26, blood pressure 155/70 and pulse oximetry 98% on nasal cannula. HEENT: Moist mucous membranes. Small oral cavity. Crowded airway. NECK: Supple. No JVD. LUNGS: Has few scattered rhonchi.. HEART: S1 and S2. ABDOMEN: Soft and nontender. No organomegaly. EXTREMITIES: There is no edema. NEUROLOGIC: Unresponsive. MEDICATIONS: She is on hydralazine 10 mg q. 6 hours p.r.n.,IV Cardizem, also on Clinimix 83 mL per hour, Keppra 500 mg IV q. 12 hours, digoxin 0.25 mg daily, Nitro-Bid 2% q. 6 hours, Pletal 50 mg twice a day, Protonix 40 mg IV daily, Tylenol p.r.n., Xopenex 0.60 mg q. 6 hours p.r.n. LABORATORY DATA: Shows hemoglobin 7.5, hematocrit 22.6, WBC 12.0, platelet count is 43. VBG shows pH 7.39, PcO2 40 and O2 saturation is 97. Chemistry show; sodium 141, potassium 3.9, chloride 108, bicarbonate 32, BUN 31, creatinine 0.8, glucose 150, calcium 8.8. AST 94, ALT 106, alk phos is 120, albumin is 3.3. IMPRESSION AND PLAN: Subarachnoid hemorrhage with multilobar ulcer ischemic stroke, serve cardiomyopathy, history of lung cancer, been on chemotherapy in the past, thrombocytopenia, pulmonary hypertension, and oropharyngeal dysphagia. Could not get her Pletal because no p.o. root was available. Spoke to the patient's son at bedside, all the questions answered. He requested continue aggressive care including nasogastric tube feedings, spoke to the nursing staff, requested to place [place]. Start the patient on Pletal and also may discontinue Clinimix TPN and start nasogastric tube feeding. The patient being followed by stroke, neurology. Keep head elevated at 45 degrees, gastric prophylaxis, SCDs to lower extremities. Follow up labs in the morning. Thank you and we will followup with you. Critical care time was more than 35 minutes. Kayden Frost MD
[2016-11-16 07:07] LABS: HEMOGLOBIN 8.2 g/dL (12.0-16.0); MEAN CELL VOLUME 93.8 fl (80.0-105.0); MEAN CORPUSCULAR HEMOGLOBIN 31.5 pg (25.0-35.0); MEAN CORPUSCULAR HGB CONC 33.6 g/dl (31.0-37.0); MEAN PLATELET VOLUME 10.4 fl (7.0-11.0); PLATELET COUNT 77 10^3/uL (120.0-450.0); RED CELL DISTRIBUTION WIDTH 18.5 % (11.5-14.5); WHITE BLOOD COUNT 9.9 10^3/ul (4.5-11.0)
[2016-11-16 07:13] LABS: ALB/GLOB RATIO 1.1 (1.1-1.8); ALBUMIN 3.1 g/dL (3.0-4.8); ALT/SGPT 81 U/L (7-56); AST/SGOT 67 U/L (15-39); BLOOD UREA NITROGEN 36 mg/dL (7-21); CALCIUM 8.8 mg/dL (8.4-10.5); GFR AFRICAN-AMERICAN > 60; GFR NON-AFRICAN AMERICAN > 60
--- NOTE | 2016-11-16 08:49 | RAD ---
PROCEDURE: Portable chest HISTORY: NG tube placement confrimation COMPARISON: 11/13/2016 TECHNIQUE: FINDINGS: There is improvement in the previously seen CHF. Prominent interstitial markings are seen. There is mild cardiomegaly IMPRESSION: A feeding tube is seen just beyond the GE junction in satisfactory position
[2016-11-16 09:12] LABS: BAND 9 % (0-2); LYMPHOCYTE 21 % (22.0-35.0); MONOCYTE 5 % (1.0-6.0); NEUTROPHIL 65 % (50.0-70.0); NUCLEATED RED BLOOD CELL 1 %; PLATELET ESTIMATE LOW (NORMAL)
[2016-11-16] MEDS: Cilostazol 50 mg Tab UD PO SCH ×2 (10:57→18:57)
--- NOTE | 2016-11-16 14:09 | CP.PCM.PN ---
Subjective - Date & Time of Evaluation Date of Evaluation: 11/16/16 Time of Evaluation: 10:35 - Subjective Subjective: Heme/Onc note for Dr Taveras Pt was seen and examined at bedside. No acute events. Pt is still nonresponsive to verbal or tactile stimuli. ROS: 12 point unobtainable Objective - Vital Signs/Intake and Output Vital Signs (last 24 hours): Temp Pulse Resp BP Pulse Ox 99.1 F 100 H 22 153/82 H 94 L 11/16/16 11:47 11/16/16 11:47 11/16/16 11:47 11/16/16 11:47 11/16/16 11:47 Intake and Output: 11/16/16 11/16/16 06:59 18:59 Intake Total 375 Output Total 900 Balance -525 - Medications Medications: Current Medications Acetaminophen (Tylenol 160mg/5ml Oral Soln) 320 mg PO Q4 PRN PRN Reason: Pain, Mild (1-3) Last Admin: 11/15/16 21:33 Dose: 320 mg Cilostazol (Pletal) 50 mg PO BID [facility] Last Admin: 11/16/16 10:57 Dose: 50 mg Digoxin (Lanoxin) 0.25 mg PO 1400 [facility] Last Admin: 11/15/16 15:58 Dose: 0.25 mg Diltiazem HCl (Cardizem) 60 mg PO TID [facility] Home Med (Home Med) 500 unit PO Q12 [facility] Last Admin: 11/16/16 00:51 Dose: Not Given Home Med (Home Med) 0 unit NG Q4H [facility] Stop: 12/05/16 14:01 Hydralazine HCl (Apresoline) 10 mg IVP Q6 PRN PRN Reason: for sbp.170 and/0r diastolic> Last Admin: 11/13/16 16:26 Dose: 10 mg diltiaZEM IVPB 100mg in NS (Cardizem 100mg In Ns) 100 mls @ 10 mls/hr IV .Q10H PRN; Protocol; 10 MG/HR PRN Reason: TITRATE PER MD ORDER Last Admin: 11/15/16 06:33 Dose: 10 mg/hr, 10 mls/hr Levetiracetam (Keppra 500mg Ivpb) 500 mg in 100 mls @ 400 mls/hr IV Q12 [facility] Last Admin: 11/16/16 11:03 Dose: 400 mls/hr Levalbuterol HCl (Xopenex) 0.63 mg IH [id number] PRN PRN Reason: Shortness of Breath Last Admin: 11/14/16 02:38 Dose: 0.63 mg Nitroglycerin (Nitro-Bid 2% Oint) 1 ea TOP Q6H [facility] Last Admin: 11/16/16 08:00 Dose: 1 ea Pantoprazole Sodium (Protonix Inj) 40 mg IVP DAILY [facility] Last Admin: 11/16/16 11:00 Dose: 40 mg - Labs Labs: 11/16/16 06:00 11/16/16 06:00 PT 12.0 Seconds (9.9-11.8) H 11/10/16 09:00 INR 1.11 (0.93-1.08) H 11/10/16 09:00 APTT 25.8 Seconds (23.7-30.8) 11/05/16 15:40 - Constitutional Appears: No Acute Distress - Head Exam Head Exam: NORMAL INSPECTION - Eye Exam Eye Exam: PERRL Pupil Exam: NORMAL ACCOMODATION, PERRL - ENT Exam ENT Exam: Mucous Membranes Moist - Neck Exam Neck Exam: absent: Lymphadenopathy - Respiratory Exam Respiratory Exam: Clear to Ausculation Bilateral, Rhonchi. absent: Wheezes - Cardiovascular Exam Cardiovascular Exam: RRR, +S1, +S2. absent: Murmur - GI/Abdominal Exam GI & Abdominal Exam: Soft, Normal Bowel Sounds. absent: Tenderness - Extremities Exam Extremities Exam: absent: Calf Tenderness, Pedal Edema - Skin Skin Exam: Dry, Intact, Normal Color, Warm Assessment and Plan - Assessment and Plan (Free Text) Assessment: 76F with pmhx significant for stage breast cancer, TX s/p PCI, IV lung cancer on [place]/etop who presents with dizziness, lightheadedness and confusion x3 days and subsequently found to have left front SAH in setting of severe thrombocytopenia whose hospital course has been complicated by an acute right sided front distribution MCA infarct secondary to transient drop in blood pressures resulting in left sided hemiparesis. Pt turned tachycardic overnight and currently on cardizem drip. - Pt is DNR/DNI - Platelets today 77; no transfusion at this time; Hb of 8.2 - Daily labs - Not a candidate for additional chemo at this time - Cardiology consult -cont cardizem and digoxin - Will plan on transfusing platelets prior to PEG placement once stable - F/u surgery regarding peg placement - Hold off on NSAIDS, antiplt medications anticoagulation at this time given SAH - F/u neurology recommendation - Stared on Cilostazol - Continue PT - Maintain systolic BP >120 - F/u with primary oncologist Dr. Rodriguez - F/u palliative consult Pt was reviewed and discussed in detail with Dr Taveras.
--- NOTE | 2016-11-16 14:56 | CP.PCM.PN ---
Subjective - Date & Time of Evaluation Date of Evaluation: 11/16/16 Time of Evaluation: 14:54 - Subjective Subjective: Mrs. Gordon was seen and examined today at bedside in the ICU. Family was in the room and we discussed the lack of improvement in the patient's clinical condition as well as the multifactorial underlying causes. Objective - Vital Signs/Intake and Output Vital Signs (last 24 hours): Temp Pulse Resp BP Pulse Ox 99.1 F 100 H 22 153/82 H 94 L 11/16/16 11:47 11/16/16 11:47 11/16/16 11:47 11/16/16 11:47 11/16/16 11:47 Intake and Output: 11/16/16 11/16/16 06:59 18:59 Intake Total 375 Output Total 900 Balance -525 - Medications Medications: Current Medications Acetaminophen (Tylenol 160mg/5ml Oral Soln) 320 mg PO Q4 PRN PRN Reason: Pain, Mild (1-3) Last Admin: 11/15/16 21:33 Dose: 320 mg Cilostazol (Pletal) 50 mg PO BID [facility] Last Admin: 11/16/16 10:57 Dose: 50 mg Digoxin (Lanoxin) 0.25 mg PO 1400 [facility] Last Admin: 11/15/16 15:58 Dose: 0.25 mg Diltiazem HCl (Cardizem) 60 mg PO TID [facility] Home Med (Home Med) 500 unit PO Q12 [facility] Last Admin: 11/16/16 00:51 Dose: Not Given Home Med (Home Med) 0 unit NG Q4H [facility] Stop: 12/05/16 14:01 Hydralazine HCl (Apresoline) 10 mg IVP Q6 PRN PRN Reason: for sbp.170 and/0r diastolic> Last Admin: 11/13/16 16:26 Dose: 10 mg diltiaZEM IVPB 100mg in NS (Cardizem 100mg In Ns) 100 mls @ 10 mls/hr IV .Q10H PRN; Protocol; 10 MG/HR PRN Reason: TITRATE PER MD ORDER Last Admin: 11/15/16 06:33 Dose: 10 mg/hr, 10 mls/hr Levetiracetam (Keppra 500mg Ivpb) 500 mg in 100 mls @ 400 mls/hr IV Q12 [facility] Last Admin: 11/16/16 11:03 Dose: 400 mls/hr Levalbuterol HCl (Xopenex) 0.63 mg IH [id number] PRN PRN Reason: Shortness of Breath Last Admin: 11/14/16 02:38 Dose: 0.63 mg Nitroglycerin (Nitro-Bid 2% Oint) 1 ea TOP Q6H [facility] Last Admin: 11/16/16 08:00 Dose: 1 ea Pantoprazole Sodium (Protonix Inj) 40 mg IVP DAILY [facility] Last Admin: 11/16/16 11:00 Dose: 40 mg - Labs Labs: 11/16/16 06:00 11/16/16 06:00 PT 12.0 Seconds (9.9-11.8) H 11/10/16 09:00 INR 1.11 (0.93-1.08) H 11/10/16 09:00 APTT 25.8 Seconds (23.7-30.8) 11/05/16 15:40 - Neurological Exam Additional comments: Neurologically unchanged compared with yesterday's examination. Assessment and Plan (1) Ischemic stroke Assessment & Plan: Continue cilostazol and fluids. PT/OT eval. Will obtain a repeat CT scan to ensure there have not been new infarcts since the patient is having less movement of the right side. Status: Acute (2) Subarachnoid hemorrhage Assessment & Plan: Continue nimodipine.l Status: Acute (3) Seizure Assessment & Plan: Continue Keppra. Status: Acute
[2016-11-16] MEDS: Digoxin 250 mcg (0.25 mg) Tab PO SCH (15:46)
[2016-11-16] MEDS: Acetaminophen 160 mg/5 ml UD PO PRN (15:59)
--- NOTE | 2016-11-16 18:12 | CP.PCM.PN ---
<Tiffany Li - Last Filed: 11/16/16 18:10> Subjective - Date & Time of Evaluation Date of Evaluation: 11/16/16 Time of Evaluation: 09:00 - Subjective Subjective: S&E at bedside, chart reviewed. Non responsive, NGtube in place, no acute overnight events reported. Objective - Vital Signs/Intake and Output Vital Signs (last 24 hours): Temp Pulse Resp BP Pulse Ox 99.1 F 100 H 22 153/82 H 94 L 11/16/16 11:47 11/16/16 11:47 11/16/16 11:47 11/16/16 11:47 11/16/16 11:47 Intake and Output: 11/16/16 11/16/16 06:59 18:59 Intake Total 375 Output Total 900 Balance -525 - Medications Medications: Current Medications Acetaminophen (Tylenol 160mg/5ml Oral Soln) 320 mg PO Q4 PRN PRN Reason: Pain, Mild (1-3) Last Admin: 11/15/16 21:33 Dose: 320 mg Cilostazol (Pletal) 50 mg PO BID [facility] Last Admin: 11/16/16 10:57 Dose: 50 mg Digoxin (Lanoxin) 0.25 mg PO 1400 [facility] Last Admin: 11/15/16 15:58 Dose: 0.25 mg Diltiazem HCl (Cardizem) 60 mg PO TID [facility] Home Med (Home Med) 500 unit PO Q12 [facility] Last Admin: 11/16/16 00:51 Dose: Not Given Home Med (Home Med) 0 unit NG Q4H [facility] Stop: 12/05/16 14:01 Hydralazine HCl (Apresoline) 10 mg IVP Q6 PRN PRN Reason: for sbp.170 and/0r diastolic> Last Admin: 11/13/16 16:26 Dose: 10 mg Amino Acids/Electrolytes/Dextrose (Clinimix 4.25/5 % "E" (2000 Ml)) 2,000 mls @ 83.333 mls/hr IV .Q24H [facility] Last Admin: 11/15/16 18:44 Dose: 83.333 mls/hr diltiaZEM IVPB 100mg in NS (Cardizem 100mg In Ns) 100 mls @ 10 mls/hr IV .Q10H PRN; Protocol; 10 MG/HR PRN Reason: TITRATE PER MD ORDER Last Admin: 11/15/16 06:33 Dose: 10 mg/hr, 10 mls/hr Levetiracetam (Keppra 500mg Ivpb) 500 mg in 100 mls @ 400 mls/hr IV Q12 [facility] Last Admin: 11/16/16 11:03 Dose: 400 mls/hr Levalbuterol HCl (Xopenex) 0.63 mg IH [id number] PRN PRN Reason: Shortness of Breath Last Admin: 11/14/16 02:38 Dose: 0.63 mg Nitroglycerin (Nitro-Bid 2% Oint) 1 ea TOP Q6H [facility] Last Admin: 11/16/16 08:00 Dose: 1 ea Pantoprazole Sodium (Protonix Inj) 40 mg IVP DAILY [facility] Last Admin: 11/16/16 11:00 Dose: 40 mg - Labs Labs: 11/16/16 06:00 11/16/16 06:00 PT 12.0 Seconds (9.9-11.8) H 11/10/16 09:00 INR 1.11 (0.93-1.08) H 11/10/16 09:00 APTT 25.8 Seconds (23.7-30.8) 11/05/16 15:40 - Constitutional Appears: No Acute Distress - Head Exam Head Exam: NORMOCEPHALIC - Eye Exam Eye Exam: Normal appearance. absent: Scleral icterus - ENT Exam ENT Exam: Mucous Membranes Moist - Neck Exam Neck Exam: Normal Inspection - Respiratory Exam Respiratory Exam: NORMAL BREATHING PATTERN. absent: Respiratory Distress - Cardiovascular Exam Cardiovascular Exam: +S1, +S2 - GI/Abdominal Exam GI & Abdominal Exam: Soft, Hypoactive Bowel Sounds. absent: Distended, Guarding , Tenderness, Rebound - Neurological Exam Neurological Exam: Altered - Skin Skin Exam: Dry, Warm Assessment and Plan - Assessment and Plan (Free Text) Assessment: ASSESSMENT: Spontaneous SAH Thrombocytopenia Multiple B/L cerebellar stroke, left occipital stroke, R MCA H/O Lung Cancer HTN Oropharyngeal Dysphagia Elevated LFT, improving CAD PLAN: continue TPN monitor electrolytes On IV cardiziem continue PPI DVT prophylaxis/SCD PT presently DNR/DNI, may pulmonary clearance and anesthesia evaluation, would need to be more optimized before considering PEG insertion spoke to the family at bedside. Seen and discussed w/ Dr. Castorena. <Surinder Castorena V - Last Filed: 11/16/16 22:51> Objective - Vital Signs/Intake and Output Vital Signs (last 24 hours): Temp Pulse Resp BP Pulse Ox 98.8 F 80 22 132/52 L 94 L 11/16/16 19:03 11/16/16 18:00 11/16/16 11:47 11/16/16 18:57 11/16/16 11:47 Intake and Output: 11/16/16 11/17/16 18:59 06:59 Intake Total 1096 Output Total 1200 Balance -104 - Medications Medications: Current Medications Acetaminophen (Tylenol 160mg/5ml Oral Soln) 320 mg PO Q4 PRN PRN Reason: Pain, Mild (1-3) Last Admin: 11/16/16 15:59 Dose: 320 mg Atenolol (Tenormin) 12.5 mg PO BID [facility] Last Admin: 11/16/16 18:57 Dose: 12.5 mg Cilostazol (Pletal) 50 mg PO BID [facility] Last Admin: 11/16/16 18:57 Dose: 50 mg Digoxin (Lanoxin) 0.25 mg PO 1400 [facility] Last Admin: 11/16/16 15:46 Dose: 0.25 mg Diltiazem HCl (Cardizem) 60 mg PO TID [facility] Last Admin: 11/16/16 18:57 Dose: 60 mg Home Med (Home Med) 500 unit PO Q12 [facility] Last Admin: 11/16/16 22:05 Dose: 500 unit Home Med (Home Med) 0 unit NG Q4H [facility] Stop: 12/05/16 14:01 Last Admin: 11/16/16 21:00 Dose: 1 unit Hydralazine HCl (Apresoline) 10 mg IVP Q6 PRN PRN Reason: for sbp.170 and/0r diastolic> Last Admin: 11/13/16 16:26 Dose: 10 mg diltiaZEM IVPB 100mg in NS (Cardizem 100mg In Ns) 100 mls @ 10 mls/hr IV .Q10H PRN; Protocol; 10 MG/HR PRN Reason: TITRATE PER MD ORDER Last Admin: 11/15/16 06:33 Dose: 10 mg/hr, 10 mls/hr Levetiracetam (Keppra 500mg Ivpb) 500 mg in 100 mls @ 400 mls/hr IV Q12 [facility] Last Admin: 11/16/16 22:09 Dose: 400 mls/hr Levalbuterol HCl (Xopenex) 0.63 mg IH [id number] PRN PRN Reason: Shortness of Breath Last Admin: 11/14/16 02:38 Dose: 0.63 mg Nitroglycerin (Nitro-Bid 2% Oint) 1 ea TOP Q6H [facility] Last Admin: 11/16/16 20:00 Dose: 1 ea Pantoprazole Sodium (Protonix Inj) 40 mg IVP DAILY [facility] Last Admin: 11/16/16 11:00 Dose: 40 mg - Labs Labs: 11/16/16 06:00 11/16/16 06:00 PT 12.0 Seconds (9.9-11.8) H 11/10/16 09:00 INR 1.11 (0.93-1.08) H 11/10/16 09:00 APTT 25.8 Seconds (23.7-30.8) 11/05/16 15:40 Attending/Attestation - Attestation I have personally seen and examined this patient.: Yes I have fully participated in the care of the patient.: Yes I have reviewed all pertinent clinical information, including history, physical exam and plan: Yes Notes (Text): Patient is a DNR/DNI. Discussed with the patient's son. The NG tube feeding is on. Patient needs optimization of your to considering PEG tube placement. Overall prognosis of the patient remains guarded.
--- NOTE | 2016-11-16 20:16 | PN ---
DATE: 11/16/2016 REASON FOR CONSULTATION: Followup non-ST segment myocardial infarction, lung CA, pancytopenia, CVA, aphasic, comatose. SUBJECTIVE: The patient is comatose. Vitals are relatively stable. Off IV Cardizem. PHYSICAL EXAMINATION GENERAL: Lying comfortable. Not in apparent distress. Getting IV PPN, off IV Cardizem. VITAL SIGNS: As follows: Temperature afebrile, heart rate 100, and blood pressure 153/82. HEENT: PERRLA. Extraocular movements are intact. NECK: Supple. No carotid bruits or thyromegaly. HEART: S1 and S2. Regular. CHEST: Clear to auscultation. ABDOMEN: Soft. EXTREMITIES: Clubbing and cyanosis negative. LABORATORY DATA: WBC 9.9, hemoglobin 8.2, hematocrit 24.4, and platelet count 77. Chemistry shows sodium 138, potassium 3.3, chloride 102, carbon dioxide 28, anion gap of 12, BUN 36, creatinine 0.8. Total protein 12.9, albumin 3.9, and albumin-globulin ration of 1.1. IMPRESSION: A 76-year-old female with past medical history significant for coronary artery disease, cardiomyopathy, status post inferior vena cava filter recently, status post recent cardiac catheterization in 03/2016, patent stent in right coronary artery, decreased left ventricular function, LifeVest, recently diagnosed lung carcinoma status post cycle of chemo, admitted with intracerebral bleed, pancytopenic, progressive cerebrovascular accident and recurrent infarct leading to incomplete comatose. Now the patient is comatose, on IV PPN and IV Cardizem. Now the patient on [place]. The patient also has is troponin positive, but far advanced to do any coronary intervention. RECOMMENDATIONS: Continue DVT prophylaxis. We will change to Cardizem p.o. 60. We will continue . We will put low dose beta-sendy and start NG feeding. Clinical prognosis is guarded. DNR/DNI. Consider hospice care. Low dose of atenolol. We will follow with you. Thank you Dr. Ibarra for providing us the opportunity in taking care of the patient, Ms. Tiffany Gordon. Kayden Valdes MD
--- NOTE | 2016-11-16 21:36 | PN ---
DATE: 11/16/2016 SUBJECTIVE: She is lying in the bed on supplement oxygen, unresponsive, nonverbal, does not follow any command. Could not awake or rub by verbal or tactile stimulus. Son is at bedside, has a nasogastric tube, still getting TPN *------*. No cough, no sputum production. No hemoptysis, no hematemesis, no hematuria, and no diarrhea reported. OBJECTIVE: VITAL SIGNS: Temperature is 99, hear rate is 100, respiratory rate is 20, blood pressure 153/82, pulse ox 94% on nasal cannula. HEENT: Small oral cavity. Crowded airway. NECK: Supple. No JVD. LUNGS: Has few scattered rhonchi.. HEART: S1 and S2. ABDOMEN: Soft, nontender, nondistended. EXTREMITIES: There is no edema. NEUROLOGIC: Unresponsive. MEDICATIONS: She is on hydralazine 10 mg q.6 hours p.r.n., Cardizem 60 mg three times a day, also on Keppra 500 mg IV q.12 hours, digoxin 0.25 mg daily, Pletal 50 mg twice a day, Protonix 40 mg daily, Tylenol p.r.n., Xopenex inhaled q. 6 hours p.r.n. LABORATORY DATA: Shows hemoglobin 8.2, hematocrit 24.4, WBC 9.9, platelet count is 77. Sodium 138, potassium 3.6, chloride 102, bicarbonate 28, BUN 36, creatinine 0.8, glucose 144, calcium 8.8. AST 67, ALT 81, alkaline phosphatase is 114, albumin is 3.1. IMPRESSION AND PLAN: Hemorrhagic stroke end up with ischemic stroke, history of lung cancer, been on chemotherapy with thrombocytopenia, cardiomyopathy, pulmonary hypertension, questionable seizure, oropharyngeal dysphagia, nasogastric tube. EEG report is pending. Spoke to nursing staff, although spoke to patient's son at bedside, all the questions answered. We will start nasogastric tube feeding after present bag of TPN finish, we will stop it. Keep head elevated at 45 degrees, may use bilevel positive airway pressure as needed. Gastric prophylaxis, sequential compression device to lower extremities. Continue Keppra and also Pletal once decided. Appreciated Dr. William Silva's input. Follow up labs in the morning. Thank you, and we will followup with you. Critical care time was more than 35 minutes. Kayden Frost MD [facility] # [id number]
--- NOTE | 2016-11-16 22:50 | PCM.EEG ---
Electroencephalogram Report - Electroencephalogram Report Procedure Date: 11/16/16 Interpretation: CONDITION OF THIS RECORDING: DROWSY. DIAGNOSIS: AMS/Seizure. MEDICATIONS:l REVIEWED BY NURSE'S RECONCILIATION. INTERPRETATION: THIS IS A 16 CHANNEL INTERNATIONAL RECORDING. THE BACKEND OF THIS TRACING WAS COMPOSED OF 6- 7 CYCLES PER SECOND. THERE WAS SMALL AMOUNT OF BETA ACTIVITY OF 16-20 CPS IN THE RECORDING AND INCREASE AMOUNT OF THETA ACTIVITY OF 5-7 CPS SEEN IN THIS TRACING. THERE WAS DELTA ACTIVITY SEEN MOSTLY ON THE RIGHT FRONTAL TEMRPORAL AREA WELL. EMG ARTIFACT THROUGHOUT THE RECORDING. DROWSINESS WAS CHARACTERIZED BY MIXED BETA AND THETA ACTIVITIES. SLEEP WAS CHARACTERIZED BY VERTEX TRANSIENT WAVE, SLEEP SPINDLES, AND B/L SLOWING. PHOTIC STIMULATION SHOWED NO CHANGE IN THE TRACING. NO PAROXYSMAL ACTIVITY NOTED IN THIS RECORDING. EMG ARTIFICAT WAS SEEN. CONCLUSION: THIS IS AN ABNORMAL EEG SHOWING DIFFUSE B/L SLOWING THROUGHOUT THE RECORDING CONSISTENT WITH SEVERE B/L CEREBRAL DYSFUNCTION. NO SEIZURE ACTIVITY. Impression: CONCLUSION: THIS IS AN ABNORMAL EEG SHOWING DIFFUSE B/L SLOWING THROUGHOUT THE RECORDING CONSISTENT WITH SEVERE B/L CEREBRAL DYSFUNCTION. NO SEIZURE ACTIVITY.
--- NOTE | 2016-11-16 23:33 | CT ---
EXAM: CT Head Without Intravenous Contrast CLINICAL HISTORY: 76 years old, female; Condition or disease; Other: Stroke, follow up TECHNIQUE: Axial computed tomography images of the head/brain without intravenous contrast. This CT exam was performed using one or more of the following dose reduction techniques: automated exposure control, adjustment of the mA and/or kV according to patient size, and/or use of iterative reconstruction technique. EXAM DATE/TIME: 11/16/2016 2:56 PM COMPARISON: CT - HEAD W/O CONTRAST 11/14/2016 7:08:25 PM FINDINGS: Patient motion is present limiting exam. Nasogastric tube has been placed since the prior study. Again seen are areas of low-attenuation in the left frontal lobe and right frontal parietal lobes consistent with infarcts. Again seen is a small lacunar infarct in the right thalamus with small faint area of slightly increased density possible trace amount of blood unchanged. Again seen are small old cerebellar infarcts. There is fluid in the left mastoid air cells new since prior. There is partial opacification of the left ethmoid sinuses new since prior. IMPRESSION: Infarcts as described above not significantly changed. Interval development of fluid in the left mastoid air cells and the left ethmoid sinus. Clinical correlation recommended with regards to signs/symptoms of mastoiditis/sinusitis.
[2016-11-17] MEDS: NIMODIPINE 30 MG NG SCH ×6 (01:01→21:28)
[2016-11-17] MEDS: Nitroglycerin 2% Ointment Foilpak UD TOP SCH ×4 (02:00→21:29)
[2016-11-17 06:40] LABS: MEAN CELL VOLUME 94.7 fl (80.0-105.0); MEAN CORPUSCULAR HEMOGLOBIN 32.2 pg (25.0-35.0); MEAN PLATELET VOLUME 10.3 fl (7.0-11.0); PLATELET COUNT 51 10^3/uL (120.0-450.0); RBC 2.08 10^6/uL (3.5-6.1); RED CELL DISTRIBUTION WIDTH 18.6 % (11.5-14.5); WHITE BLOOD COUNT 8.9 10^3/ul (4.5-11.0)
[2016-11-17 06:56] LABS: HEMOGLOBIN 6.7 g/dL (12.0-16.0)
[2016-11-17 07:06] LABS: ALBUMIN 2.9 g/dL (3.0-4.8); ALT/SGPT 60 U/L (7-56); AST/SGOT 54 U/L (15-39); BLOOD UREA NITROGEN 29 mg/dL (7-21); CALCIUM 8.7 mg/dL (8.4-10.5); GFR AFRICAN-AMERICAN > 60; GFR NON-AFRICAN AMERICAN > 60
[2016-11-17 08:36] LABS: BAND 9 % (0-2); LYMPHOCYTE 15 % (22.0-35.0); MONOCYTE 2 % (1.0-6.0); NEUTROPHIL 74 % (50.0-70.0); NUCLEATED RED BLOOD CELL 3 %
[2016-11-17 08:41] LABS: ANISOCYTOSIS SLIGHT; MICROCYTOSIS 1+; PLATELET ESTIMATE LOW (NORMAL)
--- NOTE | 2016-11-17 08:41 | PN ---
DATE: SUBJECTIVE: The patient is seen and examined at the bedside. The patient is almost comatose, unresponsive, not responding to any tactile stimuli or verbal stimuli. Family is around. I spoke to the patient's son and daughter. Daughter wants me to do her paper for her work because she is staying 24 hours with the mother. The patient is still getting parenteral feeding and getting p.o. medicine with nasogastric tube, getting TPN. No coughing, no shortness of breath. The patient is not able to give review of systems, but looks like not has diarrhea, no fever. PHYSICAL EXAMINATION: VITAL SIGNS: Temperature 99, heart rate 100, respiratory rate 20, blood pressure 150/82, pulse oximetry 94% on nasal cannula. HEENT: Head is normocephalic and atraumatic. Eyes closed. Small oral cavity. Crowded airway. NECK: Supple. No JVD. No thyromegaly. LUNGS: Have few scattered rhonchi. HEART: S1 and S2 positive. ABDOMEN: Soft, nontender, nondistended. EXTREMITIES: There is trace edema. NEUROLOGIC: The patient is unresponsive, cannot do neurologic examination. MEDICATIONS: Hydralazine, Cardizem, Keppra, digoxin, Pletal, Protonix, Tylenol, Xopenex. LABORATORY DATA: Hemoglobin 8.2, hematocrit 24.4, white blood cell 9.9, platelets are 77. Sodium 138, potassium 3.6, BUN 36, creatinine 0.8, AST 67, and ALT 81. ASSESSMENT AND PLAN: Ms. Tiffany Gordon is a 76-year-old lady with multiple medical problems who came in with hemorrhagic stroke, end up with ischemic stroke, history of lung cancer and breast cancer, was on chemotherapy, has thrombocytopenia, cardiomyopathy, pulmonary hypertension, seizures, oropharyngeal dysphagia. Getting total parenteral nutrition, nasogastric tube for medication. EEG was done. Length of time discussion done with the patient's family. All questions answered. Gastric prophylaxis, sequential compression devices to lower extremities. Continue Keppra and also Pletal. Appreciated Dr. Thomas and Dr. Frost's input. Length of time discussion done with Dr. Thomas. We will follow up. Bhumi Ibarra MD
[2016-11-17 08:56] LABS: BASO # 0.04 K/mm3 (0.0-2.0); BASO % 0.4 % (0.0-3.0); EOS % 0.4 % (1.5-5.0); GRAN # 8.66 (1.4-6.5); GRAN % 77.2 % (50.0-68.0); LYMPH # 1.5 (1.2-3.4); LYMPH % 13.1 % (22.0-35.0); MEAN CELL VOLUME 93.9 fl (80.0-105.0); MEAN CORPUSCULAR HEMOGLOBIN 31.6 pg (25.0-35.0); MEAN CORPUSCULAR HGB CONC 33.7 g/dl (31.0-37.0); MEAN PLATELET VOLUME 10.8 fl (7.0-11.0); MONO % 8.9 % (1.0-6.0); PLATELET COUNT 73 10^3/uL (120.0-450.0); RBC 2.94 10^6/uL (3.5-6.1); RED CELL DISTRIBUTION WIDTH 18.6 % (11.5-14.5); WHITE BLOOD COUNT 11.2 10^3/ul (4.5-11.0)
[2016-11-17 09:00] LABS: HEMOGLOBIN 9.3 g/dL (12.0-16.0)
--- NOTE | 2016-11-17 10:24 | RAD ---
HISTORY: check feeding tube placement COMPARISON: No prior. FINDINGS: LUNGS: No active pulmonary disease. PLEURA: No significant pleural effusion identified, no pneumothorax apparent. CARDIOVASCULAR: Mild vascular and interstitial congestionunchanged OSSEOUS STRUCTURES: No significant abnormalities. VISUALIZED UPPER ABDOMEN: Normal. OTHER FINDINGS: Feeding tube is seen just beyond the GE junction IMPRESSION: Feeding tube is seen just beyond the GE junction
--- NOTE | 2016-11-17 10:28 | CP.PCM.PN ---
<Tiffany Li - Last Filed: 11/17/16 15:50> Subjective - Date & Time of Evaluation Date of Evaluation: 11/17/16 Time of Evaluation: 09:10 - Subjective Subjective: seen and examined at the bedside this morning, daughter at the bedside. Patient remains with Dobbhoff and tolerating feedings, no reports of high residuals. Patient is lethargic, remains with left-sided weakness. No acute overnight events reported. Objective - Vital Signs/Intake and Output Vital Signs (last 24 hours): Temp Pulse Resp BP Pulse Ox 98.5 F 91 H 22 143/64 97 11/17/16 08:54 11/17/16 08:54 11/17/16 08:54 11/17/16 08:54 11/17/16 08:54 Intake and Output: 11/17/16 11/17/16 06:59 18:59 Intake Total 1496 Output Total 2000 Balance -504 - Medications Medications: Current Medications Acetaminophen (Tylenol 160mg/5ml Oral Soln) 320 mg PO Q4 PRN PRN Reason: Pain, Mild (1-3) Last Admin: 11/16/16 15:59 Dose: 320 mg Atenolol (Tenormin) 12.5 mg PO BID [facility] Last Admin: 11/16/16 18:57 Dose: 12.5 mg Cilostazol (Pletal) 50 mg PO BID [facility] Last Admin: 11/16/16 18:57 Dose: 50 mg Digoxin (Lanoxin) 0.25 mg PO 1400 [facility] Last Admin: 11/16/16 15:46 Dose: 0.25 mg Diltiazem HCl (Cardizem) 60 mg PO TID [facility] Last Admin: 11/16/16 18:57 Dose: 60 mg Home Med (Home Med) 500 unit PO Q12 [facility] Last Admin: 11/16/16 22:05 Dose: 500 unit Home Med (Home Med) 0 unit NG Q4H [facility] Stop: 12/05/16 14:01 Last Admin: 11/17/16 04:50 Dose: 1 unit Hydralazine HCl (Apresoline) 10 mg IVP Q6 PRN PRN Reason: for sbp.170 and/0r diastolic> Last Admin: 11/13/16 16:26 Dose: 10 mg diltiaZEM IVPB 100mg in NS (Cardizem 100mg In Ns) 100 mls @ 10 mls/hr IV .Q10H PRN; Protocol; 10 MG/HR PRN Reason: TITRATE PER MD ORDER Last Admin: 11/15/16 06:33 Dose: 10 mg/hr, 10 mls/hr Levetiracetam (Keppra 500mg Ivpb) 500 mg in 100 mls @ 400 mls/hr IV Q12 [facility] Last Admin: 11/16/16 22:09 Dose: 400 mls/hr Levalbuterol HCl (Xopenex) 0.63 mg IH [id number] PRN PRN Reason: Shortness of Breath Last Admin: 11/14/16 02:38 Dose: 0.63 mg Nitroglycerin (Nitro-Bid 2% Oint) 1 ea TOP Q6H [facility] Last Admin: 11/17/16 02:00 Dose: 1 ea Pantoprazole Sodium (Protonix Inj) 40 mg IVP DAILY [facility] Last Admin: 11/16/16 11:00 Dose: 40 mg - Labs Labs: 11/17/16 08:30 11/17/16 06:15 PT 12.0 Seconds (9.9-11.8) H 11/10/16 09:00 INR 1.11 (0.93-1.08) H 11/10/16 09:00 APTT 25.8 Seconds (23.7-30.8) 11/05/16 15:40 - Constitutional Appears: Chronically Ill - Head Exam Head Exam: NORMOCEPHALIC - Eye Exam Eye Exam: Normal appearance - ENT Exam ENT Exam: Mucous Membranes Moist - Respiratory Exam Respiratory Exam: NORMAL BREATHING PATTERN. absent: Respiratory Distress - Cardiovascular Exam Cardiovascular Exam: +S1, +S2 - GI/Abdominal Exam GI & Abdominal Exam: Soft, Normal Bowel Sounds. absent: Guarding, Tenderness, Rebound - Neurological Exam Neurological Exam: Altered (following the lengthhe is felt) - Skin Skin Exam: Dry, Warm Assessment and Plan - Assessment and Plan (Free Text) Assessment: ASSESSMENT: Spontaneous SAH Thrombocytopenia Multiple B/L cerebellar stroke, left occipital stroke, R MCA H/O Lung Cancer HTN Oropharyngeal Dysphagia Elevated LFT, improving CAD PLAN: started on Jevity feedings Portable chest x-ray to check placement of Dobbhoff monitor electrolytes On IV cardiziem continue PPI DVT prophylaxis/SCD PT presently DNR/DNI, may pulmonary clearance and anesthesia evaluation, would need to be more optimized before considering PEG insertion spoke to the family at bedside. Seen and discussed w/ Dr. Castorena. CHEST XRAY REPORT SEEN AND DOBHOFF BEYOND [place] POSITION. <Surinder Castorena V - Last Filed: 11/17/16 23:15> Objective - Vital Signs/Intake and Output Vital Signs (last 24 hours): Temp Pulse Resp BP Pulse Ox 98.9 F 89 20 150/70 98 11/17/16 16:35 11/17/16 21:27 11/17/16 16:35 11/17/16 21:27 11/17/16 16:35 Intake and Output: 11/17/16 11/18/16 18:59 06:59 Intake Total 0 Output Total 300 Balance -300 - Medications Medications: Current Medications Acetaminophen (Tylenol 160mg/5ml Oral Soln) 320 mg PO Q4 PRN PRN Reason: Pain, Mild (1-3) Last Admin: 11/16/16 15:59 Dose: 320 mg Amantadine HCl (Amantadine 100 Mg Cap) 100 mg PO DAILY [facility] Last Admin: 11/17/16 13:48 Dose: 100 mg Atenolol (Tenormin) 25 mg PO BID [facility] Last Admin: 11/17/16 18:03 Dose: 25 mg Cilostazol (Pletal) 50 mg PO BID [facility] Last Admin: 11/17/16 18:03 Dose: 50 mg Digoxin (Lanoxin) 0.25 mg PO 1400 [facility] Last Admin: 11/17/16 13:54 Dose: 0.25 mg Diltiazem HCl (Cardizem) 60 mg PO Q6H [facility] Last Admin: 11/17/16 21:27 Dose: 60 mg Home Med (Home Med) 500 unit PO Q12 [facility] Last Admin: 11/17/16 21:28 Dose: 500 unit Home Med (Home Med) 0 unit NG Q4H [facility] Stop: 12/05/16 14:01 Last Admin: 11/17/16 21:28 Dose: 1 unit Hydralazine HCl (Apresoline) 10 mg IVP Q6 PRN PRN Reason: for sbp.170 and/0r diastolic> Last Admin: 11/17/16 18:07 Dose: 10 mg diltiaZEM IVPB 100mg in NS (Cardizem 100mg In Ns) 100 mls @ 10 mls/hr IV .Q10H PRN; Protocol; 10 MG/HR PRN Reason: TITRATE PER MD ORDER Last Admin: 11/15/16 06:33 Dose: 10 mg/hr, 10 mls/hr Levalbuterol HCl (Xopenex) 0.63 mg IH [id number] PRN PRN Reason: Shortness of Breath Last Admin: 11/17/16 17:46 Dose: 0.63 mg Levetiracetam (Keppra) 250 mg PO BID [facility] Last Admin: 11/17/16 18:02 Dose: 250 mg Nitroglycerin (Nitro-Bid 2% Oint) 1 ea TOP Q6H [facility] Last Admin: 11/17/16 21:29 Dose: 1 ea Pantoprazole Sodium (Protonix Inj) 40 mg IVP DAILY [facility] Last Admin: 11/17/16 11:06 Dose: 40 mg - Labs Labs: 11/17/16 08:30 11/17/16 06:15 PT 12.0 Seconds (9.9-11.8) H 11/10/16 09:00 INR 1.11 (0.93-1.08) H 11/10/16 09:00 APTT 25.8 Seconds (23.7-30.8) 11/05/16 15:40 Attending/Attestation - Attestation I have personally seen and examined this patient.: Yes I have fully participated in the care of the patient.: Yes I have reviewed all pertinent clinical information, including history, physical exam and plan: Yes Notes (Text): p
--- NOTE | 2016-11-17 10:33 | EEG ---
DATE: 11/15/2016 CONDITION OF THE RECORDING: Drowsy. DIAGNOSIS: Seizure. MEDICATIONS: Keppra, Pletal. INTERPRETATION: This is a 16-channel international recording. The background activity of this recording was composed of 4-5 cycles per second. There was limited amount of beta activity with 16-20 cycles per second seen in this recording. There was a lot of EMG artifact throughout the recording. There was increased amount of theta activity of 5-7 cycles per seconds seen in the tracing, and there was lot of delta activity especially in the right frontal area compared to the left. A sleep was characterized by vertex transient waves.Photic stimulation showed no change in response. No paroxysmal activity noted in this recording. CONCLUSION: This is an abnormal EEG due to the presence of diffuse slowing throughout, mostly in the right frontotemporal compared to the left consistent with bilateral cerebral dysfunction. No evidence of any epileptiform activity. Please clinically correlate. Jack Acosta MD MTDJohnathon
[2016-11-17] MEDS: levETIRAcetam 500mg IVPB 500 MG/100 ML BAG IV SCH (11:04)
[2016-11-17] MEDS: Cilostazol 50 mg Tab UD PO SCH ×2 (11:17→18:03)
--- NOTE | 2016-11-17 12:23 | CP.PCM.PN ---
Subjective - Date & Time of Evaluation Date of Evaluation: 11/17/16 Time of Evaluation: 12:18 - Subjective Subjective: Mrs. Gordon was seen and examined today with family at bedside. She continued to have little interaction with movements only notable on the right side. I discussed with the family the results of the recent CT head and the EEG findings. We talked about starting stimulants to attempt have her become more interactive and possibly obtain physical therapy. However, the bilateral involvement of the brain is likely making it difficult for her to sustain wakefulness. Objective - Vital Signs/Intake and Output Vital Signs (last 24 hours): Temp Pulse Resp BP Pulse Ox 98.5 F 103 H 22 169/79 H 97 11/17/16 08:54 11/17/16 11:05 11/17/16 08:54 11/17/16 11:05 11/17/16 08:54 Intake and Output: 11/17/16 11/17/16 06:59 18:59 Intake Total 1496 Output Total 2000 Balance -504 - Medications Medications: Current Medications Acetaminophen (Tylenol 160mg/5ml Oral Soln) 320 mg PO Q4 PRN PRN Reason: Pain, Mild (1-3) Last Admin: 11/16/16 15:59 Dose: 320 mg Atenolol (Tenormin) 12.5 mg PO BID [facility] Last Admin: 11/17/16 11:05 Dose: 12.5 mg Cilostazol (Pletal) 50 mg PO BID [facility] Last Admin: 11/17/16 11:17 Dose: 50 mg Digoxin (Lanoxin) 0.25 mg PO 1400 [facility] Last Admin: 11/16/16 15:46 Dose: 0.25 mg Diltiazem HCl (Cardizem) 60 mg PO TID [facility] Last Admin: 11/17/16 10:41 Dose: 60 mg Home Med (Home Med) 500 unit PO Q12 [facility] Last Admin: 11/17/16 11:16 Dose: 500 unit Home Med (Home Med) 0 unit NG Q4H [facility] Stop: 12/05/16 14:01 Last Admin: 11/17/16 04:50 Dose: 1 unit Hydralazine HCl (Apresoline) 10 mg IVP Q6 PRN PRN Reason: for sbp.170 and/0r diastolic> Last Admin: 11/13/16 16:26 Dose: 10 mg diltiaZEM IVPB 100mg in NS (Cardizem 100mg In Ns) 100 mls @ 10 mls/hr IV .Q10H PRN; Protocol; 10 MG/HR PRN Reason: TITRATE PER MD ORDER Last Admin: 11/15/16 06:33 Dose: 10 mg/hr, 10 mls/hr Levetiracetam (Keppra 500mg Ivpb) 500 mg in 100 mls @ 400 mls/hr IV Q12 [facility] Last Admin: 11/17/16 11:04 Dose: 400 mls/hr Levalbuterol HCl (Xopenex) 0.63 mg IH [id number] PRN PRN Reason: Shortness of Breath Last Admin: 11/14/16 02:38 Dose: 0.63 mg Nitroglycerin (Nitro-Bid 2% Oint) 1 ea TOP Q6H [facility] Last Admin: 11/17/16 11:27 Dose: 1 ea Pantoprazole Sodium (Protonix Inj) 40 mg IVP DAILY [facility] Last Admin: 11/17/16 11:06 Dose: 40 mg - Labs Labs: 11/17/16 08:30 11/17/16 06:15 PT 12.0 Seconds (9.9-11.8) H 11/10/16 09:00 INR 1.11 (0.93-1.08) H 11/10/16 09:00 APTT 25.8 Seconds (23.7-30.8) 11/05/16 15:40 - Neurological Exam Neurological Exam: Altered Neuro motor strength exam: Left Upper Extremity: 0, Right Upper Extremity: 4, Left Lower Extremity: 0, Right Lower Extremity: 4 Additional comments: Reflexes are brisk on the left side with upgoing plantar response. Eyes were deviated toward the right this morning without breaking midline. Movements were only present on the right, she opened eyes to command, but did not follow any other commands. Assessment and Plan (1) Ischemic stroke Assessment & Plan: She has a large right MCA ischemic stroke, moderate sized left frontal lobe stroke and bilateral cerebellar infarcts. These are likely due to cardio- embolic etiology or diffuse cerebral vasospasm, possibly reactive to the SAH. Will continue cilostazol and fluids. Will start amantadine at 100 mg BID to promote more wakefulness. Status: Acute (2) Subarachnoid hemorrhage Assessment & Plan: Stable, continue nimodipine for 21 days. Status: Acute (3) Seizure Assessment & Plan: No seizure activity noted and EEG shows diffuse slowing, but this was after the patient was started on Keppra. I recommend continuing Keppra, but may lower the dose to 250 mg BID to promote more wakefulness. Status: Acute
[2016-11-17] MEDS: Digoxin 250 mcg (0.25 mg) Tab PO SCH (13:54)
[2016-11-17 13:56] VITALS: PULSE 95
--- NOTE | 2016-11-17 14:51 | CP.PCM.PN ---
Subjective - Date & Time of Evaluation Date of Evaluation: 11/17/16 Time of Evaluation: 10:40 - Subjective Subjective: Heme/Onc note for Dr Taveras Pt was seen and examined at bedside. Pt is nonresponsive to verbal or tactile stimuli. ROS: 12 point unobtainable Objective - Vital Signs/Intake and Output Vital Signs (last 24 hours): Temp Pulse Resp BP Pulse Ox 98.5 F 103 H 22 169/79 H 97 11/17/16 08:54 11/17/16 11:05 11/17/16 08:54 11/17/16 11:05 11/17/16 08:54 Intake and Output: 11/17/16 11/17/16 06:59 18:59 Intake Total 1496 Output Total 2000 Balance -504 - Medications Medications: Current Medications Acetaminophen (Tylenol 160mg/5ml Oral Soln) 320 mg PO Q4 PRN PRN Reason: Pain, Mild (1-3) Last Admin: 11/16/16 15:59 Dose: 320 mg Amantadine HCl (Amantadine 100 Mg Cap) 100 mg PO DAILY [facility] Last Admin: 11/17/16 13:48 Dose: 100 mg Atenolol (Tenormin) 12.5 mg PO BID [facility] Last Admin: 11/17/16 11:05 Dose: 12.5 mg Cilostazol (Pletal) 50 mg PO BID [facility] Last Admin: 11/17/16 11:17 Dose: 50 mg Digoxin (Lanoxin) 0.25 mg PO 1400 [facility] Last Admin: 11/17/16 13:54 Dose: 0.25 mg Diltiazem HCl (Cardizem) 60 mg PO TID [facility] Last Admin: 11/17/16 13:49 Dose: 60 mg Home Med (Home Med) 500 unit PO Q12 [facility] Last Admin: 11/17/16 11:16 Dose: 500 unit Home Med (Home Med) 0 unit NG Q4H [facility] Stop: 12/05/16 14:01 Last Admin: 11/17/16 13:54 Dose: Not Given Hydralazine HCl (Apresoline) 10 mg IVP Q6 PRN PRN Reason: for sbp.170 and/0r diastolic> Last Admin: 11/13/16 16:26 Dose: 10 mg diltiaZEM IVPB 100mg in NS (Cardizem 100mg In Ns) 100 mls @ 10 mls/hr IV .Q10H PRN; Protocol; 10 MG/HR PRN Reason: TITRATE PER MD ORDER Last Admin: 11/15/16 06:33 Dose: 10 mg/hr, 10 mls/hr Levalbuterol HCl (Xopenex) 0.63 mg IH [id number] PRN PRN Reason: Shortness of Breath Last Admin: 11/14/16 02:38 Dose: 0.63 mg Levetiracetam (Keppra) 250 mg PO BID [facility] Nitroglycerin (Nitro-Bid 2% Oint) 1 ea TOP Q6H [facility] Last Admin: 11/17/16 13:54 Dose: 1 ea Pantoprazole Sodium (Protonix Inj) 40 mg IVP DAILY [facility] Last Admin: 11/17/16 11:06 Dose: 40 mg - Labs Labs: 11/17/16 08:30 11/17/16 06:15 PT 12.0 Seconds (9.9-11.8) H 11/10/16 09:00 INR 1.11 (0.93-1.08) H 11/10/16 09:00 APTT 25.8 Seconds (23.7-30.8) 11/05/16 15:40 - Constitutional Appears: No Acute Distress - Head Exam Head Exam: ATRAUMATIC - Eye Exam Eye Exam: PERRL - ENT Exam ENT Exam: Mucous Membranes Moist - Respiratory Exam Respiratory Exam: Rhonchi. absent: Rales, Wheezes - Cardiovascular Exam Cardiovascular Exam: REGULAR RHYTHM, RRR, +S1, +S2 - GI/Abdominal Exam GI & Abdominal Exam: Soft. absent: Tenderness - Extremities Exam Extremities Exam: absent: Calf Tenderness, Pedal Edema - Skin Skin Exam: Dry, Warm Assessment and Plan - Assessment and Plan (Free Text) Assessment: 76F with pmhx significant for stage breast cancer, IA s/p PCI, IV lung cancer on [place] who presents with dizziness, lightheadedness and confusion x3 days and subsequently found to have left front SAH in setting of severe thrombocytopenia whose hospital course has been complicated by an acute right sided front distribution MCA infarct secondary to transient drop in blood pressures resulting in left sided hemiparesis. - Pt is DNR/DNI - Platelets today 73 ;Hb of 9.3 - no transfusion at this time - F/u neurology recommendation - cont Cilostazol started amantadine to promote wakefulness - EEG showed no active seizures; b/l diffuse slowing - Continue Physical therapy - Not a candidate for additional chemo at this time - Cardiology consult -cont cardizem and digoxin - Will plan on PEG placement once stable - F/u surgery regarding peg placement - Maintain systolic BP >120 - F/u with primary oncologist Dr. Rodriguez - F/u palliative consult Pt was reviewed and discussed in detail with Dr Taveras.
[2016-11-17] MEDS: Levalbuterol 0.63 MG/3 ML Inhal Soln UD IH PRN (17:46)
--- NOTE | 2016-11-17 21:57 | PN ---
DATE: 11/17/2016 REASON FOR CONSULTATION AND FOLLOWUP: Non-ST segment myocardial infarction, lung CA, pancytopenia, CVA, aphasia, comatose. SUBJECTIVE: The patient is comatose. Vitals are relatively stable. Daughter Ely is at the beside. OBJECTIVE: Not in apparent distress. PHYSICAL EXAMINATION: As follows VITAL SIGNS: Temperature afebrile, heart rate 103 and blood pressure 169/79. HEENT: PERRLA. Extraocular movements are intact. NECK: Supple. No carotid bruits or thyromegaly. CHEST: Clear to auscultation. HEART: S1 and S2. Regular. ABDOMEN: Soft. EXTREMITIES: Clubbing and cyanosis negative. LABORATORY DATA: Blood workup: WBC 11.8, hemoglobin 9.3, hematocrit 27.6 and platelet count 73. Chemistry shows sodium 137, potassium 3.8, chloride 104, carbon dioxide 26, anion gap of 11, BUN 29, creatinine 0.8. Total protein 5.7, albumin 2.8, and albumin-globulin ration of 1. IMPRESSION: A 76-year-old female with a past medical history significant for coronary artery disease, status post percutaneous transluminal coronary angioplasty in the past, status post recent catheterization in 03/2016, patent stent, mild in-stent restenosis being followed by Dr. Jam Barillas, cardiology. 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 His spontaneous intracerebral bleed and progressively worsening stroke leads him to aphasic and comatose. The patient currently in comatose and not responding to verbal or deep painful stimuli. Initially was on PPN and IV Cardizem to control blood pressure and heart rate. Now, the patient is now through the Dobhoff feeding. Cardizem is started 60 mg, but the patient's heart rate and blood pressure are up, I have increased to 60 q. 6, also increased atenolol to 25 b.i.d. We will follow with you. Overall the patient's clinical prognosis is guarded. DO NOT RESUSCITATE AND DO NOT INTUBATE. Consider hospice care. Thank you Dr. Ibarra for providing us the opportunity in taking care of Evan Allen. Kayden Valdes MD
[2016-11-18 00:13] VITALS: O2SAT 100
[2016-11-18] MEDS: NIMODIPINE 30 MG NG SCH ×3 (00:47→11:48)
[2016-11-18] MEDS: Nitroglycerin 2% Ointment Foilpak UD TOP SCH (02:11)
--- NOTE | 2016-11-18 05:05 | PN ---
PULMONARY PROGRESS NOTE DATE: 11/17/2016 REFERRING PHYSICIAN: Dr. Ibarra. SUBJECTIVE: She is unresponsive. Family is at the bedside. On nasal cannula oxygen. No hemoptysis, no hematemesis, no hematuria No diarrhea reported. OBJECTIVE GENERAL: In no acute distress. VITAL SIGNS: Temperature is 98, heart rate is 95, respiratory rate is 20, blood pressure 150/70, pulse ox 98% on nasal cannula. HEENT: Moist mucous membrane. No oral thrush noted. NECK: Supple. No JVD. LUNGS: Fair airflow with few rhonchi. Poor effort though. HEART: S1 and S2. ABDOMEN: Soft, nontender. No organomegaly. EXTREMITIES: No edema. NEUROLOGIC: Unresponsive. MEDICATIONS: She is on amantadine 100 mg G-tube daily afternoon, hydralazine 10 mg q. 6 hours p.r.n.,Cardizem 60 mg q. 6 hour, also on IV Cardizem, also on Keppra 250 mg twice daily, digoxin 25 mg daily, Pletal 50 mg twice a day, Protonix 40 mg daily, Tenormin 25 mg twice a day, Tylenol p.r.n., and Xopenex p.r.n. basis. LABORATORY DATA: Shows hemoglobin 9.3, hematocrit 27.6, WBC 11.2, platelets is 73. Sodium 137, potassium 3.8, chloride 104, bicarbonate 26, BUN 29, creatinine 0.8, glucose 124, calcium is 8.7, AST 54, and ALT 60, alkaline phosphatase 109, albumin is 2.9. Chest x-ray done today shows low active pulmonary disease. Feeding tube is at [facility]. IMPRESSION AND PLAN: Large ischemic stroke, also had a hemorrhagic stroke. There is also cerebellar infarct, severe cardiomyopathy, respiratory failure. The patient is DNR and DNI, seen by stroke director. Continue G-tube feeding, antiseizure medication, Pletal, vasodilator. Overall, poor prognosis. Spoke to the family at bedside. All the questions answered. Spoke to the nursing staff. Overall, seems grave prognosis. We will order labs for the morning and we will follow with you. Kayden Frost MD
[2016-11-18 07:55] LABS: BASO # 0.07 K/mm3 (0.0-2.0); BASO % 0.5 % (0.0-3.0); GRAN # 11.96 (1.4-6.5); GRAN % 79.3 % (50.0-68.0); HEMOGLOBIN 9.7 g/dL (12.0-16.0); LYMPH # 1.6 (1.2-3.4); LYMPH % 10.4 % (22.0-35.0); MEAN CELL VOLUME 97.4 fl (80.0-105.0); MEAN CORPUSCULAR HEMOGLOBIN 31.6 pg (25.0-35.0); MEAN CORPUSCULAR HGB CONC 32.4 g/dl (31.0-37.0); MEAN PLATELET VOLUME 10.8 fl (7.0-11.0); MONO # 1.5 (0.1-0.6); MONO % 9.8 % (1.0-6.0); PLATELET COUNT 93 10^3/uL (120.0-450.0); RBC 3.07 10^6/uL (3.5-6.1); RED CELL DISTRIBUTION WIDTH 19.1 % (11.5-14.5); WHITE BLOOD COUNT 15.1 10^3/ul (4.5-11.0)
[2016-11-18 08:09] LABS: ALB/GLOB RATIO 1.2 (1.1-1.8); ALBUMIN 3.5 g/dL (3.0-4.8); ALT/SGPT 56 U/L (7-56); AST/SGOT 58 U/L (15-39); BLOOD UREA NITROGEN 34 mg/dL (7-21); CALCIUM 9.1 mg/dL (8.4-10.5); GFR AFRICAN-AMERICAN > 60; GFR NON-AFRICAN AMERICAN > 60
[2016-11-18 08:27] VITALS: RESP 30; TEMP 97.8
--- NOTE | 2016-11-18 09:28 | CP.PCM.PN ---
Subjective - Date & Time of Evaluation Date of Evaluation: 11/18/16 Time of Evaluation: 08:50 - Subjective Subjective: Seen and examined at the bedside this morning, patient with labored breathing and on BiPAP. Jevity feeding running at 45 cc an hour and no reports of residual as per nursing staff. No reports of overt GI bleed. Objective - Vital Signs/Intake and Output Vital Signs (last 24 hours): Temp Pulse Resp BP Pulse Ox 97.8 F 86 30 H 135/85 100 11/18/16 08:26 11/18/16 08:26 11/18/16 08:26 11/18/16 08:26 11/18/16 08:26 Intake and Output: 11/18/16 11/18/16 06:59 18:59 Intake Total 540 Output Total 500 Balance 40 - Medications Medications: Current Medications Acetaminophen (Tylenol 160mg/5ml Oral Soln) 320 mg PO Q4 PRN PRN Reason: Pain, Mild (1-3) Last Admin: 11/16/16 15:59 Dose: 320 mg Amantadine HCl (Amantadine 100 Mg Cap) 100 mg PO DAILY [facility] Last Admin: 11/17/16 13:48 Dose: 100 mg Atenolol (Tenormin) 25 mg PO BID [facility] Last Admin: 11/17/16 18:03 Dose: 25 mg Cilostazol (Pletal) 50 mg PO BID [facility] Last Admin: 11/17/16 18:03 Dose: 50 mg Digoxin (Lanoxin) 0.25 mg PO 1400 [facility] Last Admin: 11/17/16 13:54 Dose: 0.25 mg Diltiazem HCl (Cardizem) 60 mg PO Q6H [facility] Last Admin: 11/18/16 03:58 Dose: 60 mg Home Med (Home Med) 500 unit PO Q12 [facility] Last Admin: 11/17/16 21:28 Dose: 500 unit Home Med (Home Med) 0 unit NG Q4H [facility] Stop: 12/05/16 14:01 Last Admin: 11/18/16 05:06 Dose: 1 unit Hydralazine HCl (Apresoline) 10 mg IVP Q6 PRN PRN Reason: for sbp.170 and/0r diastolic> Last Admin: 11/17/16 18:07 Dose: 10 mg diltiaZEM IVPB 100mg in NS (Cardizem 100mg In Ns) 100 mls @ 10 mls/hr IV .Q10H PRN; Protocol; 10 MG/HR PRN Reason: TITRATE PER MD ORDER Last Admin: 11/15/16 06:33 Dose: 10 mg/hr, 10 mls/hr Levalbuterol HCl (Xopenex) 0.63 mg IH [id number] PRN PRN Reason: Shortness of Breath Last Admin: 11/17/16 17:46 Dose: 0.63 mg Levetiracetam (Keppra) 250 mg PO BID [facility] Last Admin: 11/17/16 18:02 Dose: 250 mg Nitroglycerin (Nitro-Bid 2% Oint) 1 ea TOP Q6H [facility] Last Admin: 11/18/16 02:11 Dose: 1 ea Pantoprazole Sodium (Protonix Inj) 40 mg IVP DAILY [facility] Last Admin: 11/17/16 11:06 Dose: 40 mg - Labs Labs: 11/18/16 07:00 11/18/16 07:00 PT 12.0 Seconds (9.9-11.8) H 11/10/16 09:00 INR 1.11 (0.93-1.08) H 11/10/16 09:00 APTT 25.8 Seconds (23.7-30.8) 11/05/16 15:40 - Constitutional Appears: Chronically Ill - Head Exam Head Exam: NORMAL INSPECTION - Eye Exam Eye Exam: absent: Scleral icterus - ENT Exam ENT Exam: Mucous Membranes Moist - Neck Exam Neck Exam: Normal Inspection - Respiratory Exam Respiratory Exam: Rales, Rhonchi, Respiratory Distress (labored breathing) - Cardiovascular Exam Cardiovascular Exam: +S1, +S2 - GI/Abdominal Exam GI & Abdominal Exam: Soft - Neurological Exam Neurological Exam: Altered - Skin Skin Exam: Dry, Warm Assessment and Plan - Assessment and Plan (Free Text) Assessment: ASSESSMENT: Spontaneous SAH Thrombocytopenia Multiple B/L cerebellar stroke, left occipital stroke, R MCA H/O Lung Cancer HTN Oropharyngeal Dysphagia Elevated LFT, improving CAD PLAN: discuss w/ nursing staff hold tube feeds for now monitor electrolytes On IV cardiziem continue PPI DVT prophylaxis/SCD DNR/DNI, Nadeen Paramonte at bedside, call put out to family. Seen and discussed w/ Dr. Casotrena. ADDENDUM: family decide to place patient on [facility].
--- NOTE | 2016-11-18 10:13 | CP.PCM.PCO ---
Physician Communication Note - Physician Communication Note Physician Communication Note: D/C telemetry, D/C SCD's
--- NOTE | 2016-11-18 10:25 | CP.PCM.PN ---
Subjective - Date & Time of Evaluation Date of Evaluation: 11/18/16 Time of Evaluation: 10:00 - Subjective Subjective: Unresponsive, irregular shallow breathing. Objective - Vital Signs/Intake and Output Vital Signs (last 24 hours): Temp Pulse Resp BP Pulse Ox 97.8 F 85 30 H 135/85 100 11/18/16 08:26 11/18/16 10:07 11/18/16 08:26 11/18/16 08:26 11/18/16 08:26 Intake and Output: 11/18/16 11/18/16 06:59 18:59 Intake Total 540 Output Total 500 Balance 40 - Medications Medications: Current Medications Acetaminophen (Tylenol 650 Mg Supp) 650 mg RC Q4H PRN PRN Reason: Fever >100.4 F Atenolol (Tenormin) 25 mg PO BID COUNT INCLUDES THE [facility] Last Admin: 11/17/16 18:03 Dose: 25 mg Digoxin (Lanoxin) 0.25 mg PO 1400 COUNT INCLUDES THE [facility] Last Admin: 11/17/16 13:54 Dose: 0.25 mg Home Med (Home Med) 500 unit PO Q12 COUNT INCLUDES THE [facility] Last Admin: 11/17/16 21:28 Dose: 500 unit Home Med (Home Med) 0 unit NG Q4H COUNT INCLUDES THE [facility] Stop: 12/05/16 14:01 Last Admin: 11/18/16 05:06 Dose: 1 unit Hydralazine HCl (Apresoline) 10 mg IVP Q6 PRN PRN Reason: for sbp.170 and/0r diastolic> Last Admin: 11/17/16 18:07 Dose: 10 mg Levalbuterol HCl (Xopenex) 0.63 mg IH [id number] PRN PRN Reason: Shortness of Breath Last Admin: 11/17/16 17:46 Dose: 0.63 mg Levetiracetam (Keppra) 250 mg PO BID COUNT INCLUDES THE [facility] Last Admin: 11/17/16 18:02 Dose: 250 mg Scopolamine (Transderm-Scop) 1 patch TD Q3D COUNT INCLUDES THE [facility] - Labs Labs: 11/18/16 07:00 11/18/16 07:00 PT 12.0 Seconds (9.9-11.8) H 11/10/16 09:00 INR 1.11 (0.93-1.08) H 11/10/16 09:00 APTT 25.8 Seconds (23.7-30.8) 11/05/16 15:40 - Constitutional Appears: Cachectic, Chronically Ill - Head Exam Head Exam: NORMOCEPHALIC - Eye Exam Additional comments: sluggish accommodation - Respiratory Exam Respiratory Exam: Decreased Breath Sounds, Rhonchi Additional comments: irregular breathin - Cardiovascular Exam Cardiovascular Exam: REGULAR RHYTHM, +S1, +S2 - GI/Abdominal Exam GI & Abdominal Exam: Diminished Bowel Sounds - Extremities Exam Extremities Exam: Pedal Edema Additional comments: flaccid - Neurological Exam Neurological Exam: Altered - Skin Skin Exam: Dry, Warm Assessment and Plan - Assessment and Plan (Free Text) Assessment: 76 year old female with history of lung cancer, HTN who suffered an acute ischemic stroke, subarachnoid hemorrhage. Patient's condition deteriorating. She is unresponsive, shallow irregular breathing, CPAP in use. Family at bedside Goals of care discussed. Family recognizes that patient is nearing end of life. Hospice services explained in detail. Option for hospice care offered. Family is agreeable to comfort care/ hospice. Hospice evaluation for GIP services 11:45 am Family met with Rebecca relations liaison and signed consent for in patient hospice services. Plan: Case discussed with Dr Khadar Ibarra who is agreeable with plan; Hospice evaluation for GIP services Discharge and admit to hospice
[2016-11-18] MEDS ORDERED: Morphine 2 mg/ml ISec IVP PRN (11:23)
[2016-11-18 11:48] VITALS: BP 184/76; PULSE 93
--- NOTE | 2016-11-18 12:18 | PN ---
DATE: 11/18/2016 LOCATION: The patient is in room 377, bed 1. REASON FOR CONSULTATION: Followup non-ST segment elevation myocardial infarction, lung carcinoma, pancytopenia, CVA, and comatose. SUBJECTIVE: The patient is comatose, having rapid breathing. PHYSICAL EXAMINATION: VITAL SIGNS: Blood pressure 135/85, respirations 30, pulse 86, and temperature 97.8. HEENT: Head is normocephalic. Eyes; pupils normal. Conjunctivae pale. NECK: JVP low. Carotids equal. Thorax; AP diameter normal. LUNGS: No significant rales. CARDIOVASCULAR: S1 and S2. ABDOMEN: Soft and nontender. No organomegaly. EXTREMITIES: No clubbing. No cyanosis. LABORATORY DATA: WBC 15.1, hemoglobin 9.7, hematocrit 29.9, and platelet 93. Sodium 140, potassium 5.0, BUN 34, creatinine 0.9, and random glucose 143. AST 58, ALT 56, alkaline phosphatase 140, total protein 6.5, and albumin 3.5. DIAGNOSES: The patient is comatose; tachypneic breathing, not responding; history of coronary artery disease, status post angioplasty and stent insertion; recent catheterization in 03/2016, which showed patent stent; history of deep venous thrombosis, status post inferior vena cava insertion; lung cancer; pancytopenia; severe thrombocytopenia; intracerebral bleed; cerebrovascular accident; the patient is tachypneic; and the patient is DO NOT RESUSCITATE AND DO NOT INTUBATE status. PLAN: We will continue supportive care. Prognosis is poor. We will follow. Kayden Cruz MD
--- NOTE | 2016-11-18 13:32 | PN ---
DATE: 11/17/2016 SUBJECTIVE: The patient seen and examined on the bedside. Family was around, specially I have discussion done with the patient's daughter. No change in the status. The patient has NG tube and oxygen on the nasal cannula. No fever, no chills, is not able give review systems. PHYSICAL EXAMINATION VITAL SIGNS: Temperature 98.1, heart rate 90, respiratory rate 18, blood pressure 130/70, pulse oximetry 98% on nasal cannula. HEENT: Head; normocephalic and atraumatic. Eyes; PERRLA. Extraocular muscles intact. Conjunctivae clear. Nose is patent. Mucous membranes moist. NECK: Supple. No carotid bruits, JVD or thyromegaly. LUNGS: Fair airflow with rhonchi, poor effort though. HEART: S1 and S2 positive. ABDOMEN: Soft. Nontender, no organomegaly. EXTREMITIES: No edema. No cyanosis. NEUROLOGIC: The patient is unresponsive. Cannot complete neurologic examination. MEDICATIONS: Amantadine started by the neurologist with GE tube, hydralazine, Cardizem, Keppra, neurologist decreased the dose, digoxin, Pletal, Protonix, Tenormin, Tylenol, and Xopenex. LABORATORY DATA: Hemoglobin 9.3, hematocrit 27.6, white blood cell 11.2, platelets 73. Sodium 137, potassium 3.8, BUN 29, creatinine 0.8, AST 54, and ALT 60. ASSESSMENT AND PLAN: The patient is a 76-year-old lady with multiple medical problems. Large ischemic stroke, hemorrhagic stroke also, cerebral infarction, severe cardiomyopathy, respiratory failure. The patient is do not resuscitate and do not intubate. Seen by stroke doctor. Discussion done with stroke doctor, getting G-tube feeding, anti-seizure medication, Pletal, vasodilator. Prognosis is poor. Spoke to the family. All questions answered. Labs reviewed. MAR reviewed. According to Dr. Jimmy Silva, no seizure activity noted, on EEG shows diffuse slowing, but this was after the patient was started on Keppra. He decreased the Keppra from 500 mg to 250 mg b.i.d. to promote more wakeful. Continue nimodipine for 21 days as per neurology. The patient had stroke may be due cardioembolic etiology or diffuse cerebral vasospasm possibly reactive to SAH. Discussing with family about hospice. Appreciated Dr. Dr. Lucio Frost, CARRIE Lomeli input, and Dr. Jack Acosta input. We will follow up. Bhumi Ibarra MD
--- NOTE | 2016-11-18 14:44 | CP.PCM.PN ---
Subjective - Date & Time of Evaluation Date of Evaluation: 11/18/16 Time of Evaluation: 10:00 - Subjective Subjective: Heme/Onc note for Dr Taveras Pt was seen and examined at bedside. Pt is nonresponsive to verbal or tactile stimuli. She has agonal breathing. I along with palliative spoke to the patients family which agreed on Hospice care. Family was understanding. All questions were answered. ROS: 12 point unobtainable Objective - Vital Signs/Intake and Output Vital Signs (last 24 hours): Temp Pulse Resp BP Pulse Ox 97.8 F 93 H 30 H 184/76 H 100 11/18/16 08:26 11/18/16 11:44 11/18/16 08:26 11/18/16 11:44 11/18/16 08:26 Intake and Output: 11/18/16 11/18/16 06:59 18:59 Intake Total 540 Output Total 500 Balance 40 - Labs Labs: 11/18/16 07:00 11/18/16 07:00 PT 12.0 Seconds (9.9-11.8) H 11/10/16 09:00 INR 1.11 (0.93-1.08) H 11/10/16 09:00 APTT 25.8 Seconds (23.7-30.8) 11/05/16 15:40 - Constitutional Appears: No Acute Distress - Head Exam Head Exam: ATRAUMATIC, NORMAL INSPECTION, NORMOCEPHALIC - Eye Exam Eye Exam: PERRL - ENT Exam ENT Exam: Mucous Membranes Moist - Respiratory Exam Respiratory Exam: Rales, Rhonchi - Cardiovascular Exam Cardiovascular Exam: RRR, +S1, +S2 - GI/Abdominal Exam GI & Abdominal Exam: Soft. absent: Tenderness - Extremities Exam Extremities Exam: absent: Calf Tenderness, Pedal Edema - Skin Skin Exam: Dry, Warm Assessment and Plan - Assessment and Plan (Free Text) Assessment: 76F with pmhx significant for stage breast cancer, GA s/p PCI, IV lung cancer on mi'kmaq/etop who presents with dizziness, lightheadedness and confusion x3 days and subsequently found to have left front SAH in setting of severe thrombocytopenia whose hospital course has been complicated by an acute right sided front distribution MCA infarct secondary to transient drop in blood pressures resulting in left sided hemiparesis. Pt now hospice care. - Pt is DNR/DNI - Patient family agreed on hospice care to make her more comfortable. Family was understanding and all questions were answered - Care as per palliative consult and recs Pt was reviewed and discussed in detail with Dr Taveras.
--- NOTE | 2016-11-19 00:10 | CP.PCM.DIS ---
Provider - Provider Date of Admission: 11/05/16 17:01 discharge summery for 11/18/16 Attending physician: Bhumi Ibarra MD Primary care physician: NO PRIMARY CARE PROVIDER Time Spent in preparation of Discharge (in minutes): 60 Diagnosis - Discharge Diagnosis (1) Anemia Status: Acute (2) Leukopenia Status: Acute (3) Subarachnoid hemorrhage Status: Acute Priority: High (4) Thrombocytopenia Status: Acute (5) Bronchitis Status: Acute (6) Chronic systolic CHF (congestive heart failure), NYHA class 2 Status: Acute (7) Dyspnea Status: Acute (8) Hypokalemia Status: Acute (9) Lung cancer Status: Acute (10) Odynophagia Status: Acute (11) Neutropenic fever Status: Acute (12) Pancytopenia Status: Acute (13) Prophylactic measure Status: Acute (14) Pulmonary embolism Status: Acute (15) Pulmonary embolism Status: Acute (16) Troponin I above reference range Status: Acute (17) Acute on chronic systolic and diastolic heart failure, NYHA class 2 Status: Chronic (18) CAD (coronary artery disease) Status: Chronic (19) Chronic obstructive lung disease Status: Chronic (20) Dyspnea Status: Chronic (21) HTN (hypertension) Status: Chronic (22) Indigestion Status: Chronic (23) Lung nodule Status: Chronic Hospital Course - Lab Results Lab Results: Micro Results 11/14/16 23:04 Naris MRSA Culture (Admit) - Final MRSA NOT DETECTED 11/05/16 20:17 Naris MRSA Culture (Admit) - Final MRSA NOT DETECTED Most Recent Lab Values WBC 15.1 10^3/ul (4.5-11.0) H D 11/18/16 07:00 RBC 3.07 10^6/uL (3.5-6.1) L 11/18/16 07:00 Hgb 9.7 g/dL (12.0-16.0) L 11/18/16 07:00 Hct 29.9 % (36.0-48.0) L 11/18/16 07:00 MCV 97.4 fl (80.0-105.0) D 11/18/16 07:00 MCH 31.6 pg (25.0-35.0) 11/18/16 07:00 MCHC 32.4 g/dl (31.0-37.0) 11/18/16 07:00 RDW 19.1 % (11.5-14.5) H 11/18/16 07:00 Plt Count 93 10^3/uL (120.0-450.0) L 11/18/16 07:00 Manual Plt Count 56 K/mm3 (120-450) L* 11/11/16 05:35 MPV 10.8 fl (7.0-11.0) 11/18/16 07:00 Gran % 79.3 % (50.0-68.0) H 11/18/16 07:00 Lymph % (Auto) 10.4 % (22.0-35.0) L 11/18/16 07:00 [place] % (Auto) 9.8 % (1.0-6.0) H 11/18/16 07:00 Eos % (Auto) 0.0 % (1.5-5.0) L 11/18/16 07:00 Baso % (Auto) 0.5 % (0.0-3.0) 11/18/16 07:00 Gran # 11.96 (1.4-6.5) H 11/18/16 07:00 Lymph # 1.6 (1.2-3.4) 11/18/16 07:00 [place] # 1.5 (0.1-0.6) H 11/18/16 07:00 Eos # 0.0 (0.0-0.7) 11/18/16 07:00 Baso # 0.07 K/mm3 (0.0-2.0) 11/18/16 07:00 Neutrophils % (Manual) 74 % (50.0-70.0) H 11/17/16 06:15 Band Neutrophils % 9 % (0-2) H 11/17/16 06:15 Lymphocytes % (Manual) 15 % (22.0-35.0) L 11/17/16 06:15 Monocytes % (Manual) 2 % (1.0-6.0) 11/17/16 06:15 Eosinophils % (Manual) 1 % (0.0-3.0) 11/11/16 05:35 Metamyelocytes % 1 % 11/10/16 03:35 Myelocytes % 2 % 11/13/16 06:20 Nucleated RBC % 3 % 11/17/16 06:15 Toxic Granulation Slight 11/13/16 06:20 Platelet Evaluation Low (NORMAL) 11/17/16 06:15 Anisocytosis (manual) Slight 11/17/16 06:15 Microcytosis (manual) 1+ 11/17/16 06:15 PT 12.0 Seconds (9.9-11.8) H 11/10/16 09:00 INR 1.11 (0.93-1.08) H 11/10/16 09:00 APTT 25.8 Seconds (23.7-30.8) 11/05/16 15:40 D-Dimer, Quantitative > 35.0 mg/L FEU (0-0.50) H 11/13/16 09:00 pCO2 27 mm/Hg (35-45) L 11/13/16 17:50 pO2 41 mm/Hg (30-55) 11/15/16 09:50 HCO3 21.1 mmol/L (21-28) 11/13/16 17:50 ABG pH 7.50 (7.35-7.45) H 11/13/16 17:50 ABG Total CO2 21.9 mmol.L (22-28) L 11/13/16 17:50 ABG O2 Saturation 100.0 % (95-98) H 11/13/16 17:50 ABG O2 Content 12.7 ML/dl (15-23) L 11/13/16 17:50 ABG Base Excess -1.5 mmol/L (-2.0-3.0) 11/13/16 17:50 ABG Hemoglobin 8.5 g/dL (11.7-17.4) L 11/13/16 17:50 ABG Carboxyhemoglobin 1.6 % (0.5-1.5) H 11/13/16 17:50 POC ABG HHb (Measured) 0 % (0-5) 11/13/16 17:50 ABG Methemoglobin 1.2 % (0.0-3.0) 11/13/16 17:50 ABG O2 Capacity 12.7 mL/dl (16-24) L 11/13/16 17:50 VBG pH 7.39 (7.32-7.43) 11/15/16 09:50 VBG pCO2 40.0 (40-60) 11/15/16 09:50 VBG HCO3 24.2 mmol/l (21-28) 11/15/16 09:50 VBG Total CO2 25.4 mmol.L (22-28) 11/15/16 09:50 VBG O2 Sat (Calc) 80.1 % (40-65) H 11/15/16 09:50 VBG Base Excess -0.7 mmol/L (0.0-2.0) L 11/15/16 09:50 VBG Potassium 3.8 mmol/L (3.6-5.2) 11/15/16 09:50 Hgb O2 Saturation 97.3 % (95.0-98.0) 11/13/16 17:50 Sodium 140.0 mmol/L (132-148) 11/15/16 09:50 Chloride 110.0 mmol/L (98-107) H 11/15/16 09:50 Glucose 142 mg/dl (65-105) H 11/15/16 09:50 Lactate 2.7 mmol/L (0.7-2.1) H 11/15/16 09:50 FiO2 21.0 % 11/15/16 09:50 Sodium 140 mmol/L (132-148) 11/18/16 07:00 Potassium 5.0 mmol/L (3.6-5.0) 11/18/16 07:00 Chloride 104 mmol/L (95-110) 11/18/16 07:00 Carbon Dioxide 26 mmol/L (21-33) 11/18/16 07:00 Anion Gap 15 (10-20) 11/18/16 07:00 BUN 34 mg/dL (7-21) H 11/18/16 07:00 Creatinine 0.9 mg/dL (0.5-1.4) 11/18/16 07:00 Est GFR ( Amer) > 60 11/18/16 07:00 Est GFR (Non-Af Amer) > 60 11/18/16 07:00 POC Glucose (mg/dL) 191 mg/dL (65-110) H 11/16/16 11:45 Random Glucose 143 mg/dL (70-110) H 11/18/16 07:00 Hemoglobin A1c 6.0 % (4.2-6.5) 11/05/16 15:40 Calcium 9.1 mg/dL (8.4-10.5) 11/18/16 07:00 Phosphorus 3.2 mg/dL (2.5-4.5) 11/13/16 06:20 Magnesium 1.4 mg/dL (1.7-2.2) L 11/13/16 06:20 Total Bilirubin 1.1 mg/dL (0.2-1.3) 11/18/16 07:00 AST 58 U/L (15-39) H 11/18/16 07:00 ALT 56 U/L (7-56) 11/18/16 07:00 Alkaline Phosphatase 140 U/L (38-133) H 11/18/16 07:00 Ammonia < 9 umol/L (9-33) L 11/09/16 19:15 Lactate Dehydrogenase 863 U/L (333-699) H 11/08/16 05:30 Total Creatine Kinase 62 U/L (35-230) 11/08/16 05:30 Troponin I 4.63 ng/mL H* 11/15/16 01:20 NT-Pro-B Natriuret Pep 23634 pg/mL (0-450) H 11/13/16 06:20 Total Protein 6.5 g/dL (5.8-8.3) 11/18/16 07:00 Albumin 3.5 g/dL (3.0-4.8) 11/18/16 07:00 Globulin 3.0 gm/dL 11/18/16 07:00 Albumin/Globulin Ratio 1.2 (1.1-1.8) 11/18/16 07:00 Triglycerides 114 mg/dL (35-160) 11/05/16 15:40 Cholesterol 179 mg/dL (130-200) 11/05/16 15:40 LDL Cholesterol Direct 97 mg/dL (0-129) 11/05/16 15:40 HDL Cholesterol 65 mg/dL (29-60) H 11/05/16 15:40 Procalcitonin 17.95 NG/ML (0.19-0.49) H 11/14/16 20:28 Venous Blood Potassium 3.8 mmol/L (3.6-5.2) 11/15/16 09:50 Blood Type A POSITIVE 11/15/16 12:00 Antibody Screen Negative 11/15/16 12:00 Crossmatch See Detail 11/15/16 12:00 BBK History Checked Patient has bt 11/15/16 12:00 - Hospital Course Hospital Course: 76F with PMH of breast cancer (currently on chemo) and GA s/p 2 stents, presented to ED for slurred speech and AMS x past 3 days. She received chemotherapy 2 weeks earlier, and was receiving unknown injections at Dr Rodriguez's ( Oncologist) office this Monday. On , she had a sudden onset of slurred speech and altered mentation. Son noticed it today, and brought her to ER. She c /o mild right sided weakness and some nausea. Denies f/c/vomiting, cp, sob, abdominal pain, urinary frequency/burning. In Ed, pt AAOx3, + slurred speech, pancytopenic, wbc 1.1, hgb 6.6, plts 3, elevated trop 0.69, head Ct significant for small L frontal SAH. ICU consulted for airway protection, possible further deterioration/management.multiple physicians consults called , kept in icu , pt was dnr and dni Patient's condition deteriorating. She is unresponsive, shallow irregular breathing, CPAP in use. Family at bedside Goals of care discussed. Family recognizes that patient is nearing end of life. Hospice services explained in detail. Option for hospice care offered. Family is agreeable to comfort care/ hospice. Hospice evaluation for GIP services 11:45 am Family met with Rebecca damage inside adjuster and signed consent for in patient hospice services. Plan: Case discussed with family and treating team , who is agreeable with plan; Hospice evaluation for GIP services Discharge and admit to ho Discharge Exam - Head Exam Head Exam: NORMAL INSPECTION, NORMOCEPHALIC - Eye Exam Additional comments: close - ENT Exam ENT Exam: Normal External Ear Exam - Neck Exam Neck exam: Normal Inspection - Respiratory Exam Respiratory Exam: Accessory Muscle Use, Decreased Breath Sounds - Cardiovascular Exam Cardiovascular Exam: Tachycardia - GI/Abdominal Exam GI & Abdominal Exam: Normal Bowel Sounds - Rectal Exam Rectal Exam: NORMAL INSPECTION - Exam Exam: Circumcision, NORMAL INSPECTION External exam: NORMAL EXTERNAL EXAM Speculum exam: NORMAL SPECULUM EXAM Bimanual exam: NORMAL BIMANUAL EXAM - Extremities Exam Extremities exam: pedal edema - Back Exam Back exam: NORMAL INSPECTION - Neurological Exam Additional comments: pt is unresponsive - Skin Skin Exam: Dry, Intact, Normal Color, Warm Discharge Plan - Follow Up Plan Condition: SERIOUS Disposition: HOSPICE - MEDICAL FACILITY Referrals: PCP,NO [Primary Care Provider] -
== END 2016-11-18 12:04 | disposition hospice, inpatient (51) | DRG 64 ==
LOC: ED 14:15 → ERH 17:01 → CCU 20:05 → 3RNO 11-11 20:34 → 2RNO 11-13 23:09 → CCU 11-14 21:21 → 3RSO 11-17 06:31
PROVIDERS: ADMIT Internal Medicine; ATTEND Internal Medicine
PROC: 30233N1 Transfusion of Nonautologous Red Blood Cells into Peripheral Vein, Percutaneous Approach (ICD-10-PCS; 2016-11-05)
PROC: 6A551Z2 Pheresis of Platelets, Multiple (ICD-10-PCS; 2016-11-05)
PROC: 5A09357 Assistance with Respiratory Ventilation, Less than 24 Consecutive Hours, Continuous Positive Airway Pressure (ICD-10-PCS; 2016-11-08)
PROC: 3E0336Z Introduction of Nutritional Substance into Peripheral Vein, Percutaneous Approach (ICD-10-PCS; principal; 2016-11-12)
PROC: 5A09357 Assistance with Respiratory Ventilation, Less than 24 Consecutive Hours, Continuous Positive Airway Pressure (ICD-10-PCS; 2016-11-13)
PROC: 5A09357 Assistance with Respiratory Ventilation, Less than 24 Consecutive Hours, Continuous Positive Airway Pressure (ICD-10-PCS; 2016-11-18)
DX: I60.9 Nontraumatic subarachnoid hemorrhage, unspecified (principal); I50.43 Acute on chronic combined systolic (congestive) and diastolic (congestive) heart failure; I21.4 Non-ST elevation (NSTEMI) myocardial infarction; I63.511 Cerebral infarction due to unspecified occlusion or stenosis of right middle cerebral artery; J96.90 Respiratory failure, unspecified, unspecified whether with hypoxia or hypercapnia; R40.20 Unspecified coma; R13.12 Dysphagia, oropharyngeal phase; C34.90 Malignant neoplasm of unspecified part of unspecified bronchus or lung; G81.04 Flaccid hemiplegia affecting left nondominant side; I42.9 Cardiomyopathy, unspecified; D61.810 Antineoplastic chemotherapy induced pancytopenia; I11.0 Hypertensive heart disease with heart failure; D70.9 Neutropenia, unspecified; R50.81 Fever presenting with conditions classified elsewhere; I27.2 Other secondary pulmonary hypertension; J44.9 Chronic obstructive pulmonary disease, unspecified; Z51.5 Encounter for palliative care; Z66 Do not resuscitate; I25.10 Atherosclerotic heart disease of native coronary artery without angina pectoris; E87.6 Hypokalemia; H91.90 Unspecified hearing loss, unspecified ear; R47.81 Slurred speech; I08.1 Rheumatic disorders of both mitral and tricuspid valves; G47.30 Sleep apnea, unspecified; I65.02 Occlusion and stenosis of left vertebral artery; I48.91 Unspecified atrial fibrillation; R29.810 Facial weakness; R56.9 Unspecified convulsions; Z85.3 Personal history of malignant neoplasm of breast; Z87.891 Personal history of nicotine dependence; Z95.5 Presence of coronary angioplasty implant and graft; Z86.711 Personal history of pulmonary embolism; Z86.718 Personal history of other venous thrombosis and embolism

== ENCOUNTER 2016-11-18 12:04 | Inpatient (IN) | payer OTHER ==
[2016-11-17 13:56] VITALS: PULSE 95
[2016-11-18] MEDS ORDERED: Morphine PCA 1 mg/ml (25ml) 25 ML IV PRN ×2 (12:16→18:14)
[2016-11-18] MEDS ORDERED: DiphenhydrAMINE 50 mg/ml Inj IVP STA (15:18)
[2016-11-18 16:47] VITALS: BP 184/76; PULSE 93; RESP 30
[2016-11-18 21:41] VITALS: TEMP 102
--- NOTE | 2016-11-19 07:13 | CP.PCM.PN ---
Subjective - Date & Time of Evaluation Date of Evaluation: 11/19/16 Time of Evaluation: 07:10 - Subjective Subjective: called by nurse to see pt . pt with no response no pule no bp , not breathing pt at 7: am. 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 pt was dnr and hospice. family is at bed side.
--- NOTE | 2016-11-20 05:09 | HP ---
CHIEF COMPLAINT: Shortness of breath, not feeling very well. HISTORY OF PRESENT ILLNESS: Mrs. Tiffany Gordon is a 76 years old lady who came to [facility] with shortness of breath, not feeling very well. We admitted the patient on the acute side , history of breast cancer, status post SD, status post 2 stents, initially was admitted for spontaneous subarachnoid hemorrhage in the setting of severe thrombocytopenia. The patient was initially stable, was became unstable, got another stroke, from the floor brought back to the unit, the patient was made DNR and DNI. The patient was getting Ativan and Keppra. EEG was done, and finally length of time discussion done by Medina Peacock and made the patient hospice. PAST MEDICAL HISTORY: History of breast cancer, SD, subarachnoid hemorrhage, obstructive sleep apnea, getting CPAP. PAST SURGICAL HISTORY: Noncontributory. FAMILY HISTORY: Noncontributory. HABITS: Quit smoking in 02/2015. No ethanol. No drugs. ALLERGIES: THE PATIENT IS NOT ALLERGIC TO ANY MEDICATIONS. MEDICATIONS: Reviewed by me. REVIEW OF SYSTEMS: Reviewed. The patient is unconscious, is not able to give review of systems, so review of system is very limited. PHYSICAL EXAMINATION: VITAL SIGNS: Temperature 102, pulse 93, blood pressure 184/73, and respiratory rate 30. HEENT: Head is normocephalic and atraumatic. Eyes closed. Nose patent. Mucous membrane moist. NECK: Supple. No carotid bruit or thyromegaly. CHEST: Bilaterally symmetrical. HEART: Very slow. ABDOMEN: Soft. Bowel sounds positive. EXTREMITIES: No edema. No cyanosis. NEUROLOGIC: The patient is comatose and cannot be done. LABORATORY DATA: Reviewed by me. ASSESSMENT AND PLAN: History of anemia and leukopenia, subarachnoid hemorrhage, thrombocytopenia, bronchitis, congestive heart failure, dyspnea, electrolyte imbalance, lung cancer, odynophagia, neutropenic fever, pancytopenia, prophylactic measures were given, coronary artery disease, and hypertension. The patient got deteriorated. History of cardiac stent. The patient made DNR and DNI, then finally hospice. today, family around, and body released. Bhumi Ibarar MD [facility] # [id number] [email or web address]
== END 2016-11-19 07:00 | DRG 65 ==
LOC: 3RSO 12:04
PROVIDERS: ADMIT Internal Medicine; ATTEND Internal Medicine
DX: I60.9 Nontraumatic subarachnoid hemorrhage, unspecified (principal); C34.90 Malignant neoplasm of unspecified part of unspecified bronchus or lung; D61.818 Other pancytopenia; E87.8 Other disorders of electrolyte and fluid balance, not elsewhere classified; D70.9 Neutropenia, unspecified; D69.6 Thrombocytopenia, unspecified; I50.9 Heart failure, unspecified; R13.10 Dysphagia, unspecified; J40 Bronchitis, not specified as acute or chronic; D64.9 Anemia, unspecified; I10 Essential (primary) hypertension; G47.33 Obstructive sleep apnea (adult) (pediatric); I25.10 Atherosclerotic heart disease of native coronary artery without angina pectoris; I25.2 Old myocardial infarction; Z85.3 Personal history of malignant neoplasm of breast; Z95.5 Presence of coronary angioplasty implant and graft; Z66 Do not resuscitate; Z87.891 Personal history of nicotine dependence; D72.819 Decreased white blood cell count, unspecified; R50.81 Fever presenting with conditions classified elsewhere; Z51.5 Encounter for palliative care